=== PATIENT | female | born 1955 | race Caucasian/White ===

== ENCOUNTER 2021-06-17 14:35 | Inpatient (IN) | payer MEDICARE, MEDICAID ==
[~2021-06-17] VITALS: Ht 154.9 cm; Wt 79.6 kg
[~2021-06-17 14:35] MED LIST: BABY81CH; COUM1TAB17; PRIL20CA; SENO8.6T5; [UNRECOGNIZED DRUG - OTHER]
[2021-06-17] MEDS ORDERED: AMIT25TA17 PO (14:56)
[2021-06-17] MEDS ORDERED: ELIQ2.5T PO (14:56)
[2021-06-17 17:09] LABS: BASO % 0.2 % (0.0-1.0); HEMATOCRIT 30.9 % (36.0-47.0); HEMOGLOBIN 10.2 g/dl (12.0-15.5); LYMPH # 1.1 10^3/uL (1.5-5.0); LYMPH % 9.4 % (24.0-44.0); MONO # 0.7 10^3/uL (0.0-0.8); MONO % 5.8 % (2.0-8.0); NEUTROPHILS # 9.5 10^3/uL (1.5-8.5); NEUTROPHILS % 83.6 % (36.0-66.0); PLATELET COUNT, AUTOMATED 270 10^3/uL (150-450); RED BLOOD COUNT 3.09 10^6/uL (4.00-5.40); WHITE BLOOD COUNT 11.4 10^3/uL (4.0-10.0)
[2021-06-17 17:21] LABS: INR 2.11; PROTHROMBIN TIME 24.1 SECONDS (12.7-14.5)
[2021-06-17 17:22] LABS: PARTIAL THROMBOPLASTIN TIME 37.1 SECONDS (25.9-37.0)
[2021-06-17 17:41] LABS: ALBUMIN 1.8 GM/DL (3.2-5.2); BILIRUBIN,DIRECT 1.2 MG/DL (0.0-0.2); BILIRUBIN,TOTAL 1.8 MG/DL (0.2-1.0); CALCIUM LEVEL 7.8 MG/DL (8.8-10.2); CREATININE FOR GFR 3.12 MG/DL (0.55-1.30); POTASSIUM SERUM 4.1 MEQ/L (3.5-5.1); TOTAL PROTEIN 5.4 GM/DL (6.4-8.2)
--- NOTE | 2021-06-17 18:27 | REPVR ---
PROCEDURE INFORMATION: Exam: US Nonobstetric Pelvis; Complete Exam date and time: 06/17/2021 5:32 PM Age: 65 years old Clinical indication: Other: Vaginal bleeding; Additional info: Vaginal bleeding/pelvic pain; Post-menop. TECHNIQUE: Imaging protocol: Transabdominal pelvic nonobstetric ultrasound. Complete exam. Real time ultrasound with image documentation. COMPARISON: No relevant prior studies available. FINDINGS: Uterus/cervix: Uterus measures 8.3 x 3.8 x 5.4 cm. Endometrium measures 13.1 mm. There is heterogeneous uterine echotexture. Endometrium is prominent and heterogeneous. Mildly hyperechoic endometrial focus measuring 2.3 x 1.3 x 2.0 cm. Right adnexa: Right ovary is not visualized. Left adnexa: Left ovary is not visualized. Intraperitoneal space: Ascites is present, incompletely visualized. Urinary bladder: Normal. IMPRESSION: 1. Thickened endometrium with mild endometrial fluid and prominent endometrial mildly hyperechoic focus measuring 2.3 x 1.3 x 2.0 cm. Possible neoplastic process, follow-up is recommended. 2. Ascites is incompletely visualized. 3. Bilateral ovaries are not discretely visualized. Electronically signed by: Levi Townsend On 06/17/2021 18:27:32 PM
[2021-06-17] MEDS ORDERED: NS 1,000 ML IV SCH (19:35)
[2021-06-17] MEDS ORDERED: ERGO500029 PO (20:18)
[2021-06-17] MEDS ORDERED: CARV12.5 PO (20:18)
[2021-06-17] MEDS ORDERED: LISI-898 PO (20:18)
[2021-06-17] MEDS ORDERED: ASPI81TA26 PO (20:18)
[2021-06-17] MEDS ORDERED: LEVOTAB10 PO (20:18)
[2021-06-17] MEDS ORDERED: SIMV20TA22 PO (20:18)
[2021-06-17] MEDS ORDERED: TIZA4TAB4 PO (20:18)
[2021-06-17] MEDS ORDERED: OMEP-218 PO (20:18)
[2021-06-17] MEDS ORDERED: METF500T13 PO (20:18)
[2021-06-17] MEDS: NS 1,000 ML IV SCH ×2 (20:20→23:53)
[2021-06-17] MEDS ORDERED: ACET650T15 PO (20:37)
[2021-06-17] MEDS ORDERED: BENZ200C70 PO (20:37)
[2021-06-17] MEDS ORDERED: HOME MED LIST COMPLETE! XX SCH (20:40)
[2021-06-17 21:18] LABS: RSV AMPLIFICATION NEGATIVE (NEGATIVE)
[2021-06-17] MEDS ORDERED: BENZONATATE 100MG CAPSULE PO PRN (22:20)
[2021-06-17] MEDS ORDERED: AMITRIPTYLINE 25MG TABLET PO PRN ×2 (22:20→22:24)
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
[2021-06-17 22:39] LABS: MAGNESIUM LEVEL 2.1 MG/DL (1.8-2.4)
--- NOTE | 2021-06-17 22:58 | REPVR ---
PROCEDURE INFORMATION: Exam: XR Chest Exam date and time: 06/17/2021 10:52 PM Age: 65 years old Clinical indication: Cough; Additional info: Leuk; Cough TECHNIQUE: Imaging protocol: XR of the chest. Views: 1 view. COMPARISON: No relevant prior studies available. FINDINGS: Lungs: Minimal right basilar atelectasis. Lung meraz are otherwise clear. Pleural spaces: Unremarkable. No pleural effusion. No pneumothorax. Heart/Mediastinum: Unremarkable. No cardiomegaly. Diaphragm: Elevation of the right hemidiaphragm. Bones/joints: Unremarkable. IMPRESSION: No acute cardiopulmonary process. Electronically signed by: Levi Townsend On 06/17/2021 22:57:50 PM
[2021-06-17 23:03] LABS: HEMATOCRIT 27.5 % (36.0-47.0); HEMOGLOBIN 9.3 g/dl (12.0-15.5)
[2021-06-18] MEDS ORDERED: NS 1,000 ML IV ONE
[2021-06-18 04:02] LABS: HEMATOCRIT 26.2 % (36.0-47.0); HEMOGLOBIN 8.9 g/dl (12.0-15.5); MEAN CORPUSCULAR HEMOGLOBIN 34.5 pg (27.0-33.0); MEAN CORPUSCULAR VOLUME 101.6 fl (80.0-96.0); PLATELET COUNT, AUTOMATED 188 10^3/uL (150-450); RED BLOOD COUNT 2.58 10^6/uL (4.00-5.40); WHITE BLOOD COUNT 11.2 10^3/uL (4.0-10.0)
[2021-06-18 04:35] LABS: CREATININE FOR GFR 3.09 MG/DL (0.55-1.30); GLOMERULAR FILTRATION RATE 16.2 (>45)
[2021-06-18 04:43] LABS: LYMPHOCYTES 17 % (16-44); MONOCYTES 2 % (0-5); NEUTROPHILS 78 % (28-66)
[2021-06-18 04:44] LABS: GIANT PLATELETS 1+; PLATELET ESTIMATE NORMAL (NORMAL)
[2021-06-18 08:00] VITALS: BP 142/73
--- NOTE | 2021-06-18 08:07 | CR.PDOC ---
General Date of Consultation: Jun 17, 2021 Consultation REASON FOR CONSULTATION/CHIEF COMPLAINT: Vaginal bleeding. HISTORY OF PRESENT ILLNESS: Ms. Conklin is a 65yo postmenopausal female who presents to the ER with complaints of vaginal bleeding that has increased over the last three days. Today she started experiencing shortness of breath and light headedness that prompted her to come to the hospital for evaluation. Patient went through menopause approx 5 years ago and has not had any episodes of vaginal bleeding prior to this event. Does not receive routine gynecologic care. ALLERGIES: Please see below. HOME MEDICATIONS: Please see below. PAST MEDICAL HISTORY: 1. VTE, currently anticoagulated 2. Obesity 3. GERD 4. Heart murmur 5 GERD 6. CAD PAST SURGICAL HISTORY: 1. 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 Currently in family court in regards to custody Tobacco use: denies ETOH: denies Illicit drug use: denies IV drug use: denies REVIEW OF SYSTEMS: CONSTITUTIONAL: weakness, fatigue, lightheadedness CARDIOVASCULAR: denies CP, palpitations RESPIRATORY: denies shortness of breath GENITOURINARY: see above. GASTROINTESTINAL: recent bout of diarrhea after Abx use. HEMATOLOGIC/LYMPHATIC: chronic lower extremity swelling PHYSICAL EXAMINATION: VITAL SIGNS: Please see below. Per ETC provider: moderate amount of dark red blood in the vaginal vault, no active bleeding on exam LABORATORY DATA: Please see below. ASSESSMENT/PLAN: 1. Postmenopausal bleeding - patient hemodynamically stable at this time - likely increased due to anticoagulation profile - given history of VTE, pt is not a candidate for estrogen therapy and would also avoid TXA - could consider daily treatment with norethidrone (Cat 2) - given findings on ultrasound including ascites, would recommend CT CAP to assess for potential malignancy - patient needs endometrial sampling but is not a good surgical candidate given current JERSEY and INR > 2 - would recommend EMB as an outpatient once medically stable - recommend tumor markers including CA 125, CEA, and CA 19-9, AFP - if patient is willing to be seen in the office, recommend confirmation of appointment date and time prior to discharge Vital Signs/I&O Vital Signs Date Time Temp Pulse Resp B/P (MAP) Pulse Ox O2 Delivery O2 Flow Rate FiO2 06/18/21 06:30 99 20 168/72 (104) 99 Room Air 06/17/21 14:37 98.9 Laboratory Data Labs 24H Laboratory Tests 2 06/17/21 16:57: Immature Granulocyte % (Auto) 1.0, Neutrophils (%) (Auto) 83.6H, Lymphocytes (%) (Auto) 9.4L, Monocytes (%) (Auto) 5.8, Eosinophils (%) (Auto) 0.0, Basophils (%) (Auto) 0.2, Neutrophils # (Auto) 9.5H, Lymphocytes # (Auto) 1.1L, Monocytes # (Auto) 0.7, Eosinophils # (Auto) 0.0, Basophils # (Auto) 0.0, Nucleated Red Blood Cells % (auto) 0.0, Prothrombin Time 24.1H, Prothromb Time International Ratio 2.11, Activated Partial Thromboplast Time 37.1, Anion Gap 11, Glomerular Filtration Rate 16.0L, Calcium Level 7.8L, Magnesium Level 2.1, Total Bilirubin 1.8H, Direct Bilirubin 1.2H, Aspartate Amino Transf (AST/SGOT) 31, Alanine Aminotransferase (ALT/SGPT) 18, Alkaline Phosphatase 111, ZJ-Hoh-D-Type Na triuretic Peptide 2536H, Total Protein 5.4L, Albumin 1.8L, Albumin/Globulin Ratio 0.5L 06/17/21 19:57: Coronavirus (COVID-19)(PCR) NEGATIVE, Influenza Type A (RT-PCR) NEGATIVE, In fluenza Type B (RT-PCR) NEGATIVE, Respiratory Syncytial Virus (PCR) NEGATIVE 06/17/21 22:52: Lactic Acid Level 2.2*H 06/18/21 03:55: Neutrophils (%) (Auto) , Nucleated Red Blood Cells % (auto) 0.0, Anion Gap 11, Glomerular Filtration Rate 16.2L, Calcium Level 7.0L, Neutrophils 78H, Band Neutrophils 3, Lymphocytes (Manual) 17, Monocytes (Manual) 2, Red Blood Cell Morphology NORMAL, Giant Platelets 1+, Platelet Estimate NORMAL, Lactic Acid Followup at 4 Hours 2.1*H CBC/BMP Laboratory Tests 06/17/21 16:57 06/17/21 22:24 06/18/21 03:55 Microbiology Microbiology 06/18/21 Blood Culture, Received Pending Allergies Coded Allergies: No Known Allergies (Unverified , 06/17/21) Home Medications Scheduled Apixaban (Eliquis) 2.5 Mg Tablet, 2.5 MG PO BID, (Reported) Aspirin (Aspirin EC) 81 Mg Tablet.dr, 81 MG PO DAILY, (Reported) Ergocalciferol (Vitamin D2) (Vitamin D2) 50,000 Units Cap, 50,000 UNITS PO 1XWK, (Reported) ON SATURDAYS Levocetirizine Dihydrochloride (Levocetirizine Dihydrochloride) 5 Mg Tablet, 5 MG PO QPM, (Reported) Omeprazole (Omeprazole) 20 Mg Capsule.dr, 20 MG PO DAILY, (Reported) Simvastatin (Simvastatin) 20 Mg Tablet, 20 MG PO DAILY, (Reported) Scheduled PRN Acetaminophen (Acetaminophen ER) 650 Mg Tablet.er, 650 MG PO TID PRN for PAIN LEVEL 1-5, (Reported) Amitriptyline HCl (Amitriptyline HCl) 25 Mg Tablet, 25 MG PO QHS PRN for SLEEP, (Reported) Benzonatate (Benzonatate) 200 Mg Capsule, 200 MG PO TID PRN for COUGH, (Reported) Tizanidine HCl (Tizanidine HCl) 4 Mg Tablet, 4 MG PO DAILY PRN for SPASMS, (Reported) RICKIE RIVERA MD Jun 18, 2021 08:07
[2021-06-18] MEDS ORDERED: ASPIRIN 81MG ENTERIC TABLET PO SCH (09:00)
[2021-06-18] MEDS: OMEPRAZOLE 20 MG CAP PO SCH (09:34)
[2021-06-18] MEDS: ACETAMINOPHEN TAB 650MG DOSE (2X325MG) PO PRN (09:34)
[2021-06-18] MEDS: SIMVASTATIN 20 MG TAB PO SCH (09:34)
[2021-06-18] MEDS: NS 1,000 ML IV SCH ×2 (09:46→11:40)
[2021-06-18] MEDS ORDERED: METOCLOPRAMIDE INJ 10MG/2ML VIAL (J2765 PER 1) IV ONE (10:45)
[2021-06-18] MEDS ORDERED: RIZATRIPTAN BENZOATE 10 MG TAB PO ONE (11:00)
[2021-06-18] MEDS: GASTROGRAFIN SOLUTION 30ML PO SCH (11:40)
[2021-06-18 13:12] LABS: BLOOD UREA NITROGEN 45 MG/DL (7-18); CALCIUM LEVEL 6.5 MG/DL (8.8-10.2); CARBON DIOXIDE LEVEL 21 MEQ/L (21-32); CHLORIDE LEVEL 104 MEQ/L (98-107); CREATININE FOR GFR 3.02 MG/DL (0.55-1.30); GLOMERULAR FILTRATION RATE 16.6 (>45); GLUCOSE, FASTING 151 MG/DL (70-100); POTASSIUM SERUM 3.6 MEQ/L (3.5-5.1); SODIUM LEVEL 136 MEQ/L (136-145)
[2021-06-18 14:03] LABS: CA19-9 TUMOR MARKER,CARBOHYDRA 65.3 U/ML (<35.0)
--- NOTE | 2021-06-18 14:17 | REP ---
INDICATION: ASCITES R/O MALIGNANCY COMPARISON: None. TECHNIQUE: Standard helical technique without intravenous contrast administration. This causes exam limitations. FINDINGS: Limited evaluation of the mediastinum and pulmonary missy shows no evidence of a gross mass or adenopathy. There are no pleural or pericardial effusions. The imaged osseous structures shows an age undetermined grade 3 T9 compression fracture. Evaluation of the lung meraz shows respiratory motion artifact obscuring the detail. No liz abnormal nodules, masses, or opacities are identified. IMPRESSION: There is no evidence of acute intrathoracic disease. Findings and limitations as described above. <Electronically signed by Rakesh Shaw > 06/18/21 [id number]
--- NOTE | 2021-06-18 14:24 | REP ---
INDICATION: ASCITES R/O MALIGNANCY. COMPARISON: 05/27/2009 the only prior TECHNIQUE: Standard helical technique limited by the lack of intravenous contrast. A small amount of oral bowel preparatory contrast was administered. FINDINGS: There is moderate ascites. The examination is limited by artifact, lack of intravenous contrast, and only a small amount of oral bowel preparatory contrast administration. There is diffuse low density throughout the hepatic parenchyma. There has been previous cholecystectomy. There is no evidence of a splenic abnormality. Limited evaluation of the pancreas, adrenal glands, and kidneys show no gross abnormalities. Limited evaluation of the abdominal aorta and para-aortic regions show no gross abnormalities. Limited evaluation of the bowel loops show no gross abnormalities. There are a few gas and fluid-filled mildly dilated small bowel loops seen in a nonspecific fashion. There is no evidence of a mass or adenopathy. Bone window technique throughout the examination shows chronic spinal degenerative changes and a grade 3 T9 age undetermined compression fracture. There is mild diffuse fatty infiltration of the subcutaneous adipose throughout the exam. IMPRESSION: 1. The exam is extremely limited. 2. Ascites as described above. 3. Small bowel ileus is suspected. 4. Small bowel enteropathy or mucosal edema cannot be ruled out. 5. There is diffuse fatty infiltration of the liver. 6. Evidence of early anasarca. 7. Other findings as described above. <Electronically signed by Rakesh Shaw > 06/18/21 [id number]
[2021-06-18 14:55] LABS: CA 125 1321.3 U/ML (<30.2)
[2021-06-18] MEDS ORDERED: NS 1,000 ML IV SCH (14:55)
--- NOTE | 2021-06-18 15:10 | IPN ---
PROGRESS NOTE DATE: 06/18/2021 SUBJECTIVE: The patient complains of headache and migraines this morning, generalized, without nausea or vomiting, or aura. She complains of continued vaginal bleeding. Hemoglobin is down to 8.9, hematocrit of 26.2 from admission of 10.2 and hematocrit of 30. However, patient has been given IV fluids for a creatinine of 3.12. She denies any shortness of breath, chest pain, pressure or tightness. She denies any lightheadedness or dizziness despite menorrhagia. Patient was evaluated by bakery team leader, Dr. Roa who recommended CT of the abdomen and pelvis and chest to rule out malignancy as well as checking alpha fetoprotein, CEA and CA19-9. No other issues per nursing overnight aside from continued vaginal bleeding and headache. OBJECTIVE: VITAL SIGNS: Temperature 98, pulse 99, respiratory rate 16, blood pressure 132/73, 100% on room air. GENERAL: Awake, alert and oriented to person, place and time. Slight pallor. No icterus or jaundice. NECK: No JVD, thyromegaly or supraclavicular lymphadenopathy. LUNGS: Diminished but clear to auscultation. No wheezing, rales or rhonchi. HEART: S1 and S2, sinus rhythm. ABDOMEN: Soft, nondistended, obese with positive fluid wave. EXTREMITIES: Positive edema. LABORATORY DATA/IMAGING STUDIES/MICROBIOLOGY: Have all been reviewed. ASSESSMENT AND PLAN: This is a 65-year-old female admitted on 06/17 with complaints of vaginal bleeding with a history of DVT on chronic anticoagulation. Patient is postmenopausal, last period was about five years ago. She has had two months of chronic diarrhea. She recently had been on antibiotics, Amoxicillin, for a sinus infection. INR was 2.1 on admission. IMPRESSION: 1. Acute kidney injury in the setting of GI loss with diarrhea as well as menorrhagia with possible hypovolemia as an outpatient. 2. Dysfunctional uterine bleeding with a hemoglobin of 10 dropping to 8.9. Ultrasound shows a 2.3 x 1.3 x 2 cm hyperechoic focus. GANG MOWER OPERATOR recommended CT of the chest, abdomen and pelvis, CA19-9, alpha fetoprotein, CEA and CA-125, and transfusion as needed. 3. History of DVT of the right lower extremity on chronic Eliquis, compliant but currently with vaginal bleeding, therefore this has been discontinued and the patient will need to be given blood. Will recheck ultrasound of the lower extremity. 4. Ascites. Rule out neoplasm, most likely endometrial, obtain a CT of the chest, abdomen and pelvis, CA19-9, CEA, alpha fetoprotein, CA-125, GANG MOWER OPERATOR consulted.
[2021-06-18 15:36] LABS: HEMATOCRIT 24.5 % (36.0-47.0); HEMOGLOBIN 8.1 g/dl (12.0-15.5)
[2021-06-18 16:15] LABS: TOTAL PROTEIN 4.7 GM/DL (6.4-8.2)
[2021-06-18 16:49] LABS: HEPATITIS B SURFACE ANTIGEN NEGATIVE (NEGATIVE)
[2021-06-18 17:17] LABS: HEPATITIS B CORE ANTIBODY IGM NEGATIVE (NEGATIVE); HEPATITIS C VIRUS ABY INDEX 0.2 INDEX (<0.8)
[2021-06-18 17:18] LABS: HEPATITIS A ANTIBODY IGM NEGATIVE (NEGATIVE)
[2021-06-18 19:52] VITALS: BP 123/74
[2021-06-18] MEDS: LORATADINE 5 MG HALF-TAB PO SCH (21:40)
[2021-06-18 23:17] LABS: HEMATOCRIT 21.2 % (36.0-47.0)
[2021-06-19] VITALS (10 sets, daily range): BP systolic 108–119; BP diastolic 54–82
[2021-06-19 06:20] LABS: BASO % 0.1 % (0.0-1.0); EOS % 0.1 % (0.0-3.0); HEMATOCRIT 31.1 % (36.0-47.0); LYMPH # 1.2 10^3/uL (1.5-5.0); LYMPH % 12.8 % (24.0-44.0); MEAN CORPUSCULAR HEMOGLOBIN 31.4 pg (27.0-33.0); MEAN CORPUSCULAR HGB CONC 33.1 g/dl (32.0-36.5); MEAN CORPUSCULAR VOLUME 94.8 fl (80.0-96.0); MONO # 0.6 10^3/uL (0.0-0.8); MONO % 5.7 % (2.0-8.0); NEUTROPHILS # 7.7 10^3/uL (1.5-8.5); NEUTROPHILS % 79.5 % (36.0-66.0); PLATELET COUNT, AUTOMATED 143 10^3/uL (150-450); RED BLOOD COUNT 3.28 10^6/uL (4.00-5.40); WHITE BLOOD COUNT 9.7 10^3/uL (4.0-10.0)
[2021-06-19 06:38] LABS: HEMOGLOBIN 10.3 g/dl (12.0-15.5)
[2021-06-19 06:52] LABS: CALCIUM LEVEL 6.3 MG/DL (8.8-10.2); CREATININE FOR GFR 2.78 MG/DL (0.55-1.30); GLOMERULAR FILTRATION RATE 18.3 (>45); POTASSIUM SERUM 3.8 MEQ/L (3.5-5.1)
[2021-06-19] MEDS: SIMVASTATIN 20 MG TAB PO SCH (08:45)
[2021-06-19] MEDS: OMEPRAZOLE 20 MG CAP PO SCH (08:45)
[2021-06-19 11:10] LABS: ALBUMIN 1.94 GM/DL (3.29-5.55); ALBUMIN % 41.3 % (55.8-66.1); ALPHA-1-GLOBULIN % 9.4 % (2.9-4.9); ALPHA-1-GLOBULINS 0.44 GM/DL (0.17-0.41); ALPHA-2-GLOBULINS 0.43 GM/DL (0.42-0.99); ALPHA-2-GLOBULINS % 9.2 % (7.1-11.8); BETA-1-GLOBULINS 0.24 GM/DL (0.28-0.60); BETA-1-GLOBULINS % 5.1 % (4.7-7.2); BETA-2-GLOBULINS 0.29 GM/DL (0.19-0.55); BETA-2-GLOBULINS % 6.1 % (3.2-6.5); GAMMA GLOBULINS 1.36 GM/DL (0.65-1.58)
[2021-06-19] MEDS ORDERED: PHYTONADIONE 5 MG TAB PO ONE (11:30)
[2021-06-19 11:45] LABS: ALBUMIN 1.5 GM/DL (3.2-5.2); BILIRUBIN,DIRECT 1.3 MG/DL (0.0-0.2); BILIRUBIN,TOTAL 2.2 MG/DL (0.2-1.0); TOTAL PROTEIN 4.6 GM/DL (6.4-8.2)
[2021-06-19 14:25] LABS: HEMATOCRIT 31.6 % (36.0-47.0); HEMOGLOBIN 10.6 g/dl (12.0-15.5)
[2021-06-19 14:36] LABS: INR 1.43; PROTHROMBIN TIME 17.8 SECONDS (12.7-14.5)
[2021-06-19 14:37] LABS: PARTIAL THROMBOPLASTIN TIME 30.8 SECONDS (25.9-37.0)
--- NOTE | 2021-06-19 15:45 | IPN ---
PROGRESS NOTE DATE: 06/19/2021 SUBJECTIVE: The patient says that her breathing is much better. She had more energy after being transfused two units of RBC. The patient had significant menorrhagia yesterday with hemoglobin decreasing to 7, status post two units RBC transfusion, still having large blood clots at the bedside. She currently denies any chest pain, pressure, tightness, PND or orthopnea, dizziness, lightheadedness or near syncopal episode. OBJECTIVE: VITALS: Temperature 97.7, pulse 98, respiratory rate 18, blood pressure 114/68, 98% on room air. GENERAL: Awake, alert and oriented to person, place and time. Appears her stated age. No distress, able to complete her sentences. NECK: No JVD, thyromegaly or cervical lymphadenopathy. No pallor or icterus. LUNGS: Diminished but clear to auscultation. No wheezing or rales. HEART: S1, S2, sinus rhythm. ABDOMEN: Distended, positive bowel sounds, positive fluid wave. No rebound or guarding. No hepatosplenomegaly. EXTREMITIES: Chronic edema. LABORATORY DATA/IMAGING STUDIES/MICROBIOLOGY: Have all been reviewed. Notable for creatinine 2.78 from previous creatinine of 3.12. Pelvic ultrasound 06/17 shows thickened endometrium measuring 2.3 x 1.3 x 2 cm, possible neoplastic process and ascites with bilateral ovaries not discretely visualized. CT abdomen and pelvis: Moderate amount of ascites. Small bowel ileus is suspected, small bowel enteropathy or mucosal edema, fatty infiltration of the liver, early anasarca. Chest CT: No acute abnormality. ASSESSMENT AND PLAN: This is a 65-year-old female admitted on 06/17 complaints of vaginal bleeding with a history of DVT on chronic anticoagulation, postmenopausal with last period about five years ago. The patient has had two months of chronic diarrhea, was recently on antibiotics for sinus infection. INR was 2.1 on admission. No prior history of liver cirrhosis. IMPRESSION: 1. Vaginal bleeding with endometrial thickening on ultrasound and significant amount of ascites with elevated CA-125 concerning for gynecologic malignancy, appears to be metastatic with ascites noted on CT abdomen and pelvis. Food Cart Attendant has been consulted. Will try to obtain paracentesis today, ascitic fluid for cytology and diagnostic purposes. Rule out portal hypertension. 2. Acute kidney injury secondary to recent diarrhea, improved slightly on IV fluids but now with anasarca. Will need to give albumin challenge, strict I's and O's, daily weights and avoid nephrotoxins. Renally dose all medications. Awaiting UPEP, SPEP. 3. Symptomatic anemia with acute blood loss secondary to vaginal bleeding, status post two units RBC transfusion. Awaiting results of the paracentesis to see whether patient has gynecological malignancy but with thickening of endometrium with vaginal bleeding and elevated CA-125, CA19-9, alpha fetoprotein have been ordered. 4. Bilateral lower extremity edema, obtain 2D echo. Currently was status post IV fluids for hydration. 5. Depression, anxiety and insomnia continued on Elavil. 6. Obesity complicating care.
[2021-06-19 15:56] LABS: SPEC. GRAVITY BODY FLUIDS 1.008 (NOT ESTABLISHED)
[2021-06-19 16:08] LABS: APPEARANCE, BODY FLUID CLEAR (CLEAR); ASCITES FL COLOR YELLOW (COLORLESS); SOURCE, BODY FLUID ASCITES
[2021-06-19 16:42] LABS: SOURCE, BODY FLUID ALBUMIN ASCITES; SOURCE, BODY FLUID GLUCOSE ASCITES; SOURCE, BODY FLUID TOT PROTEIN ASCITES; TOTAL PROTEIN, BODY FLUID 0.6 G/DL (NOT ESTABLISHED)
--- NOTE | 2021-06-19 17:15 | REP ---
INDICATION: ascites r/o malignancy endometrial thick bleed [id number]. COMPARISON: None. TECHNIQUE: The procedure was performed under the direct supervision of Dr. Kamara. The risks and benefits of the procedure were explained to the patient and informed consent was obtained. The largest pocket of fluid was localized in the right flank using ultrasound guidance. The skin was prepped and draped in a sterile fashion. 6 mL of 1% lidocaine was used as a local anesthetic. An 8-Peruvian multi side-hole catheter was inserted using trocar technique.2200 mL of clear yellow fluid was withdrawn and sent to the lab for analysis. Estimated blood loss: Less than 1 mL The patient tolerated the procedure well and there were no immediate complications. After the appropriate amount of monitored convalescence, the patient was discharged from the department. FINDINGS: None IMPRESSION: Ultrasound-guided paracentesis [id number] mL of clear yellow fluid. <Electronically signed by Garrison Bernard > 06/19/21 [id number] <Electronically signed by Jm Kamara > 06/19/21 [id number]
[2021-06-19] MEDS: LORATADINE 5 MG HALF-TAB PO SCH (20:16)
[2021-06-20] VITALS (8 sets, daily range): BP systolic 97–126; BP diastolic 52–83
[2021-06-20 06:19] LABS: BASO % 0.1 % (0.0-1.0); EOS % 0.1 % (0.0-3.0); HEMATOCRIT 28.2 % (36.0-47.0); HEMOGLOBIN 9.4 g/dl (12.0-15.5); LYMPH # 1.7 10^3/uL (1.5-5.0); LYMPH % 11.6 % (24.0-44.0); MEAN CORPUSCULAR HEMOGLOBIN 31.3 pg (27.0-33.0); MEAN CORPUSCULAR HGB CONC 33.3 g/dl (32.0-36.5); MONO # 0.9 10^3/uL (0.0-0.8); NEUTROPHILS % 80.3 % (36.0-66.0); PLATELET COUNT, AUTOMATED 193 10^3/uL (150-450); WHITE BLOOD COUNT 14.9 10^3/uL (4.0-10.0)
[2021-06-20 06:44] LABS: CALCIUM LEVEL 6.6 MG/DL (8.8-10.2); CREATININE FOR GFR 2.97 MG/DL (0.55-1.30); GLOMERULAR FILTRATION RATE 16.9 (>45); POTASSIUM SERUM 4.4 MEQ/L (3.5-5.1)
[2021-06-20] MEDS: SIMVASTATIN 20 MG TAB PO SCH (09:22)
[2021-06-20] MEDS: OMEPRAZOLE 20 MG CAP PO SCH (09:22)
[2021-06-20] MEDS: MIDODRINE 5 MG TAB PO SCH ×3 (09:22→16:30)
--- NOTE | 2021-06-20 11:34 | IPNPDOC ---
Date Seen The patient was seen on 06/20/21. Progress Note SUBJECTIVE: Patient says that she feels much much better today after the paracentesis done yesterday she denies any dizziness lightheadedness Or shortness of breath no fever chills overnight despite low blood pressure this morning she denies any symptoms of orthostasis OBJECTIVE: VITALS: See below GENERAL: No distress no jaundice NECK: No JVD, thyromegaly or cervical lymphadenopathy. No pallor or icterus. LUNGS: Diminished but clear to auscultation. No wheezing or rales. HEART: S1, S2, sinus rhythm. ABDOMEN: Less distended distended, positive bowel sounds, No rebound or guarding. No hepatosplenomegaly. EXTREMITIES: Chronic edema. LABORATORY DATA/IMAGING STUDIES/MICROBIOLOGY: Have all been reviewed. Notable for creatinine 2.78 from previous creatinine of 3.12. Pelvic ultrasound 06/17 shows thickened endometrium measuring 2.3 x 1.3 x 2 cm, possible neoplastic process and ascites with bilateral ovaries not discretely visualized. CT abdomen and pelvis: Moderate amount of ascites. Small bowel ileus is suspected, small bowel enteropathy or mucosal edema, fatty infiltration of the liver, early anasarca. Chest CT: No acute abnormality. ASSESSMENT AND PLAN: This is a 65-year-old female admitted on 06/17 complaints of vaginal bleeding with a history of DVT on chronic anticoagulation, postmenopausal with last period about five years ago. The patient has had two months of chronic diarrhea, was recently on antibiotics for sinus infection. INR was 2.1 on admission. No prior history of liver cirrhosis. IMPRESSION: 1. Vaginal bleeding with endometrial thickening on ultrasound and significant amount of ascites with elevated CA-125 concerning for gynecologic malignancy, appears to be metastatic with ascites noted on CT abdomen and pelvis. Binding Cutter Synthetic Cloth has been consulted. Per Dr. Sirena Matute , patient will need referral to gynecologic oncologist in [place] with Dr. Francois For total abdominal hysterectomy and debulking surgery after pathology confirms malignancy. Status post 06-19-2021 paracentesis Sent ascitic fluid for cytology 2. Acute kidney injury secondary to recent diarrhea, improved slightly on IV fluids but now with anasarca. Will need to give albumin infusion due to low blood pressure strict I's and O's, daily weights and avoid nephrotoxins. Renally dose all medications. Unsure whether the patient has any nephrotic type disease causing anasarca and renal failure, sent urine for proteinuria SPEP UPEP. Silk Printer consulted for assistance in management of patient's fluid balance With third spacing and hypotension 3. Symptomatic anemia with acute blood loss secondary to vaginal bleeding, status post two units RBC transfusion. Awaiting results of the paracentesis to see whether patient has gynecological malignancy but with thickening of endometrium with vaginal bleeding and elevated CA-125, CA19-9, alpha fetoprotein have been ordered. 4. Bilateral lower extremity edema, obtain 2D echo. status post IV fluids for hydration. But due to hypoalbuminemia patient will need Albumin transfusions 5. Depression, anxiety and insomnia continued on Elavil. 6. Obesity complicating care. 7. Hypotension. Start on midodrine 3 times daily albumin transfusion To help improve patient's creatinine and stabilize her blood pressure. Disposition: until patient's creatinine improves. VS, [facility]&O[facility]/I&O Vital Signs Date Time Temp Pulse Resp B/P (MAP) Pulse Ox O2 Delivery O2 Flow Rate FiO2 06/20/21 06:00 97.1 91 16 97/52 (67) 97 Room Air I&O- Last 24 Hours up to 6 AM 06/20/21 06:00 Intake Total 1010 ml Output Total 0 ml Balance 1010 ml Laboratory Data 24H LABS Laboratory Tests 2 06/19/21 14:10: Prothrombin Time 17.8H, Prothromb Time International Ratio 1.43, Activated Partial Thromboplast Time 30.8 06/19/21 15:30: Body Fluid Source ASCITES, Body Fluid Color YELLOW, Body Fluid Appearance CLEAR, Body Fluid Specific [place] 1.008, Body Fluid WBC (Auto) 86H, Body Fluid RBC (Auto) < 2, Body Fluid Mononuclear Cells % Auto 48.8H, Fluid Polymorphonuclear Cell % Auto 51.2H, Body Fluid Glucose Source ASCITES, Body Fluid Glucose 158, Body Fluid Protein Source ASCITES, Body Fluid Total Protein 0.6, Body Fluid Albumin Source ASCITES, Body Fluid Albumin 0.1 06/20/21 05:43: Immature Granulocyte % (Auto) 1.9, Neutrophils (%) (Auto) 80.3H, Lymphocytes (%) (Auto) 11.6L, Monocytes (%) (Auto) 6.0, Eosinophils (%) (Auto) 0.1, Basophils (%) (Auto) 0.1, Neutrophils # (Auto) 12.0H, Lymphocytes # (Auto) 1.7, Monocytes # (Auto) 0.9H, Eosinophils # (Auto) 0.0, Basophils # (Auto) 0.0, Nucleated Red Blood Cells % (auto) 0.3H, Anion Gap 10, Glomerular Filtration Rate 16.9L, Calcium Level 6.6L CBC/BMP Laboratory Tests 06/19/21 14:10 06/20/21 05:43 Microbiology Microbiology 06/19/21 Acid Fast Stain, Received Pending 06/19/21 Mycobacterial Culture, Received Pending 06/19/21 Fungal Smear, Received Pending 06/19/21 Fungal Culture, Received Pending 06/19/21 Gram Stain - Final, Resulted 06/19/21 Body Fluid Culture, Resulted Pending 06/18/21 Blood Culture - Preliminary, Resulted No Growth after 48 hours. All Specime... KENRDICK PERRY MD Jun 20, 2021 11:34
--- NOTE | 2021-06-20 16:34 | CR ---
NEPHROLOGY CONSULTATION DATE: 06/20/2021 REASON FOR CONSULTATION: Acute on chronic kidney disease. HISTORY OF PRESENT ILLNESS: Mrs. Conklin is a 65-year-old female who looks quite older than her stated age. She has multiple chronic medical problems including history of deep venous thrombosis (DVT), history of gastroesophageal reflux disease, history of morbid obesity and degenerative disc disease. She presented to the emergency room with vaginal bleeding and was found to have severe anemia. She was also found to have a serum creatinine of 3.1. Patient had ascites and paracentesis was done. A nephrology consultation was requested and patient is seen this morning. PAST MEDICAL HISTORY: Significant for: 1. History of degenerative disc disease. 2. Morbid obesity. 3. History of left lower extremity fracture in the past. 4. History of right lower extremity deep venous thrombosis (DVT). 5. History of chronic bilateral lower extremity edema. 6. History of gastroesophageal reflux disease. 7. History of vaginal bleeding. 8. History of anemia. PAST SURGICAL HISTORY: Significant for: Left lower extremity surgery for fracture. MEDICATIONS: Her home medications include: - Eliquis 2.5 mg twice a day - aspirin 81 mg daily - vitamin D 50,000 units once a week - levocetirizine 5 mg daily - omeprazole 20 mg daily - simvastatin 20 mg daily ALLERGIES: No known drug allergies. FAMILY HISTORY: Significant for breast cancer in her sister and cervical cancer in her niece. PERSONAL AND SOCIAL HISTORY: Patient denies any alcohol and drug use. PSYCHOSOCIAL HISTORY: Significant for anxiety and stress related to custody issue of her granddaughter. REVIEW OF SYSTEMS: CONSTITUTIONAL: Patient denies any fever or chills. She reports that her menstruation periods stopped about six years ago and now, all of a sudden, started to have vaginal bleeding over the weekend. EARS, NOSE AND THROAT: Unremarkable. CARDIOVASCULAR SYSTEM: Significant for chronic lower extremity edema. She reports some dyspnea on exertion. RESPIRATORY SYSTEM: Negative for hemoptysis or pleuritic-type chest pain. GASTROINTESTINAL (GI) SYSTEM: Significant for recent history of diarrhea. She denies any abdominal pain at present. GENITOURIARY () SYSTEM: Significant for heavy vaginal bleeding requiring transfusions. MUSCULOSKELETAL SYSTEM: Significant for degenerative disc disease, chronic arthritis and leg edema. ENDOCRINE SYSTEM: Negative for diabetes or thyroid problems. HEMATOLOGICAL SYSTEM: Significant for chronic anticoagulation due to prior deep venous thrombosis (DVT). She also has history of chronic sinusitis and has been treated with antibiotic. PHYSICAL EXAMINATION: GENERAL: Elderly female laying in the bed without any acute distress. She is pale-looking, but without any acute distress. VITAL SIGNS: Temperature 97 degrees Fahrenheit, heart rate 90 per minute, respiratory rate 16 per minute, blood pressure 97/52 mmHg, oxygen saturation 97% on room air. HEAD: Atraumatic. NECK: Supple and jugular venous distention (JVD) not abnormally elevated. HEART SOUNDS: Regular with a systolic murmur grade 1/6. LUNGS: Clear to auscultation. ABDOMEN: Obese and asymmetrical. She has ascites and also, her right upper quadrant is quite prominent. Bowel sounds are present. EXTREMITIES: Without any cyanosis or clubbing. She has lower extremity edema, about 1+ bilaterally. SKIN: No rash or ulcers. NEUROLOGIC: She is awake and without a focal neurologic deficit. LABORATORY DATA: On June 18, 2021, her hemoglobin was 7 and hematocrit 21.2. She has been transfused 2 units of packed red blood cells (PRBCs). Today, hemoglobin 9.4 and hematocrit 28.2, WBC 4.9. Her BUN was 45 and creatinine 3.0 on June 18, 2021. On the day of admission, BUN was 44 and creatinine 3.1. Today, BUN is 61 and creatinine 2.97, sodium 133 and potassium 4.4, calcium level is 6.6. Total protein 4.6 and albumin 1.5. Her CA125 antigen is 1321, CA19-9 antigen is 65.3 and CEA is 3.5. PROBLEMS: 1. Acute on chronic kidney disease. Patient did have CAT scan of abdomen and pelvis done on June 18, 2021 and I have reviewed it independently. She has bilaterally small kidneys without any hydronephrosis. I feel that her kidney disease is mostly chronic. She did have a history of diarrhea; however, her diarrhea has improved now and she has peripheral edema, which is probably suggestive of no dehydration. 2. Hyponatremia. She has mild hyponatremia, probable due to the intravenous (IV) fluids that have been given. At this point, there is no emergent need for any intervention. 3. Hypotension. She has been already started on midodrine 10 mg three times a day. I feel that she can benefit from intravenous albumin, as her serum albumin level is very low. 4. Protein calorie malnutrition. Most likely, this is chronic and patient should be encouraged for high protein intake. This could also be related to malignancy. 5. Vaginal bleeding. Most likely, she has uterine malignancy. She tells me that facilities technician wants to see her in the office and then plan for a possible hysterectomy. Thank you for involving me in the care of Mrs. Conklin. I will follow her along with you.
[2021-06-20] MEDS ORDERED: tiZANidine 4 MG TAB PO PRN (19:15)
[2021-06-20] MEDS: LORATADINE 5 MG HALF-TAB PO SCH (20:33)
[2021-06-21] VITALS (18 sets, daily range): BP systolic 90–137; BP diastolic 53–72
[2021-06-21 06:23] LABS: BASO % 0.1 % (0.0-1.0); EOS % 0.4 % (0.0-3.0); LYMPH # 1.7 10^3/uL (1.5-5.0); LYMPH % 15.3 % (24.0-44.0); MEAN CORPUSCULAR VOLUME 94.1 fl (80.0-96.0); MONO # 0.7 10^3/uL (0.0-0.8); MONO % 5.9 % (2.0-8.0); NEUTROPHILS # 8.5 10^3/uL (1.5-8.5); NEUTROPHILS % 76.6 % (36.0-66.0); PLATELET COUNT, AUTOMATED 137 10^3/uL (150-450); RED BLOOD COUNT 2.03 10^6/uL (4.00-5.40); WHITE BLOOD COUNT 11.1 10^3/uL (4.0-10.0)
[2021-06-21 06:27] LABS: HEMATOCRIT 19.1 % (36.0-47.0); HEMOGLOBIN 6.5 g/dl (12.0-15.5)
[2021-06-21 06:43] LABS: CALCIUM LEVEL 6.3 MG/DL (8.8-10.2); CREATININE FOR GFR 2.81 MG/DL (0.55-1.30); POTASSIUM SERUM 3.7 MEQ/L (3.5-5.1)
--- NOTE | 2021-06-21 09:00 | IPNPDOC ---
Date Seen The patient was seen on 06/21/21. Progress Note SUBJECTIVE: soaked diapers w continued menorrhagia. no sob, but c/o weakness. no cp, palpitations, dizziness, or lightheadedness OBJECTIVE: VITALS: See below GENERAL: No distress no jaundice +pale. no distress NECK: No JVD, thyromegaly or cervical lymphadenopathy. No icterus. LUNGS: Diminished but clear to auscultation. No wheezing or rales. HEART: S1, S2, sinus rhythm. ABDOMEN: Less distended distended, positive bowel sounds, No rebound or guarding. No hepatosplenomegaly. EXTREMITIES: Chronic edema. LABORATORY DATA/IMAGING STUDIES/MICROBIOLOGY: Have all been reviewed. Notable for creatinine 2.78 from previous creatinine of 3.12. Pelvic ultrasound 06/17 shows thickened endometrium measuring 2.3 x 1.3 x 2 cm, possible neoplastic process and ascites with bilateral ovaries not discretely visualized. CT abdomen and pelvis: Moderate amount of ascites. Small bowel ileus is suspected, small bowel enteropathy or mucosal edema, fatty infiltration of the liver, early anasarca. Chest CT: No acute abnormality. ASSESSMENT AND PLAN: This is a 65-year-old female admitted on 06/17 complaints of vaginal bleeding with a history of DVT on chronic anticoagulation, postmenopausal with last period about five years ago. The patient has had two months of chronic diarrhea, was recently on antibiotics for sinus infection. INR was 2.1 on admission. No prior history of liver cirrhosis. IMPRESSION: 1. Vaginal bleeding , recurrent supportive care with total of 3u rbc transfusion today and 1 more ffp. with endometrial thickening on ultrasound and significant amount of ascites with elevated CA-125 concerning for gynecologic malignancy, appears to be metastatic with ascites noted on CT abdomen and pelvis. Member Of Technical Staff has been consulted. Per Dr. Sirena Matute , patient will need referral to gynecologic oncologist in [place] with Dr. Francois For total abdominal hysterectomy and debulking surgery after pathology confirms malignancy. Status post 06-19-2021 paracentesis Sent ascitic fluid for cytology 2. Acute kidney injury secondary to recent diarrhea, improved slightly on IV fluids but now with anasarca.s/p albumin infusion due to low blood pressure strict I's and O's, daily weights and avoid nephrotoxins. Renally dose all medications. nephrology consulted. 3. Symptomatic anemia with acute blood loss secondary to vaginal bleeding, status post two units RBC transfusion. Awaiting results of the paracentesis to see whether patient has gynecological malignancy but with thickening of endometrium with vaginal bleeding and elevated CA-125, CA19-9, alpha fetoprotein have been ordered. per piano mechanic apprentice, need piano mechanic apprentice onc in [place]. transfuse to keep hgb>9. still has ongoing bleed. 4. Bilateral lower extremity edema, obtain 2D echo. status post IV fluids for hydration. But due to hypoalbuminemia patient will need Albumin transfusions 5. Depression, anxiety and insomnia continued on Elavil. 6. Obesity complicating care. 7. Hypotension. resolved on midodrine 3 times daily albumin transfusion To help improve patient's creatinine and stabilize her blood pressure. Disposition: until patient's bleeding stops and creatinine improved 2-3days. VS, I&O, 24H, [facility] Vital Signs/I&O Vital Signs Date Time Temp Pulse Resp B/P (MAP) Pulse Ox O2 Delivery O2 Flow Rate FiO2 06/21/21 06:01 97.9 97 18 114/53 (73) 98 Room Air I&O- Last 24 Hours up to 6 AM 06/21/21 06:00 Intake Total 1494 ml Balance 1494 ml Laboratory Data 24H LABS Laboratory Tests 2 06/20/21 21:13: Bedside Glucose (Misc Panel) 173H 06/21/21 05:48: Immature Granulocyte % (Auto) 1.7, Neutrophils (%) (Auto) 76.6H, Lymphocytes (%) (Auto) 15.3L, Monocytes (%) (Auto) 5.9, Eosinophils (%) (Auto) 0.4, Basophils (%) (Auto) 0.1, Neutrophils # (Auto) 8.5, Lymphocytes # (Auto) 1.7, Monocytes # (Auto) 0.7, Eosinophils # (Auto) 0.0, Basophils # (Auto) 0.0, Nucleated Red Blood Cells % (auto) 0.4H, Anion Gap 11, Glomerular Filtration Rate 18.0L, Calcium Level 6.3L CBC/BMP Laboratory Tests 06/21/21 05:48 Microbiology Microbiology 06/19/21 Acid Fast Stain, Received Pending 06/19/21 Mycobacterial Culture, Received Pending 06/19/21 Fungal Smear, Received Pending 06/19/21 Fungal Culture, Received Pending 06/19/21 Gram Stain - Final, Resulted 06/19/21 Body Fluid Culture, Resulted Pending 06/18/21 Blood Culture - Preliminary, Resulted No Growth after 72 hours. All specime... KENDRICK PERRY MD Jun 21, 2021 09:00
[2021-06-21] MEDS ORDERED: SUCRALFATE 1 GM TAB PO ONE (09:15)
[2021-06-21] MEDS ORDERED: PANTOPRAZOLE 40MG TAB (PROTONIX) PO ONE (09:15)
[2021-06-21] MEDS: SIMVASTATIN 20 MG TAB PO SCH (09:25)
[2021-06-21] MEDS: MIDODRINE 5 MG TAB PO SCH ×3 (09:25→16:47)
[2021-06-21] MEDS: SUCRALFATE 1 GM TAB PO SCH ×3 (12:34→20:22)
[2021-06-21] MEDS ORDERED: NORE5TAB PO (16:56)
[2021-06-21] MEDS ORDERED: zolPIDEM TARTRATE 5 MG TAB PO PRN (17:30)
[2021-06-21] MEDS ORDERED: MORPHINE 30 MG TAB **MSIR PO ONE (18:00)
[2021-06-21] MEDS ORDERED: PILL CUTTER 1 EACH XX PRN (18:00)
--- NOTE | 2021-06-21 18:35 | IPN ---
NEPHROLOGY PROGRESS NOTE DATE: 06/17/2021 SUBJECTIVE: Miss Conklin is seen this morning at her bedside. She is feeling tired. She is currently laying in the bed on her right side. She continues to have vaginal bleeding and nursing staff reports that she did have some blood clots. Her hemoglobin is down to 6.5 today. She denies any nausea, vomiting, dyspnea or chest pain. OBJECTIVE: PHYSICAL EXAMINATION: VITAL SIGNS: Temperature is 97.6 degrees Fahrenheit, heart rate 85 per minute and respiratory rate 20 per minute. Blood pressure is about 109/62 mm of mercury and oxygen saturation is 100% on room air. GENERAL APPEARANCE: She is pale looking but not in any acute distress. HEENT: Head is atraumatic. NECK: Veins are difficult to be assessed. HEART: Sounds are regular. LUNGS: Clear to auscultation. ABDOMEN: Soft and mild right upper quadrant tenderness and fullness is present. Bowel sounds are normal. EXTREMITIES: Without any cyanosis or clubbing. Lower extremity edema is at least 1+. LABORATORY STUDIES: Today's labs show a sodium of 133, potassium 3.7, CO2 22, BUN 57 and creatinine 2.81. Glucose 128 and calcium 6.3. WBC count today is 11.1, hemoglobin 6.5 and hematocrit 19.1. PROBLEMS: 1. Acute kidney injury superimposed on chronic kidney disease her creatinine was 3.0 on June 18 and now gradually has come down to 2.81 today. This is a slight improvement. The patient does not have any uremic symptoms and no evidence of metabolic acidosis at present. There is no emergent need for dialysis. 2. Acute blood loss anemia she continues to have vaginal bleeding and hemoglobin has dropped significantly. She is going to have 2 or 3 units of packed RBCs transfused today. I would recommend to recheck her CBC after transfusion. She probably needs to have a PAINT FACTORY WORKER intervention sooner than later. 3. Hypoalbuminemia this is probably related to malignancy and malnutrition. Most likely this is contributing to her peripheral edema. 4. Recent vaginal bleeding she has very high CA-125 and CA-19-9 antigen which is probably due to malignancy. She is waiting for a PAINT FACTORY WORKER evaluation.
[2021-06-21] MEDS: LORATADINE 5 MG HALF-TAB PO SCH (20:22)
[2021-06-21] MEDS: NORETHINDRONE 5 MG PO SCH (20:55)
[2021-06-21] MEDS ORDERED: MORPHINE 30 MG TAB **MSIR PO PRN (21:00)
[2021-06-21 21:47] LABS: HEMATOCRIT 32.7 % (36.0-47.0)
[2021-06-21 22:27] LABS: HEMOGLOBIN 11.3 g/dl (12.0-15.5)
[2021-06-22] MEDS: UNRESOLVED PATIENT OWN MED ORDER XX SCH (00:01)
[2021-06-22 06:00] VITALS: BP 100/64
[2021-06-22 06:31] LABS: BASO % 0.1 % (0.0-1.0); EOS # 0.1 10^3/uL (0.0-0.5); EOS % 0.6 % (0.0-3.0); HEMATOCRIT 32.6 % (36.0-47.0); HEMOGLOBIN 11.2 g/dl (12.0-15.5); LYMPH # 1.8 10^3/uL (1.5-5.0); LYMPH % 13.1 % (24.0-44.0); MEAN CORPUSCULAR HEMOGLOBIN 30.6 pg (27.0-33.0); MEAN CORPUSCULAR HGB CONC 34.4 g/dl (32.0-36.5); MEAN CORPUSCULAR VOLUME 89.1 fl (80.0-96.0); MONO # 0.8 10^3/uL (0.0-0.8); MONO % 5.4 % (2.0-8.0); NEUTROPHILS % 78.6 % (36.0-66.0); PLATELET COUNT, AUTOMATED 121 10^3/uL (150-450); RED BLOOD COUNT 3.66 10^6/uL (4.00-5.40); WHITE BLOOD COUNT 13.9 10^3/uL (4.0-10.0)
[2021-06-22 06:47] LABS: CALCIUM LEVEL 6.3 MG/DL (8.8-10.2); CREATININE FOR GFR 2.7 MG/DL (0.55-1.30); GLOMERULAR FILTRATION RATE 18.9 (>45); POTASSIUM SERUM 3.8 MEQ/L (3.5-5.1)
[2021-06-22] MEDS: SIMVASTATIN 20 MG TAB PO SCH (08:22)
[2021-06-22] MEDS: PANTOPRAZOLE 40MG TAB (PROTONIX) PO SCH (08:23)
[2021-06-22] MEDS: SUCRALFATE 1 GM TAB PO SCH ×4 (08:23→21:31)
[2021-06-22] MEDS: NORETHINDRONE 5 MG PO SCH (08:23)
[2021-06-22] MEDS: MIDODRINE 5 MG TAB PO SCH ×3 (08:23→16:10)
[2021-06-22] MEDS ORDERED: ONDANSETRON 4MG/2ML VIAL IV PRN (08:50)
[2021-06-22] MEDS ORDERED: ONDANSETRON 4MG/2ML VIAL IV ONE (08:50)
--- NOTE | 2021-06-22 10:01 | IPNPDOC ---
Date Seen The patient was seen on 06/22/21. Progress Note SUBJECTIVE: Despite requiring 5 units of RBC transfusion due to severe anemia with hemoglobin dropping down to 6 patient currently denies any shortness of breath chest pain pressure tightness lightheadedness dizziness PND orthopnea. She denies any fever chills or cough Per nursing since the norethindrone had been started her bleeding has decreased. Paracentesis cytology was negative for malignancy. COMMERCIAL LINES UNDERWRITER to reevaluate the patient for Endometrial biopsy due to thickened endometrium elevated tumor markers And vaginal bleeding requiring 5 units of RBC transfusion. OBJECTIVE: VITALS: See below Input output reviewed Transfusion record: 5 units RBC transfused 4 units fresh frozen plasma t ransfused GENERAL: No pallor icterus jaundice speaks in full sentences without conversational dyspnea or tripod positioning or use of respiratory accessory muscles no cyanosis NECK: No JVD, thyromegaly or cervical lymphadenopathy. No icterus. LUNGS: Diminished but clear to auscultation. No wheezing or rales. HEART: S1, S2, sinus rhythm. ABDOMEN: Increased distention since her paracentesis positive bowel sounds, No rebound or guarding. No hepatosplenomegaly. EXTREMITIES: Chronic edema. LABORATORY DATA/IMAGING STUDIES/MICROBIOLOGY: Have all been reviewed. Notable for creatinine 2.78 from previous creatinine of 3.12. Pelvic ultrasound 06/17 shows thickened endometrium measuring 2.3 x 1.3 x 2 cm, possible neoplastic process and ascites with bilateral ovaries not discretely visualized. CT abdomen and pelvis: Moderate amount of ascites. Small bowel ileus is suspected, small bowel enteropathy or mucosal edema, fatty infiltration of the liver, early anasarca. Chest CT: No acute abnormality. ASSESSMENT AND PLAN: This is a 65-year-old female admitted on 06/17 complaints of vaginal bleeding with a history of DVT on chronic anticoagulation, postmenopausal with last period about five years ago. The patient has had two months of chronic diarrhea, was recently on antibiotics for sinus infection. INR was 2.1 on admission. No prior history of liver cirrhosis. IMPRESSION: Vaginal bleeding with Symptomatic anemia and acute blood loss -thickened endometrium on CT abdomen and pelvis and elevated CEA a 125 CA 19-9 -Most likely due to endometrial malignancy -COMMERCIAL LINES UNDERWRITER Dr. Roa consulted and recommended norethindrone -Cytology on ascitic fluid was negative for malignancy -COMMERCIAL LINES UNDERWRITER Dr. Bruno contacted regarding endometrial biopsy due to vaginal bleeding and possible uterine cancer -Status post 5 units RBC transfusion with stable hemoglobin -Hemodynamically stable but required midodrine Acute kidney injury on chronic kidney disease -Managed by physician/internist Dr. Plascencia -Initially thought to be secondary to hypovolemia from diarrhea and vaginal bleeding -Strict I's and O's Daily weights -avoiding nephrotoxins and renally dosing all medications Coagulopathy with portal hypertension -CT shows no cirrhosis of the liver, but ascitic fluid consistent with portal hypertension -Status post albumin infusion midodrine for hypotension -We will check a liver ultrasound with Doppler Anasarca -Abdominal distention as needed pain medications avoid acetaminophen products -Awaiting 2D echo liver ultrasound with Doppler to rule out liver as a contributing factor -Despite negative cytology on paracentesis ascitic fluid, high suspicion for malignancy of COMMERCIAL LINES UNDERWRITER origin Depression/anxiety -Resumed on home medications insomnia -Slept well last night Obesity -Complicating care Hypotension. resolved on midodrine 3 times daily Disposition: Awaiting clinical renal improvement and endometrial biopsy [facility]O Vital Signs Date Time Temp Pulse Resp B/P (MAP) Pulse Ox O2 Delivery O2 Flow Rate FiO2 06/22/21 06:00 97.7 95 12 100/64 (76) 96 Room Air I&O- Last 24 Hours up to 6 AM 06/22/21 05:59 Intake Total 3265 ml Output Total 0 ml Balance 3265 ml Laboratory Data 24H LABS Laboratory Tests 2 06/22/21 05:56: Immature Granulocyte % (Auto) 2.2, Neutrophils (%) (Auto) 78.6H, Lymphocytes (%) (Auto) 13.1L, Monocytes (%) (Auto) 5.4, Eosinophils (%) (Auto) 0.6, Basophils (%) (Auto) 0.1, Neutrophils # (Auto) 11.0H, Lymphocytes # (Auto) 1.8, Monocytes # (Auto) 0.8, Eosinophils # (Auto) 0.1, Basophils # (Auto) 0.0, Nucleated Red Blood Cells % (auto) 0.4H, Anion Gap 12, Glomerular Filtration Rate 18.9L, Calcium Level 6.3L CBC/BMP Laboratory Tests 06/21/21 21:39 06/22/21 05:56 Microbiology Microbiology 06/19/21 Acid Fast Stain, Received Pending 06/19/21 Mycobacterial Culture, Received Pending 06/19/21 Fungal Smear, Received Pending 06/19/21 Fungal Culture, Received Pending 06/19/21 Gram Stain - Final, Complete 06/19/21 Body Fluid Culture - Final, Complete 06/18/21 Blood Culture - Preliminary, Resulted No Growth after 72 hours. All specime... KENDRICK PERRY MD Jun 22, 2021 09:53
[2021-06-22 12:32] VITALS: BP 96/60
--- NOTE | 2021-06-22 13:08 | IPN ---
PROGRESS NOTE DATE: 06/22/2021 Ms. Conklin is seen this morning on her bedside. She is feeling about the same. She is very weak and mostly bed ridden. She has massive bleeding from vagina and has required multiple transfusions. She also had very elevated CA 19-9 antigen and CA-125 antigen with possible metastatic malignancy. PHYSICAL EXAMINATION: Temperature 97.7 degrees Fahrenheit, heart rate 96 per minute, respiratory rate 12 per minute. Blood pressure 100/64 mmHg, and oxygen saturation 96% on room air. Head is atraumatic. Neck supple and jugular venous distention (JVD) difficult to be assessed. Her lungs are clear to auscultation. Heart sounds are regular. Abdomen soft, nontender, and bowel sounds are present. She has ascites in the lower abdomen. Extremities without any cyanosis or clubbing. Lower extremity edema is 1+ bilaterally. Neurologically she is at her baseline mentation. Today's labs show sodium 133, potassium 3.8, CO2 of 19, BUN 57, and creatinine 2.70. Glucose 130 and calcium 6.3. Hemoglobin is 11.2 and hematocrit 32.6. PROBLEMS: 1. Acute kidney injury superimposed on chronic kidney disease. Slight improvement in kidney function. She did not have any hydronephrosis or hydroureter. At this point, she has no uremic symptoms. She is not a suitable dialysis candidate due to her significant metastatic burden. I am optimistic that her kidney function is likely to get better over next few days. 2. Protein-calorie malnutrition. She has low serum albumin level of 1.5. She has a poor appetite and not eating much. She is being encouraged to increase her protein intake. 3. Anemia. Her anemia has improved significantly following transfusion. On June 21 morning her hemoglobin was 6.5. She received 2 units of packed red blood cells (RBC) and later yesterday her hemoglobin was up to 11.3. Today it is stable at 11.2. 4. Vaginal bleeding. Most likely she has endometrial malignancy. A CT scan with IV contrast or PET scan can be considered for extent of disease and malignancy. She has advanced renal failure and not a suitable candidate for IV contrast at present. 5. Hypertension. Blood pressure seems reasonably better with midodrine 5 mg three times a day, which should be continued.
[2021-06-22 14:00] VITALS: BP 134/94
--- NOTE | 2021-06-22 14:40 | IPNPDOC ---
Date Seen The patient was seen on 06/22/21. Progress Note SUBJECTIVE: Still bleeding, but thinks it is less. no pain. Has acid reflux. OBJECTIVE PHYSICAL EXAMINATION: VITAL SIGNS: Please see below. GENERAL: NAD HEENT: NCAT CARDIOVASCULAR: RRR. RESPIRATORY: Clear to auscultation. ABDOMINAL: Distended, tense with ascites. Bowel sounds present. Nontender. EXTREMITIES: Nontender LABORATORY DATA, IMAGING STUDIES, MICROBIOLOGY: Please see below. ASSESSMENT AND PLAN: This is a 65-year-old female with postmenopausal bleeding and symptomatic anemia.. 1. Recommend hysteroscopy with D&C during hospitalization to rule out endometrial malignancy. 2. Plan to make the patient n.p.o. after midnight with procedure to be done in the morning 3. High likelihood of malignancy, however primary source is not clear. 4. Could be an endometrial cancer primary or metastatic lesion to the uterus. 5. Elevated CEA and CA 19 9 suggestive of mucinous tumor which could represent GI primary 6. The D&C procedure should be done during this hospitalization because she may continue to bleed heavily in the absence of any intervention. VS, I&O, 24H, [facility] Vital Signs/I&O Vital Signs Date Time Temp Pulse Resp B/P (MAP) Pulse Ox O2 Delivery O2 Flow Rate FiO2 06/22/21 12:32 96/60 (72) 06/22/21 06:00 97.7 95 12 96 Room Air I&O- Last 24 Hours up to 6 AM 06/22/21 05:59 Intake Total 3265 ml Output Total 0 ml Balance 3265 ml Laboratory Data 24H LABS Laboratory Tests 2 06/22/21 05:56: Immature Granulocyte % (Auto) 2.2, Neutrophils (%) (Auto) 78.6H, Lymphocytes (%) (Auto) 13.1L, Monocytes (%) (Auto) 5.4, Eosinophils (%) (Auto) 0.6, Basophils (%) (Auto) 0.1, Neutrophils # (Auto) 11.0H, Lymphocytes # (Auto) 1.8, Monocytes # (Auto) 0.8, Eosinophils # (Auto) 0.1, Basophils # (Auto) 0.0, Nucleated Red Blood Cells % (auto) 0.4H, Anion Gap 12, Glomerular Filtration Rate 18.9L, Calcium Level 6.3L CBC/BMP Laboratory Tests 06/21/21 21:39 06/22/21 05:56 Microbiology Microbiology 06/19/21 Acid Fast Stain, Received Pending 06/19/21 Mycobacterial Culture, Received Pending 06/19/21 Fungal Smear, Received Pending 06/19/21 Fungal Culture, Received Pending 06/19/21 Gram Stain - Final, Complete 06/19/21 Body Fluid Culture - Final, Complete 06/18/21 Blood Culture - Preliminary, Resulted No Growth after 72 hours. All specime... ALICIA HICKS MD Jun 22, 2021 14:40
[2021-06-22] MEDS: LORATADINE 5 MG HALF-TAB PO SCH (21:31)
[2021-06-22 22:00] VITALS: BP 103/70
[2021-06-23] VITALS (8 sets, daily range): BP systolic 98–127; BP diastolic 57–80
[2021-06-23] MEDS: UNRESOLVED PATIENT OWN MED ORDER XX SCH (00:01)
[2021-06-23 06:34] LABS: BASO % 0.2 % (0.0-1.0); EOS # 0.1 10^3/uL (0.0-0.5); EOS % 0.4 % (0.0-3.0); HEMATOCRIT 32.6 % (36.0-47.0); HEMOGLOBIN 11.1 g/dl (12.0-15.5); LYMPH # 2.3 10^3/uL (1.5-5.0); LYMPH % 13.4 % (24.0-44.0); MEAN CORPUSCULAR VOLUME 91.1 fl (80.0-96.0); MONO % 5.7 % (2.0-8.0); NEUTROPHILS # 13.3 10^3/uL (1.5-8.5); NEUTROPHILS % 77.9 % (36.0-66.0); PLATELET COUNT, AUTOMATED 154 10^3/uL (150-450); RED BLOOD COUNT 3.58 10^6/uL (4.00-5.40)
[2021-06-23 07:01] LABS: CALCIUM LEVEL 6.3 MG/DL (8.8-10.2); CREATININE FOR GFR 2.77 MG/DL (0.55-1.30); GLOMERULAR FILTRATION RATE 18.3 (>45); POTASSIUM SERUM 3.9 MEQ/L (3.5-5.1)
[2021-06-23] MEDS: SUCRALFATE 1 GM TAB PO SCH ×4 (07:30→22:28)
[2021-06-23] MEDS: MIDODRINE 5 MG TAB PO SCH ×2 (07:40→12:00)
[2021-06-23] MEDS: NORETHINDRONE 5 MG PO SCH (07:40)
[2021-06-23] MEDS: PANTOPRAZOLE 40MG TAB (PROTONIX) PO SCH (07:41)
[2021-06-23] MEDS: SIMVASTATIN 20 MG TAB PO SCH (07:41)
--- NOTE | 2021-06-23 10:07 | REP ---
INDICATION: wbc 17 sob cough. COMPARISON: Portable chest, 06/17/2021. TECHNIQUE: Upright AP portable chest image was obtained. FINDINGS: There is chronic elevation of the right hemidiaphragm. There is compressive atelectasis of the right lung base. The lungs are otherwise clear. The heart borders and mediastinum are normal. The upper abdominal bowel gas pattern is normal. IMPRESSION: 1. Elevation of the right hemidiaphragm with compressive atelectasis of the adjacent portion of the right lung. 2. No evidence of acute cardiopulmonary pathology and no significant change. <Electronically signed by Justus Lucio > 06/23/21 1007
--- NOTE | 2021-06-23 10:43 | IPNPDOC ---
Date Seen The patient was seen on 06/23/21. Progress Note SUBJECTIVE: N.p.o. for D&C today and endometrial biopsy due to elevated CA-125 and Vaginal bleeding requiring 5 units of RBC transfusion. Patient's abdomen is increasingly distended despite paracentesis with 2.2 L removed cytology negative for malignancy. Due to elevated CA 19-9 possible GI source, Will need to consult GI or general surgery for colonoscopy. She currently denies nausea vomiting diarrhea abdominal pain despite abdominal distention fever chills cough or shortness of breath OBJECTIVE: VITALS: See below Input output reviewed Transfusion record: 5 units RBC transfused 4 units fresh frozen plasma transfused GENERAL: Lying in the left lateral position appears to be comfortable with no use of respiratory accessory muscles or conversational dyspnea NECK: No JVD, thyromegaly or cervical lymphadenopathy. No icterus. LUNGS: Diminished but clear to auscultation. No wheezing or rales. HEART: S1, S2, sinus rhythm. ABDOMEN: Increased distention since her paracentesis positive bowel sounds, No rebound or guarding. No hepatosplenomegaly. EXTREMITIES: Chronic edema. LABORATORY DATA/IMAGING STUDIES/MICROBIOLOGY: Have all been reviewed. Notable for creatinine 2.78 from previous creatinine of 3.12. Pelvic ultrasound 06/17 shows thickened endometrium measuring 2.3 x 1.3 x 2 cm, possible neoplastic process and ascites with bilateral ovaries not discretely visualized. CT abdomen and pelvis: Moderate amount of ascites. Small bowel ileus is suspected, small bowel enteropathy or mucosal edema, fatty infiltration of the liver, early anasarca. Chest CT: No acute abnormality. ASSESSMENT AND PLAN: This is a 65-year-old female admitted on 06/17 complaints of vaginal bleeding with a history of DVT on chronic anticoagulation, postmenopausal with last period about five years ago. The patient has had two months of chronic diarrhea, was recently on antibiotics for sinus infection. INR was 2.1 on admission. No prior history of liver cirrhosis. IMPRESSION: Vaginal bleeding with Symptomatic anemia and acute blood loss -thickened endometrium on CT abdomen and pelvis and elevated CEA a 125 CA 19-9 -Most likely due to endometrial malignancy -SPIRITS MODEL Dr. Roa consulted and recommended norethindrone which decreased patient's bleeding -Cytology on ascitic fluid was negative for malignancy -SPIRITS MODEL Dr. Bruno will be doing a dilation and curettage today 06/23/2021 -Status post 5 units RBC transfusion with stable hemoglobin -Hemodynamically stable but required midodrine Acute kidney injury on chronic kidney disease -Managed by back tacker Dr. Plascencia -Initially thought to be secondary to hypovolemia from diarrhea and vaginal bleeding -Strict I's and O's Daily weights -avoiding nephrotoxins and renally dosing all medications -This may be the patient's baseline creatinine -she appears to be euvolemic at this time but still on midodrine Coagulopathy with portal hypertension -CT shows no cirrhosis of the liver, but ascitic fluid consistent with portal hypertension -Status post albumin infusion midodrine for hypotension -We will check a liver ultrasound with Doppler to rule out portal vein thrombosis Elevated tumor marker CA 19-9 CA-125 -Most likely malignant ascites from possible SPIRITS MODEL or GI source -We will need to do colonoscopy with biopsy after dilation curettage with endometrial biopsy for pathology -If SPIRITS MODEL malignancy is confirmed patient will need referral to Dr. Francois SPIRITS MODEL oncologist in [place] -Abdominal distention as needed pain medications avoid acetaminophen products -Awaiting 2D echo report liver ultrasound with Doppler to rule out liver as a contributing factor -Despite negative cytology on paracentesis ascitic fluid, high suspicion for malignancy of SPIRITS MODEL origin Depression/anxiety -Resumed on home medications insomnia -Slept well last night Obesity -Complicating care Hypotension. resolved on midodrine 3 times daily Disposition: Awaiting confirmation of malignancy with endometrial biopsy status post dilation and curettage and will need to plan for colonoscopy with biopsy due to elevated CA 19-9. VS, I&O, 24H, Fishbone Vital Signs/I&O Vital Signs Date Time Temp Pulse Resp B/P (MAP) Pulse Ox O2 Delivery O2 Flow Rate FiO2 06/23/21 06:00 98.1 87 12 107/70 (82) 97 Room Air I&O- Last 24 Hours up to 6 AM 06/23/21 06:00 Intake Total 630 ml Output Total 0 ml Balance 630 ml Laboratory Data 24H LABS Laboratory Tests 2 06/23/21 05:52: Immature Granulocyte % (Auto) 2.4, Neutrophils (%) (Auto) 77.9H, Lymphocytes (%) (Auto) 13.4L, Monocytes (%) (Auto) 5.7, Eosinophils (%) (Auto) 0.4, Basophils (%) (Auto) 0.2, Neutrophils # (Auto) 13.3H, Lymphocytes # (Auto) 2.3, Monocytes # (Auto) 1.0H, Eosinophils # (Auto) 0.1, Basophils # (Auto) 0.0, Nucleated Red B lood Cells % (auto) 0.3H, Anion Gap 11, Glomerular Filtration Rate 18.3L, Calcium Level 6.3L CBC/BMP Laboratory Tests 06/23/21 05:52 Microbiology Microbiology 06/19/21 Acid Fast Stain, Received Pending 06/19/21 Mycobacterial Culture, Received Pending 06/19/21 Fungal Smear, Received Pending 06/19/21 Fungal Culture, Received Pending 06/19/21 Gram Stain - Final, Complete 06/19/21 Body Fluid Culture - Final, Complete 06/18/21 Blood Culture - Final, Complete NO GROWTH AFTER 5 DAYS KENDRICK PERRY MD Jun 23, 2021 10:43
--- NOTE | 2021-06-23 10:47 | ECHO ---
ECHOCARDIOGRAM DATE OF PROCEDURE: 06/19/2021 Age: Gender: Height: 155 cm Weight: 87 kg REFERRING PHYSICIAN: Dr. Michelle Rosenberg INDICATION: Localized edema, unspecified. 2D MEASUREMENTS: LVOT 1.79 cm Ventricular septum 1.00 cm Posterior wall 0.97 cm Left ventricle diastole 4.4 cm Left ventricle systole 3.0 cm Proximal ascending aorta 3.1 cm Left atrial volume index 21 DOPPLER MEASUREMENTS: No aortic stenosis. No aortic regurgitation. Aortic valve velocity 120 cm/s LVOT velocity 103 cm/s Moderate mitral regurgitation. No mitral stenosis. Mitral E velocity 66.5 cm/s Mitral A velocity 94.1 cm/s Mitral deceleration time 251 msec Mild tricuspid regurgitation Estimated right ventricle systolic pressure 23-28 mmHg Estimated right atrial pressure of 5-10 mmHg Trace pulmonic regurgitation. MITRAL ANNULAR TISSUE DOPPLER: E prime septal 4.7 cm/s E prime lateral 8.1 cm/s DESCRIPTION: Rhythm was sinus. Imaging quality was fair. Subcostal window was technically difficult for visualization. No pericardial effusion. CONCLUSIONS: 1. Ascites. 2. Normal left ventricle internal dimensions and wall thickness. Hyperdynamic LV systolic function. Normal regional LV wall motion abnormalities. Grade 1 LV diastolic dysfunction. Normal left atrial size by left atrial volume index. 3. Suggestive of normal estimated right ventricle systolic pressure. CVP could not be estimated, because the IVC could not be visualized adequately. 4. Mild mitral annular calcification. Moderate mitral regurgitation.
[2021-06-23] MEDS ORDERED: PHENYLephrine 500MCG 5ML (100MCG/ML) SYRINGE As Ordered ONE (12:57)
[2021-06-23] MEDS ORDERED: ePHEDrine SULFATE 25 MG/5 ML(5MG/ML) SYRINGE As Ordered ONE (12:57)
[2021-06-23] MEDS ORDERED: MIDAZOLAM INJ 2MG/2ML VIAL (J2250 PER 1MG) As Ordered ONE (13:12)
[2021-06-23] MEDS ORDERED: ROCURONIUM BROMIDE 50 MG/5 ML VIAL As Ordered ONE (13:12)
[2021-06-23] MEDS ORDERED: LIDOCAINE 2% 100MG/5ML SDV (FOR ANES.) As Ordered ONE (13:12)
[2021-06-23] MEDS ORDERED: propofoL 200 MG/20 ML VIAL As Ordered ONE (13:12)
[2021-06-23] MEDS ORDERED: ONDANSETRON 4MG/2ML VIAL As Ordered ONE (13:12)
[2021-06-23] MEDS ORDERED: dexameTHASONE 4 MG/ML 1ML VIAL (J1100 PER 1MG) As Ordered ONE (13:12)
[2021-06-23] MEDS ORDERED: SUCCINYLCHOLINE 100 MG/5 ML SYRINGE (J0330) As Ordered ONE (13:12)
[2021-06-23] MEDS ORDERED: fentaNYL 100 MCG/2 ML INJECTION (J3010) As Ordered ONE (13:33)
--- NOTE | 2021-06-23 14:35 | IPN ---
NEPHROLOGY PROGRESS NOTE DATE: 06/23/2021 SUBJECTIVE: Ms. Conklin is seen this morning on her bedside. She is getting ready to go to the operating room (OR) and nursing staff reports that she is scheduled for a dilatation and curettage (D and C). She had massive bleeding and has required multiple transfusions. Patient denies any dyspnea or chest pain. She remains very weak and mostly bed bound. PHYSICAL EXAMINATION: VITAL SIGNS: Temperature 97.4 degrees Fahrenheit, heart rate 90 per minute, respiratory rate 18 per minute, blood pressure 114/59 mmHg, oxygen saturation 99% on 2 liters oxygen. HEAD: Atraumatic. NECK: Supple and jugular venous distention (JVD) difficult to be assessed. HEART SOUNDS: Regular. LUNGS: Slightly diminished breath sounds at the bases. ABDOMEN: Obese and ascites is present. There is no tenderness. Bowel sounds are normal. EXTREMITIES: Without any cyanosis or clubbing. Lower extremity edema is unchanged. NEUROLOGIC: She is awake, alert and oriented times three. LABORATORY DATA: Today's labs show WBC 17.0, hemoglobin 11.1, hematocrit 32.6, platelets 154. Sodium 132, potassium 3.9, CO2 20, BUN 63, creatinine 2.77, glucose 115, calcium 6.7. PROBLEMS: 1. Acute kidney injury superimposed on chronic kidney disease. Essentially no change in kidney function over the last five days. She does not have any uremic symptoms. She did not have any hydronephrosis on her CAT scan of abdomen and pelvis. At this point, she is not dehydrated and not on any nephrotoxic medications. We will continue to monitor her kidney function. It is likely that her kidney problem is related to hepatorenal issue. 2. Ascites. Patient does have significant ascites. She did have a paracentesis and peritoneal fluid has been reported negative for malignant cells. 3. Vaginal bleeding requiring transfusions. She had massive bleeding and has been transfused a total of 5 units packed red blood cells and at least 4 units of fresh frozen plasma. She is scheduled for a dilatation and curettage (D and C) today. 4. Hyponatremia. She has mild hyponatremia, which is stable and does not need any urgent intervention.
--- NOTE | 2021-06-23 14:47 | ROOPDOC ---
[facility] Report Of Operation Report of Operation DATE OF PROCEDURE: 06/23/21 PREPROCEDURE DIAGNOSES: Postmenopausal bleeding POSTPROCEDURE DIAGNOSES: Same. PROCEDURE PERFORMED: Hysteroscopy, D&C. SURGEON: Alicia Hicks MD CONSULT: Dr. Elías Moser MD ANESTHESIA: GETA. ESTIMATED BLOOD LOSS: Approximately 50 mL. COMPLICATIONS: None. FINDINGS: Normal-appearing cervix. Mildly enlarged uterus. Thick endometrial tissue with a scalloped appearance of both anterior and posterior surface of the endometrium diffusely. Endometrial findings suspicious for carcinoma. No uterovaginal prolapse present. Massive rectal prolapse observed. SPECIMENS REMOVED: Endometrial curettings PROCEDURE NOTE: The patient was taken to the operating room where general endotracheal anesthesia was induced. She was prepped and draped in a sterile fashion in the dorsal lithotomy position. A massively enlarged rectal prolapse was immediately noted. It became more prominent during the case as the patient was under anesthesia with muscle relaxation. A speculum was placed in the vagina. The anterior lip of the cervix was grasped with a tenaculum. The cervix was dilated with tapered dilators. A moderate amount of blood was noted coming through the cervix. A diagnostic hysteroscope using normal saline as the distention media was inserted through the internal os. The hysteroscope was removed. Sharp curettage was performed. Specimen of endometrial curettings was sent to pathology. All instruments removed. The massive rectal prolapse extended approximately 12 cm outside the body. The tissue was pink and did not appear to be incarcerated. Dr. Elías Moser from general surgery was called. He examined the rectal prolapse under anesthesia. He reduced the rectal prolapse so that the patient could be taken out of anesthesia. No further treatment rendered by Dr. Moser at that time. Sponge and instrument counts correct. The patient was extubated and went to recovery room in stable condition. ALICIA HICKS MD Jun 23, 2021 14:47
[2021-06-23] MEDS: LORATADINE 5 MG HALF-TAB PO SCH (22:28)
--- NOTE | 2021-06-24 06:12 | IPNPDOC ---
Date Seen The patient was seen on 06/24/21. Progress Note SUBJECTIVE: Bleeding is minimal, still with acid reflux symptoms OBJECTIVE PHYSICAL EXAMINATION: VITAL SIGNS: Please see below. GENERAL: NAD, cachectic HEENT: NCAT CARDIOVASCULAR: RRR. RESPIRATORY: CTA. ABDOMINAL: NT, distended, tense EXTREMITIES: NT Large rectal prolapse LABORATORY DATA, IMAGING STUDIES, MICROBIOLOGY: Please see below. ASSESSMENT AND PLAN: 65 yo with vaginal bleeding and severe anemia, along with acute kidney injury PROBLEMS: 1. Vaginal bleeding: Continue progesterone daily. Could switch to Provera 10 mg daily if necessary since it is on formulary here. Otherwise, could stay with Norethrindrone. OR procedure done yesterday; results highly suspicious for endometrial cancer. Pathology pending 2. rectal prolapse: This is a significant problem due to the extensive nature of the prolapse. It is possible the ascites is due to congestion of the GI tract from obstruction of venous drainage due to prolapse. In addition this may be causing an ileus-like picture. Her poor nutrition that results adds to to ascites from her low albumin state. The rectal prolapse will have to be addressed by a colorectal surgeon after discharge. 3. Elevated tumor markers: Certainly have suspicion for GI malignancy. Will need evaluation for this via colonoscopy when feasible. VS, I&O, 24H, Fishbone Vital Signs/I&O Vital Signs Date Time Temp Pulse Resp B/P (MAP) Pulse Ox O2 Delivery O2 Flow Rate FiO2 06/23/21 22:00 97.5 87 18 98/57 (71) 94 Room Air 06/23/21 14:04 2.0 l I&O- Last 24 Hours up to 6 AM 06/24/21 06:00 Intake Total 745 ml Output Total 150 ml Balance 595 ml Laboratory Data Microbiology Microbiology 06/19/21 Acid Fast Stain, Received Pending 06/19/21 Mycobacterial Culture, Received Pending 06/19/21 Fungal Smear, Received Pending 06/19/21 Fungal Culture, Received Pending 06/19/21 Gram Stain - Final, Complete 06/19/21 Body Fluid Culture - Final, Complete 06/18/21 Blood Culture - Final, Complete NO GROWTH AFTER 5 DAYS ALICIA HICKS MD Jun 24, 2021 06:12
[2021-06-24 06:36] LABS: BASO % 0.1 % (0.0-1.0); EOS % 0.1 % (0.0-3.0); HEMATOCRIT 35.6 % (36.0-47.0); HEMOGLOBIN 12.3 g/dl (12.0-15.5); LYMPH # 1.5 10^3/uL (1.5-5.0); LYMPH % 10.1 % (24.0-44.0); MEAN CORPUSCULAR HEMOGLOBIN 31.5 pg (27.0-33.0); MEAN CORPUSCULAR HGB CONC 34.6 g/dl (32.0-36.5); MEAN CORPUSCULAR VOLUME 91.3 fl (80.0-96.0); MONO # 0.9 10^3/uL (0.0-0.8); MONO % 5.9 % (2.0-8.0); NEUTROPHILS # 12.4 10^3/uL (1.5-8.5); NEUTROPHILS % 82.8 % (36.0-66.0); PLATELET COUNT, AUTOMATED 211 10^3/uL (150-450)
[2021-06-24 06:47] VITALS: BP 115/61
[2021-06-24 07:08] LABS: CALCIUM LEVEL 6.7 MG/DL (8.8-10.2); CREATININE FOR GFR 2.91 MG/DL (0.55-1.30); GLOMERULAR FILTRATION RATE 17.3 (>45); POTASSIUM SERUM 4.2 MEQ/L (3.5-5.1)
[2021-06-24] MEDS: UNRESOLVED PATIENT OWN MED ORDER XX SCH (08:17)
[2021-06-24] MEDS: SUCRALFATE 1 GM TAB PO SCH ×4 (09:51→20:37)
[2021-06-24 10:00] VITALS: BP 116/66
[2021-06-24] MEDS: SIMVASTATIN 20 MG TAB PO SCH (10:01)
[2021-06-24] MEDS: PANTOPRAZOLE 40MG TAB (PROTONIX) PO SCH (10:01)
[2021-06-24] MEDS: NORETHINDRONE 5 MG PO SCH (10:01)
[2021-06-24] MEDS ORDERED: MORPHINE 30 MG TAB **MSIR PO ONE (10:15)
[2021-06-24] MEDS: SODIUM BICARBONATE 325 MG TAB PO SCH ×2 (10:27→20:37)
[2021-06-24] MEDS: ACETAMINOPHEN TAB 650MG DOSE (2X325MG) PO PRN (11:05)
--- NOTE | 2021-06-24 13:27 | IPNPDOC ---
Date Seen The patient was seen on 06/24/21. Progress Note SUBJECTIVE: Patient denies any nausea vomiting fever chills vaginal bleeding she complains of increasing abdominal distention fluid retention And bilateral lower quadrant abdominal pain rated at 8 out of 10 on the pain scale described as crampy without radiation OBJECTIVE: VITALS: See below Input output reviewed GENERAL: No distress speaks in full sentences positive fluid wave NECK: No JVD, thyromegaly or cervical lymphadenopathy. No icterus. LUNGS: Diminished but clear to auscultation. No wheezing or rales. HEART: S1, S2, sinus rhythm. ABDOMEN: Increased distention since her paracentesis positive bowel sounds, No rebound or guarding. No hepatosplenomegaly. Positive fluid wave. EXTREMITIES: Chronic edema. LABORATORY DATA/IMAGING STUDIES/MICROBIOLOGY: Have all been reviewed. Notable for creatinine 2.78 from previous creatinine of 3.12. Pelvic ultrasound 06/17 shows thickened endometrium measuring 2.3 x 1.3 x 2 cm, possible neoplastic process and ascites with bilateral ovaries not discretely visualized. CT abdomen and pelvis: Moderate amount of ascites. Small bowel ileus is suspected, small bowel enteropathy or mucosal edema, fatty infiltration of the liver, early anasarca. Chest CT: No acute abnormality. ASSESSMENT AND PLAN: This is a 65-year-old female admitted on 06/17 complaints of vaginal bleeding with a history of DVT on chronic anticoagulation, postmenopausal with last period about five years ago. The patient has had two months of chronic diarrhea, was recently on antibiotics for sinus infection. INR was 2.1 on admission. No prior history of liver cirrhosis. IMPRESSION: Vaginal bleeding with Symptomatic anemia and acute blood loss -thickened endometrium on CT abdomen and pelvis and elevated CEA a 125 CA 19-9 -Most likely due to endometrial malignancy -CONDOMINIUM MANAGER Dr. Roa consulted and recommended norethindrone which decreased patient's bleeding and without recurrent bleeding since norethindrone was started. -Cytology on ascitic fluid was negative for malignancy -CONDOMINIUM MANAGER Dr. Bruno performed a dilation and curettage on 06/23/2021, awaiting biopsy report -Status post 5 units RBC transfusion with stable hemoglobin -Hemodynamically stable taken off midodrine she continues to have fluid wave and Acute kidney injury on chronic kidney disease -Managed by migration agent Dr. Plascencia -Initially thought to be secondary to hypovolemia from diarrhea and vaginal bleeding -Strict I's and O's Daily weights -avoiding nephrotoxins and renally dosing all medications -This may be the patient's baseline creatinine -Increasing abdominal distention Coagulopathy with portal hypertension -CT shows no cirrhosis of the liver, but ascitic fluid consistent with portal hypertension -Status post albumin infusion status post midodrine for hypotension -A liver ultrasound with Doppler to rule out portal vein thrombosis hypotension -Due to volume loss from vaginal bleeding, third spacing and anasarca -Required midodrine albumin transfusions -Does not appear to be septic Elevated tumor marker CA 19-9 CA-125 -Most likely malignant ascites from possible CONDOMINIUM MANAGER or GI source -We will need to do colonoscopy with biopsy after dilation curettage with endometrial biopsy for pathology -If CONDOMINIUM MANAGER malignancy is confirmed patient will need referral to Dr. Francois CONDOMINIUM MANAGER oncologist in [place] Anasarca -Abdominal distention as needed pain medications avoid acetaminophen products -Ordered liver ultrasound with Doppler to rule out liver as a contributing factor -Despite negative cytology on paracentesis ascitic fluid, high suspicion for malignancy of CONDOMINIUM MANAGER origin Depression/anxiety -Resumed on home medications insomnia -Slept well last night Obesity -Complicating care Hypotension. resolved on midodrine 3 times daily Disposition: Pending clinical improvement and work-up for malignancy may need colonoscopy due to elevated CA 19-9 if negative CONDOMINIUM MANAGER malignancy VS, I&O, 24H, Fishbone Vital Signs/I&O Vital Signs Date Time Temp Pulse Resp B/P (MAP) Pulse Ox O2 Delivery O2 Flow Rate FiO2 06/24/21 10:00 98.5 91 16 116/66 (83) 98 Room Air 06/23/21 14:04 2.0 I&O- Last 24 Hours up to 6 AM 06/24/21 06:00 Intake Total 745 ml Output Total 150 ml Balance 595 ml Laboratory Data 24H LABS Laboratory Tests 2 06/24/21 06:09: Immature Granulocyte % (Auto) 1.0, Neutrophils (%) (Auto) 82.8H, Lymphocytes (%) (Auto) 10.1L, Monocytes (%) (Auto) 5.9, Eosinophils (%) (Auto) 0.1, Basophils (%) (Auto) 0.1, Neutrophils # (Auto) 12.4H, Lymphocytes # (Auto) 1.5, Monocytes # (Auto) 0.9H, Eosinophils # (Auto) 0.0, Basophils # (Auto) 0.0, Nucleated Red Blood Cells % (auto) 0.1H, Anion Gap 13, Glomerular Filtration Rate 17.3L, Calcium Level 6.7L CBC/BMP Laboratory Tests 06/24/21 06:09 Microbiology Microbiology 06/19/21 Acid Fast Stain, Received Pending 06/19/21 Mycobacterial Culture, Received Pending 06/19/21 Fungal Smear, Received Pending 06/19/21 Fungal Culture, Received Pending 06/19/21 Gram Stain - Final, Complete 06/19/21 Body Fluid Culture - Final, Complete 06/18/21 Blood Culture - Final, Complete NO GROWTH AFTER 5 DAYS KENDRICK PERRY MD Jun 24, 2021 13:19
[2021-06-24] MEDS ORDERED: SODIUM BICARBONATE 8.4% INJ 50MEQ 50 ML VIAL As Ordered ONE (14:43)
[2021-06-24 15:56] LABS: SPEC. GRAVITY BODY FLUIDS 1.008 (NOT ESTABLISHED)
[2021-06-24 15:59] LABS: SOURCE, BODY FLUID ALBUMIN PERITONEAL
[2021-06-24 16:04] LABS: SOURCE, BODY FLUID GLUCOSE PERITONEAL; SOURCE, BODY FLUID TOT PROTEIN PERITONEAL; TOTAL PROTEIN, BODY FLUID 0.6 G/DL (NOT ESTABLISHED)
--- NOTE | 2021-06-24 16:24 | REP ---
INDICATION: portal htn r/o portal vein thrombosis. COMPARISON: None. TECHNIQUE: Sonographic evaluation of right upper quadrant and portal vasculature is attempted. FINDINGS: Due to body habitus the liver, pancreas and right kidney are not visualized. The portal vasculature could not be visualized. Small amount of perihepatic fluid is seen. IMPRESSION: Nondiagnostic exam. <Electronically signed by Jm Kamara > 06/24/21 [id number]
[2021-06-24 17:03] VITALS: BP 107/53
[2021-06-24 17:18] VITALS: BP 107/66
[2021-06-24 17:27] LABS: APPEARANCE, BODY FLUID HAZY (CLEAR); PERITONEAL FL COLOR YELLOW (COLORLESS); SOURCE, BODY FLUID PERITONEAL
--- NOTE | 2021-06-24 18:06 | REP ---
INDICATION: ascites The patient has a history of ascites COMPARISON: None. TECHNIQUE: The procedure was performed by SATISH Hartmann, under the direct supervision of Dr. Emerson The risks and benefits of the procedure were explained to the patient and an informed consent was obtained both verbally and written. Directly prior to the start of the procedure a formal time-out was completed in the procedure room. The largest pocket of fluid was localized in the right flank using ultrasound guidance. The skin was prepped and draped in a sterile fashion. Eleven ML of buffered lidocaine was used as a local anesthetic. An 8-Kiswahili multi side-hole catheter was inserted using trocar technique. FINDINGS: 2900 mL of yellow ascites was removed, 1300 was sent to the laboratory for further analysis, and the rest was discarded. The patient tolerated the procedure well and there were no immediate complications. After the appropriate amount of monitored convalescence, the patient was discharged from the department. IMPRESSION: Ultrasound-guided paracentesis with removal of 2900 mL of yellow ascites. <Electronically signed by Misty Grissom > 06/24/21 1550 <Electronically signed by Rico Emerson > 06/24/21 [id number]
[2021-06-24 18:50] LABS: ABG BASE EXCESS -7.5 (-2.0-2.0); ABG HCO3 14.7 MEQ/L (22.0-26.0); ABG O2 SATURATION 97.1 % (95.0-99.0); ABG PARTIAL PRESSURE CO2 22.4 mmHg (35.0-45.0); ABG PARTIAL PRESSURE O2 94.1 mmHg (75.0-100.0); ABG STANDARD HCO3 18.4 MEQ/L (22.0-26.0); ABG TOTAL CO2 15.4 MEQ/L (23.0-31.0); ABG pH (ARTERIAL) 7.436 UNITS (7.350-7.450)
[2021-06-24] MEDS: LORATADINE 5 MG HALF-TAB PO SCH (20:38)
[2021-06-24 21:00] VITALS: BP 109/65
--- NOTE | 2021-06-24 21:28 | IPNPDOC ---
Subjective CC/HPI The patient is a 65-year-old female admitted with a reason for visit of Raul,Menorrhagia. Events since last encounter s/p DIC done yesterday. Highly suspicious for Ca Endometrium, moaning, No significant improvement in renal function. General: Reports: Fatigue, Malaise; Denies: Chills, Night Sweats Constitutional: Reports: Weakness; Denies: Chills, Fever, Malaise Eyes: Denies: Pain, Vision change, Conjunctivae inflammation, Eyelid inflammation, Redness, Other ENT: Denies: Head Aches, Ear Pain, Dysphagia, Sinus Congestion, Post Nasal Drip, Sore Throat, Epistaxis, Other Symptoms Skin: Denies: Rash, Lesions, Jaundice, Bruising, Itching, Dry, Breakdown, Nail Changes, Other Pulmonary: Denies: Dyspnea, Cough, Pleuritic Chest Pain, Other Symptoms Cardiovascular: Denies: Chest Pain, Palpitations, Orthopnea Gastrointestinal: Reports: Abdominal Pain, Other Symptoms (Rectal prolapse) Genitourinary: Denies: Dysuria, Frequency Hematologic: Reports: Other Hematologic (Menorrhagia) Endocrine: Denies: Polydipsia, Polyphagia Musculoskeletal: Reports: Back Pain, Muscle Pain Neurological: Reports: Weakness Psych: Reports: Depression Objective Physical Examination General Exam: Alert, Mild Distress EYE EXAM: PERRLA, Conjunctiva & lids normal ENT EXAM: Atraumatic, Mucous membr. moist/pink Neck Exam: Supple; No: JVD Chest Exam: Clear to auscultation, Normal air movement Heart Exam: Rate Normal, Normal S1, Normal S2, Other (1+ edema of ankles) ABDOMEN EXAM: Soft, Tenderness (generalized abd tenderness) Extremity Exam: Edema Skin Exam: Nl turgor and temperature Neuro Exam: Normal Speech Psych Exam: Other (Depressed mood, moaning) Vital Signs/I&O Vital Signs Date Time Temp Pulse Resp B/P (MAP) Pulse Ox O2 Delivery O2 Flow Rate FiO2 06/24/21 17:18 98.9 94 16 107/66 95 Room Air 06/23/21 14:04 2.0 I&O- Last 24 Hours up to 6 AM 06/24/21 06:00 Intake Total 745 ml Output Total 150 ml Balance 595 ml Laboratory Data Labs 24H Laboratory Tests 2 06/24/21 06:09: Immature Granulocyte % (Auto) 1.0, Neutrophils (%) (Auto) 82.8H, Lymphocytes (%) (Auto) 10.1L, Monocytes (%) (Auto) 5.9, Eosinophils (%) (Auto) 0.1, Basophils (%) (Auto) 0.1, Neutrophils # (Auto) 12.4H, Lymphocytes # (Auto) 1.5, Monocytes # (Auto) 0.9H, Eosinophils # (Auto) 0.0, Basophils # (Auto) 0.0, Nucleated Red Blood Cells % (auto) 0.1H, Anion Gap 13, Glomerular Filtration Rate 17.3L, Calcium Level 6.7L 06/24/21 15:30: Body Fluid Specific [place] 1.008, Body Fluid WBC (Auto) 169H, Body Fluid RBC ( Auto) < 2, Body Fluid Mononuclear Cells % Auto 43.2H, Fluid Polymorphonuclear Cell % Auto 56.8H, Body Fluid Glucose Source PERITONEAL, Body Fluid Glucose 134, Body Fluid Protein Source PERITONEAL, Body Fluid Total Protein 0.6, Body Fluid Albumin Source PERITONEAL, Body Fluid Albumin 0.1, Peritoneal Fluid Source PERITONEAL, Peritoneal Fluid Color YELLOW, Peritoneal Fluid Appearance HAZY 06/24/21 18:40: Blood Gas Bicarbonate Standard 18.4L, Arterial Blood pH 7.436, Arterial Blood Partial Pressure CO2 22.4L, Arterial Blood Partial Pressure O2 94.1, Arterial Blood Total CO2 15.4L, Arterial Blood HCO3 14.7L, Arterial Blood Base Excess - 7.5L, Arterial Blood Oxygen Saturation 97.1 06/24/21 19:36: Ammonia 55H CBC/BMP Laboratory Tests 06/24/21 06:09 Current Medications Current Medications Medications (Trade) Dose Ordered Sig/Cher Route PRN Reason Start Time Stop Time Status Last Admin Dose Admin Acetaminophen (Tylenol Tab) 650 mg Q4H PRN PO MILD PAIN or TEMP > 101 06/17/21 19:35 06/24/21 11:05 Amitriptyline HCl (Elavil) 25 mg QHS PRN PO SLEEP 06/17/21 22:20 06/17/21 22:24 DC Amitriptyline HCl (Elavil) 25 mg QHSP PRN PO SLEEP 06/17/21 22:24 06/24/21 18:29 DC Aspirin (Ecotrin) 81 mg DAILY PO 06/18/21 09:00 06/17/21 23:09 DC Benzonatate (Tessalon Perles) 200 mg TIDP PRN PO COUGH 06/17/21 22:20 Diatrizoate Meglum/ Diatrizoate Sod (Gastrografin) 10 ml Q30M PO 06/18/21 11:15 06/18/21 11:46 DC 06/18/21 11:40 Home Med (Home Med List Complete!) ASDIRECTED XX 06/17/21 20:40 06/17/21 20:44 DC Loratadine (Claritin) 5 mg QHS PO 06/18/21 21:00 06/24/21 20:38 Midodrine (Proamatine) 5 mg 08,12,16 PO 06/20/21 08:00 06/23/21 15:47 DC 06/23/21 07:40 Miscellaneous (Unresolved Patient Own Med Order) SEE LABEL COMMENTS UNRESOLVED XX 06/22/21 00:01 Morphine Sulfate (Msir) 15 mg Q8HP PRN PO SEVERE PAIN (PS 8-10) 06/21/21 21:00 06/24/21 18:29 DC 06/21/21 20:42 Omeprazole (PriLOSEC) 20 mg DAILY PO 06/18/21 09:00 06/21/21 09:04 DC 06/20/21 09:22 Ondansetron HCl (ZOFRAN INJection) 4 mg Q4HP PRN IV NAUSEA OR VOMITING 06/22/21 08:50 Pantoprazole Sodium (Protonix) 40 mg DAILY PO 06/22/21 09:00 06/24/21 10:01 Patient Own Medication (Patient'S Own Med) norethindrone acetate 5 mg TABLET T... DAILY PO 06/21/21 09:00 06/24/21 10:01 Simvastatin (Zocor) 20 mg DAILY PO 06/18/21 09:00 06/24/21 10:01 Sodium Bicarbonate (Sodium Bicarbonate) 650 mg BID PO 06/24/21 09:10 06/24/21 20:37 Sodium Chloride 1,000 ml @ 100 mls/hr Q10H IV 06/18/21 14:55 06/20/21 08:54 DC 06/18/21 16:19 Sodium Chloride 1,000 ml @ 120 mls/hr Q8H20M IV 9/13/21 19:35 06/18/21 09:08 DC 06/17/21 20:20 Sodium Chloride 1,000 ml @ 250 mls/hr Q4H IV 06/17/21 18:55 06/18/21 09:08 DC Sodium Chloride 1,000 ml @ 1,000 mls/hr Q1H IV 06/18/21 09:30 06/18/21 11:29 DC 06/18/21 11:40 Sucralfate (Carafate) 1 gm ACHS PO 06/21/21 12:00 06/24/21 20:37 Tizanidine HCl (Zanaflex) 4 mg DAILY PRN PO SPASMS 06/20/21 19:15 06/24/21 18:29 DC Zolpidem Tartrate (Ambien) 2.5 mg QHSP PRN PO INSOMNIA 06/21/21 17:30 06/24/21 18:29 DC Allergies Coded Allergies: No Known Allergies (Unverified , 06/17/21) Assessment/Plan Date Seen The patient was seen on 06/24/21 at 21:22. Plan / VTE VTE Prophylaxis Ordered?: Yes Plan Orders past 48 Hours Orders Paracentesis Needle Place Us (06/24/21 06:00) Cell Count Peritoneal Fluid (06/23/21 09:14) Total Protein, Body Fluid (06/23/21 09:14) Albumin, Body Fluid (06/23/21 09:14) Glucose, Body Fluid (06/23/21 09:14) Spec Grav Bdy Fluid (06/23/21 09:14) Body Fluid Culture And Gs (06/23/21 09:14) Anaerobic Culture (06/23/21 09:14) Afb Smear & Culture (06/23/21 09:14) Fungus Smear & Culture (06/23/21 09:14) Non Chart Computer/Cytology Req For Servi (06/23/21 09:14) Liver Doppler Flow (06/24/21 06:00) Ua W/ Reflex To Culture (06/23/21 09:16) Portable Chest X-Ray (06/23/21 09:16) Pathology Request For Service (06/23/21 13:09) Renal Diet (06/23/21 Dinner) Sodium Bicarbonate (Sodium Bicarbonate) (06/24/21 09:10) Morphine Sulfate Imm. Rel. (Msir) (06/24/21 10:15) Administer Albumin 25% (06/24/21 11:17) Albumin 25% (06/24/21 11:17) Administer Albumin 25% (06/24/21 ) Liver Us (06/24/21 15:49) Renal Diet (06/24/21 Dinner) Arterial Blood Gas (06/24/21 18:27) Ammonia (06/24/21 18:27) Plan Text Vaginal bleed s/p D&C, elevated tumor markers high suspicion of Ca Endometrium Rectal prolapse, Ileus. Anemia sec to bleed Ascites Acute renal failure Metabolic acidosis Start Oral bicarb. s/p PRBC, Awaiting path results. Overall poor prognosis. She is not a candidate for HD. JOSE STANTON MD Jun 24, 2021 21:28
[2021-06-24 23:01] VITALS: BP 107/65
[2021-06-25 01:00] VITALS: BP 105/65
[2021-06-25 06:00] VITALS: BP 106/50
[2021-06-25] MEDS: UNRESOLVED PATIENT OWN MED ORDER XX SCH (07:43)
[2021-06-25] MEDS: SODIUM BICARBONATE 325 MG TAB PO SCH ×2 (08:42→20:01)
[2021-06-25] MEDS: SIMVASTATIN 20 MG TAB PO SCH (08:42)
[2021-06-25] MEDS: SUCRALFATE 1 GM TAB PO SCH ×4 (08:42→20:01)
[2021-06-25] MEDS: PANTOPRAZOLE 40MG TAB (PROTONIX) PO SCH (08:42)
[2021-06-25] MEDS: NORETHINDRONE 5 MG PO SCH (08:43)
[2021-06-25] MEDS ORDERED: TORSEMIDE 20 MG TAB PO SCH (09:00)
[2021-06-25] MEDS ORDERED: LACTULOSE 20 GM/30 ML SYRUP UD PO SCH (09:00)
[2021-06-25 10:28] LABS: BASO % 0.1 % (0.0-1.0); EOS # 0.1 10^3/uL (0.0-0.5); EOS % 0.5 % (0.0-3.0); HEMATOCRIT 33.4 % (36.0-47.0); HEMOGLOBIN 11.6 g/dl (12.0-15.5); LYMPH # 1.1 10^3/uL (1.5-5.0); LYMPH % 9.9 % (24.0-44.0); MEAN CORPUSCULAR HGB CONC 34.7 g/dl (32.0-36.5); MEAN CORPUSCULAR VOLUME 92.3 fl (80.0-96.0); MONO # 0.5 10^3/uL (0.0-0.8); NEUTROPHILS # 8.9 10^3/uL (1.5-8.5); NEUTROPHILS % 83.7 % (36.0-66.0); PLATELET COUNT, AUTOMATED 128 10^3/uL (150-450); RED BLOOD COUNT 3.62 10^6/uL (4.00-5.40); WHITE BLOOD COUNT 10.6 10^3/uL (4.0-10.0)
[2021-06-25 10:58] LABS: ALBUMIN 2.2 GM/DL (3.2-5.2); BILIRUBIN,TOTAL 2.9 MG/DL (0.2-1.0); CALCIUM LEVEL 6.9 MG/DL (8.8-10.2); CREATININE FOR GFR 2.85 MG/DL (0.55-1.30); GLOMERULAR FILTRATION RATE 17.7 (>45); PHOSPHORUS LEVEL 2.7 MG/DL (2.5-4.9); POTASSIUM SERUM 4.3 MEQ/L (3.5-5.1); TOTAL PROTEIN 5.1 GM/DL (6.4-8.2)
[2021-06-25 12:03] VITALS: BP 101/79
--- NOTE | 2021-06-25 12:25 | IPNPDOC ---
Subjective CC/HPI The patient is a 65-year-old female admitted with a reason for visit of Raul,Menorrhagia. Events since last encounter Laying in bed, reports vaginal bleed is better, denies any difficulty with urination. General: Reports: Fatigue, Malaise Constitutional: Denies: Chills, Fever, Malaise, Night Sweats, Weakness, Fatigue, Weight Loss, Lethargy, Other Eyes: Denies: Pain, Vision change, Conjunctivae inflammation, Eyelid inflammation, Redness, Other ENT: Denies: Head Aches, Ear Pain, Dysphagia, Sinus Congestion, Post Nasal Drip, Sore Throat, Epistaxis, Other Symptoms Skin: Denies: Rash, Lesions, Jaundice, Bruising, Itching, Dry, Breakdown, Nail Changes, Other Pulmonary: Denies: Dyspnea, Cough, Pleuritic Chest Pain, Other Symptoms Cardiovascular: Denies: Chest Pain, Palpitations, Orthopnea, Paroxysmal Noc. Dyspnea, Edema, Lt Headedness, Other Symptoms Gastrointestinal: Reports: Other Symptoms (Rectal prolapse) Genitourinary: Denies: Dysuria, Frequency, Incontinence, Hematuria, Retention, Other Symptoms Hematologic: Reports: Other Hematologic (Vaginal bleed) Endocrine: Denies: Polydipsia, Polyphagia, Polyuria, Heat Intolerance, Cold Intolerance, Other Endocrine Sx Musculoskeletal: Denies: Neck Pain, Back Pain, Shoulder Pain, Arm Pain, Hand Pain, Leg Pain, Foot Pain, Joint Pain, Muscle Pain, Spasms, Other Symptoms Neurological: Reports: Weakness Psych: Reports: Mood Normal Objective Physical Examination General Exam: Alert, Mild Distress, Other (Morbid obesity) EYE EXAM: PERRLA, Conjunctiva & lids normal ENT EXAM: Atraumatic, Mucous membr. moist/pink Neck Exam: Supple; No: JVD Chest Exam: Clear to auscultation, Normal air movement Heart Exam: Rate Normal, Normal S1, Normal S2, Other (1+ edema of ankles) ABDOMEN EXAM: Soft, Tenderness (generalized abd tenderness), Other (Mild ascites) Extremity Exam: Edema (ankles only); No: Clubbing Skin Exam: Nl turgor and temperature Neuro Exam: Normal Speech Psych Exam: Mental status NL, Mood NL, Oriented x 3, Other (Depressed mood, moaning) Vital Signs/I&O Vital Signs Date Time Temp Pulse Resp B/P (MAP) Pulse Ox O2 Delivery O2 Flow Rate FiO2 9/21/21 12:03 101/79 (86) 06/25/21 06:00 97.7 83 17 98 Room Air 06/23/21 14:04 2.0 I&O- Last 24 Hours up to 6 AM 06/25/21 06:00 Intake Total 250.0 ml Balance 250.0 ml Laboratory Data Labs 24H Laboratory Tests 2 06/24/21 15:30: Body Fluid Specific [place] 1.008, Body Fluid WBC (Auto) 169H, Body Fluid RBC (Auto) < 2, Body Fluid Mononuclear Cells % Auto 43.2H, Fluid Polymorphonuclear Cell % Auto 56.8H, Body Fluid Glucose Source PERITONEAL, Body Fluid Glucose 134, Body Fluid Protein Source PERITONEAL, Body Fluid Total Protein 0.6, Body Fluid Albumin Source PERITONEAL, Body Fluid Albumin 0.1, Peritoneal Fluid Source PERITONEAL, Peritoneal Fluid Color YELLOW, Peritoneal Fluid Appearance HAZY 06/24/21 18:40: Blood Gas Bicarbonate Standard 18.4L, Arterial Blood pH 7.436, Arterial Blood Partial Pressure CO2 22.4L, Arterial Blood Partial Pressure O2 94.1, Arterial Blood Total CO2 15.4L, Arterial Blood HCO3 14.7L, Arterial Blood Base Excess - 7.5L, Arterial Blood Oxygen Saturation 97.1 06/24/21 19:36: Ammonia 55H 06/25/21 10:03: Immature Granulocyte % (Auto) 0.8, Neutrophils (%) (Auto) 83.7H, Lymphocytes (%) (Auto) 9.9L, Monocytes (%) (Auto) 5.0, Eosinophils (%) (Auto) 0.5, Basophils (%) (Auto) 0.1, Neutrophils # (Auto) 8.9H, Lymphocytes # (Auto) 1.1L, Monocytes # (Auto) 0.5, Eosinophils # (Auto) 0.1, Basophils # (Auto) 0.0, Nucleated Red Blood Cells % (auto) 0.0, Anion Gap 10, Glomerular Filtration Rate 17.7L, Calcium Level 6.9L, Phosphorus Level 2.7, Magnesium Level 2.0, Total Bilirubin 2.9H, Aspartate Amino Transf (AST/SGOT) 32, Alanine Aminotransferase (ALT/SGPT) 26, Alkaline Phosphatase 88, Total Protein 5.1L, Albumin 2.2L, Albumin/Globulin Ratio 0.8L CBC/BMP Laboratory Tests 06/25/21 10:03 Current Medications Current Medications Medications (Trade) Dose Ordered Sig/Cher Route PRN Reason Start Time Stop Time Status Last Admin Dose Admin Acetaminophen (Tylenol Tab) 650 mg Q4H PRN PO MILD PAIN or TEMP > 101 06/17/21 19:35 06/24/21 11:05 Amitriptyline HCl (Elavil) 25 mg QHS PRN PO SLEEP 06/17/21 22:20 06/17/21 22:24 DC Amitriptyline HCl (Elavil) 25 mg QHSP PRN PO SLEEP 06/17/21 22:24 06/24/21 18:29 DC Aspirin (Ecotrin) 81 mg DAILY PO 06/18/21 09:00 06/17/21 23:09 DC Benzonatate (Tessalon Perles) 200 mg TIDP PRN PO COUGH 06/17/21 22:20 Diatrizoate Meglum/ Diatrizoate Sod (Gastrografin) 10 ml Q30M PO 06/18/21 11:15 06/18/21 11:46 DC 06/18/21 11:40 Home Med (Home Med List Complete!) ASDIRECTED XX 06/17/21 20:40 06/17/21 20:44 DC Lactulose (Cephulac) 15 ml TID PO 06/25/21 09:00 06/25/21 12:02 Loratadine (Claritin) 5 mg QHS PO 06/18/21 21:00 06/24/21 20:38 Midodrine (Proamatine) 5 mg 08,12,16 PO 06/20/21 08:00 06/23/21 15:47 DC 06/23/21 07:40 Miscellaneous (Unresolved Patient Own Med Order) SEE LABEL COMMENTS UNRESOLVED XX 06/22/21 00:01 Morphine Sulfate (Msir) 15 mg Q8HP PRN PO SEVERE PAIN (PS 8-10) 06/21/21 21:00 06/24/21 18:29 DC 06/21/21 20:42 Omeprazole (PriLOSEC) 20 mg DAILY PO 06/18/21 09:00 06/21/21 09:04 DC 06/20/21 09:22 Ondansetron HCl (ZOFRAN INJection) 4 mg Q4HP PRN IV NAUSEA OR VOMITING 06/22/21 08:50 Pantoprazole Sodium (Protonix) 40 mg DAILY PO 06/22/21 09:00 06/25/21 08:42 Patient Own Medication (Patient'S Own Med) norethindrone acetate 5 mg TABLET T... DAILY PO 06/21/21 09:00 06/24/21 10:01 Simvastatin (Zocor) 20 mg DAILY PO 06/18/21 09:00 06/25/21 08:42 Sodium Bicarbonate (Sodium Bicarbonate) 650 mg BID PO 06/24/21 09:10 06/25/21 08:42 Sodium Chloride 1,000 ml @ 100 mls/hr Q10H IV 06/18/21 14:55 06/20/21 08:54 DC 06/18/21 16:19 Sodium Chloride 1,000 ml @ 120 mls/hr Q8H20M IV 06/17/21 19:35 06/18/21 09:08 DC 06/17/21 20:20 Sodium Chloride 1,000 ml @ 250 mls/hr Q4H IV 06/17/21 18:55 06/18/21 09:08 DC Sodium Chloride 1,000 ml @ 1,000 mls/hr Q1H IV 06/18/21 09:30 06/18/21 11:29 DC 06/18/21 11:40 Sucralfate (Carafate) 1 gm ACHS PO 06/21/21 12:00 06/25/21 12:02 Tizanidine HCl (Zanaflex) 4 mg DAILY PRN PO SPASMS 06/20/21 19:15 06/24/21 18:29 DC Torsemide (Demadex) 20 mg DAILY PO 06/25/21 09:00 06/25/21 12:03 Zolpidem Tartrate (Ambien) 2.5 mg QHSP PRN PO INSOMNIA 06/21/21 17:30 06/24/21 18:29 DC Allergies Coded Allergies: No Known Allergies (Unverified , 06/17/21) Assessment/Plan Date Seen The patient was seen on 06/25/21 at 12:10. Plan / VTE VTE Prophylaxis Ordered?: Yes Plan Orders past 48 Hours Orders Pathology Request For Service (06/23/21 13:09) Renal Diet (06/23/21 Dinner) Sodium Bicarbonate (Sodium Bicarbonate) (06/24/21 09:10) Morphine Sulfate Imm. Rel. (Msir) (06/24/21 10:15) Administer Albumin 25% (06/24/21 11:17) Albumin 25% (06/24/21 11:17) Administer Albumin 25% (06/24/21 ) Liver Us (06/24/21 15:49) Renal Diet (06/24/21 Dinner) Arterial Blood Gas (06/24/21 18:27) Ammonia (06/24/21 18:27) Albumin 25% (06/24/21 21:53) Administer Albumin 25% (06/24/21 22:30) Cbc With Auto Diff (06/25/21 09:19) Complete Comphrensive Metaboli (06/25/21 09:19) Magnesium Level (06/25/21 09:19) Phosphorous Level (06/25/21 09:19) Lactulose Syrup (Cephulac) (06/25/21 09:00) Ot Eval & Treat As Needed (06/25/21 10:14) Aru Admission Screening (06/25/21 10:14) Torsemide (Demadex) (06/25/21 09:00) Plan Text Vaginal bleed s/p D&C, elevated tumor markers high suspicion of Ca Endometrium Rectal prolapse. Anemia sec to bleed Ascites and liver cirrhosis Acute renal failure on CKD3, Baseline Cr 1.4 in Jul 2020. Metabolic acidosis continue Oral bicarb.Acidosis is improving. Anemia better after PRBC, Awaiting path results. Overall poor prognosis. She is not a candidate for HD. Start torsemide for cirrhosis and ascites. JOSE STANTON MD Jun 25, 2021 12:25
[2021-06-25 14:00] VITALS: BP 100/73
[2021-06-25] MEDS ORDERED: traMADol 50 MG TAB PO PRN (14:15)
--- NOTE | 2021-06-25 14:19 | IPNPDOC ---
Subjective Date Seen The patient was seen on 06/25/21. Subjective Chief Complaint/HPI Patient seen at bedside today laying in bed in no acute distress reports that she feels a little better than before. Nurses reports she may be still a little confused intermittent. Objective Physical Examination General Exam: Positive: Alert, Cooperative, No Acute Distress Eye Exam: Positive: PERRLA, Conjunctiva & lids normal, EOMI; Negative: Sclera icteric ENT Exam: Positive: Atraumatic, Mucous membr. moist/pink, Pharynx Normal Neck Exam: Positive: Supple; Negative: JVD, thyromegaly Chest Exam: Positive: Diminished Heart Exam: Positive: Rate Normal, Regular Rhythm, Murmurs; Negative: Rubs Telemetry: Positive: No significant arrhythmia Abdomen Exam: Positive: Normal bowel sounds, Soft, Tenderness (LOWER ABD/ SUPRAPUBIC), Other (+ Body habitus); Negative: Hepatospenomegaly Extremity Exam: Positive: Edema (2+, may be a component of lymphedema given body habitus), Normal pulses; Negative: Clubbing, Cyanosis Skin Exam: Positive: Nl turgor and temperature; Negative: Breakdown, Lesion Neuro Exam: Positive: Normal Gait, Normal Speech, Cranial Nerves 3-12 NL, Reflexes 2+ Psych Exam: Positive: Mental status NL, Anxiety, Oriented x 3; Negative: Mood NL Assessment /Plan Assessment 65-year-old female with history of hypertension, diabetes, morbid obesity, hyperlipidemia, DVT, chronic back pain, history of alcohol abuse in her 20s was admitted for acute blood loss anemia with a hemoglobin of 6.5 due to postmenopausal bleeding. She was also noted to have elevated creatinine of 3.1 from a baseline of 1.45 in July 2020. She was admitted for acute blood loss anemia, [place] she underwent hysteroscopy and D&C and was noted to have, Mildly enlarged uterus. Thick endometrial tissue with a scalloped appearance of both anterior and posterior surface of the endometrium diffusely. Endometrial fin dings suspicious for carcinoma. Massive rectal prolapse. While in the hospital she was also noted to have ascites and had acetic fluid tapped x2. Postmenopausal bleeding Likely endometrial cancer Continue with Norethindrone Biopsy reports pending With CLINICAL COORDINATOR Acute blood loss anemia Due to vaginal blood loss Received blood transfusions H&H now stable Cirrhosis of Lever Ascites, hypoalbuminemia, elevated ammonia Had to acetic fluid taps done this admission. CT scan shows fatty liver Had to ascitic fluid taps both of which have been negative for malignant cells Her SAAG is greater than 1.1 which suggests that the ascites is due to cirrhosis of liver. She does have history of alcohol abuse in her 20s and also has morbid obesity. We will place the patient on lactulose, low-dose diuretics. We will check hepatitis B&C Liver ultrasound with Doppler to rule out portal vein thrombosis Status post albumin infusion midodrine for hypotension Possible hepatic encephalopathy Patient was very lethargic on 06/24/2021 Ammonia 55 Stopped all sedatives Started on lactulose Has not had a bowel movement for several days Elevated tumor marker CA 19-9, CA-125 May need to do colonoscopy with biopsy after dilation curettage with endometrial biopsy for pathology If CLINICAL COORDINATOR malignancy is confirmed patient will need referral to Dr. 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 Used to be on Eliquis at home Now stopped due to recent active bleeding Chronic back pain Pain control with Tylenol and tramadol Plan/VTE VTE Prophylaxis Ordered?: Yes VS, I&O, 24H, Fishbone Vital Signs/I&O Vital Signs Date Time Temp Pulse Resp B/P (MAP) Pulse Ox O2 Delivery O2 Flow Rate FiO2 06/25/21 12:03 101/79 (86) 06/25/21 06:00 97.7 83 17 98 Room Air 06/23/21 14:04 2.0 I&O- Last 24 Hours up to 6 AM 06/25/21 06:00 Intake Total 250.0 ml Balance 250.0 ml Laboratory Data 24H LABS Laboratory Tests 2 06/24/21 15:30: Body Fluid Specific [place] 1.008, Body Fluid WBC (Auto) 169H, Body Fluid RBC (Auto) < 2, Body Fluid Mononuclear Cells % Auto 43.2H, Fluid Polymorphonuclear Cell % Auto 56.8H, Body Fluid Glucose Source PERITONEAL, Body Fluid Glucose 134, Body Fluid Protein Source PERITONEAL, Body Fluid Total Protein 0.6, Body Fluid Albumin Source PERITONEAL, Body Fluid Albumin 0.1, Peritoneal Fluid Source PERITONEAL, Peritoneal Fluid Color YELLOW, Peritoneal Fluid Appearance HAZY 06/24/21 18:40: Blood Gas Bicarbonate Standard 18.4L, Arterial Blood pH 7.436, Arterial Blood Partial Pressure CO2 22.4L, Arterial Blood Partial Pressure O2 94.1, Arterial Blood Total CO2 15.4L, Arterial Blood HCO3 14.7L, Arterial Blood Base Excess - 7.5L, Arterial Blood Oxygen Saturation 97.1 06/24/21 19:36: Ammonia 55H 06/25/21 10:03: Immature Granulocyte % (Auto) 0.8, Neutrophils (%) (Auto) 83.7H, Lymphocytes (%) (Auto) 9.9L, Monocytes (%) (Auto) 5.0, Eosinophils (%) (Auto) 0.5, Basophils (%) (Auto) 0.1, Neutrophils # (Auto) 8.9H, Lymphocytes # (Auto) 1.1L, Monocytes # (Auto) 0.5, Eosinophils # (Auto) 0.1, Basophils # (Auto) 0.0, Nucleated Red Blood Cells % (auto) 0.0, Anion Gap 10, Glomerular Filtration Rate 17.7L, Calcium Level 6.9L, Phosphorus Level 2.7, Magnesium Level 2.0, Total Bilirubin 2.9H, Aspartate Amino Transf (AST/SGOT) 32, Alanine Aminotransferase (ALT/SGPT) 26, Alkaline Phosphatase 88, Total Protein 5.1L, Albumin 2.2L, Albumin/Globulin Ratio 0.8L CBC/BMP Laboratory Tests 06/25/21 10:03 Microbiology Microbiology 06/24/21 Acid Fast Stain, Received Pending 06/24/21 Mycobacterial Culture, Received Pending 06/24/21 Fungal Smear, Received Pending 06/24/21 Fungal Culture, Received Pending 06/24/21 Gram Stain - Final, Resulted 06/24/21 Body Fluid Culture, Resulted Pending 06/24/21 Anaerobic Culture, Resulted Pending 06/19/21 Acid Fast Stain, Received Pending 06/19/21 Mycobacterial Culture, Received Pending 06/19/21 Fungal Smear, Received Pending 06/19/21 Fungal Culture, Received Pending 06/19/21 Gram Stain - Final, Complete 06/19/21 Body Fluid Culture - Final, Complete 06/18/21 Blood Culture - Final, Complete NO GROWTH AFTER 5 DAYS Aletha Mace MD Jun 25, 2021 14:18
--- NOTE | 2021-06-25 15:26 | IPNPDOC ---
Date Seen The patient was seen on 06/25/21. Progress Note SUBJECTIVE: bleeding decreased. pain minimal. OBJECTIVE PHYSICAL EXAMINATION: VITAL SIGNS: Please see below. GENERAL: NAD HEENT: NCAT CARDIOVASCULAR: RRR. RESPIRATORY: CTA. ABDOMINAL: distended, NT LABORATORY DATA, IMAGING STUDIES, MICROBIOLOGY: Please see below. ASSESSMENT AND PLAN: This is a 65 year old with post-menopausal bleeding, anemia 1. Endometrial sample negative for malignancy 2. Can stop progesterone treatment at this time 3. Consider colonoscopy screening for colon CA 4. Rectal prolapse will need to be dealt with by colorectal specialist; she may not be a good surgical candidate for repair. 5. Ascites may be related to cirrhosis of liver; this could also explain the i ncreased tumor markers 6. We will continue ot follow VS, I&O, 24H, Fishbone Vital Signs/I&O Vital Signs Date Time Temp Pulse Resp B/P (MAP) Pulse Ox O2 Delivery O2 Flow Rate FiO2 06/25/21 14:00 97.6 96 17 100/73 (82) 97 Room Air 06/23/21 14:04 2.0 I&O- Last 24 Hours up to 6 AM 06/25/21 05:59 Intake Total 250.0 ml Balance 250.0 ml Laboratory Data 24H LABS Laboratory Tests 2 06/24/21 15:30: Body Fluid Specific [place] 1.008, Body Fluid WBC (Auto) 169H, Body Fluid RBC (Auto) < 2, Body Fluid Mononuclear Cells % Auto 43.2H, Fluid Polymorphonuclear Cell % Auto 56.8H, Body Fluid Glucose Source PERITONEAL, Body Fluid Glucose 134, Body Fluid Protein Source PERITONEAL, Body Fluid Total Protein 0.6, Body Fluid Albumin Source PERITONEAL, Body Fluid Albumin 0.1, Peritoneal Fluid Source PERITONEAL, Peritoneal Fluid Color YELLOW, Peritoneal Fluid Appearance HAZY 06/24/21 18:40: Blood Gas Bicarbonate Standard 18.4L, Arterial Blood pH 7.436, Arterial Blood Partial Pressure CO2 22.4L, Arterial Blood Partial Pressure O2 94.1, Arterial Blood Total CO2 15.4L, Arterial Blood HCO3 14.7L, Arterial Blood Base Excess -7.5L, Arterial Blood Oxygen Saturation 97.1 06/24/21 19:36: Ammonia 55H 06/25/21 10:03: Immature Granulocyte % (Auto) 0.8, Neutrophils (%) (Auto) 83.7H, Lymphocytes (%) (Auto) 9.9L, Monocytes (%) (Auto) 5.0, Eosinophils (%) (Auto) 0.5, Basophils (%) (Auto) 0.1, Neutrophils # (Auto) 8.9H, Lymphocytes # (Auto) 1.1L, Monocytes # (Auto) 0.5, Eosinophils # (Auto) 0.1, Basophils # (Auto) 0.0, Nucleated Red Blood Cells % (auto) 0.0, Anion Gap 10, Glomerular Filtration Rate 17.7L, Calcium Level 6.9L, Phosphorus Level 2.7, Magnesium Level 2.0, Total Bilirubin 2.9H, Aspartate Amino Transf (AST/SGOT) 32, Alanine Aminotransferase (ALT/SGPT) 26, Alkaline Phosphatase 88, Total Protein 5.1L, Albumin 2.2L, Albumin/Globulin Ratio 0.8L CBC/BMP Laboratory Tests 06/25/21 10:03 Microbiology Microbiology 06/24/21 Acid Fast Stain, Received Pending 06/24/21 Mycobacterial Culture, Received Pending 06/24/21 Fungal Smear, Received Pending 06/24/21 Fungal Culture, Received Pending 06/24/21 Gram Stain - Final, Resulted 06/24/21 Body Fluid Culture, Resulted Pending 06/24/21 Anaerobic Culture, Resulted Pending 06/19/21 Acid Fast Stain, Received Pending 06/19/21 Mycobacterial Culture, Received Pending 06/19/21 Fungal Smear, Received Pending 06/19/21 Fungal Culture, Received Pending 06/19/21 Gram Stain - Final, Complete 06/19/21 Body Fluid Culture - Final, Complete 06/18/21 Blood Culture - Final, Complete NO GROWTH AFTER 5 DAYS ALICIA HICKS MD Jun 25, 2021 15:26
[2021-06-25] MEDS: LACTULOSE 20 GM/30 ML SYRUP UD PO SCH ×2 (17:21→20:01)
[2021-06-25] MEDS: LORATADINE 5 MG HALF-TAB PO SCH (20:01)
[2021-06-25 22:00] VITALS: BP 126/75
[2021-06-26] VITALS (7 sets, daily range): BP systolic 99–105; BP diastolic 58–69
[2021-06-26 06:26] LABS: BASO % 0.1 % (0.0-1.0); EOS % 0.4 % (0.0-3.0); HEMATOCRIT 33.9 % (36.0-47.0); HEMOGLOBIN 11.6 g/dl (12.0-15.5); LYMPH # 1.1 10^3/uL (1.5-5.0); LYMPH % 10.5 % (24.0-44.0); MEAN CORPUSCULAR HEMOGLOBIN 31.8 pg (27.0-33.0); MEAN CORPUSCULAR HGB CONC 34.2 g/dl (32.0-36.5); MEAN CORPUSCULAR VOLUME 92.9 fl (80.0-96.0); MONO # 0.6 10^3/uL (0.0-0.8); MONO % 5.5 % (2.0-8.0); NEUTROPHILS # 8.3 10^3/uL (1.5-8.5); NEUTROPHILS % 82.8 % (36.0-66.0); PLATELET COUNT, AUTOMATED 140 10^3/uL (150-450); RED BLOOD COUNT 3.65 10^6/uL (4.00-5.40)
[2021-06-26 07:09] LABS: C REACTIVE PROTEIN QUANTITATIV 1.22 MG/DL (0.00-0.30); CREATININE FOR GFR 3.01 MG/DL (0.55-1.30); GLOMERULAR FILTRATION RATE 16.7 (>45); POTASSIUM SERUM 3.2 MEQ/L (3.5-5.1)
[2021-06-26] MEDS ORDERED: SODIUM CHLORIDE 0.9% 1000ML IV ONE (07:35)
[2021-06-26] MEDS: UNRESOLVED PATIENT OWN MED ORDER XX SCH (07:53)
[2021-06-26] MEDS ORDERED: MIDODRINE 5 MG TAB PO SCH (08:00)
[2021-06-26] MEDS: LACTULOSE 20 GM/30 ML SYRUP UD PO SCH (08:06)
[2021-06-26] MEDS: SODIUM BICARBONATE 325 MG TAB PO SCH ×2 (08:06→20:30)
[2021-06-26] MEDS: PANTOPRAZOLE 40MG TAB (PROTONIX) PO SCH (08:07)
[2021-06-26] MEDS: SENOKOT S TAB PO SCH ×2 (08:07→20:30)
[2021-06-26] MEDS: SIMVASTATIN 20 MG TAB PO SCH (08:07)
[2021-06-26] MEDS: SUCRALFATE 1 GM TAB PO SCH ×4 (08:07→20:30)
[2021-06-26] MEDS ORDERED: POTASSIUM CHLORIDE 10MEQ SR TABLET PO ONE (09:15)
[2021-06-26] MEDS ORDERED: NS 500 ML IV ONE (10:30)
--- NOTE | 2021-06-26 10:30 | IPNPDOC ---
Subjective Date Seen The patient was seen on 06/26/21. Subjective Chief Complaint/HPI Patient reports that she had 7 bowel movements since yesterday and as per aids there were large amounts. Poor oral intake. Feels very weak and tired. Patient is awake alert and oriented this morning. Bladder scan showed 1700 cc. Newell placement produced 1700 ml of urine. Objective Physical Examination General Exam: Positive: Alert, Cooperative, No Acute Distress Eye Exam: Positive: PERRLA, Conjunctiva & lids normal, EOMI; Negative: Sclera icteric ENT Exam: Positive: Atraumatic, Mucous membr. moist/pink, Pharynx Normal Neck Exam: Positive: Supple; Negative: JVD, thyromegaly Chest Exam: Positive: Diminished Heart Exam: Positive: Rate Normal, Regular Rhythm, Murmurs; Negative: Rubs Telemetry: Positive: No significant arrhythmia Abdomen Exam: Positive: Normal bowel sounds, Soft, Tenderness (LOWER ABD/ SUPRAPUBIC), Other (rectal prolapse. ); Negative: Hepatospenomegaly Extremity Exam: Positive: Edema (2+, may be a component of lymphedema given body habitus), Normal pulses; Negative: Clubbing, Cyanosis Skin Exam: Positive: Nl turgor and temperature; Negative: Breakdown, Lesion Neuro Exam: Positive: Normal Gait, Normal Speech, Cranial Nerves 3-12 NL, Re flexes 2+ Psych Exam: Positive: Mental status NL, Anxiety, Oriented x 3; Negative: Mood NL Assessment /Plan Assessment 65-year-old female with history of hypertension, diabetes, morbid obesity, hyperlipidemia, DVT, chronic back pain, history of alcohol abuse in her 20s was admitted for acute blood loss anemia with a hemoglobin of 6.5 due to postmenopausal bleeding. She was also noted to have elevated creatinine of 3.1 from a baseline of 1.45 in July 2020. She was admitted for acute blood loss anemia, [place] she underwent hysteroscopy and D&C and was noted to have, Mildly enlarged uterus. Thick endometrial tissue with a scalloped appearance of both anterior and posterior surface of the endometrium diffusely. Endometrial findings suspicious for carcinoma. Massive rectal prolapse. While in the hospital she was also noted to have ascites and had acetic fluid tapped x2. Postmenopausal bleeding Resolved Endometrial biopsy negative for any malignancy. Norethindrone stop Follow-up with Dr. Bruno as an outpatient Acute blood loss anemia Due to vaginal blood loss Received blood transfusions H&H now stable Cirrhosis of Liver Ascites, hypoalbuminemia, elevated ammonia CT scan shows fatty liver Had to ascitic fluid taps both of which have been negative for malignant cells Her SAAG is greater than 1.1 which suggests that the ascites is due to cirrhosis of liver. She does have history of alcohol abuse in her 20s and also has morbid obesity. We will place the patient on lactulose, low-dose diuretics. We will check hepatitis B&C Liver ultrasound with Doppler nondiagnostic as portal vein vasculature could not be visualized [place] on CKD Baseline creatinine of 1.45 in July 2020 Likely due to acute blood loss anemia and decompensated cirrhosis of liver, decreased intravascular volume and now with acute urinary retention. However may also have hepatorenal syndrome. Newell placement produced 1700 cc. This could be due to bladder neck obstruction from rectal prolapse. will also give albumin and midodrine. We will recheck BMP in the pm Stopped torsemide, given a small bolus of fluid Possible hepatic encephalopathy Now resolved Patient was very lethargic on 06/24/2021 Ammonia was 55 Had multiple bowel movements after lactulose, now mmoni improved. Elevated tumor marker CA 19-9, CA-125 will need to do colonoscopy Huge rectal prolapse Will need to be referred to colorectal surgeon as this may be causing acute urinary retention leading to [place]. 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 Used to be on Eliquis at home Now stopped due to recent active bleeding Chronic back pain Pain control with Tylenol and tramadol Plan/VTE VTE Prophylaxis Ordered?: Yes VS, I&O, 24H, [facility] Vital Signs/I&O Vital Signs Date Time Temp Pulse Resp B/P (MAP) Pulse Ox O2 Delivery O2 Flow Rate FiO2 06/26/21 06:00 98.1 89 17 99/58 (72) 98 Room Air 06/23/21 14:04 2.0 I&O- Last 24 Hours up to 6 AM 06/26/21 06:00 Intake Total 420 ml Output Total 100 ml Balance 320 ml Laboratory Data 24H LABS Laboratory Tests 2 06/26/21 05:33: Immature Granulocyte % (Auto) 0.7, Neutrophils (%) (Auto) 82.8H, Lymphocytes (%) (Auto) 10.5L, Monocytes (%) (Auto) 5.5, Eosinophils (%) (Auto) 0.4, Basophils (%) (Auto) 0.1, Neutrophils # (Auto) 8.3, Lymphocytes # (Auto) 1.1L, Monocytes # (Auto) 0.6, Eosinophils # (Auto) 0.0, Basophils # (Auto) 0.0, Nucleated Red Blood Cells % (auto) 0.0, Anion Gap 10, Glomerular Filtration Rate 16.7L, Calcium Level 7.0L, Ammonia 26, C-Reactive Protein, Quantitative 1.22H 06/26/21 05:53: Procalcitonin 2.75 06/26/21 05:54: Lactic Acid Level 1.8 CBC/BMP Laboratory Tests 06/26/21 05:33 Microbiology Microbiology 06/24/21 Acid Fast Stain, Received Pending 06/24/21 Mycobacterial Culture, Received Pending 06/24/21 Fungal Smear, Received Pending 06/24/21 Fungal Culture, Received Pending 06/24/21 Gram Stain - Final, Complete 06/24/21 Body Fluid Culture - Final, Complete 06/24/21 Anaerobic Culture - Final, Complete 06/19/21 Acid Fast Stain, Received Pending 06/19/21 Mycobacterial Culture, Received Pending 06/19/21 Fungal Smear, Received Pending 06/19/21 Fungal Culture, Received Pending 06/19/21 Gram Stain - Final, Complete 06/19/21 Body Fluid Culture - Final, Complete 06/18/21 Blood Culture - Final, Complete NO GROWTH AFTER 5 DAYS Aletha Mace MD Jun 26, 2021 10:30
[2021-06-26] MEDS ORDERED: CALCIUM CARBONATE 500 MG CHEW U/D PO PRN (10:55)
--- NOTE | 2021-06-26 13:23 | IPNPDOC ---
Subjective CC/HPI The patient is a 65-year-old female admitted with a reason for visit of Raul,Menorrhagia. Events since last encounter As reported in OBGYN note, Endometrial biopsy negative for cancer. Pt became hypotensive with multiple BM and use of torsemide yesterday. She is getting fluid bolus now. Diuretic has been stopped. Renal function worse with Cr 2.8-->3. General: Reports: Fatigue, Malaise; Denies: Chills, Night Sweats Constitutional: Reports: Malaise, Weakness; Denies: Chills, Fever Eyes: Denies: Pain, Vision change, Conjunctivae inflammation, Eyelid in flammation, Redness, Other ENT: Denies: Head Aches, Ear Pain, Dysphagia, Sinus Congestion, Post Nasal Drip, Sore Throat, Epistaxis, Other Symptoms Skin: Denies: Rash, Lesions, Jaundice, Bruising, Itching, Dry, Breakdown, Nail Changes, Other Pulmonary: Denies: Dyspnea, Cough, Pleuritic Chest Pain, Other Symptoms Cardiovascular: Denies: Chest Pain, Palpitations, Orthopnea, Paroxysmal Noc. Dyspnea, Edema, Lt Headedness, Other Symptoms Gastrointestinal: Reports: Diarrhea, Other Symptoms (Rectal prolapse); Denies: Nausea, Vomiting Genitourinary: Denies: Dysuria, Frequency, Incontinence, Hematuria, Retention, Other Symptoms Hematologic: Denies: Bruising, Bleeding Excessively, Petecchia, Purpura, Enlarged Lymph Nodes, Other Hematologic Musculoskeletal: Denies: Neck Pain, Back Pain, Shoulder Pain, Arm Pain, Hand Pain, Leg Pain, Foot Pain, Joint Pain, Muscle Pain, Spasms, Other Symptoms Neurological: Reports: Weakness Psych: Reports: Mood Normal Objective Physical Examination General Exam: Alert, Other (Morbid obesity, appears lethargic.) EYE EXAM: PERRLA, Conjunctiva & lids normal ENT EXAM: Atraumatic, Mucous membr. moist/pink Neck Exam: Supple; No: JVD Chest Exam: Clear to auscultation, Normal air movement Heart Exam: Rate Normal, Normal S1, Normal S2, Other (1+ edema of ankles) ABDOMEN EXAM: Soft, Tenderness (Mild), Other (Mild ascites) Extremity Exam: Edema (ankles only); No: Clubbing Skin Exam: Nl turgor and temperature Neuro Exam: Normal Speech, Strength at 5/5 X4 ext Psych Exam: Mental status NL, Mood NL, Oriented x 3, Other (Depressed mood,) Vital Signs/I&O Vital Signs Date Time Temp Pulse Resp B/P (MAP) Pulse Ox O2 Delivery O2 Flow Rate FiO2 06/26/21 06:00 98.1 89 17 99/58 (72) 98 Room Air 06/23/21 14:04 2.0 I&O- Last 24 Hours up to 6 AM 06/26/21 06:00 Intake Total 420 ml Output Total 100 ml Balance 320 ml Laboratory Data Labs 24H Laboratory Tests 2 06/26/21 05:33: Immature Granulocyte % (Auto) 0.7, Neutrophils (%) (Auto) 82.8H, Lymphocytes (%) (Auto) 10.5L, Monocytes (%) (Auto) 5.5, Eosinophils (%) (Auto) 0.4, Basophils (%) (Auto) 0.1, Neutrophils # (Auto) 8.3, Lymphocytes # (Auto) 1.1L, Monocytes # (Auto) 0.6, Eosinophils # (Auto) 0.0, Basophils # (Auto) 0.0, Nucleated Red Blood Cells % (auto) 0.0, Anion Gap 10, Glomerular Filtration Rate 16.7L, Calcium Level 7.0L, Ammonia 26, C-Reactive Protein, Quantitative 1.22H 06/26/21 05:53: Procalcitonin 2.75 06/26/21 05:54: Lactic Acid Level 1.8 CBC/BMP Laboratory Tests 06/26/21 05:33 Current Medications Current Medications Medications (Trade) Dose Ordered Sig/Cher Route PRN Reason Start Time Stop Time Status Last Admin Dose Admin Acetaminophen (Tylenol Tab) 650 mg Q4H PRN PO MILD PAIN or TEMP > 101 06/17/21 19:35 06/24/21 11:05 Amitriptyline HCl (Elavil) 25 mg QHS PRN PO SLEEP 06/17/21 22:20 06/17/21 22:24 DC Amitriptyline HCl (Elavil) 25 mg QHSP PRN PO SLEEP 06/17/21 22:24 06/24/21 18:29 DC Aspirin (Ecotrin) 81 mg DAILY PO 06/18/21 09:00 06/17/21 23:09 DC Benzonatate (Tessalon Perles) 200 mg TIDP PRN PO COUGH 06/17/21 22:20 Calcium Carbonate (Tums) 1,000 mg Q4HP PRN PO HEARTBURN 06/26/21 10:55 Diatrizoate Meglum/ Diatrizoate Sod (Gastrografin) 10 ml Q30M PO 06/18/21 11:15 06/18/21 11:46 DC 06/18/21 11:40 Home Med (Home Med List Complete!) ASDIRECTED XX 06/17/21 20:40 06/17/21 20:44 DC Lactulose (Cephulac) 15 ml TID PO 06/25/21 09:00 06/25/21 14:11 DC 06/25/21 12:02 Lactulose (Cephulac) 30 ml TID PO 06/25/21 16:00 06/26/21 10:29 DC 06/26/21 08:06 Loratadine (Claritin) 5 mg QHS PO 06/18/21 21:00 06/25/21 20:01 Midodrine (Proamatine) 5 mg 08,12,16 PO 06/20/21 08:00 06/23/21 15:47 DC 06/23/21 07:40 Midodrine (Proamatine) 5 mg 08,12,16 PO 06/26/21 12:00 Midodrine (Proamatine) 10 mg 08,12,16 PO 06/26/21 08:00 06/25/21 16:23 DC Miscellaneous (Unresolved Patient Own Med Order) SEE LABEL COMMENTS UNRESOLVED XX 06/22/21 00:01 06/26/21 09:08 DC Morphine Sulfate (Msir) 15 mg Q8HP PRN PO SEVERE PAIN (PS 8-10) 06/21/21 21:00 06/24/21 18:29 DC 06/21/21 20:42 Omeprazole (PriLOSEC) 20 mg DAILY PO 06/18/21 09:00 06/21/21 09:04 DC 06/20/21 09:22 Ondansetron HCl (ZOFRAN INJection) 4 mg Q4HP PRN IV NAUSEA OR VOMITING 06/22/21 08:50 Pantoprazole Sodium (Protonix) 40 mg DAILY PO 06/22/21 09:00 06/26/21 08:07 Patient Own Medication (Patient'S Own Med) norethindrone acetate 5 mg TABLET T... DAILY PO 06/21/21 09:00 06/25/21 16:23 DC 06/24/21 10:01 Senna/Docusate Sodium (Senokot S) 1 tab BID PO 06/26/21 09:00 Simvastatin (Zocor) 20 mg DAILY PO 06/18/21 09:00 06/26/21 08:07 Sodium Bicarbonate (Sodium Bicarbonate) 650 mg BID PO 06/24/21 09:10 06/26/21 08:06 Sodium Chloride 1,000 ml @ 100 mls/hr Q10H IV 06/18/21 14:55 06/20/21 08:54 DC 06/18/21 16:19 Sodium Chloride 1,000 ml @ 120 mls/hr Q8H20M IV 06/17/21 19:35 06/18/21 09:08 DC 06/17/21 20:20 Sodium Chloride 1,000 ml @ 250 mls/hr Q4H IV 06/17/21 18:55 06/18/21 09:08 DC Sodium Chloride 1,000 ml @ 1,000 mls/hr Q1H IV 06/18/21 09:30 06/18/21 11:29 DC 06/18/21 11:40 Sucralfate (Carafate) 1 gm ACHS PO 06/21/21 12:00 06/26/21 08:07 Tizanidine HCl (Zanaflex) 4 mg DAILY PRN PO SPASMS 06/20/21 19:15 06/24/21 18:29 DC Torsemide (Demadex) 20 mg DAILY PO 06/25/21 09:00 06/26/21 07:34 DC 06/25/21 12:03 Tramadol HCl (Ultram) 50 mg Q8HP PRN PO MODERATE PAIN (PS 5-7) 06/25/21 14:15 Zolpidem Tartrate (Ambien) 2.5 mg QHSP PRN PO INSOMNIA 06/21/21 17:30 06/24/21 18:29 DC Allergies Coded Allergies: No Known Allergies (Unverified , 06/17/21) Assessment/Plan Date Seen The patient was seen on 06/26/21 at 13:17. Plan / VTE VTE Prophylaxis Ordered?: Yes Plan Orders past 48 Hours Orders Liver Us (06/24/21 15:49) Renal Diet (06/24/21 Dinner) Arterial Blood Gas (06/24/21 18:27) Ammonia (06/24/21 18:27) Albumin 25% (06/24/21 21:53) Administer Albumin 25% (06/24/21 22:30) Cbc With Auto Diff (06/25/21 09:19) Complete Comphrensive Metaboli (06/25/21 09:19) Magnesium Level (06/25/21 09:19) Phosphorous Level (06/25/21 09:19) Lactulose Syrup (Cephulac) (06/25/21 09:00) Ot Eval & Treat As Needed (06/25/21 10:14) Aru Admission Screening (06/25/21 10:14) Torsemide (Demadex) (06/25/21 09:00) Lactulose Syrup (Cephulac) (06/25/21 16:00) Tramadol Hcl (Ultram) (06/25/21 14:15) Midodrine Hcl (Proamatine) (06/26/21 08:00) Cbc With Differential (06/26/21 06:00) Cbc With Differential (06/27/21 06:00) Cbc With Differential (06/28/21 06:00) Cbc With Differential (06/29/21 06:00) Cbc With Differential (06/30/21 06:00) Cbc With Differential (07/01/21 06:00) Cbc With Differential (07/02/21 06:00) Basic Metabolic Profile (06/26/21 06:00) Basic Metabolic Profile (06/27/21 06:00) Basic Metabolic Profile (06/28/21 06:00) Basic Metabolic Profile (06/29/21 06:00) Basic Metabolic Profile (06/30/21 06:00) Basic Metabolic Profile (07/01/21 06:00) Basic Metabolic Profile (07/02/21 06:00) Ammonia (06/26/21 06:00) Docusate Sod/Senna (Senokot S) (06/26/21 09:00) Lactic Acid Level, Lactate (06/26/21 05:26) C Reactive Protein Quantitativ (06/26/21 05:33) Procalcitonin (06/26/21 05:53) Ns (Nacl 0.9%) (06/26/21 07:35) Potassium Chloride (Micro-K Extencaps) (06/26/21 09:15) Hepatitis B Core Antibody Igm (06/27/21 06:00) Hepatitis B Surface Antigen (06/27/21 06:00) Ns (Nacl 0.9%) (06/26/21 10:30) Calcium Carbonate (Tums) (06/26/21 10:55) Midodrine Hcl (Proamatine) (06/26/21 12:00) Albumin 25% (06/26/21 11:35) Albumin 25% (06/26/21 17:35) Albumin 25% (06/26/21 23:35) Albumin 25% (06/27/21 05:35) Albumin 25% (06/27/21 11:35) Albumin 25% (06/27/21 17:35) Albumin 25% (06/27/21 23:35) Albumin 25% (06/28/21 05:35) Administer Albumin 25% (06/26/21 11:35) Urinary Catheter DOCUMENT BID (06/26/21 11:38) Hepatitis C Antibody (06/26/21 05:33) Plan Text post menopausal bleed s/p D&C, elevated tumor but negative endometrial biopsy Rectal prolapse. Anemia sec to bleed Ascites and liver cirrhosis Acute renal failure on CKD3, Baseline Cr 1.4 in Jul 2020. Metabolic acidosis Hypotension continue Oral bicarb.Restart Midodrine. Give a trial of IV Albumin 25%. Stop diuretic for now. IV fluid bolus being given by hospitalist. Do bladder scan and place morgan if PVR>250. Rectal prolapse management per surgery. JOSE STANTON MD Jun 26, 2021 13:23
[2021-06-26 13:37] LABS: HEPATITIS C VIRUS ABY INDEX 0.8 INDEX (<0.8)
[2021-06-26] MEDS: MIDODRINE 5 MG TAB PO SCH ×2 (14:00→16:59)
[2021-06-26] MEDS: LORATADINE 5 MG HALF-TAB PO SCH (20:30)
[2021-06-26] MEDS ORDERED: RAMELTEON 8 MG TAB (ROZEREM) PO PRN (22:20)
[2021-06-27] VITALS (8 sets, daily range): BP systolic 100–123; BP diastolic 56–71
[2021-06-27 06:41] LABS: EOS # 0.1 10^3/uL (0.0-0.5); EOS % 1.1 % (0.0-3.0); HEMATOCRIT 28.2 % (36.0-47.0); HEMOGLOBIN 9.7 g/dl (12.0-15.5); LYMPH # 0.7 10^3/uL (1.5-5.0); LYMPH % 16.2 % (24.0-44.0); MEAN CORPUSCULAR HEMOGLOBIN 32.2 pg (27.0-33.0); MEAN CORPUSCULAR HGB CONC 34.4 g/dl (32.0-36.5); MEAN CORPUSCULAR VOLUME 93.7 fl (80.0-96.0); MONO # 0.3 10^3/uL (0.0-0.8); MONO % 6.2 % (2.0-8.0); NEUTROPHILS # 3.4 10^3/uL (1.5-8.5); NEUTROPHILS % 75.8 % (36.0-66.0); RED BLOOD COUNT 3.01 10^6/uL (4.00-5.40); WHITE BLOOD COUNT 4.5 10^3/uL (4.0-10.0)
[2021-06-27 07:05] LABS: CALCIUM LEVEL 7.4 MG/DL (8.8-10.2); CREATININE FOR GFR 2.61 MG/DL (0.55-1.30); GLOMERULAR FILTRATION RATE 19.6 (>45); POTASSIUM SERUM 3.1 MEQ/L (3.5-5.1)
[2021-06-27 07:31] LABS: PLATELET COUNT, AUTOMATED 84 10^3/uL (150-450)
[2021-06-27] MEDS: PANTOPRAZOLE 40MG TAB (PROTONIX) PO SCH (08:24)
[2021-06-27] MEDS: SENOKOT S TAB PO SCH ×2 (08:24→20:40)
[2021-06-27] MEDS: MIDODRINE 5 MG TAB PO SCH ×3 (08:24→17:40)
[2021-06-27] MEDS: SUCRALFATE 1 GM TAB PO SCH ×4 (08:24→20:40)
[2021-06-27] MEDS: SIMVASTATIN 20 MG TAB PO SCH (08:24)
[2021-06-27] MEDS: SODIUM BICARBONATE 325 MG TAB PO SCH ×2 (08:24→20:40)
[2021-06-27] MEDS ORDERED: POTASSIUM CHLORIDE 10MEQ SR TABLET PO ONE (09:10)
--- NOTE | 2021-06-27 11:04 | IPNPDOC ---
Subjective Date Seen The patient was seen on 06/27/21. Subjective Chief Complaint/HPI No complaints this morning feeling much better. Wants to go home tomorrow. She says that she has been able to stand up independently and walk few steps to the chair. Newell is draining clear urine. Objective Physical Examination General Exam: Positive: Alert, Cooperative, No Acute Distress Eye Exam: Positive: PERRLA, Conjunctiva & lids normal, EOMI; Negative: Sclera icteric ENT Exam: Positive: Atraumatic, Mucous membr. moist/pink, Pharynx Normal Neck Exam: Positive: Supple; Negative: JVD, thyromegaly Chest Exam: Positive: Diminished Heart Exam: Positive: Rate Normal, Regular Rhythm, Murmurs; Negative: Rubs Telemetry: Positive: No significant arrhythmia Abdomen Exam: Positive: Normal bowel sounds, Soft, Tenderness (LOWER ABD/ DA SILVA PRAPUBIC), Other (rectal prolapse. ); Negative: Hepatospenomegaly Extremity Exam: Positive: Edema (2+, may be a component of lymphedema given body habitus), Normal pulses; Negative: Clubbing, Cyanosis Skin Exam: Positive: Nl turgor and temperature; Negative: Breakdown, Lesion Neuro Exam: Positive: Normal Gait, Normal Speech, Cranial Nerves 3-12 NL, Reflexes 2+ Psych Exam: Positive: Mental status NL, Anxiety, Oriented x 3; Negative: Mood NL Assessment /Plan Assessment 65-year-old female with history of hypertension, diabetes, morbid obesity, hyperlipidemia, DVT, chronic back pain, history of alcohol abuse in her 20s was admitted for acute blood loss anemia with a hemoglobin of 6.5 due to postmenopausal bleeding. She was also noted to have elevated creatinine of 3.1 from a baseline of 1.45 in July 2020. She was admitted for acute blood loss anemia, [place] she underwent hysteroscopy and D&C and was noted to have, Mildly enlarged uterus. Thick endometrial tissue with a scalloped appearance of both anterior and posterior surface of the endometrium diffusely. Endometrial findings suspicious for carcinoma. Massive rectal prolapse. While in the hospital she was also noted to have ascites and had acetic fluid tapped x2. Postmenopausal bleeding Resolved Endometrial biopsy negative for any malignancy. Norethindrone stopped Follow-up with Dr. Bruno as an outpatient Acute blood loss anemia Due to vaginal blood loss Received blood transfusions H&H now stable Cirrhosis of Liver Ascites, hypoalbuminemia, elevated ammonia CT scan shows fatty liver Had to ascitic fluid taps both of which have been negative for malignant cells Her SAAG is greater than 1.1 which suggests that the ascites is due to cirrhosis of liver. She does have history of alcohol abuse in her 20s and also has morbid obesity.etics. checked hepatitis B&C Liver ultrasound with Doppler nondiagnostic as portal vein vasculature could not be visualized held diuretics due to [place]. Continue Lactulose. [place] on CKD Baseline creatinine of 1.45 in July 2020 Likely due to acute blood loss anemia and decompensated cirrhosis of liver, decreased intravascular volume and now with acute urinary retention. However may also have hepatorenal syndrome. Newell placement produced 1700 cc. This is due to urinary obstruction from rectal prolapse. on midodrine and albumin. continue Newell. Will have to go home with Newell catheter. started empirically on ceftriaxone UA and Culture sent. Hypokalemia replaced. Possible hepatic encephalopathy Now resolved Patient was very lethargic on 06/24/2021. Ammonia was 55 Had multiple bowel movements after lactulose continue lactulose to have 2 soft bowel movements daily. Elevated tumor marker CA 19-9, CA-125 will need to do colonoscopy Huge rectal prolapse Will need to be referred to colorectal surgeon as this may be causing acute uri nary retention leading to [place]. 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 Used to be on Eliquis at home Now stopped due to recent active bleeding Chronic back pain Pain control with Tylenol and tramadol Plan/VTE VTE Prophylaxis Ordered?: Yes VS, I&O, 24H, Fishbone Vital Signs/I&O Vital Signs Date Time Temp Pulse Resp B/P (MAP) Pulse Ox O2 Delivery O2 Flow Rate FiO2 06/27/21 10:27 96.2 83 16 111/65 98 Room Air 06/23/21 14:04 2.0 I&O- Last 24 Hours up to 6 AM 06/27/21 06:00 Intake Total 840.0 ml Output Total 2250 ml Balance -1410.0 ml Laboratory Data 24H LABS Laboratory Tests 2 06/27/21 05:53: Immature Granulocyte % (Auto) 0.7, Neutrophils (%) (Auto) 75.8H, Lymphocytes (%) (Auto) 16.2L, Monocytes (%) (Auto) 6.2, Eosinophils (%) (Auto) 1.1, Basophils (%) (Auto) 0.0, Neutrophils # (Auto) 3.4, Lymphocytes # (Auto) 0.7L, Monocytes # (Auto) 0.3, Eosinophils # (Auto) 0.1, Basophils # (Auto) 0.0, Nucleated Red Blo od Cells % (auto) 0.0, Immature Platelet Fraction 2.8 06/27/21 05:54: Anion Gap 12, Glomerular Filtration Rate 19.6L, Calcium Level 7.4L CBC/BMP Laboratory Tests 06/27/21 05:53 06/27/21 05:54 Microbiology Microbiology 06/24/21 Acid Fast Stain, Received Pending 06/24/21 Mycobacterial Culture, Received Pending 06/24/21 Fungal Smear, Received Pending 06/24/21 Fungal Culture, Received Pending 06/24/21 Gram Stain - Final, Complete 06/24/21 Body Fluid Culture - Final, Complete 06/24/21 Anaerobic Culture - Final, Complete 06/19/21 Acid Fast Stain, Received Pending 06/19/21 Mycobacterial Culture, Received Pending 06/19/21 Fungal Smear, Received Pending 06/19/21 Fungal Culture, Received Pending 06/19/21 Gram Stain - Final, Complete 06/19/21 Body Fluid Culture - Final, Complete 06/18/21 Blood Culture - Final, Complete NO GROWTH AFTER 5 DAYS Aletha Mace MD Jun 27, 2021 11:04
[2021-06-27 11:39] LABS: HEPATITIS B CORE ANTIBODY IGM NEGATIVE (NEGATIVE); HEPATITIS B SURFACE ANTIGEN NEGATIVE (NEGATIVE)
[2021-06-27] MEDS: cefTRIAXone SOD 1 GM in D5W MINI-BAG PLUS 50 ML IV SCH (12:49)
[2021-06-27 14:24] LABS: APPEARANCE, URINE HAZY (CLEAR); BACTERIA, URINE AUTO NEGATIVE (NEGATIVE); BILIRUBIN, URINE AUTO NEGATIVE (NEGATIVE); BLOOD, URINE BLOOD 3+ (NEGATIVE); COLOR, URINE AMBER (YELLOW); GLUCOSE, URINE (UA) AUTO NEGATIVE (NEGATIVE); KETONE, URINE AUTO NEGATIVE (NEGATIVE); LEUKOCYTE ESTERASE, URINE AUTO 3+ (NEGATIVE); MUCUS, URINE SMALL (NEGATIVE); NITRITE, URINE AUTO NEGATIVE (NEGATIVE); PROTEIN, URINE AUTO 2+ mg/dL (NEGATIVE); RBC, URINE AUTO TNTC /HPF (0-3); SPECIFIC GRAVITY URINE AUTO 1.016 (1.002-1.035); SQUAMOUS EPITHELIAL CELL UR AU 0 /HPF (0-6); WBC, URINE AUTO TNTC /HPF (0-3)
[2021-06-27] MEDS: LORATADINE 5 MG HALF-TAB PO SCH (20:40)
--- NOTE | 2021-06-27 21:33 | IPNPDOC ---
Subjective CC/HPI The patient is a 65-year-old female admitted with a reason for visit of Raul,Menorrhagia. Events since last encounter Pt was seen sitting in her sofa today AM. She got bladder scan yesterday which showed 1700 ml of urine in bladder. Newell was placed. She is diuresing now. UA was sent which is dirty due to stagnant urine. Renal function is improving. General: Reports: Fatigue; Denies: Chills, Night Sweats Constitutional: Denies: Chills, Fever, Malaise Eyes: Denies: Pain, Vision change ENT: Denies: Head Aches, Ear Pain Skin: Denies: Rash, Lesions Pulmonary: Denies: Dyspnea, Cough Cardiovascular: Denies: Chest Pain, Palpitations Gastrointestinal: Reports: Other Symptoms (Rectal prolapse); Denies: Nausea, Vomiting Genitourinary: Reports: Other Symptoms (Retention requiring Newell) Hematologic: Denies: Bruising, Bleeding Excessively Musculoskeletal: Denies: Neck Pain, Back Pain Neurological: Denies: Weakness, Numbness Psych: Reports: Mood Normal Objective Physical Examination General Exam: Alert, Other (Morbid obesity, sitting in sofa) EYE EXAM: PERRLA, Conjunctiva & lids normal ENT EXAM: Atraumatic, Mucous membr. moist/pink Neck Exam: Supple; No: JVD Chest Exam: Clear to auscultation, Normal air movement Heart Exam: Rate Normal, Normal S1, Normal S2, Other (1+ edema of ankles) ABDOMEN EXAM: Normal bowel sounds, Soft, Other Female Exam: No: Nl Ext Genitalia (Indwelling Newell) Extremity Exam: Edema (ankles only); No: Clubbing Skin Exam: Nl turgor and temperature Neuro Exam: Normal Speech, Strength at 5/5 X4 ext Psych Exam: Mental status NL, Mood NL, Oriented x 3 Vital Signs/I&O Vital Signs Date Time Temp Pulse Resp B/P (MAP) Pulse Ox O2 Delivery O2 Flow Rate FiO2 06/27/21 14:00 97.5 80 18 123/71 (88) 98 Room Air 06/23/21 14:04 2.0 I&O- Last 24 Hours up to 6 AM 06/27/21 06:00 Intake Total 840.0 ml Output Total 2250 ml Balance -1410.0 ml Laboratory Data Labs 24H Laboratory Tests 2 06/27/21 05:53: Immature Granulocyte % (Auto) 0.7, Neutrophils (%) (Auto) 75.8H, Lymphocytes (%) (Auto) 16.2L, Monocytes (%) (Auto) 6.2, Eosinophils (%) (Auto) 1.1, Basophils (%) (Auto) 0.0, Neutrophils # (Auto) 3.4, Lymphocytes # (Auto) 0.7L, Monocytes # (Auto) 0.3, Eosinophils # (Auto) 0.1, Basophils # (Auto) 0.0, Nucleated Red Blood Cells % (auto) 0.0, Immature Platelet Fraction 2.8 06/27/21 05:54: Anion Gap 12, Glomerular Filtration Rate 19.6L, Calcium Level 7.4L, Hepatitis B Surface Antigen NEGATIVE, Hepatitis B Core IgM Antibody NEGATIVE 06/27/21 13:46: Urine Color HERIBERTO, Urine Appearance HAZY, Urine pH 5.0, Urine Specific [place] 1.016, Urine Protein 2+H, Urine Glucose (Auto)(UA) NEGATIVE, Urine Ketones (Auto) NEGATIVE, Urine Blood 3+H, Urine Nitrite NEGATIVE, Urine Bilirubin NEGATIVE, Urine Urobilinogen 2.0H, Urine Leukocyte Esterase (Auto) 3+H, Urine WBC (Auto) TNTCH, Urine RBC (Auto) TNTCH, Urine Hyaline Casts (Auto) 0, Urine Bacteria (Auto) NEGATIVE, Urine Squamous Epithelial Cells 0, Urine Mucus (Auto) SMALL, Urine Sperm (Auto) CBC/BMP Laboratory Tests 06/27/21 05:53 06/27/21 05:54 Current Medications Current Medications Medications (Trade) Dose Ordered Sig/Cher Route PRN Reason Start Time Stop Time Status Last Admin Dose Admin Acetaminophen (Tylenol Tab) 650 mg Q4H PRN PO MILD PAIN or TEMP > 101 06/17/21 19:35 06/24/21 11:05 Amitriptyline HCl (Elavil) 25 mg QHS PRN PO SLEEP 06/17/21 22:20 06/17/21 22:24 DC Amitriptyline HCl (Elavil) 25 mg QHSP PRN PO SLEEP 06/17/21 22:24 06/24/21 18:29 DC Aspirin (Ecotrin) 81 mg DAILY PO 06/18/21 09:00 06/17/21 23:09 DC Benzonatate (Tessalon Perles) 200 mg TIDP PRN PO COUGH 06/17/21 22:20 Calcium Carbonate (Tums) 1,000 mg Q4HP PRN PO HEARTBURN 06/26/21 10:55 Ceftriaxone Sodium 1 gm/ Dextrose 50 ml @ 100 mls/hr Q24H IV 06/27/21 11:00 07/02/21 10:59 06/27/21 12:49 Diatrizoate Meglum/ Diatrizoate Sod (Gastrografin) 10 ml Q30M PO 06/18/21 11:15 06/18/21 11:46 DC 06/18/21 11:40 Home Med (Home Med List Complete!) ASDIRECTED XX 06/17/21 20:40 06/17/21 20:44 DC Lactulose (Cephulac) 15 ml TID PO 06/25/21 09:00 06/25/21 14:11 DC 06/25/21 12:02 Lactulose (Cephulac) 30 ml TID PO 06/25/21 16:00 06/26/21 10:29 DC 06/26/21 08:06 Loratadine (Claritin) 5 mg QHS PO 06/18/21 21:00 06/27/21 20:40 Midodrine (Proamatine) 5 mg 08,12,16 PO 06/20/21 08:00 06/23/21 15:47 DC 06/23/21 07:40 Midodrine (Proamatine) 5 mg 08,12,16 PO 06/26/21 12:00 06/27/21 17:40 Midodrine (Proamatine) 10 mg 08,12,16 PO 06/26/21 08:00 06/25/21 16:23 DC Miscellaneous (Unresolved Patient Own Med Order) SEE LABEL COMMENTS UNRESOLVED XX 06/22/21 00:01 06/26/21 09:08 DC Morphine Sulfate (Msir) 15 mg Q8HP PRN PO SEVERE PAIN (PS 8-10) 06/21/21 21:00 06/24/21 18:29 DC 06/21/21 20:42 Omeprazole (PriLOSEC) 20 mg DAILY PO 06/18/21 09:00 06/21/21 09:04 DC 06/20/21 09:22 Ondansetron HCl (ZOFRAN INJection) 4 mg Q4HP PRN IV NAUSEA OR VOMITING 06/22/21 08:50 Pantoprazole Sodium (Protonix) 40 mg DAILY PO 06/22/21 09:00 06/27/21 08:24 Patient Own Medication (Patient'S Own Med) norethindrone acetate 5 mg TABLET T... DAILY PO 06/21/21 09:00 06/25/21 16:23 DC 06/24/21 10:01 Ramelteon (Rozerem) 8 mg QHS PRN PO INSOMNIA 06/26/21 22:20 06/26/21 22:51 Senna/Docusate Sodium (Senokot S) 1 tab BID PO 06/26/21 09:00 Simvastatin (Zocor) 20 mg DAILY PO 06/18/21 09:00 06/27/21 08:24 Sodium Bicarbonate (Sodium Bicarbonate) 650 mg BID PO 06/24/21 09:10 06/27/21 20:40 Sodium Chloride 1,000 ml @ 100 mls/hr Q10H IV 06/18/21 14:55 06/20/21 08:54 DC 06/18/21 16:19 Sodium Chloride 1,000 ml @ 120 mls/hr Q8H20M IV 06/17/21 19:35 06/18/21 09:08 DC 06/17/21 20:20 Sodium Chloride 1,000 ml @ 250 mls/hr Q4H IV 06/17/21 18:55 06/18/21 09:08 DC Sodium Chloride 1,000 ml @ 1,000 mls/hr Q1H IV 06/18/21 09:30 06/18/21 11:29 DC 06/18/21 11:40 Sucralfate (Carafate) 1 gm ACHS PO 06/21/21 12:00 06/27/21 20:40 Tizanidine HCl (Zanaflex) 4 mg DAILY PRN PO SPASMS 06/20/21 19:15 06/24/21 18:29 DC Torsemide (Demadex) 20 mg DAILY PO 06/25/21 09:00 06/26/21 07:34 DC 06/25/21 12:03 Tramadol HCl (Ultram) 50 mg Q8HP PRN PO MODERATE PAIN (PS 5-7) 06/25/21 14:15 Zolpidem Tartrate (Ambien) 2.5 mg QHSP PRN PO INSOMNIA 06/21/21 17:30 06/24/21 18:29 DC Allergies Coded Allergies: No Known Allergies (Unverified , 06/17/21) Assessment/Plan Date Seen The patient was seen on 06/27/21 at 21:27. Plan / VTE VTE Prophylaxis Ordered?: Yes Plan Orders past 48 Hours Orders Cbc With Differential (06/26/21 06:00) Cbc With Differential (06/27/21 06:00) Cbc With Differential (06/28/21 06:00) Cbc With Differential (06/29/21 06:00) Cbc With Differential (06/30/21 06:00) Cbc With Differential (07/01/21 06:00) Cbc With Differential (07/02/21 06:00) Basic Metabolic Profile (06/26/21 06:00) Basic Metabolic Profile (06/27/21 06:00) Basic Metabolic Profile (06/28/21 06:00) Basic Metabolic Profile (06/29/21 06:00) Basic Metabolic Profile (06/30/21 06:00) Basic Metabolic Profile (07/01/21 06:00) Basic Metabolic Profile (07/02/21 06:00) Ammonia (06/26/21 06:00) Docusate Sod/Senna (Senokot S) (06/26/21 09:00) Lactic Acid Level, Lactate (06/26/21 05:26) C Reactive Protein Quantitativ (06/26/21 05:33) Procalcitonin (06/26/21 05:53) Ns (Nacl 0.9%) (06/26/21 07:35) Potassium Chloride (Micro-K Extencaps) (06/26/21 09:15) Hepatitis B Core Antibody Igm (06/27/21 06:00) Hepatitis B Surface Antigen (06/27/21 06:00) Ns (Nacl 0.9%) (06/26/21 10:30) Calcium Carbonate (Tums) (06/26/21 10:55) Midodrine Hcl (Proamatine) (06/26/21 12:00) Albumin 25% (06/26/21 11:35) Albumin 25% (06/26/21 17:35) Albumin 25% (06/26/21 23:35) Albumin 25% (06/27/21 05:35) Urinary Catheter DOCUMENT BID (06/26/21 11:38) Hepatitis C Antibody (06/26/21 05:33) Ramelteon (Rozerem) (06/26/21 22:20) Immature Platelet Fraction (06/27/21 05:53) Urinalysis (06/27/21 09:05) Potassium Chloride (Micro-K Extencaps) (06/27/21 09:10) Ceftriaxone Sod (Rocephin) (06/27/21 11:00) Plan Text post menopausal bleed s/p D&C, elevated tumor but negative endometrial biopsy Rectal prolapse. Anemia sec to bleed Ascites and liver cirrhosis Acute renal failure on CKD3 sec to obstructive uropathy, Baseline Cr 1.4 in Jul 2020 Hypotension UTI Hypokalemia continue Oral bicarb.continue Midodrine. Stop IV albumin. start Rocephin for UTI. Cx sent today. Keep Newell for now. Oral Kcl given. Renal function improving JOSE STANTON MD Jun 27, 2021 21:32
[2021-06-28 05:54] VITALS: BP 106/50
[2021-06-28 06:43] LABS: EOS # 0.1 10^3/uL (0.0-0.5); EOS % 0.8 % (0.0-3.0); HEMATOCRIT 31.4 % (36.0-47.0); HEMOGLOBIN 10.5 g/dl (12.0-15.5); LYMPH # 0.8 10^3/uL (1.5-5.0); LYMPH % 12.6 % (24.0-44.0); MEAN CORPUSCULAR HEMOGLOBIN 31.3 pg (27.0-33.0); MEAN CORPUSCULAR HGB CONC 33.4 g/dl (32.0-36.5); MEAN CORPUSCULAR VOLUME 93.7 fl (80.0-96.0); MONO # 0.3 10^3/uL (0.0-0.8); MONO % 5.3 % (2.0-8.0); NEUTROPHILS # 4.9 10^3/uL (1.5-8.5); NEUTROPHILS % 80.6 % (36.0-66.0); RED BLOOD COUNT 3.35 10^6/uL (4.00-5.40)
[2021-06-28 06:59] LABS: PLATELET COUNT, AUTOMATED 91 10^3/uL (150-450)
[2021-06-28 07:15] LABS: CALCIUM LEVEL 8.3 MG/DL (8.8-10.2); CREATININE FOR GFR 2.18 MG/DL (0.55-1.30); GLOMERULAR FILTRATION RATE 24.2 (>45); POTASSIUM SERUM 4.1 MEQ/L (3.5-5.1)
[2021-06-28 08:00] VITALS: BP 112/59
[2021-06-28] MEDS: SUCRALFATE 1 GM TAB PO SCH ×4 (08:07→20:34)
[2021-06-28] MEDS: MIDODRINE 5 MG TAB PO SCH ×3 (08:07→17:28)
[2021-06-28] MEDS: SODIUM BICARBONATE 325 MG TAB PO SCH (08:07)
[2021-06-28] MEDS: PANTOPRAZOLE 40MG TAB (PROTONIX) PO SCH (08:07)
[2021-06-28] MEDS: SIMVASTATIN 20 MG TAB PO SCH (08:07)
[2021-06-28] MEDS: SENOKOT S TAB PO SCH ×2 (08:09→20:34)
--- NOTE | 2021-06-28 12:11 | IPNPDOC ---
Subjective Date Seen The patient was seen on 06/28/21. Subjective Chief Complaint/HPI Worked with physical therapy and did much better today. Patient is very motivated to get her strength back and go home. Her renal function has also improved she will have to go home with Newell I'm hopeful that she'll be able to go home in the next 24 hours. Objective Physical Examination General Exam: Positive: Alert, Cooperative, No Acute Distress Eye Exam: Positive: PERRLA, Conjunctiva & lids normal, EOMI; Negative: Sclera icteric ENT Exam: Positive: Atraumatic, Mucous membr. moist/pink, Pharynx Normal Neck Exam: Positive: Supple; Negative: JVD, thyromegaly Chest Exam: Positive: Diminished Heart Exam: Positive: Rate Normal, Regular Rhythm, Murmurs; Negative: Rubs Telemetry: Positive: No significant arrhythmia Abdomen Exam: Positive: Normal bowel sounds, Soft, Tenderness (LOWER ABD/ SUPRAPUBIC), Other (rectal prolapse. ); Negative: Hepatospenomegaly Extremity Exam: Positive: Edema (2+, may be a component of lymphedema given body habitus), Normal pulses; Negative: Clubbing, Cyanosis Skin Exam: Positive: Nl turgor and temperature; Negative: Breakdown, Lesion Neuro Exam: Positive: Normal Gait, Normal Speech, Cranial Nerves 3-12 NL, Reflexes 2+ Psych Exam: Positive: Mental status NL, Anxiety, Oriented x 3; Negative: Mood NL Assessment /Plan Assessment 65-year-old female with history of hypertension, diabetes, morbid obesity, hyperlipidemia, DVT, chronic back pain, history of alcohol abuse in her 20s was admitted for acute blood loss anemia with a hemoglobin of 6.5 due to postmenopausal bleeding. She was also noted to have elevated creatinine of 3.1 from a baseline of 1.45 in July 2020. She was admitted for acute blood loss anemia, [place] she underwent hysteroscopy and D&C and was noted to have, Mildly enlarged uterus. Thick endometrial tissue with a scalloped appearance of both anterior and posterior surface of the endometrium diffusely. Endometrial findings suspicious for carcinoma. Massive rectal prolapse. While in the hospital she was also noted to have ascites and had acetic fluid tapped x2. [place] on CKD Baseline creatinine of 1.45 in July 2020 Likely due to acute blood loss anemia and decompensated cirrhosis of liver, decreased intravascular volume and now with acute urinary retention. However may also have hepatorenal syndrome. Newell placement produced 1700 cc. This is due to urinary obstruction from rectal prolapse. continue Newell. Will have to go home with Newell catheter. UA dirty and Culture sent. started empirically on ceftriaxone Continue on midodrine Postmenopausal bleeding Resolved Endometrial biopsy negative for any malignancy. Norethindrone stopped Follow-up with Dr. Bruno as an outpatient Acute blood loss anemia Due to vaginal blood loss Received blood transfusions H&H stable Cirrhosis of Liver Ascites, hypoalbuminemia, elevated ammonia CT scan shows fatty liver Had 2 ascitic fluid taps both of which have been negative for malignant cells Her SAAG is greater than 1.1 which suggests that the ascites is due to cirrhosis of liver. She does have history of alcohol abuse in her 20s and also has morbid obesity. checked hepatitis B&C which are negative Liver ultrasound with Doppler nondiagnostic as portal vein vasculature could not be visualized Continue Lactulose. Will start on torsemide and potassium Follow-up with nephrology as an outpatient Hypokalemia replaced. Possible hepatic encephalopathy Now resolved Patient was very lethargic on 06/24/2021. Ammonia was 55 Had multiple bowel movements after lactulose continue lactulose to have 2 soft bowel movements daily. Elevated tumor marker CA 19-9, CA-125 will need to do colonoscopy Huge rectal prolapse Will need to be referred to colorectal surgeon as this may be causing acute urinary retention leading to [place]. 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 Used to be on Eliquis at home Now stopped due to recent active bleeding Will need to be restarted in 2 weeks Chronic back pain Pain control with Tylenol and tramadol Plan/VTE VTE Prophylaxis Ordered?: Yes VS, I&O, 24H, Fishbone Vital Signs/I&O Vital Signs Date Time Temp Pulse Resp B/P (MAP) Pulse Ox O2 Delivery O2 Flow Rate FiO2 06/28/21 08:00 85 112/59 (76) 06/28/21 05:54 96.9 18 100 Room Air 06/23/21 14:04 2.0 I&O- Last 24 Hours up to 6 AM 06/28/21 06:00 Intake Total 490 ml Output Total 600 ml Balance -110 ml Laboratory Data 24H LABS Laboratory Tests 2 06/27/21 13:46: Urine Color HERIBERTO, Urine Appearance HAZY, Urine pH 5.0, Urine Specific [place] 1.016, Urine Protein 2+H, Urine Glucose (Auto)(UA) NEGATIVE, Urine Ketones (Auto) NEGATIVE, Urine Blood 3+H, Urine Nitrite NEGATIVE, Urine Bilirubin NEGATIVE, Urine Urobilinogen 2.0H, Urine Leukocyte Esterase (Auto) 3+H, Urine WBC (Auto) TNTCH, Urine RBC (Auto) TNTCH, Urine Hyaline Casts (Auto) 0, Urine Bacteria (Auto) NEGATIVE, Urine Squamous Epithelial Cells 0, Urine Mucus (Auto) SMALL, Urine Sperm (Auto) 06/28/21 06:27: Immature Granulocyte % (Auto) 0.7, Neutrophils (%) (Auto) 80.6H, Lymphocytes (%) (Auto) 12.6L, Monocytes (%) (Auto) 5.3, Eosinophils (%) (Auto) 0.8, Basophils (%) (Auto) 0.0, Neutrophils # (Auto) 4.9, Lymphocytes # (Auto) 0.8L, Monocytes # (Auto) 0.3, Eosinophils # (Auto) 0.1, Basophils # (Auto) 0.0, Nucleated Red Blood Cells % (auto) 0.0, Immature Platelet Fraction 2.4, Anion Gap 13, Kristine merular Filtration Rate 24.2L, Calcium Level 8.3L CBC/BMP Laboratory Tests 06/28/21 06:27 Microbiology Microbiology 06/24/21 Acid Fast Stain, Received Pending 06/24/21 Mycobacterial Culture, Received Pending 06/24/21 Fungal Smear, Received Pending 06/24/21 Fungal Culture, Received Pending 06/24/21 Gram Stain - Final, Complete 06/24/21 Body Fluid Culture - Final, Complete 06/24/21 Anaerobic Culture - Final, Complete 06/19/21 Acid Fast Stain, Received Pending 06/19/21 Mycobacterial Culture, Received Pending 06/19/21 Fungal Smear, Received Pending 06/19/21 Fungal Culture, Received Pending 06/19/21 Gram Stain - Final, Complete 06/19/21 Body Fluid Culture - Final, Complete 06/18/21 Blood Culture - Final, Complete NO GROWTH AFTER 5 DAYS Aletha Mace MD Jun 28, 2021 12:11
[2021-06-28] MEDS: cefTRIAXone SOD 1 GM in D5W MINI-BAG PLUS 50 ML IV SCH (12:25)
[2021-06-28] MEDS: POTASSIUM CHLORIDE 10MEQ SR TABLET PO SCH (12:26)
[2021-06-28] MEDS: TORSEMIDE 20 MG TAB PO SCH (12:26)
[2021-06-28 12:27] VITALS: BP 128/66
[2021-06-28 14:00] VITALS: BP 118/66
[2021-06-28 17:28] VITALS: BP 116/60
[2021-06-28 20:20] VITALS: BP 116/66
[2021-06-28] MEDS: LORATADINE 5 MG HALF-TAB PO SCH (20:34)
--- NOTE | 2021-06-28 21:20 | IPNPDOC ---
Subjective CC/HPI The patient is a 65-year-old female admitted with a reason for visit of Raul,Menorrhagia. Events since last encounter She feels much better today. Renal function continues to improve ever since Newell was placed. Cr2.6-->2.1. She is doing PT today and is enthusiastic to pass so she can go home. She reports leg edema. General: Denies: Chills, Night Sweats, Fatigue Constitutional: Denies: Chills, Malaise Eyes: Denies: Vision change ENT: Denies: Head Aches, Ear Pain Skin: Denies: Rash, Lesions Pulmonary: Denies: Dyspnea, Cough Cardiovascular: Denies: Chest Pain, Palpitations Gastrointestinal: Denies: Nausea, Vomiting Genitourinary: Reports: Other Symptoms (Indwelling Newell) Hematologic: Denies: Bruising, Bleeding Excessively Musculoskeletal: Denies: Neck Pain, Back Pain Neurological: Denies: Weakness, Numbness Psych: Reports: Mood Normal Objective Physical Examination General Exam: Alert, No Acute Distress, Other (Morbid obesity, sitting in sofa) EYE EXAM: PERRLA, Conjunctiva & lids normal ENT EXAM: Atraumatic, Mucous membr. moist/pink Neck Exam: Supple; No: JVD Chest Exam: Clear to auscultation, Normal air movement Heart Exam: Rate Normal, Normal S1, Normal S2, Other (1+ edema of ankles) ABDOMEN EXAM: Normal bowel sounds, Soft, Other Female Exam: No: Nl Ext Genitalia (Indwelling Newell) Extremity Exam: Edema (ankles only); No: Clubbing Skin Exam: Nl turgor and temperature Neuro Exam: Normal Speech, Strength at 5/5 X4 ext Psych Exam: Mental status NL, Mood NL, Oriented x 3 Vital Signs/I&O Vital Signs Date Time Temp Pulse Resp B/P (MAP) Pulse Ox O2 Delivery O2 Flow Rate FiO2 06/28/21 20:20 98.0 75 16 116/66 (83) 95 Room Air 06/23/21 14:04 2.0 I&O- Last 24 Hours up to 6 AM 06/28/21 06:00 Intake Total 490 ml Output Total 600 ml Balance -110 ml Laboratory Data Labs 24H Laboratory Tests 2 06/28/21 06:27: Immature Granulocyte % (Auto) 0.7, Neutrophils (%) (Auto) 80.6H, Lymphocytes (%) (Auto) 12.6L, Monocytes (%) (Auto) 5.3, Eosinophils (%) (Auto) 0.8, Basophils (%) (Auto) 0.0, Neutrophils # (Auto) 4.9, Lymphocytes # (Auto) 0.8L, Monocytes # (Auto) 0.3, Eosinophils # (Auto) 0.1, Basophils # (Auto) 0.0, Nucleated Red Blood Cells % (auto) 0.0, Immature Platelet Fraction 2.4, Anion Gap 13, Glomerular Filtration Rate 24.2L, Calcium Level 8.3L CBC/BMP Laboratory Tests 06/28/21 06:27 Current Medications Current Medications Medications (Trade) Dose Ordered Sig/Cher Route PRN Reason Start Time Stop Time Status Last Admin Dose Admin Acetaminophen (Tylenol Tab) 650 mg Q4H PRN PO MILD PAIN or TEMP > 101 06/17/21 19:35 06/24/21 11:05 Amitriptyline HCl (Elavil) 25 mg QHS PRN PO SLEEP 06/17/21 22:20 06/17/21 22:24 DC Amitriptyline HCl (Elavil) 25 mg QHSP PRN PO SLEEP 06/17/21 22:24 06/24/21 18:29 DC Aspirin (Ecotrin) 81 mg DAILY PO 06/18/21 09:00 06/17/21 23:09 DC Benzonatate (Tessalon Perles) 200 mg TIDP PRN PO COUGH 06/17/21 22:20 Calcium Carbonate (Tums) 1,000 mg Q4HP PRN PO HEARTBURN 06/26/21 10:55 Ceftriaxone Sodium 1 gm/ Dextrose 50 ml @ 100 mls/hr Q24H IV 06/27/21 11:00 07/02/21 10:59 06/28/21 12:25 Diatrizoate Meglum/ Diatrizoate Sod (Gastrografin) 10 ml Q30M PO 06/18/21 11:15 06/18/21 11:46 DC 06/18/21 11:40 Home Med (Home Med List Complete!) ASDIRECTED XX 06/17/21 20:40 06/17/21 20:44 DC Lactulose (Cephulac) 15 ml TID PO 06/25/21 09:00 06/25/21 14:11 DC 06/25/21 12:02 Lactulose (Cephulac) 30 ml TID PO 06/25/21 16:00 06/26/21 10:29 DC 06/26/21 08:06 Loratadine (Claritin) 5 mg QHS PO 06/18/21 21:00 06/28/21 20:34 Midodrine (Proamatine) 5 mg 08,12,16 PO 06/20/21 08:00 06/23/21 15:47 DC 06/23/21 07:40 Midodrine (Proamatine) 5 mg 08,12,16 PO 06/26/21 12:00 06/28/21 17:28 Midodrine (Proamatine) 10 mg 08,12,16 PO 06/26/21 08:00 06/25/21 16:23 DC Miscellaneous (Unresolved Patient Own Med Order) SEE LABEL COMMENTS UNRESOLVED XX 06/22/21 00:01 06/26/21 09:08 DC Morphine Sulfate (Msir) 15 mg Q8HP PRN PO SEVERE PAIN (PS 8-10) 06/21/21 21:00 06/24/21 18:29 DC 06/21/21 20:42 Omeprazole (PriLOSEC) 20 mg DAILY PO 06/18/21 09:00 06/21/21 09:04 DC 06/20/21 09:22 Ondansetron HCl (ZOFRAN INJection) 4 mg Q4HP PRN IV NAUSEA OR VOMITING 06/22/21 08:50 Pantoprazole Sodium (Protonix) 40 mg DAILY PO 06/22/21 09:00 06/28/21 08:07 Patient Own Medication (Patient'S Own Med) norethindrone acetate 5 mg TABLET T... DAILY PO 06/21/21 09:00 06/25/21 16:23 DC 06/24/21 10:01 Potassium Chloride (Micro-K Extencaps) 20 meq DAILY PO 06/28/21 09:00 06/28/21 12:26 Ramelteon (Rozerem) 8 mg QHS PRN PO INSOMNIA 06/26/21 22:20 06/26/21 22:51 Senna/Docusate Sodium (Senokot S) 1 tab BID PO 06/26/21 09:00 06/28/21 20:34 Simvastatin (Zocor) 20 mg DAILY PO 06/18/21 09:00 06/28/21 08:07 Sodium Bicarbonate (Sodium Bicarbonate) 650 mg BID PO 06/24/21 09:10 06/28/21 09:48 DC 06/28/21 08:07 Sodium Chloride 1,000 ml @ 100 mls/hr Q10H IV 06/18/21 14:55 06/20/21 08:54 DC 06/18/21 16:19 Sodium Chloride 1,000 ml @ 120 mls/hr Q8H20M IV 06/17/21 19:35 06/18/21 09:08 DC 06/17/21 20:20 Sodium Chloride 1,000 ml @ 250 mls/hr Q4H IV 06/17/21 18:55 06/18/21 09:08 DC Sodium Chloride 1,000 ml @ 1,000 mls/hr Q1H IV 06/18/21 09:30 06/18/21 11:29 DC 06/18/21 11:40 Sucralfate (Carafate) 1 gm ACHS PO 06/21/21 12:00 06/28/21 20:34 Tizanidine HCl (Zanaflex) 4 mg DAILY PRN PO SPASMS 06/20/21 19:15 06/24/21 18:29 DC Torsemide (Demadex) 20 mg DAILY PO 06/25/21 09:00 06/26/21 07:34 DC 06/25/21 12:03 Torsemide (Demadex) 20 mg DAILY PO 06/28/21 09:00 06/28/21 12:26 Tramadol HCl (Ultram) 50 mg Q8HP PRN PO MODERATE PAIN (PS 5-7) 06/25/21 14:15 Zolpidem Tartrate (Ambien) 2.5 mg QHSP PRN PO INSOMNIA 06/21/21 17:30 06/24/21 18:29 DC Allergies Coded Allergies: No Known Allergies (Unverified , 06/17/21) Assessment/Plan Date Seen The patient was seen on 06/28/21 in AM. Plan / VTE VTE Prophylaxis Ordered?: Yes Plan Orders past 48 Hours Orders Ramelteon (Rozerem) (06/26/21 22:20) Urinalysis (06/27/21 09:05) Potassium Chloride (Micro-K Extencaps) (06/27/21 09:10) Ceftriaxone Sod (Rocephin) (06/27/21 11:00) Immature Platelet Fraction (06/28/21 06:27) Torsemide (Demadex) (06/28/21 09:00) Potassium Chloride (Micro-K Extencaps) (06/28/21 09:00) [place]/Pro Mashed Potatoe (06/28/21 12:36) Plan Text post menopausal bleed s/p D&C, elevated tumor but negative endometrial biopsy Rectal prolapse. Anemia sec to bleed Ascites and liver cirrhosis Acute renal failure on CKD3 sec to obstructive uropathy, Baseline Cr 1.4 in Jul 2020 Hypotension UTI Hypokalemia LE edema DC Oral bicarb.continue Midodrine. cont Rocephin for UTI. Keep Newell for now. Oral Kcl started along with Torsemide 20 mg daily. Renal function improving JOSE STANTON MD Jun 28, 2021 21:20
[2021-06-29 05:44] VITALS: BP 116/75
[2021-06-29 06:21] LABS: EOS # 0.1 10^3/uL (0.0-0.5); HEMATOCRIT 32.2 % (36.0-47.0); HEMOGLOBIN 10.7 g/dl (12.0-15.5); LYMPH # 0.7 10^3/uL (1.5-5.0); LYMPH % 13.3 % (24.0-44.0); MEAN CORPUSCULAR HEMOGLOBIN 31.8 pg (27.0-33.0); MEAN CORPUSCULAR HGB CONC 33.2 g/dl (32.0-36.5); MEAN CORPUSCULAR VOLUME 95.5 fl (80.0-96.0); MONO # 0.4 10^3/uL (0.0-0.8); MONO % 7.1 % (2.0-8.0); NEUTROPHILS # 3.9 10^3/uL (1.5-8.5); NEUTROPHILS % 77.8 % (36.0-66.0); PLATELET COUNT, AUTOMATED 84 10^3/uL (150-450); RED BLOOD COUNT 3.37 10^6/uL (4.00-5.40)
[2021-06-29 06:47] LABS: CALCIUM LEVEL 8.1 MG/DL (8.8-10.2); CREATININE FOR GFR 2.07 MG/DL (0.55-1.30); GLOMERULAR FILTRATION RATE 25.7 (>45); POTASSIUM SERUM 3.2 MEQ/L (3.5-5.1)
[2021-06-29] MEDS ORDERED: CEFD1CAP8 PO (08:06)
[2021-06-29] MEDS ORDERED: TORS20TA2 PO (08:06)
[2021-06-29] MEDS ORDERED: POTA-136 PO (08:06)
[2021-06-29] MEDS: SENOKOT S TAB PO SCH (08:34)
[2021-06-29] MEDS: MIDODRINE 5 MG TAB PO SCH (08:34)
[2021-06-29] MEDS: PANTOPRAZOLE 40MG TAB (PROTONIX) PO SCH (08:34)
[2021-06-29] MEDS: POTASSIUM CHLORIDE 10MEQ SR TABLET PO SCH (08:34)
[2021-06-29] MEDS: SUCRALFATE 1 GM TAB PO SCH (08:34)
[2021-06-29] MEDS: SIMVASTATIN 20 MG TAB PO SCH (08:34)
[2021-06-29] MEDS: TORSEMIDE 20 MG TAB PO SCH (08:34)
[2021-06-29] MEDS ORDERED: SPIRONOLACTONE 25 MG TAB PO SCH (09:00)
[2021-06-29] MEDS ORDERED: ALDA25TA2 PO (09:57)
--- NOTE | 2021-06-29 10:48 | IPNPDOC ---
Subjective CC/HPI The patient is a 65-year-old female admitted with a reason for visit of Raul,Menorrhagia. Events since last encounter Pt waiting to be discharged today. Renal function continues to improve. She still has indwelling Newell. General: Denies: Chills, Night Sweats Constitutional: Denies: Chills, Fever, Malaise Eyes: Denies: Pain, Vision change ENT: Denies: Head Aches, Ear Pain Skin: Denies: Rash, Lesions Pulmonary: Denies: Dyspnea, Cough Cardiovascular: Denies: Chest Pain, Palpitations Gastrointestinal: Denies: Nausea, Vomiting Genitourinary: Reports: Other Symptoms (Retention) Hematologic: Denies: Bruising, Bleeding Excessively Musculoskeletal: Denies: Neck Pain, Back Pain Neurological: Denies: Weakness, Numbness Psych: Reports: Mood Normal Objective Physical Examination General Exam: Alert, No Acute Distress EYE EXAM: PERRLA, Conjunctiva & lids normal ENT EXAM: Atraumatic, Mucous membr. moist/pink Neck Exam: Supple; No: JVD Chest Exam: Clear to auscultation, Normal air movement Heart Exam: Rate Normal, Normal S1, Normal S2, Other (1+ edema of ankles) ABDOMEN EXAM: Normal bowel sounds, Soft; No: Tenderness Female Exam: No: Nl Ext Genitalia (Indwelling Newell) Extremity Exam: Edema (ankles only); No: Clubbing Skin Exam: Nl turgor and temperature Neuro Exam: Normal Speech, Strength at 5/5 X4 ext Psych Exam: Mental status NL, Mood NL, Oriented x 3 Vital Signs/I&O Vital Signs Date Time Temp Pulse Resp B/P (MAP) Pulse Ox O2 Delivery O2 Flow Rate FiO2 06/29/21 05:44 98.3 72 16 116/75 (89) 96 Room Air 06/23/21 14:04 2.0 I&O- Last 24 Hours up to 6 AM 06/29/21 06:00 Intake Total 970 ml Output Total 1125 ml Balance -155 ml Laboratory Data Labs 24H Laboratory Tests 2 06/29/21 05:47: Immature Granulocyte % (Auto) 0.8, Neutrophils (%) (Auto) 77.8H, Lymphocytes (%) (Auto) 13.3L, Monocytes (%) (Auto) 7.1, Eosinophils (%) (Auto) 1.0, Basophils (%) (Auto) 0.0, Neutrophils # (Auto) 3.9, Lymphocytes # (Auto) 0.7L, Monocytes # (Auto) 0.4, Eosinophils # (Auto) 0.1, Basophils # (Auto) 0.0, Nucleated Red Blood Cells % (auto) 0.0, Anion Gap 9, Glomerular Filtration Rate 25.7L, Calcium Level 8.1L CBC/BMP Laboratory Tests 06/29/21 05:47 Current Medications Current Medications Medications (Trade) Dose Ordered Sig/Cher Route PRN Reason Start Time Stop Time Status Last Admin Dose Admin Acetaminophen (Tylenol Tab) 650 mg Q4H PRN PO MILD PAIN or TEMP > 101 06/17/21 19:35 06/24/21 11:05 Amitriptyline HCl (Elavil) 25 mg QHS PRN PO SLEEP 06/17/21 22:20 06/17/21 22:24 DC Amitriptyline HCl (Elavil) 25 mg QHSP PRN PO SLEEP 06/17/21 22:24 06/24/21 18:29 DC Aspirin (Ecotrin) 81 mg DAILY PO 06/18/21 09:00 06/17/21 23:09 DC Benzonatate (Tessalon Perles) 200 mg TIDP PRN PO COUGH 06/17/21 22:20 Calcium Carbonate (Tums) 1,000 mg Q4HP PRN PO HEARTBURN 06/26/21 10:55 Ceftriaxone Sodium 1 gm/ Dextrose 50 ml @ 100 mls/hr Q24H IV 06/27/21 11:00 06/29/21 07:35 DC 06/28/21 12:25 Ceftriaxone Sodium 1 gm/ Dextrose 50 ml @ 100 mls/hr Q24H IV 06/29/21 11:00 Diatrizoate Meglum/ Diatrizoate Sod (Gastrografin) 10 ml Q30M PO 06/18/21 11:15 06/18/21 11:46 DC 06/18/21 11:40 Home Med (Home Med List Complete!) ASDIRECTED XX 06/17/21 20:40 06/17/21 20:44 DC Lactulose (Cephulac) 15 ml TID PO 06/25/21 09:00 06/25/21 14:11 DC 06/25/21 12:02 Lactulose (Cephulac) 30 ml TID PO 06/25/21 16:00 06/26/21 10:29 DC 06/26/21 08:06 Loratadine (Claritin) 5 mg QHS PO 06/18/21 21:00 06/28/21 20:34 Midodrine (Proamatine) 5 mg 08,12,16 PO 06/20/21 08:00 06/23/21 15:47 DC 06/23/21 07:40 Midodrine (Proamatine) 5 mg 08,12,16 PO 06/26/21 12:00 06/29/21 08:34 Midodrine (Proamatine) 10 mg 08,12,16 PO 06/26/21 08:00 06/25/21 16:23 DC Miscellaneous (Unresolved Patient Own Med Order) SEE LABEL COMMENTS UNRESOLVED XX 06/22/21 00:01 06/26/21 09:08 DC Morphine Sulfate (Msir) 15 mg Q8HP PRN PO SEVERE PAIN (PS 8-10) 06/21/21 21:00 06/24/21 18:29 DC 06/21/21 20:42 Omeprazole (PriLOSEC) 20 mg DAILY PO 06/18/21 09:00 06/21/21 09:04 DC 06/20/21 09:22 Ondansetron HCl (ZOFRAN INJection) 4 mg Q4HP PRN IV NAUSEA OR VOMITING 06/22/21 08:50 Pantoprazole Sodium (Protonix) 40 mg DAILY PO 06/22/21 09:00 06/29/21 08:34 Patient Own Medication (Patient'S Own Med) norethindrone acetate 5 mg TABLET T... DAILY PO 06/21/21 09:00 06/25/21 16:23 DC 06/24/21 10:01 Potassium Chloride (Micro-K Extencaps) 20 meq DAILY PO 06/28/21 09:00 06/29/21 08:34 Ramelteon (Rozerem) 8 mg QHS PRN PO INSOMNIA 06/26/21 22:20 06/26/21 22:51 Senna/Docusate Sodium (Senokot S) 1 tab BID PO 06/26/21 09:00 06/29/21 08:34 Simvastatin (Zocor) 20 mg DAILY PO 06/18/21 09:00 06/29/21 08:34 Sodium Bicarbonate (Sodium Bicarbonate) 650 mg BID PO 06/24/21 09:10 06/28/21 09:48 DC 06/28/21 08:07 Sodium Chloride 1,000 ml @ 100 mls/hr Q10H IV 06/18/21 14:55 06/20/21 08:54 DC 06/18/21 16:19 Sodium Chloride 1,000 ml @ 120 mls/hr Q8H20M IV 06/17/21 19:35 06/18/21 09:08 DC 06/17/21 20:20 Sodium Chloride 1,000 ml @ 250 mls/hr Q4H IV 06/17/21 18:55 06/18/21 09:08 DC Sodium Chloride 1,000 ml @ 1,000 mls/hr Q1H IV 06/18/21 09:30 06/18/21 11:29 DC 06/18/21 11:40 Spironolactone (Aldactone) 25 mg QAM PO 06/29/21 09:00 06/29/21 10:20 Sucralfate (Carafate) 1 gm ACHS PO 06/21/21 12:00 06/29/21 08:34 Tizanidine HCl (Zanaflex) 4 mg DAILY PRN PO SPASMS 06/20/21 19:15 06/24/21 18:29 DC Torsemide (Demadex) 20 mg DAILY PO 06/25/21 09:00 06/26/21 07:34 DC 06/25/21 12:03 Torsemide (Demadex) 20 mg DAILY PO 06/28/21 09:00 06/29/21 08:34 Tramadol HCl (Ultram) 50 mg Q8HP PRN PO MODERATE PAIN (PS 5-7) 06/25/21 14:15 Zolpidem Tartrate (Ambien) 2.5 mg QHSP PRN PO INSOMNIA 06/21/21 17:30 06/24/21 18:29 DC Allergies Coded Allergies: No Known Allergies (Unverified , 06/17/21) Assessment/Plan Date Seen The patient was seen on 06/29/21 at 10:44. Plan / VTE VTE Prophylaxis Ordered?: Yes Plan Orders past 48 Hours Orders Immature Platelet Fraction (06/28/21 06:27) Torsemide (Demadex) (06/28/21 09:00) Potassium Chloride (Micro-K Extencaps) (06/28/21 09:00) High [place]/Pro Mashed Potatoe (06/28/21 12:36) Ceftriaxone Sod (Rocephin) (06/29/21 11:00) Discharge/Transfer Order (06/29/21 07:56) Free [place] & Lambda Lt Chain S (06/29/21 07:56) Immunotyping Serum (06/29/21 07:56) Patient Discharge Instruction (06/29/21 08:32) Spironolactone (Aldactone) (06/29/21 09:00) Arrange Follow Up With: (06/29/21 08:44) Plan Text post menopausal bleed s/p D&C, elevated tumor but negative endometrial biopsy Rectal prolapse. Ascites and liver cirrhosis Acute renal failure on CKD3 sec to obstructive uropathy, Baseline Cr 1.4 in Jul 2020 Hypotension UTI Hypokalemia LE edema continue Midodrine. s/p Rocephin for UTI. Keep Newell on DC and follow up with Urology for voiding trial. continue Oral Kcl along with Torsemide 20mg. Start spironolactone 25 mg. Renal function improving JOSE STANTON MD Jun 29, 2021 10:48
[2021-06-29] MEDS ORDERED: cefTRIAXone SOD 1 GM in D5W MINI-BAG PLUS 50 ML IV SCH (11:00)
--- NOTE | 2021-06-29 11:03 | DS.PDOC ---
Discharge Summary General Date of Admission Jun 17, 2021 at 19:32 Date of Discharge June 29, 2021 Discharge Summary PROCEDURES PERFORMED DURING STAY: Abdominal paracentesis x2 Hysteroscopy and D&C DISCHARGE DIAGNOSES: RAUL on CKD Obstructive uropathy discharged with chronic Newell Cirrhosis of liver with ascites, hepatic encephalopathy Massive rectal prolapse Postmenopausal bleeding status post D&C negative for malignancy Acute blood loss anemia UTI Elevated tumor marker CA 19-9, CA-125, CEA M spike in serum electrophoresis Secondary diagnosis: Hypertension, diabetes, morbid obesity, hyperlipidemia, upper extremity DVT, mesenteric vein thrombosis chronic back pain, COMPLICATIONS/CHIEF COMPLAINT: Raul,Menorrhagia. HOSPITAL COURSE: 65-year-old female with history of hypertension, diabetes, morbid obesity, hyperlipidemia, DVT, chronic back pain, history of alcohol abuse in her 20s was admitted for acute blood loss anemia with a hemoglobin of 6.5 due to postmenopausal bleeding. She was also noted to have elevated creatinine of 3.1 from a baseline of 1.45 in July 2020. She was admitted for acute blood loss anemia, RAUL she underwent hysteroscopy and D&C and was noted to have, Mildl y enlarged uterus. Thick endometrial tissue with a scalloped appearance of both anterior and posterior surface of the endometrium diffusely. Endometrial findings suspicious for carcinoma. Massive rectal prolapse. While in the hospital she was also noted to have ascites and had acetic fluid tapped x2. RAUL on CKD Baseline creatinine of 1.45 in July 2020 Likely due to acute blood loss anemia and decompensated cirrhosis of liver, decreased intravascular volume and now with acute urinary retention. However may also have hepatorenal syndrome. Newell placement produced 1700 cc. This is due to urinary obstruction from rectal prolapse. continue Newell. Will have to go home with Neewll catheter. M spike in SPEP. Ordered free light chain and serum immunofixation UA dirty and Culture sent. Got 3 doses of ceftriaxone in the hospital Will discharge with cefdinir Follow-up with nephrology as an outpatient Postmenopausal bleeding Resolved Endometrial biopsy negative for any malignancy. Norethindrone stopped Follow-up with Dr. Bruno as an outpatient Acute blood loss anemia Due to vaginal blood loss Received blood transfusions H&H stable Cirrhosis of Liver Ascites, hypoalbuminemia, elevated ammonia CT scan shows fatty liver Had 2 ascitic fluid taps both of which have been negative for malignant cells Her SAAG is greater than 1.1 which suggests that the ascites is due to cirrhosis of liver. She does have history of alcohol abuse in her 20s and also has morbid obesity. checked hepatitis B&C which are negative Liver ultrasound with Doppler nondiagnostic as portal vein vasculature could not be visualized Continue Lactulose. Will start on torsemide, Aldactone and potassium Follow-up with primary care as an outpatient Hypokalemia replaced. Possible hepatic encephalopathy Now resolved Patient was very lethargic on 06/24/2021. Ammonia was 55 Had multiple bowel movements after lactulose continue lactulose to have 2 soft bowel movements daily. Elevated tumor marker CA 19-9, CA-125, CEA will need to do colonoscopy Huge rectal prolapse Will need to be referred to colorectal surgeon as this may be causing acute urinary retention leading to RAUL. History of hypertension At present patient has low normal blood pressure Not on any antihypertensive Hyperlipidemia We will continue statin History of upper extremity DVT and mesenteric vein thrombosis in 2009 Used to be on Eliquis at home Now stopped due to recent active bleeding Will need to be restarted in 2 weeks DISCHARGE MEDICATIONS: Please see below. ALLERGIES: Please see below. PHYSICAL EXAMINATION ON DISCHARGE: VITAL SIGNS: Please see below. General Exam: Positive: Alert, Cooperative, No Acute Distress Eye Exam: Positive: PERRLA, Conjunctiva & lids normal, EOMI; Negative: Sclera icteric ENT Exam: Positive: Atraumatic, Mucous membr. moist/pink, Pharynx Normal Neck Exam: Positive: Supple; Negative: JVD, thyromegaly Chest Exam: Positive: Diminished Heart Exam: Positive: Rate Normal, Regular Rhythm, Murmurs; Negative: Rubs Telemetry: Positive: No significant arrhythmia Abdomen Exam: Positive: Normal bowel sounds, Soft, Tenderness (LOWER ABD/ SUPRAPUBIC), Other (rectal prolapse. ); Negative: Hepatosplenomegaly Extremity Exam: Positive: Edema (2+, may be a component of lymphedema given body habitus), Normal pulses; Negative: Clubbing, Cyanosis Skin Exam: Positive: Nl turgor and temperature; Negative: Breakdown, Lesion Neuro Exam: Positive: Normal Gait, Normal Speech, Cranial Nerves 3-12 NL, Reflexes 2+ Psych Exam: Positive: Mental status NL, Anxiety, Oriented x 3; Negative: Mood NL LABORATORY DATA: Please see below. ACTIVITY: [As tolerated]. DIET: Carb consistent, 1.8 L fluid restriction DISCHARGE PLAN: Home with services DISCHARGE INSTRUCTIONS: PMD in 1 week Nephrology in [address] Bruno in 3 to 4-week Will need referral to colorectal surgeon for rectal prolapse Will need a colonoscopy due to elevated tumor markers DISCHARGE CONDITION: [Stable]. TIME SPENT ON DISCHARGE: 35 minutes. Vital Signs/I&Os Vital Signs Date Time Temp Pulse Resp B/P (MAP) Pulse Ox O2 Delivery O2 Flow Rate FiO2 06/29/21 05:44 98.3 72 16 116/75 (89) 96 Room Air 06/23/21 14:04 2.0 I&O- Last 24 Hours up to 6 AM 06/29/21 06:00 Intake Total 970 ml Output Total 1125 ml Balance -155 ml Laboratory Data Labs 24H Laboratory Tests 2 06/29/21 05:47: Immature Granulocyte % (Auto) 0.8, Neutrophils (%) (Auto) 77.8H, Lymphocytes (%) (Auto) 13.3L, Monocytes (%) (Auto) 7.1, Eosinophils (%) (Auto) 1.0, Basophils (%) (Auto) 0.0, Neutrophils # (Auto) 3.9, Lymphocytes # (Auto) 0.7L, Monocytes # (Auto) 0.4, Eosinophils # (Auto) 0.1, Basophils # (Auto) 0.0, Nucleated Red Blood Cells % (auto) 0.0, Anion Gap 9, Glomerular Filtration Rate 25.7L, Calcium Level 8.1L CBC/BMP Laboratory Tests 06/29/21 05:47 Microbiology Microbiology 06/24/21 Acid Fast Stain, Received Pending 06/24/21 Mycobacterial Culture, Received Pending 06/24/21 Fungal Smear, Received Pending 06/24/21 Fungal Culture, Received Pending 06/24/21 Gram Stain - Final, Complete 06/24/21 Body Fluid Culture - Final, Complete 06/24/21 Anaerobic Culture - Final, Complete 06/19/21 Acid Fast Stain, Received Pending 06/19/21 Mycobacterial Culture, Received Pending 06/19/21 Fungal Smear, Received Pending 06/19/21 Fungal Culture, Received Pending 06/19/21 Gram Stain - Final, Complete 06/19/21 Body Fluid Culture - Final, Complete Discharge Medications Scheduled Cefdinir (Cefdinir) 300 Mg Capsule, 1 CAP PO DAILY Ergocalciferol (Vitamin D2) (Vitamin D2) 50,000 Units Cap, 50,000 UNITS PO 1XWK, (Reported) ON SATURDAYS Levocetirizine Dihydrochloride (Levocetirizine Dihydrochloride) 5 Mg Tablet, 5 MG PO QPM, (Reported) Omeprazole (Omeprazole) 20 Mg Capsule.dr, 20 MG PO DAILY, (Reported) Potassium Chloride (Klor-Con M10) 10 Meq Tab.er.prt, 20 MEQ PO DAILY Simvastatin (Simvastatin) 20 Mg Tablet, 20 MG PO DAILY, (Reported) Spironolactone (Aldactone) 25 Mg Tablet, 25 MG PO QAM Torsemide (Torsemide) 20 Mg Tablet, 20 MG PO DAILY Scheduled PRN Amitriptyline HCl (Amitriptyline HCl) 25 Mg Tablet, 25 MG PO QHS PRN for SLEEP, (Reported) Benzonatate (Benzonatate) 200 Mg Capsule, 200 MG PO TID PRN for COUGH, (Reported) Tizanidine HCl (Tizanidine HCl) 4 Mg Tablet, 4 MG PO DAILY PRN for SPASMS, (Reported) Allergies Coded Allergies: No Known Allergies (Unverified , 06/17/21) Aletha Mace MD Jun 29, 2021 11:03
[2021-07-02 17:08] LABS: FREE LAMBDA LIGHT CHAINS SERUM 98.9 mg/L (5.7-26.3); KAPPA/LAMBDA RATIO SERUM 1.08 (0.26-1.65)
== END 2021-06-29 11:15 | disposition home health service (06) | DRG 744 ==
LOC: M ED 14:35 → M ED INP 19:32 → ENRESERV 06-18 16:40 → M MSPAV 06-18 19:58
PROVIDERS: ADMIT Internal Medicine; ATTEND Internal Medicine Nephrology
PROC: 30233N1 Transfusion of Nonautologous Red Blood Cells into Peripheral Vein, Percutaneous Approach (ICD-10-PCS; 2021-06-18)
PROC: 0W9G3ZX Drainage of Peritoneal Cavity, Percutaneous Approach, Diagnostic (ICD-10-PCS; 2021-06-19)
PROC: 0UDB7ZX Extraction of Endometrium, Via Natural or Artificial Opening, Diagnostic (ICD-10-PCS; principal; 2021-06-23 12:00)
PROC: 30233J1 Transfusion of Nonautologous Serum Albumin into Peripheral Vein, Percutaneous Approach (ICD-10-PCS; 2021-06-24)
PROC: 0W9G3ZZ Drainage of Peritoneal Cavity, Percutaneous Approach (ICD-10-PCS; 2021-06-24)
DX: N95.0 Postmenopausal bleeding (principal); E87.2 Acidosis; R18.8 Other ascites; D62 Acute posthemorrhagic anemia; E46 Unspecified protein-calorie malnutrition; E87.1 Hypo-osmolality and hyponatremia; K76.6 Portal hypertension; N39.0 Urinary tract infection, site not specified; N17.9 Acute kidney failure, unspecified; D72.829 Elevated white blood cell count, unspecified; R01.1 Cardiac murmur, unspecified; F32.9 Major depressive disorder, single episode, unspecified; K62.3 Rectal prolapse; K74.60 Unspecified cirrhosis of liver; I95.9 Hypotension, unspecified; F41.9 Anxiety disorder, unspecified; G47.00 Insomnia, unspecified; N18.9 Chronic kidney disease, unspecified; E66.9 Obesity, unspecified; Z79.01 Long term (current) use of anticoagulants; Z79.82 Long term (current) use of aspirin; Z79.899 Other long term (current) drug therapy; Z86.718 Personal history of other venous thrombosis and embolism; Z20.822 Contact with and (suspected) exposure to COVID-19; Z68.36 Body mass index [BMI] 36.0-36.9, adult; I12.9 Hypertensive chronic kidney disease with stage 1 through stage 4 chronic kidney disease, or unspecified chronic kidney disease; E11.22 Type 2 diabetes mellitus with diabetic chronic kidney disease; K72.90 Hepatic failure, unspecified without coma

== ENCOUNTER → 2021-07-09 | Outpatient (REF) | payer MEDICARE, MEDICAID ==
[~2021-07-09] MED LIST changes: +ACET650T15 PO; +ALDA25TA2 PO; +AMIT25TA17 PO; +ASPI81TA26 PO; +BENZ200C70 PO; +CARV12.5 PO; +CEFD1CAP8 PO; +ELIQ2.5T PO; +ERGO500029 PO; +LEVOTAB10 PO; +LISI-898 PO; +METF500T13 PO; +NORE5TAB PO; +OMEP-218 PO; +POTA-136 PO; +SIMV20TA22 PO; +TIZA4TAB4 PO; +TORS20TA2 PO
== END ==
LOC: M LAB REF 17:26
PROVIDERS: ATTEND Internal Medicine Nephrology
DX: K74.60 Unspecified cirrhosis of liver (principal); N18.32 Chronic kidney disease, stage 3b; R33.9 Retention of urine, unspecified

== ENCOUNTER → 2021-08-02 | Outpatient (CLI) | payer MEDICARE, MEDICAID ==
--- NOTE | 2021-08-02 16:52 | REP ---
INDICATION: CONSTIPATION, UNSPECIFIED. COMPARISON: 05/30/2009 and prior frontal view of the chest 06/23/2021 TECHNIQUE: Four views FINDINGS: There are a few gas-filled mildly dilated small bowel loops. There are no stepladder air-fluid levels. There is a large amount of content in the rectosigmoid vault. There is no evidence of free intraperitoneal air. The accompanying frontal view the chest shows mild bibasilar discoid opacities likely subsegmental atelectatic changes. The cardiomediastinal silhouette is unchanged. The osseous structures are unchanged. IMPRESSION: Probable mild ileus. Rectosigmoid content as described above. Probable mild bibasilar subsegmental atelectatic changes. <Electronically signed by Rakesh Shaw > 08/02/21 1306
== END ==
LOC: M RAD 16:15
PROVIDERS: ATTEND Nurse Practitioner Family
DX: K59.00 Constipation, unspecified (principal)

== ENCOUNTER 2021-08-28 17:12 | Inpatient (IN) | payer MEDICARE, MEDICAID ==
[~2021-08-28] VITALS: Ht 152.4 cm; Wt 68.2 kg
--- OUTSIDE RECORDS SUMMARY | 2021-08-28 17:19 | CCD | Continuity of Care Document ---
Author Author Bindu PATEL [facility] Organization Unknown Address [address] [facility] [address] [place] [address] Phone [phone] Care Team Providers Care Conservation Technician Name Role Phone Tyson Whitley M.D. AUTM [phone] Susana Damon MD AUTM [phone] Cologuard AUTM [phone] [facility] - Colon & Rectal Surgery AUTM [phone] [facility] G[facility]ology AUTM Problems Active Problems Provider Date Type 2 diabetes mellitus Sanya Howe M.D. Onset: 0 01/16/2011 Essential hypertension Sanya Howe M.D. Onset: Vitamin D deficiency Sanya Howe M.D. Onset: 01/16 Gastroesophageal reflux disease Sanya Howe M.D. O nset: 01/16/2011 Allergic rhinitis Sanya Howe M.D. Onset: 2010 Osteoporosis Sanya Howe M.D. Onset: 2010 Morbid obesity Sanya Howe M.D. Onset: 2010 Thromboembolic disorder Sanya Howe M.D. Onset: Mixed hyperlipidemia Sanya Howe M.D. Onset: 07/18 Social History Type Date Description Comments Sex Unknown Tobacco Use Start: Unknown End: Unknown denies cigarette use Tobacco Use Start: Unknown Never Used Smokeless Tobacco ETOH Use Denies alcohol use Tobacco Use Start: Unknown Patient has never smoked Recreational Drug Use Never Used Drugs Smoking Status Reviewed: 08/21/21 Patient has never smoked Exercise Type/Frequency Exercises rarely Sun Exposure Does not use sunscreen Seat Belt/Car Seat Never uses seat belt Smoke Alarms Yes Smoke Alarms Carbon Monoxide Detector: Yes Allergies and adverse reactions Description No Known Drug Allergies Medications Active Medications SIG Qnty Indications Ordering Provide r Date Furosemide 20mg Tablets take one tablet by mouth every day in the morning Unknown 1 10/18/2020 B Complex Vitamins Capsules 1 by mouth every day Unknown 08/18/2021 Ferrous Gluconate 324(38Fe) mg Tab lets 1 by mouth nightly Unknown 08/18/2021 Magnesium Chloride 64mg Tablets Take one by mouth nightly Unknown 08/18/2021 Tamsulosin HCL 0.4mg Capsules 1 by mouth every day Unknown 08/18/2021 Docusate Sodium 100mg Capsules take one capsule by mouth Daily Unknown Lactulose 10GM/15ML Solution take 30 ml by mouth twice daily Unknown 08/18/2021 Midodrine HCL 10mg Tablets 1 tablet three times a day Unknown 08/18/2021 Klor-Con 10 10Meq Tablets ER 1 by mouth every day Unknown 08/18/2021 Commode Bedside Misc to be used for tolieting, dx code: m 15. 1units Ana Maria Patel FNP 1 Wheelchair Misc 1 wheelchair dx code e66.9 Duration 99 months 1units E66.9 Ana Maria Patel FNP M62.81 Hospital Bed 1 Hospital bed, dx Code e66.9, Duration 99 months E66.9 Ana Maria Patel FNP 07/11/2021 M62.81 Tramadol HCL 50mg Tablets take 1 tablet by mouth every 8 hours as needed for pain 28tabs M54.5 Ana Maria Patel FNP 07/01/2021 Underpads Misc use as directed. dx: r39.81 150units Ana Maria Patel FNP 07/01/2021 Amitriptyline HCL 25mg Tablets 1 tab by mouth every night at bedtime as needed for sleep 30tabs G47.00 Ana Maria Patel FNP 02/18/2021 Levocetirizine Dihydrochloride 5mg Tablets take one tablet by mouth every evening for allergies 90tabs J30.9 Violeta Roche M.D. 10/17/2020 Benzonatate 200mg Capsules take one capsule by mouth three times a day as needed for cough 30caps J01.9 0 Ana Maria Patel FNP 08/11/2019 Tizanidine HCL 4mg Tablets 1 tab by mouth at bedtime as needed for shoulder spasm 30tabs M25.511 Ana Maria Patel FNP 06/28/2018 Simvastatin 20mg Tablets take one tablet by mouth every day for cholesterol 90tabs Juliann Santos PA 01/16/[address] take one capsule by mouth every day for heartburn 90caps Juliann Antony PA 11/21/2010 Absorbent Polymer Optilock change pad daily and as needed 60units Ana Maria Patel FNP Prevail Underwear 2XL 2XL Misc change undergarment 3 times per day or as needed 120units Ana Maria Magana ch, FNP History Medications Aspir-[address] 1 by mouth every day 90tabs Ana Maria Patel FNP 07/08/2021 - 07/08/[address] 1 by mouth every day 90tabs Ana Maria Patel FNP 07/08/2021 - 08/19/2021 Carvedilol 3.125mg Tablets take one tablet by mouth twice a day 60tabs Ana Maria Patel FNP 2020 - 07/01/2021 Amoxicillin 500mg Tablets 1 by mouth twice a day for 10 days 20tabs J01.90 Ana Maria Patel FNP - 05/31/2021 Carvedilol 6.25mg Tablets take one tablet by mouth twice a day 180tabs Ana Maria Patel FNP 2020 - 05/21/2021 Immunizations CPT Code Status Date Vaccine Lot # [id number] Given 07/16/2012 Influenza Vaccine (Fluzone)( medicare) [id number] Given 07/16/2012 Influenza Vaccination [id number] Given 07/18/2011 Influenza Vaccine (Fluzone)( medicare) Vital Signs Date Vital Result Comment 08/21/2021 4:30pm BP Systolic 117 mmHg BP Diastolic 74 mmHg Heart Rate 93 /min Body Temperature 96.8 F Respiratory Rate 24 /min Height 60.5 inches 5'0.50" Weight 150.00 lb stated 08/17/21 O2 % BldC Oximetry 98 % Peak Expiratory Flow Rate 306 Estimated Peak Flow Rate [place] Body Weight 100 lb BMI (Body Mass Index) 28.8 kg/m2 07/01/2021 11:17am BP Systolic 82 mmHg BP Diastolic 48 mmHg Heart Rate 87 /min Body Temperature 97.0 F Respiratory Rate 17 /min Height 60.5 inches 5'0.50" O2 % BldC Oximetry 98 % Peak Expiratory Flow Rate 306 Estimated Peak Flow Rate [place] Body Weight 100 lb Results Test Acquired Date Facility Test Result H/L Range Note CBC With Differential 06/17/2021 Patient Service [place] [id number] [phone] White Blood Count 11.4 10 High 4.0-10.0 Red Blood Count 3.09 10 Low 4.00-5.40 Hemoglobin 10.2 g/dL Low 12.0-15.5 Hematocrit 30.9 % Low 36.0-47.0 Mean Corpuscular Volume 100.0 fl High 80.0-96.0 Mean Corpuscular Hemoglobin 33.0 pg Normal 27.0-33.0 Mean Corpuscular HGB Conc 33.0 g/dL Normal 32.0-36.5 Red Cell Distribution Width 15.4 % High 11.5-14.5 Platelet Count, Automated 270 10 Normal 150-450 Neutrophils % 83.6 % High 36.0-66.0 Lymph % 9.4 % Low 24.0-44.0 [place] % 5.8 % Normal 2.0-8.0 Eos % 0.0 % Normal 0.0-3.0 Baso % 0.2 % Normal 0.0-1.0 Immature Granulocyte % 1.0 % Normal 0-3.0 Nucleated Red Blood Cell % 0.0 % Normal 0-0 Neutrophils # 9.5 10 High 1.5-8.5 Lymph # 1.1 10 Low 1.5-5.0 [place] # 0.7 10 Normal 0.0-0.8 Eos # 0.0 10 Normal 0.0-0.5 Baso # 0.0 10 Normal 0.0-0.2 PT & Aptt 06/17/2021 [place] [address] [phone] Prothrombin Time 24.1 seconds High 12.7-14.5 Inr 2.11 Normal 1 Partial Thromboplastin Time 37.1 seconds Normal 25.9-37.0 Liver Profile 06/17/2021 [place] [address] [phone] Ast/Sgot 31 U/L Normal 7-37 Alt/SGPT 18 U/L Normal 12-78 Alkaline Phosphatase 111 U/L Normal 45-117 Bilirubin,Total 1.8 mg/dL High 0.2-1.0 Bilirubin,Direct 1.2 mg/dL High 0.0-0.2 Total Protein 5.4 GM/DL Low 6.4-8.2 Albumin 1.8 GM/DL Low 3.2-5.2 Albumin/Globulin Ratio 0.5 Low 1.2-2.2 Basic Metabolic Profile 06/17/2021 [place] [address] [phone] Glucose, Fasting 183 mg/dL High 70-100 Blood Urea Nitrogen 44 mg/dL High 7-18 Creatinine For GFR 3.12 mg/dL High 0.55-1.30 Glomerular Filtration Rate 16.0 Low >45 2 Sodium Level 132 mEq/L Low 136-145 Potassium Serum 4.1 mEq/L Normal 3.5-5.1 Chloride Level 98 mEq/L Normal 98-107 Carbon Dioxide Level 23 mEq/L Normal 21-32 Anion Gap 11 mEq/L Normal 8-16 Calcium Level 7.8 mg/dL Low 8.8-10.2 Type & Screen -Incl Blood Type,Fly,AB SC 06/17/2021 Patient Service [place] [id number] [phone] Blood Type A POSITIVE Normal AB Screen (Indirect [place])Vis NEGATIVE Normal Laboratory test finding 04/11/2021 Angela (513)- - No Urine Received From Patient NO URINE RECEIVE <SEE NOTE> 3 Comprehensive Metabolic Panel 04/11/2021 [place] ([facility])- - Sodium 142 mEq/L Normal 135-145 Potassium 4.1 mEq/L Normal 3.5-5.3 Chloride 110 mEq/L Normal 94-110 Carbon Dioxide 23 mEq/L Normal 22-33 Anion Gap 13 Normal 5-16 Blood Urea Nitro 22 mg/dL Normal 7-25 Creatinine 1.4 mg/dL Normal 0.6-1.4 GFR 37.9 mL/min 4 BUN/Creat Ratio 15 Normal 8-36 Glucose 117 mg/dL High 70-100 CA 7.5 mg/dL Low 8.7-10.5 Bilirubin,Total 0.6 mg/dL Normal 0.1-1.3 Ast 39 U/L Normal 5-40 Alt 17 U/L Normal 5-48 Alkaline Phosphatase 87 U/L Normal 40-140 Total Protein 5.6 g/dL Low 5.9-8.3 Albumin 2.9 g/dL Low 3.0-5.1 Globulin 2.7 g/dL Normal 1.5-3.5 Alb/Glob Ratio 1.1 g/dL Normal 1.0-3.0 Laboratory test finding 04/11/2021 [place] ([facility])- - Glycosylated Hgba1c 5.2 % Normal 4.1-6.5 Lipid Panel 04/11/2021 [place] ([facility])- - Triglycerides 91 mg/dL Normal 45-150 Cholesterol 88 mg/dL Low 125-200 LDL Cholesterol 40 mg/dL Low 50-130 HDL Cholesterol 30 mg/dL Low 32-96 Chol/HDL Ratio 2.9 Normal 0-4.3 Laboratory test finding 04/11/2021 [place] ([facility])- - 1,25 DI-Oh Vit D-Send Out 62.1 pg/mL 19.9-79.3 5 1 THERAPUTIC HUMAN INR VALUES INDICATIONS NORMAL RANGES PROPHYLAXIS/TREATMENT OF: VENOUS THROMBOSIS 2.0-3.0 PULMONARY EMBOLISM 2.0-3.0 PREVENTION OF SYSTEMIC EMBOLISM FROM: TISSUE HEART VALVES 2.0-3.0 ACUTE MYOCARDIAL INFARCTION 2.0-3.0 VALVULAR HEART DISEASE 2.0-3.0 ATRIAL FIBRILLATION 2.0-3.0 MECHANICAL VALVES(HIGH RISK) 2.5-3.5 RECURRENT MYOCARDIAL INFARCTION 2.5-3.5 2 Units are mL/min/1.73 m2 Chronic Kidney Disease Staging per NKF: Stage I & II GFR >=60 Normal to Mildly Decreased Stage III GFR 30-59 Moderately Decreased Stage IV GFR 15-29 Severely Decreased Stage V GFR <15 Very Little GFR Left ESRD GFR <15 on AUDIOVISUAL EQUIPMENT OPERATOR 3 NO URINE RECEIVED Patient informed to return with specimen. 4 Stage G3b - Moderately to se verely decreased kidney function The GFR is an estimate of the Glomerular Filtration Rate. It is an aid to assess a patient's renal function. It is not a conclusive diagnosis of kidney disease. GFR normal is >=90 The MDRD GFR calculation is considered valid between the ages of 18 and 75 years only. 5 Performed at: [address] [id number] 61 [employer]electric Machinery Mechanic Helper: Marcella Bloom MD, Phone: [phone] Procedures Date Code Description Status 08/21/2021 28923 Munoz Cre W/I 7 Days Of DC, Comm W/I 2 Dys Completed 07/01/2021 94604 Munoz Cre W/I 7 Days Of DC, Comm W/I 2 Dys Completed 05/21/2021 90398 Office/Outpatient Established Mo d MDM 30-39 Min Completed 04/19/2021 26319 Office/Outpatient Established Mo d MDM 30-39 Min Completed 02/11/2021 [id number] Diabetic Foot Exam Completed 02/22/2019 [id number] Bone Mineral Density Test Comple hollie 01/30/2014 [id number] Mammogram Completed Medical Devices Description No Information Available Encounters Type Date Location Provider Dx Diagnosis Office Visit 08/21/2021 4:00p Main Office Ana Maria Patel FNP K62.3 Rectal prolapse R18.8 Other ascites I10 Essential (primary) hyperten charlie Office Visit 07/01/2021 11:15a Main Office Ana Maria Patel FNP K62.3 Rectal prolapse M54.5 Low back pain R18.8 Other ascites I10 Essential (primary) hyperten charlie N95.0 Postmenopausal bleeding R53.1 Weakness R26.2 Difficulty in walking, not e lsewhere classified Office Visit 05/21/2021 8:45a Main Office Ana Maria Patel FNP E11.6 9 Type 2 diabetes mellitus with other specified complication I10 Essential (primary) hyperten charlie R07.81 Pleurodynia J01.90 Acute sinusitis, unspecified Office Visit 04/19/2021 9:45a Main Office Pleskach, Ana Maria, STAR ROUTE MAIL DRIVER R55 Syncope and collapse E11.69 Type 2 diabetes mellitus wit h other specified complication I10 Essential (primary) hyperten charlie Assessments Date Code Description Provider 08/21/2021 K62.3 Rectal prolapse Pleskach, Ana Maria, STAR ROUTE MAIL DRIVER 08/21/2021 R18.8 Other ascites Pleskach, Ana Maria, STAR ROUTE MAIL DRIVER 08/21/2021 I10 Essential (primary) hypertension Pleskach, Ana Maria, STAR ROUTE MAIL DRIVER 07/01/2021 K62.3 Rectal prolapse Pleskach, Ana Maria, STAR ROUTE MAIL DRIVER 07/01/2021 M54.5 Low back pain Pleskach, Ana Maria, STAR ROUTE MAIL DRIVER 07/01/2021 R18.8 Other ascites Pleskach, Ana Maria, STAR ROUTE MAIL DRIVER 07/01/2021 I10 Essential (primary) hypertension Pleskach, Ana Maria, STAR ROUTE MAIL DRIVER 07/01/2021 N95.0 Postmenopausal bleeding Pleskach , Ana Maria, STAR ROUTE MAIL DRIVER 07/01/2021 R53.1 Weakness Pleskach, Ana Maria, STAR ROUTE MAIL DRIVER 07/01/2021 R26.2 Difficulty in walking, not elsew here classified Plegaryach Ana Maria, STAR ROUTE MAIL DRIVER 05/21/2021 E11.69 Type 2 diabetes mellitus with ot her specified complication Pleskach, Ana Maria, STAR ROUTE MAIL DRIVER 05/21/2021 I10 Essential (primary) hypertension Pleskach, Ana Maria, STAR ROUTE MAIL DRIVER 05/21/2021 R07.81 Rib pain Pleskach, Ana Maria, STAR ROUTE MAIL DRIVER 05/21/2021 J01.90 Acute sinusitis, unspecified Ple skach, Ana Maria, STAR ROUTE MAIL DRIVER 04/19/2021 R55 Syncope and collapse PleTorey hill, STAR ROUTE MAIL DRIVER 04/19/2021 E11.69 Type 2 diabetes mellitus with ot her specified complication Pleskach, Ana Maria, STAR ROUTE MAIL DRIVER 04/19/2021 I10 Essential (primary) hypertension PlegaryachBernardoy, STAR ROUTE MAIL DRIVER Plan of Treatment Future Appointment(s):* 11/21/2021 1:00 pm - Ana Maria Patel FNP at Main Office 08/21/2021 - PlegaryachAna Maria, STAR ROUTE MAIL DRIVER* K62.3 Rectal prolapse* Comments:* s/p repair * R18.8 Other ascites* Comments:* following with GI * I10 Essential (primary) hypertension* Comments:* controlled, continue current medications * Follow up:* 3 months Functional Status Functional Condition Comment Date Status Glasses Active Complete dentures Active Standard cane is used to ambulate Active Wears corrective shoe on the left foot only Active Mental Status Mental Condition Comment Date Status None Active Referrals Refer to Reason for Referral Status Appt Date [facility] Please evaluate pt for rectal prolapse. Thank you. Scheduled 08/21/[address] [place], [place] [id number] [phone] [facility] Please evaluate patient for ascites and colonsocopy. Thank you. Scheduled 10/01/2021 [address] [place] [address] [phone]
--- OUTSIDE RECORDS SUMMARY | 2021-08-28 17:19 | CCD | Continuity of Care Document ---
Author Author Bindu [facility]EL [facility] Organization Unknown Address [address] [facility] [address] [place] [address] Phone [phone] Care Team Providers Care Host/Hostess Head Name Role Phone Tyson Whitley M.D. AUTM [phone] Susana Damon MD AUTM [phone] Cologuard AUTM [phone] [facility] - Colon & Rectal Surgery AUTM [phone] [facility] Gastro[facility]ology AUTM Problems Active Problems [...] dx code: m 15. 1units Ana Maria Patle FNP 1 Wheelchair Misc 1 wheelchair dx [...] Q2038 Given 07/16/2012 Influenza Vaccine (Fluzone)( medicare) 08495 Given 07/16/2012 Influenza Vaccination [id number] [id number] Given 07/18/2011 Influenza Vaccine (Fluzone)( medicare) Vital Signs Date Vital Result Comment 08/21/2021 4:30pm BP Systolic 117 mmHg BP Diastolic 74 mmHg Heart Rate 93 /min Body Temperature 96.8 F Respiratory Rate 24 /min Height 60.5 inches 5'0.50" Weight 150.00 lb stated 08/17/21 O2 % BldC Oximetry 98 % Peak Expiratory Flow Rate 306 Estimated Peak Flow Rate [place] Body Weight 100 lb BMI (Body Mass Index) 28.8 kg/m2 07/01/2021 11:17am BP Systolic 82 mmHg BP Diastolic 48 mmHg Heart Rate 87 /min Body Temperature 97.0 F Respiratory Rate 17 /min Height 60.5 inches 5'0.50" O2 % BldC Oximetry 98 % Peak Expiratory Flow Rate 306 Estimated Peak Flow Rate [place] Body Weight 100 lb Results Test Acquired Date Facility Test Result H/L Range Note CBC With Differential 06/17/2021 Patient Service [place] [id number] [phone] White Blood Count 11.4 10 High 4.0-10.0 [...] 36.0-66.0 Lymph % 9.4 % Low 24.0-44.0 [place] % 5.8 % Normal 2.0-8.0 Eos % 0.0 % Normal 0.0-3.0 Baso % 0.2 % Normal 0.0-1.0 Immature Granulocyte % 1.0 % Normal 0-3.0 Nucleated Red Blood Cell % 0.0 % Normal 0-0 Neutrophils # 9.5 10 High 1.5-8.5 Lymph # 1.1 10 Low 1.5-5.0 [place] # 0.7 10 Normal 0.0-0.8 Eos # 0.0 10 Normal 0.0-0.5 Baso # 0.0 10 Normal 0.0-0.2 PT & Aptt 06/17/2021 [place] [address] [phone] Prothrombin Time 24.1 seconds High 12.7-14.5 Inr 2.11 Normal 1 Partial Thromboplastin Time 37.1 seconds Normal 25.9-37.0 Liver Profile 06/17/2021 [place] [address] [phone] Ast/Sgot 31 U/L Normal 7-37 Alt/SGPT 18 U/L Normal 12-78 Alkaline Phosphatase 111 U/L Normal 45-117 Bilirubin,Total 1.8 mg/dL High 0.2-1.0 Bilirubin,Direct 1.2 mg/dL High 0.0-0.2 Total Protein 5.4 GM/DL Low 6.4-8.2 Albumin 1.8 GM/DL Low 3.2-5.2 Albumin/Globulin Ratio 0.5 Low 1.2-2.2 Basic Metabolic Profile 06/17/2021 [place] [address] [phone] Glucose, Fasting 183 mg/dL High 70-100 Blood [...] -Incl Blood Type,Fly,AB SC 06/17/2021 Patient Service [place] [id number] [phone] Blood Type A POSITIVE Normal AB Screen (Indirect [place])Vis NEGATIVE Normal Laboratory test finding 04/11/2021 [place] (635)- - No Urine Received From Patient NO URINE RECEIVE <SEE NOTE> 3 Comprehensive Metabolic Panel 04/11/2021 [place] ([facility])- - Sodium 142 mEq/L Normal 135-145 Potassium [...] g/dL Normal 1.0-3.0 Laboratory test finding 04/11/2021 [place] ([facility])- - Glycosylated Hgba1c 5.2 % Normal 4.1-6.5 Lipid Panel 04/11/2021 [place] ([facility])- - Triglycerides 91 mg/dL Normal 45-150 Cholesterol 88 mg/dL Low 125-200 LDL Cholesterol 40 mg/dL Low 50-130 HDL Cholesterol 30 mg/dL Low 32-96 Chol/HDL Ratio 2.9 Normal 0-4.3 Laboratory test finding 04/11/2021 [place] ([facility])- - 1,25 DI-Oh Vit D-Send Out 62.1 [...] Little GFR Left ESRD GFR <15 on ACCOUNT SERVICES SPECIALIST 3 NO URINE RECEIVED Patient informed to [...] and 75 years only. 5 Performed at: [address] [id number] [address] Recording Monitor: Marcella Bloom MD, Phone: [phone] Procedures Date Code Description Status 08/21/2021 19798 Munoz Cre W/I 7 Days Of DC, Comm W/I 2 Dys Completed 07/01/2021 87680 Munoz Cre W/I 7 Days Of DC, Comm W/I 2 Dys Completed 05/21/2021 89309 Office/Outpatient Established Mo d MDM 30-39 Min Completed 04/19/2021 52358 Office/Outpatient Established Mo d MDM 30-39 Min Completed 02/11/2021 [id number] Diabetic Foot Exam Completed 02/22/2019 [id number] Bone Mineral Density Test Comple hollie 01/30/2014 [id number] Mammogram Completed Medical Devices Description No Information [...] 04/19/2021 9:45a Main Office Pleskach, Ana Maria, RECYCLING TECHNICIAN R55 Syncope and collapse E11.69 Type 2 diabetes mellitus wit h other specified complication I10 Essential (primary) hyperten charlie Assessments Date Code Description Provider 08/21/2021 K62.3 Rectal prolapse Pleskach, Ana Maria, RECYCLING TECHNICIAN 08/21/2021 R18.8 Other ascites Pleskach, Ana Maria, RECYCLING TECHNICIAN 08/21/2021 I10 Essential (primary) hypertension Pleskach, Ana Maria, RECYCLING TECHNICIAN 07/01/2021 K62.3 Rectal prolapse Pleskach, Ana Maria, RECYCLING TECHNICIAN 07/01/2021 M54.5 Low back pain Pleskach, Ana Maria, RECYCLING TECHNICIAN 07/01/2021 R18.8 Other ascites Pleskach, Ana Maria, RECYCLING TECHNICIAN 07/01/2021 I10 Essential (primary) hypertension Pleskach, Ana Maria, RECYCLING TECHNICIAN 07/01/2021 N95.0 Postmenopausal bleeding Pleskach , Ana Maria, RECYCLING TECHNICIAN 07/01/2021 R53.1 Weakness Pleskach, Ana Maria, RECYCLING TECHNICIAN 07/01/2021 R26.2 Difficulty in walking, not elsew here classified Plegaryach Ana Maria, RECYCLING TECHNICIAN 05/21/2021 E11.69 Type 2 diabetes mellitus with ot her specified complication Pleskach, Ana Maria, RECYCLING TECHNICIAN 05/21/2021 I10 Essential (primary) hypertension Pleskach, Ana Maria, RECYCLING TECHNICIAN 05/21/2021 R07.81 Rib pain Pleskach, Ana Maria, RECYCLING TECHNICIAN 05/21/2021 J01.90 Acute sinusitis, unspecified Ple skach, Ana Maria, RECYCLING TECHNICIAN 04/19/2021 R55 Syncope and collapse PleTorey hill, RECYCLING TECHNICIAN 04/19/2021 E11.69 Type 2 diabetes mellitus with ot her specified complication Pleskach, Ana Maria, RECYCLING TECHNICIAN 04/19/2021 I10 Essential (primary) hypertension PlegaryachBernardoy, RECYCLING TECHNICIAN Plan of Treatment Future Appointment(s):* 11/21/2021 1:00 pm - Ana Maria Patel FNP at Main Office 08/21/2021 - PlegaryachAna Maria, RECYCLING TECHNICIAN* K62.3 Rectal prolapse* Comments:* s/p repair * [...] rectal prolapse. Thank you. Scheduled 08/21/[address] [place], [place] [address] [phone] [facility] Please evaluate patient for ascites and colonsocopy. Thank you. Scheduled 10/01/2021 [address] [place] [address] [phone]
--- OUTSIDE RECORDS SUMMARY | 2021-08-28 17:19 | CCD ---
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 815967327 ALLERGIES No Known Allergies ENCOUNTERS from 1955 to 2021-07-29 Encounter Location Date Provider Diagnosis [facility] [address] [place] [address] [place] [address] Jul, Trung Hicks Postmenopausal bleed ing N95.0 IMMUNIZATIONS No Information SOCIAL HISTORY Tobacco Use: Social History Observation Description Date Details (start date - stop date) Never Smoker Sex Assigned At : Social History Observation Description Sex Assigned At Unknown Alcohol Screening: Question Answer Notes Did you have a drink containing alcohol in the past year? No Points 0 Interpretation Negative Tobacco Use: Question Answer Notes Are you a: never smoker REASON FOR REFERRAL No Information VITAL SIGNS Weight 188 lbs Jul, Height 60 in Jul, BMI 36.71 kg/m2 Jul, Blood pressure systolic 102 mm Hg Jul, Blood pressure diastolic 64 mm Hg Jul, MEDICATIONS Medication SIG (Take, Route, Frequency, Duration) Notes Start Da te End Date Status Spironolactone 25 MG 1 tablet Orally Active Benzonatate 200 MG 1 capsule Orally Three times a day Active Ergocalciferol 1.25 MG (08569 UT) 1 capsule Orally Active Levocetirizine Dihydrochloride 5 MG 1 tablet in the evening Oral ly Once a day Active Klor-Con M10 10 MEQ 1 tablet with food Orally Twice a day Active Omeprazole 20 MG 1 capsule 30 minutes before morning meal Orally On ce a day Active Norethindrone 0.35 MG 1 tablet Orally Once a day for 28 day(s) Jul, Active Tamsulosin HCl 0.4 MG 1 capsule Orally Once a day for 30 day(s) Jul, Active Amitriptyline HCl 25 MG 1 tablet at bedtime Orally Once a day Active Torsemide 20 MG as directed Orally A ctive Simvastatin 20 MG 1 tablet in the evening Orally Once a day Active tiZANidine HCl 4 MG 1 tablet as needed Orally Three times a day Active PROCEDURES No Information RESULTS No Results REASON FOR VISIT NGYN SEEN IN HOSPITAL BY DR HICKS BLEEDING MEDICAL (GENERAL) HISTORY Type Description Date Medical History Right arm thrombophlebitis Medical History SOB with activity Medical History Asthma Medical History Urinary retention Medical History Rectal prolapse Surgical History Cholecystectomy Surgical History Left ankle and lower leg Hospitalization History Surgical related Hospitalization History Childbirth Goals Section No Information Health Concerns No Information MEDICAL EQUIPMENT No Information MENTAL STATUS No Information FUNCTIONAL STATUS No Information ASSESSMENTS Encounter Date Diagnosis Assessment Notes Treatment Notes Treatm ent Clinical Notes Jul, Postmenopausal bleeding (ICD-10 - N95.0) PLAN OF TREATMENT Medication Medication Name Sig Start Date Stop Date Tamsulosin HCl 0.4 MG 1 capsule Orally Once a day for 30 day(s) Jul, Next Appt Details Provider Name:Acosta Graff, 2021-08-05 6 11:00:00 AM, [address], , [place], [address], Insurance Providers Payer Name Payer Address Payer Phone Insured Name Patient Relati onship to Insured Coverage Start Date Coverage End Date MEDICAID [employer] [address] [facility] [id number] JUAN [employer]VO MEDICARE COMPLETE [employer] [address] [address] [facility] [id number] JUAN BRAVO self
--- OUTSIDE RECORDS SUMMARY | 2021-08-28 17:19 | CCD | Continuity of Care Document ---
Author Author Bindu HUITRON MD Organization Unknown Address [address] [place] [address] Phone [phone] Care Team Providers Care Industrial Service Technician Name Role Phone Ana Maria Patel AUTM [phone] Problems Description No Information Available Social History Description No Information Available Allergies and adverse reactions Description No Information Available Medications Description No Information Available Immunizations Description No Information Available Vital Signs Description No Information Available Results Description No Information Available Procedures Date Code Description Status 08/13/2021 04820 Excision Rectal Procidentia Krista jenny Approach Completed 08/09/2021 30815 Hospital Initial Care Level 2 Co mpleted Medical Devices Description No Information Available Encounters Description No Information Available Assessments Date Code Description Provider 08/13/2021 K62.3 Rectal prolapse Hai Huitron MD 08/09/2021 K62.3 Rectal prolapse Hai Huitron MD Plan of Treatment Future Appointment(s):* 08/27/2021 11:30 am - Hai Huitron MD at [facility] Functional Status Description No Information Available Mental Status Description No Information Available Referrals Description No Information Available
--- OUTSIDE RECORDS SUMMARY | 2021-08-28 17:19 | CCD | Continuity of Care Document ---
Author Author Bindu ROBLEDO DPM Organization Unknown Address [address] [place] [address], [address] [place] [address] Phone [phone] Care Team Providers Care Wellness Consultant Name Role Phone Zenaida Patel AUTM [phone] Problems Description No Information Available Social History Type Date Description Comments Sex Unknown ETOH Use Denies alcohol use Tobacco Use Start: Unknown Patient has never smoked Allergies and adverse reactions Description No Known Drug Allergies Medications Active Medications SIG Qnty Indications Ordering Provide r Date Lisinopril 5mg Tablets Take One Tablet By Mouth Every Day Unknown Amitriptyline HCL 10mg Tablets Take One Tablet By Mouth AT Bedtime as Needed For Sleep U nknown Gabapentin 100mg Capsules TAMMY Pino, Juliann Tizanidine HCL 4mg Tablets Take One Tablet By Mouth AT Bedtime as Needed For Shoulder Spasm Unknown Amoxicillin 500mg Capsules Zenaida Patel Amitriptyline HCL 25mg Tablets Take One Tablet By Mouth AT Bedtime as Needed For Sleep U nknown Norethindrone Acetate 5mg Tablets Take One Tablet By Mouth Every Day Unknown Spironolactone 25mg Tablets Rodri Espinoza, Aletha Klor-Con M10 10Meq Tablets ER Take Two Tablets By Mouth Every Day Unknown Cefdinir 300mg Capsules Rodri Espinoza, Aletha Benzonatate 200mg Capsules Take One Capsule By Mouth Three Times A Day as Needed For Cough Unknown Simvastatin 20mg Tablets Take One Tablet By Mouth Every Day Unknown Omeprazole 20mg Capsules DR Take One Capsule By Mouth Every Day Unknown Tramadol HCL 50mg Tablets [place] Zenaida TAY Levocetirizine Dihydrochloride 5mg Tablets Take One Tablet By Mouth Every Evening For Allergies Unknown Carvedilol 12.5mg Tablets Take One Tablet By Mouth Twice A Day Unknown Vitamin D (Ergocalciferol) 1.25mg (52378 Ut) Capsules TAMMY Pino Juliann SM Aspirin Adult Low Strength 81mg Tablets DR Take One Tablet By Mouth Every Day Unknow n Ferrous Gluconate 324(38Fe) mg Tab lets Take One Tablet By Mouth Every Day Unknown Mag64 64mg Tablets DR Take One Tablet By Mouth Every Day Unknown Tamsulosin HCL 0.4mg Capsules Take One Capsule By Mouth Every Day Unknown Potassium Chloride ER 10Meq Tablet s ER Take Two Tablets By Mouth Every Day Unknown Midodrine HCL 10mg Tablets Unknown Lactulose 10GM/15ML Solution Unknown Furosemide 20mg Tablets Unknown Immunizations Description No Information Available Vital Signs Date Vital Result Comment 08/20/2021 10:51am Height 60 inches 5'0" Weight 150.00 lb BP Systolic 118 mmHg BP Diastolic 68 mmHg Heart Rate 114 /min BMI (Body Mass Index) 29.3 kg/m2 Results Description No Information Available Procedures Description No Information Available Medical Devices Description No Information Available Encounters Description No Information Available Assessments Description No Information Available Plan of Treatment Future Appointment(s):* 10/29/2021 9:45 am - Eugenio Robledo DPM at [facility] Functional Status Description No Information Available Mental Status Description No Information Available Referrals Description No Information Available
--- OUTSIDE RECORDS SUMMARY | 2021-08-28 17:19 | CCD | Continuity of Care Document ---
Author Author Bindu [facility]EL [facility] Organization Unknown Address [address] [facility] [address] [place] [address] Phone [phone] Care Team Providers Care Mica Machine Operator Name Role Phone Tyson Whitley M.D. AUTM [phone] Susana Damon MD AUTM [phone] Cologuard AUTM [phone] [facility] - Colon & Rectal Surgery AUTM [phone] [facility] AUTM Problems Active Problems [...] Q2038 Given 07/16/2012 Influenza Vaccine (Fluzone)( medicare) 31118 Given 07/16/2012 Influenza Vaccination [id number] D Q2038 Given 07/18/2011 Influenza Vaccine (Fluzone)( medicare) Vital Signs Date Vital Result Comment 08/21/2021 4:30pm BP Systolic 117 mmHg BP Diastolic 74 mmHg Heart Rate 93 /min Body Temperature 96.8 F Respiratory Rate 24 /min Height 60.5 inches 5'0.50" Weight 150.00 lb stated 08/17/21 O2 % BldC Oximetry 98 % Peak Expiratory Flow Rate 306 Estimated Peak Flow Rate [place] Body Weight 100 lb BMI (Body Mass Index) 28.8 kg/m2 07/01/2021 11:17am BP Systolic 82 mmHg BP Diastolic 48 mmHg Heart Rate 87 /min Body Temperature 97.0 F Respiratory Rate 17 /min Height 60.5 inches 5'0.50" O2 % BldC Oximetry 98 % Peak Expiratory Flow Rate 306 Estimated Peak Flow Rate [place] Body Weight 100 lb Results Test Acquired Date Facility Test Result H/L Range Note CBC With Differential 06/17/2021 Patient Service [place] [id number] [phone] White Blood Count 11.4 10 High 4.0-10.0 [...] 36.0-66.0 Lymph % 9.4 % Low 24.0-44.0 Burke % 5.8 % Normal 2.0-8.0 Eos % 0.0 % Normal 0.0-3.0 Baso % 0.2 % Normal 0.0-1.0 Immature Granulocyte % 1.0 % Normal 0-3.0 Nucleated Red Blood Cell % 0.0 % Normal 0-0 Neutrophils # 9.5 10 High 1.5-8.5 Lymph # 1.1 10 Low 1.5-5.0 Burke # 0.7 10 Normal 0.0-0.8 Eos # 0.0 10 Normal 0.0-0.5 Baso # 0.0 10 Normal 0.0-0.2 PT & Aptt 06/17/2021 [place] [address] [phone] Prothrombin Time 24.1 seconds High 12.7-14.5 Inr 2.11 Normal 1 Partial Thromboplastin Time 37.1 seconds Normal 25.9-37.0 Liver Profile 06/17/2021 [place] [address] [phone] Ast/Sgot 31 U/L Normal 7-37 Alt/SGPT 18 U/L Normal 12-78 Alkaline Phosphatase 111 U/L Normal 45-117 Bilirubin,Total 1.8 mg/dL High 0.2-1.0 Bilirubin,Direct 1.2 mg/dL High 0.0-0.2 Total Protein 5.4 GM/DL Low 6.4-8.2 Albumin 1.8 GM/DL Low 3.2-5.2 Albumin/Globulin Ratio 0.5 Low 1.2-2.2 Basic Metabolic Profile 06/17/2021 [place] [address] [phone] Glucose, Fasting 183 mg/dL High 70-100 Blood [...] -Incl Blood Type,Fly,AB SC 06/17/2021 Patient Service [place] [id number] [phone] Blood Type A POSITIVE Normal AB Screen (Indirect [place])Vis NEGATIVE Normal Laboratory test finding 04/11/2021 [place] (972)- - No Urine Received From Patient NO URINE RECEIVE <SEE NOTE> 3 Comprehensive Metabolic Panel 04/11/2021 [place] ([facility])- - Sodium 142 mEq/L Normal 135-145 Potassium [...] g/dL Normal 1.0-3.0 Laboratory test finding 04/11/2021 [place] ([facility])- - Glycosylated Hgba1c 5.2 % Normal 4.1-6.5 Lipid Panel 04/11/2021 [place] ([facility])- - Triglycerides 91 mg/dL Normal 45-150 Cholesterol 88 mg/dL Low 125-200 LDL Cholesterol 40 mg/dL Low 50-130 HDL Cholesterol 30 mg/dL Low 32-96 Chol/HDL Ratio 2.9 Normal 0-4.3 Laboratory test finding 04/11/2021 [place] ([facility])- - 1,25 DI-Oh Vit D-Send Out 62.1 [...] Little GFR Left ESRD GFR <15 on VINEYARD WORKER 3 NO URINE RECEIVED Patient informed to [...] and 75 years only. 5 Performed at: [address] [id number] Automatic Maintainer: Marcella Bloom MD, Phone: [phone] Procedures Date Code Description Status 08/21/2021 70534 Munoz Cre W/I 7 Days Of DC, Comm W/I 2 Dys Completed 07/01/2021 16439 Munoz Cre W/I 7 Days Of DC, Comm W/I 2 Dys Completed 05/21/2021 73842 Office/Outpatient Established Mo d MDM 30-39 Min Completed 04/19/2021 84171 Office/Outpatient Established Mo d MDM 30-39 Min Completed 02/11/2021 [id number] Diabetic Foot Exam Completed 02/22/2019 [id number] Bone Mineral Density Test Comple hollie 01/30/2014 [id number] Mammogram Completed Medical Devices Description No Information [...] 04/19/2021 9:45a Main Office Pleskach, Ana Maria, TUB WASHER R55 Syncope and collapse E11.69 Type 2 diabetes mellitus wit h other specified complication I10 Essential (primary) hyperten charlie Assessments Date Code Description Provider 08/21/2021 K62.3 Rectal prolapse Pleskach, Ana Maria, TUB WASHER 08/21/2021 R18.8 Other ascites Pleskach, Ana Maria, TUB WASHER 08/21/2021 I10 Essential (primary) hypertension Pleskach, Ana Maria, TUB WASHER 07/01/2021 K62.3 Rectal prolapse Pleskach, Ana Maria, TUB WASHER 07/01/2021 M54.5 Low back pain Pleskach, Ana Maria, TUB WASHER 07/01/2021 R18.8 Other ascites Pleskach, Ana Maria, TUB WASHER 07/01/2021 I10 Essential (primary) hypertension Pleskach, Ana Maria, TUB WASHER 07/01/2021 N95.0 Postmenopausal bleeding Pleskach , Ana Maria, TUB WASHER 07/01/2021 R53.1 Weakness Pleskach, Ana Maria, TUB WASHER 07/01/2021 R26.2 Difficulty in walking, not elsew here classified Plegaryach Ana Maria, TUB WASHER 05/21/2021 E11.69 Type 2 diabetes mellitus with ot her specified complication Pleskach, Ana Maria, TUB WASHER 05/21/2021 I10 Essential (primary) hypertension Pleskach, Ana Maria, TUB WASHER 05/21/2021 R07.81 Rib pain Pleskach, Ana Maria, TUB WASHER 05/21/2021 J01.90 Acute sinusitis, unspecified Ple skach, Ana Maria, TUB WASHER 04/19/2021 R55 Syncope and collapse PleTorey hill, TUB WASHER 04/19/2021 E11.69 Type 2 diabetes mellitus with ot her specified complication Pleskach, Ana Maria, TUB WASHER 04/19/2021 I10 Essential (primary) hypertension PlegaryachBernardoy, TUB WASHER Plan of Treatment Future Appointment(s):* 11/21/2021 1:00 pm - Ana Maria Patel FNP at Main Office 08/21/2021 - PlegaryachAna Maria, TUB WASHER* K62.3 Rectal prolapse* Comments:* s/p repair * [...] [facility] [address] [place], [place] [id number] [phone] [facility] Please evaluate patient for ascites and colonsocopy. Thank you. Scheduled 10/01/2021 [address] [place] [address] [phone]
--- OUTSIDE RECORDS SUMMARY | 2021-08-28 17:20 | CCD | Continuity of Care Document ---
Author Author Bindu PATEL GOVERNMENT RELATIONS MANAGER Organization Unknown Address [address] [facility] [place] [address] [place] [address] Phone [phone] Care Team Providers Care Real Estate Transaction Manager Name Role Phone Tyson Whitley M.D. AUTM [phone] Susana Damon MD AUTM [phone] Cologuard AUTM [phone] Problems Active Problems Provider Date Type 2 [...] Use Never Used Drugs Smoking Status Reviewed: 07/01/21 Patient has never smoked Exercise Type/Frequency Exercises rarely Sun Exposure Does not use sunscreen Seat Belt/Car Seat Never uses seat belt Smoke Alarms Yes Smoke Alarms Carbon Monoxide Detector: Yes Allergies, Adverse Reactions, Alerts Description No Known Drug Allergies Medications Active Medications SIG Qnty Indications Ordering Provide r Date Tramadol HCL 50mg Tablets take 1 tablet by mouth every 6 hours as needed for pain 28tabs M54.5 [...] allergies 90tabs J30.9 Violeta Roche M.D. 10/17/2020 Vitamin D (Ergocalciferol) 1.25mg (05400 Ut) Capsules take one capsule by mouth every 2 weeks 6caps E11.9 Violeta Roche M.D. 01/12/2020 Benzonatate 200mg Capsules take one capsule by mouth three times a day as needed for cough 30caps J01.9 0 Ana Maria Patel FNP 08/11/2019 Tizanidine HCL 4mg Tablets 1 tab by mouth at bedtime as needed for shoulder spasm 30tabs M25.511 Ana Maria Patel FNP 06/28/2018 Nitrostat 0.4mg Tablets Sub place one tablet under the tongue every 5 minutes for up to 3 doses as needed for chest pain. call 911 after the 3rd dose 1tabs R07.2 Tatiana Roche M.D. 01/26/2015 Simvastatin 20mg Tablets take one tablet by mouth every day for cholesterol 90tabs Juliann Santos PA 01/16/[address] take one capsule by mouth every day for heartburn 90caps Juliann Antony PA 11/21/2010 Calcium 500+D Tablets 1 tab by mouth qd Susana Damon MD Prevail Underwear 2XL 2XL Misc change undergarment 3 times per day or as needed 120units Ana Maria Magana ch, FNP Absorbent Polymer Optilock change pad daily and as needed 60units Ana Maria Patel FNP Klor-Con 10 10Meq Tablets ER 2 by mouth every day Unknown Spironolactone 25mg Tablets take one tablet by mouth every morning Unknown Torsemide 20mg Tablets 1 b y mouth daily Unknown Eliquis 2.5mg Tablets 1 tab by mouth twice a day (temporarily on hold 07/01/21) Maurice Whitley ch, M.D. Aspir-[address] 1 by mouth every day currently on hold per Cardiology 07/01/21 90tabs Sanya Howe M.D. History Medications Carvedilol 3.125mg Tablets take one tablet by mouth twice a day 60tabs Ana Maria Patel FNP 2020 - 07/01/2021 Amoxicillin 500mg Tablets 1 by mouth twice a day for 10 days 20tabs J01.90 Ana Maria Patel FNP 1 - 05/31/2021 Carvedilol 6.25mg Tablets take one tablet by mouth twice a day 180tabs Ana Maria Patel FNP 2020 - 05/21/2021 Gabapentin 100mg Capsules take 1 capsules by by mouth up to three times a day prn back pain 90caps Juliann Santos PA 02/11/2021 - 04/19/2021 Immunizations CPT Code Status Date Vaccine Lot # [id number] Given 07/16/2012 Influenza Vaccine (Fluzone)( medicare) [id number] Given 07/16/2012 Influenza Vaccination [id number] [id number] Given 07/18/2011 Influenza Vaccine (Fluzone)( medicare) Vital Signs Date Vital Result Comment 07/01/2021 11:17am BP Systolic 82 mmHg BP Diastolic 48 mmHg Heart Rate 87 /min Body Temperature 97.0 F Respiratory Rate 17 /min Height 60.5 inches 5'0.50" O2 % BldC Oximetry 98 % Peak Expiratory Flow Rate 306 Estimated Peak Flow Rate [place] Body Weight 100 lb 05/21/2021 8:48am BP Systolic 126 mmHg BP Diastolic 84 mmHg Heart Rate 104 /min Body Temperature 97.0 F Respiratory Rate 17 /min Height 60.5 inches 5'0.50" Weight 189.25 lb O2 % [facility] Oximetry 98 % Peak Expiratory Flow Rate 306 Estimated Peak Flow Rate [place] Body Weight 100 lb BMI (Body Mass Index) 36.3 kg/m2 Results Test Acquired Date Facility Test Result H/L Range Note CBC With Differential 06/17/2021 Patient Service [facility] [place] [address] [phone] White Blood Count 11.4 10 High 4.0-10.0 [...] 36.0-66.0 Lymph % 9.4 % Low 24.0-44.0 [place] % 5.8 % Normal 2.0-8.0 Eos % 0.0 % Normal 0.0-3.0 Baso % 0.2 % Normal 0.0-1.0 Immature Granulocyte % 1.0 % Normal 0-3.0 Nucleated Red Blood Cell % 0.0 % Normal 0-0 Neutrophils # 9.5 10 High 1.5-8.5 Lymph # 1.1 10 Low 1.5-5.0 [place] # 0.7 10 Normal 0.0-0.8 Eos # 0.0 10 Normal 0.0-0.5 Baso # 0.0 10 Normal 0.0-0.2 PT & Aptt 06/17/2021 Patient Service [facility] [place] [address] [phone] Prothrombin Time 24.1 seconds High 12.7-14.5 Inr 2.11 Normal 1 Partial Thromboplastin Time 37.1 seconds Normal 25.9-37.0 Liver Profile 06/17/2021 [place] [address] [phone] Ast/Sgot 31 U/L Normal 7-37 Alt/SGPT 18 U/L Normal 12-78 Alkaline Phosphatase 111 U/L Normal 45-117 Bilirubin,Total 1.8 mg/dL High 0.2-1.0 Bilirubin,Direct 1.2 mg/dL High 0.0-0.2 Total Protein 5.4 GM/DL Low 6.4-8.2 Albumin 1.8 GM/DL Low 3.2-5.2 Albumin/Globulin Ratio 0.5 Low 1.2-2.2 Basic Metabolic Profile 06/17/2021 [place] [address] [phone] Glucose, Fasting 183 mg/dL High 70-100 Blood [...] -Incl Blood Type,Fly,AB SC 06/17/2021 [place] [address] [phone] Blood Type A POSITIVE Normal AB Screen (Indirect [place])Vis NEGATIVE Normal Laboratory test finding 04/11/2021 [place] (315)- - No Urine Received From Patient NO URINE RECEIVE <SEE NOTE> 3 Comprehensive Metabolic Panel 04/11/2021 [place] (315)- - Sodium 142 mEq/L Normal 135-145 Potassium [...] g/dL Normal 1.0-3.0 Laboratory test finding 04/11/2021 [place] (315)- - Glycosylated Hgba1c 5.2 % Normal 4.1-6.5 Lipid Panel 04/11/2021 [place] (315)- - Triglycerides 91 mg/dL Normal 45-150 Cholesterol 88 mg/dL Low 125-200 LDL Cholesterol 40 mg/dL Low 50-130 HDL Cholesterol 30 mg/dL Low 32-96 Chol/HDL Ratio 2.9 Normal 0-4.3 Laboratory test finding 04/11/2021 [place] (315)- - 1,25 DI-Oh Vit D-Send Out 62.1 [...] Little GFR Left ESRD GFR <15 on PIPELINE ENGINEER 3 NO URINE RECEIVED Patient informed to [...] and 75 years only. 5 Performed at: [address] [id number] Service Delivery Analyst: Marcella Bloom MD, Phone: [phone] Procedures Date Code Description Status 05/21/2021 79326 Office/Outpatient Established Mo d MDM 30-39 Min Completed 04/19/2021 51530 Office/Outpatient Established Mo d MDM 30-39 Min Completed 02/11/2021 58744 Office/Outpatient Established Mo d MDM 30-39 Min Completed 02/11/2021 342132082 Diabetic Foot Exam Completed 02/22/2019 521922193 Bone Mineral Density Test Comple hollie 01/30/2014 [id number] Mammogram Completed Medical Devices Description No Information Available Encounters Type Date Location Provider Dx Diagnosis Office Visit 05/21/2021 8:45a Main Office Ana Maria Patel GOVERNMENT RELATIONS MANAGER E11.6 9 Type 2 diabetes mellitus with other specified complication I10 Essential (primary) hyperten charlie R07.81 Pleurodynia J01.90 Acute sinusitis, unspecified Office Visit 04/19/2021 9:45a Main Office Ana Maria Patel FNP R55 Syncope and collapse E11.69 Type 2 diabetes mellitus wit h other specified complication I10 Essential (primary) hyperten charlie Office Visit 02/11/2021 9:00a Main Office Juliann Santos PA Z00.00 Encntr for general adult medical exam w/o abnormal findings E11.69 Type 2 diabetes mellitus wit h other specified complication I10 Essential (primary) hyperten charlie E78.2 Mixed hyperlipidemia M81.0 Age-related osteoporosis w/o current pathological fracture M54.5 Low back pain Assessments Date Code Description Provider 07/01/2021 K62.3 Rectal prolapse Ana Maria Patel GOVERNMENT RELATIONS MANAGER 07/01/2021 E11.69 Type 2 diabetes mellitus with ot her specified complication Ana Maria Patel, GOVERNMENT RELATIONS MANAGER 07/01/2021 I10 Essential (primary) hypertension Ana Maria Patel, GOVERNMENT RELATIONS MANAGER 07/01/2021 M54.5 Low back pain Ana Maria Patel GOVERNMENT RELATIONS MANAGER 05/21/2021 E11.69 Type 2 diabetes mellitus with ot her specified complication Ana Maria Patel, GOVERNMENT RELATIONS MANAGER 05/21/2021 I10 Essential (primary) hypertension Ana Maria Patel, GOVERNMENT RELATIONS MANAGER 05/21/2021 R07.81 Rib pain Ana Maria Patel, GOVERNMENT RELATIONS MANAGER 05/21/2021 J01.90 Acute sinusitis, unspecified Ple Ana Maria hill, GOVERNMENT RELATIONS MANAGER 04/19/2021 R55 Syncope and collapse Torey Patel GOVERNMENT RELATIONS MANAGER 04/19/2021 E11.69 Type 2 diabetes mellitus with ot her specified complication Ana Maria Patel, GOVERNMENT RELATIONS MANAGER 04/19/2021 I10 Essential (primary) hypertension Ana Maria Patel, GOVERNMENT RELATIONS MANAGER 02/11/2021 Z00.00 Encounter for general adult medi alta examination without abno Juliann Santos PA 02/11/2021 E11.69 Type 2 diabetes mellitus with ot her specified complication Juliann Santos PA 02/11/2021 I10 Essential (primary) hypertension Juliann Santos PA 02/11/2021 E78.2 Mixed hyperlipidemia Juliann Santos PA 02/11/2021 M81.0 Age-related osteoporosis without current pathological fractu Juliann Santos PA 02/11/2021 M54.5 Low back pain Bjorn Santos cia, PA Plan of Treatment Future Appointment(s):* 08/15/2021 9:15 am - Ana Maria Patel FNP at Main Office 07/01/2021 - Ana Maria Patel FNP* K62.3 Rectal prolapse* Comments:* refer to [facility] * E11.69 Type 2 diabetes mellitus with other specified complication * I10 Essential (primary) hypertension* Comments:* continue to monitor, hold torsemide if SBP<90 * M54.5 Low back pain* New Medication:* Tramadol HCL 50 mg - take 1 tablet by mouth every 6 hours as needed for pain * Comments:* tramadol prn Functional Status Functional Condition Comment Date Status Glasses Active Complete dentures Active Standard cane is used to ambulate Active Wears corrective shoe on the left foot only Active Mental Status Mental Condition Comment Date Status None Active Referrals Description No Information Available
--- OUTSIDE RECORDS SUMMARY | 2021-08-28 17:20 | CCD | Continuity of Care Document ---
Author Author Bindu PATEL [facility] Organization Unknown Address [address] [facility] [place] [address] [place] [address] Phone [phone] Care Team Providers Care Tax Preparer Name Role Phone Tyson Whitley M.D. AUTM [phone] Susana Damon MD AUTM [phone] Cologuard AUTM [phone] [facility] - Colon & Rectal Surgery AUTM [phone] [facility] - Gastroenterology AUTM Problems Active Problems [...] Roche M.D. 10/17/2020 Vitamin D (Ergocalciferol) 1.25mg (92295 Ut) Capsules take one capsule by mouth [...] Q2038 Given 07/16/2012 Influenza Vaccine (Fluzone)( medicare) 26227 Given 07/16/2012 Influenza Vaccination [id number] D Q2038 Given 07/18/2011 Influenza Vaccine (Fluzone)( medicare) Vital Signs Date Vital Result Comment 07/01/2021 11:17am BP Systolic 82 mmHg BP Diastolic 48 mmHg Heart Rate 87 /min Body Temperature 97.0 F Respiratory Rate 17 /min Height 60.5 inches 5'0.50" O2 % BldC Oximetry 98 % Peak Expiratory Flow Rate 306 Estimated Peak Flow Rate [place] Body Weight 100 lb 05/21/2021 8:48am BP Systolic 126 mmHg BP Diastolic 84 mmHg Heart Rate 104 /min Body Temperature 97.0 F Respiratory Rate 17 /min Height 60.5 inches 5'0.50" Weight 189.25 lb O2 % BldC Oximetry 98 % Peak Expiratory Flow Rate 306 Estimated Peak Flow Rate [place] Body Weight 100 lb BMI (Body Mass Index) 36.3 kg/m2 Results Test Acquired Date Facility Test Result H/L Range Note CBC With Differential 06/17/2021 [place] [address] [phone] White Blood Count 11.4 10 High 4.0-10.0 [...] 36.0-66.0 Lymph % 9.4 % Low 24.0-44.0 Becker % 5.8 % Normal 2.0-8.0 Eos % 0.0 % Normal 0.0-3.0 Baso % 0.2 % Normal 0.0-1.0 Immature Granulocyte % 1.0 % Normal 0-3.0 Nucleated Red Blood Cell % 0.0 % Normal 0-0 Neutrophils # 9.5 10 High 1.5-8.5 Lymph # 1.1 10 Low 1.5-5.0 Becker # 0.7 10 Normal 0.0-0.8 Eos # 0.0 10 Normal 0.0-0.5 Baso # 0.0 10 Normal 0.0-0.2 PT & Aptt 06/17/2021 [place] [address] [phone] Prothrombin Time 24.1 seconds High 12.7-14.5 Inr 2.11 Normal 1 Partial Thromboplastin Time 37.1 seconds Normal 25.9-37.0 Liver Profile 06/17/2021 Patient Service [place], [place] [address] [phone] Ast/Sgot 31 U/L Normal 7-37 Alt/SGPT 18 U/L Normal 12-78 Alkaline Phosphatase 111 U/L Normal 45-117 Bilirubin,Total 1.8 mg/dL High 0.2-1.0 Bilirubin,Direct 1.2 mg/dL High 0.0-0.2 Total Protein 5.4 GM/DL Low 6.4-8.2 Albumin 1.8 GM/DL Low 3.2-5.2 Albumin/Globulin Ratio 0.5 Low 1.2-2.2 Basic Metabolic Profile 06/17/2021 [place] [address] [phone] Glucose, Fasting 183 mg/dL High 70-100 Blood [...] -Incl Blood Type,Fly,AB SC 06/17/2021 [place] [address] [phone] Blood Type A POSITIVE Normal AB Screen (Indirect [place])Vis NEGATIVE Normal Laboratory test finding 04/11/2021 [place] ([facility])- - No Urine Received From Patient NO URINE RECEIVE <SEE NOTE> 3 Comprehensive Metabolic Panel 04/11/2021 [place] ([facility])- - Sodium 142 mEq/L Normal 135-145 [...] g/dL Normal 1.0-3.0 Laboratory test finding 04/11/2021 [place] (315)- - Glycosylated Hgba1c 5.2 % Normal 4.1-6.5 Lipid Panel 04/11/2021 [place] (315)- - Triglycerides 91 mg/dL Normal 45-150 Cholesterol 88 mg/dL Low 125-200 LDL Cholesterol 40 mg/dL Low 50-130 HDL Cholesterol 30 mg/dL Low 32-96 Chol/HDL Ratio 2.9 Normal 0-4.3 Laboratory test finding 04/11/2021 [place] (315)- - 1,25 DI-Oh Vit D-Send Out [...] Little GFR Left ESRD GFR <15 on EVENTS INTERN 3 NO URINE RECEIVED Patient informed to [...] and 75 years only. 5 Performed at: [facility] [address] [id number] Farm Manager: Marcella Bloom MD, Phone: [phone] Procedures Date Code Description Status 07/01/2021 09683 Munoz Cre W/I 7 Days Of DC, Comm W/I 2 Dys Completed 05/21/2021 09867 Office/Outpatient Established Mo d MDM 30-39 Min Completed 04/19/2021 32427 Office/Outpatient Established Mo d MDM 30-39 Min Completed 02/11/2021 04942 Office/Outpatient Established Mo d MDM 30-39 Min Completed 02/11/2021 [id number] Diabetic Foot Exam Completed 02/22/2019 [id number] Bone Mineral Density Test Comple hollie 01/30/2014 [id number] Mammogram Completed Medical Devices Description No Information Available Encounters Type Date Location Provider Dx Diagnosis Office Visit 07/01/2021 11:15a Main Office Ana Maria Patel FNP K62.3 Rectal prolapse M54.5 Low back pain R18.8 Other ascites I10 Essential (primary) hyperten charlie N95.0 Postmenopausal bleeding Office Visit 05/21/2021 8:45a Main Office Ana [...] Provider 07/01/2021 K62.3 Rectal prolapse Ana Maria Patel, MUSIC DIRECTOR 07/01/2021 M54.5 Low back pain PleskAna Maria montana, MUSIC DIRECTOR 07/01/2021 R18.8 Other ascites PleskachAna Maria, MUSIC DIRECTOR 07/01/2021 I10 Essential (primary) hypertension Ana Maria Patel, MUSIC DIRECTOR 07/01/2021 N95.0 Postmenopausal bleeding Pleskach Ana Maria, MUSIC DIRECTOR 05/21/2021 E11.69 Type 2 diabetes mellitus with ot her specified complication Ana Maria Patel, MUSIC DIRECTOR 05/21/2021 I10 Essential (primary) hypertension Ana Maria Patel, MUSIC DIRECTOR 05/21/2021 R07.81 Rib pain PleAna Maria hill, MUSIC DIRECTOR 05/21/2021 J01.90 Acute sinusitis, unspecified Ple skAna Maria montana, MUSIC DIRECTOR 04/19/2021 R55 Syncope and collapse Torey Patel, MUSIC DIRECTOR 04/19/2021 E11.69 Type 2 diabetes mellitus with ot her specified complication Ana Maria Patel, MUSIC DIRECTOR 04/19/2021 I10 Essential (primary) hypertension Ana Maria Patel, MUSIC DIRECTOR 02/11/2021 Z00.00 Encounter for general adult medi [...] at Main Office 07/01/2021 - Ana Maria Patel, CLAUS* K62.3 Rectal prolapse* Comments:* refer to [facility] * Referral:* [facility], Surgery,Colon & Rectal * M54.5 Low back pain* New Medication:* Tramadol HCL 50 mg - take 1 tablet by mouth every 8 hours as needed for pain * Comments:* tramadol prn * R18.8 Other ascites* Comments:* refer to GI * Referral:* [facility], Gastroenterology * I10 Essential (primary) hypertension* Comments:* continue to monitor, hold torsemide if SBP<90 * N95.0 Postmenopausal bleeding* Comments:* F/U with Dr. Bruno as scheduled Functional Status Functional Condition Comment Date Status Glasses Active Complete dentures Active Standard cane is used to ambulate Active Wears corrective shoe on the left foot only Active Mental Status Mental Condition Comment Date Status None Active Referrals Refer to Dr Reason for Referral Status Appt Date [facility] Please evaluate pt for rectal prolapse. Thank you. Sent [address] [place] [address] [phone] [facility] Please evaluate patient for ascites and colonsocopy. Thank you. Sent [address] [place] [address] [phone]
--- OUTSIDE RECORDS SUMMARY | 2021-08-28 17:20 | CCD ---
Author Author [facility] [employer] Organization [facility] [employer] em[employer] Address Unknown Phone Unavailable Care Team Providers Care Recordist Name Role Phone Acosta Graff Unavailable PROBLEMS Type Condition ICD9-CM Code OBN94-ML Code Onset Dates Condition S tatus W/U Status Risk SNOMED Code Notes Problem Embolism and thrombosis of unspecified site 453.9 Active confirmed 755546629 ALLERGIES No Known Allergies ENCOUNTERS from 1955 to 2021-07-28 Encounter Location Date Provider Diagnosis [facility] [address] [phone] [place] [address] Jul, Acosta Esquivelgeorge Urinary retention R33.9 ; Acute kidney i njury N17.9 and Rectal prolapse K62.3 IMMUNIZATIONS No Information SOCIAL HISTORY Tobacco Use: [...] Information VITAL SIGNS Weight 188 lbs Jul, Weight-kg 85.28 kg Jul, Height 60 in Jul, BMI 36.71 kg/m2 Jul, Heart Rate 108 /min Jul, Respiratory Rate 19 /min Jul, Temperature 97.3 degrees Fahrenheit Jul, Oximetry 99 Jul, Blood pressure systolic 102 mm Hg Jul, Blood pressure diastolic 64 mm Hg Jul, MEDICATIONS Medication SIG (Take, Route, Frequency, Duration) Notes Start Da te End Date Status Spironolactone 25 MG 1 tablet Orally Active Benzonatate 200 MG 1 capsule Orally Three times a day Active Ergocalciferol 1.25 MG (93276 UT) 1 capsule Orally Active Levocetirizine Dihydrochloride [...] Information RESULTS No Results REASON FOR VISIT urinary retention indwelling morgan MEDICAL (GENERAL) HISTORY Type Description Date Medical [...] Treatment Notes Treatm ent Clinical Notes Jul, Urinary retention (ICD-10 - R33.9) Jul, Acute kidney injury (ICD-10 - N17.9) Jul, Rectal prolapse (ICD-10 - K62.3) PLAN OF TREATMENT Medication Medication Name Sig Start Date Stop Date Tamsulosin HCl 0.4 MG 1 capsule Orally Once a day for 30 day(s) Jul, Next Appt Details Local cystoscopy Reason:Retention... Provider Name:Acosta Graff, 2021-08-05 6 11:00:00 AM, [address], , [place], [address], Follow Up:Local cystoscopyRetention... Insurance Providers Payer Name Payer Address Payer Phone Insured Name Patient Relati onship to Insured Coverage Start Date Coverage End Date MEDICAID [employer] [address] [facility] [id number] [phone] JUAN BARVO MEDICARE COMPLETE [employer] [address] [address] [address] [facility] [id number] JUAN BRAVO self
--- OUTSIDE RECORDS SUMMARY | 2021-08-28 17:20 | CCD | Continuity of Care Document ---
Author Author Bindu CASTILLO M.D. Organization Unknown Address [id number] [facility] [place] [address] [place] [address] Phone [phone] Care Team Providers Care Sales Agent Protective Service Name Role Phone Tysno Whitley M.D. AUTM [phone] Susana Damon MD AUTM [phone] Cologuard AUTM [phone] Problems Active Problems Provider Date Type 2 [...] Use Never Used Drugs Smoking Status Reviewed: 05/21/21 Patient has never smoked Exercise Type/Frequency Exercises rarely Sun Exposure Does not use sunscreen Seat Belt/Car Seat Never uses seat belt Smoke Alarms Yes Smoke Alarms Carbon Monoxide Detector: Yes Allergies, Adverse Reactions, Alerts Description No Known Drug Allergies Medications Active Medications SIG Qnty Indications Ordering Provide r Date Carvedilol 3.125mg Tablets take one tablet by mouth twice a day 60tabs Ana Maria Patel FNP 2020 Amitriptyline HCL 25mg Tablets 1 tab by mouth every night at bedtime as needed for sleep 30tabs G47.00 Ana Maria Patel FNP 02/18/2021 Levocetirizine Dihydrochloride 5mg Tablets take one tablet by mouth every evening for allergies 90tabs J30.9 Violeta Castillo M.D. 10/17/2020 Vitamin D (Ergocalciferol) 1.25mg (14651 Ut) Capsules take one capsule by mouth every 2 weeks 6caps E11.9 Violeta Castillo M.D. 01/12/2020 Benzonatate 200mg Capsules take one capsule by mouth three times a day as needed for cough 30caps J01.9 0 Ana Maria Patel FNP 08/11/2019 Tizanidine HCL 4mg Tablets 1 tab by mouth at bedtime as needed for shoulder spasm 30tabs M25.511 Ana Maria Patel FNP 06/28/2018 Aspirin Ec Low Dose 81mg Tablets D R take one tablet by mouth every day 90tabs Violeta Castillo M.D. 07/14/2016 Nitrostat 0.4mg Tablets Sub place one tablet under the tongue every 5 minutes for up to 3 doses as needed for chest pain. call 911 after the 3rd dose 1tabs R07.2 Tatiana Castillo M.D. 01/26/2015 Simvastatin 20mg Tablets take one tablet by mouth every day for cholesterol 90tabs Juliann Santos PA 01/16/[address] take one capsule by mouth every day for heartburn 90caps Juliann Antony PA 11/21/2010 Metformin HCL 500mg Tablets take one tablet by mouth daily 90tabs E11.9 Ana Maria Patel FNP 07/16 Calcium 500+D Tablets 1 tab by mouth qd Susana Damon MD Eliquis 2.5mg Tablets 1 tab by mouth twice a day Tyson Whitley M.D. History Medications Amoxicillin 500mg Tablets 1 by mouth twice [...] Q2038 Given 07/16/2012 Influenza Vaccine (Fluzone)( medicare) 71040 Given 07/16/2012 Influenza Vaccination [id number] D Q2038 Given 07/18/2011 Influenza Vaccine (Fluzone)( medicare) Vital Signs Date Vital Result Comment 05/21/2021 8:48am BP Systolic 126 mmHg BP Diastolic 84 mmHg Heart Rate 104 /min Body Temperature 97.0 F Respiratory Rate 17 /min Height 60.5 inches 5'0.50" Weight 189.25 lb O2 % BldC Oximetry 98 % Peak Expiratory Flow Rate 306 Estimated Peak Flow Rate Bolton Body Weight 100 lb BMI (Body Mass Index) 36.3 kg/m2 04/19/2021 9:32am BP Systolic 95 mmHg BP Diastolic 61 mmHg Heart Rate 76 /min Body Temperature 97.3 F Respiratory Rate 20 /min Height 60.5 inches 5'0.50" Weight 196.38 lb O2 % BldC Oximetry 98 % Peak Expiratory Flow Rate 306 Estimated Peak Flow Rate Bolton Body Weight 100 lb BMI (Body Mass Index) 37.7 kg/m2 Results Test Acquired Date Facility Test Result H/L Range Note CBC With Differential 06/17/2021 Patient Service [place], [place] [id number] [phone] White Blood Count 11.4 10 High 4.0-10.0 [...] 36.0-66.0 Lymph % 9.4 % Low 24.0-44.0 Mayes % 5.8 % Normal 2.0-8.0 Eos % 0.0 % Normal 0.0-3.0 Baso % 0.2 % Normal 0.0-1.0 Immature Granulocyte % 1.0 % Normal 0-3.0 Nucleated Red Blood Cell % 0.0 % Normal 0-0 Neutrophils # 9.5 10 High 1.5-8.5 Lymph # 1.1 10 Low 1.5-5.0 Mayes # 0.7 10 Normal 0.0-0.8 Eos # 0.0 10 Normal 0.0-0.5 Baso # 0.0 10 Normal 0.0-0.2 PT & Aptt 06/17/2021 [place] [address] [phone] Prothrombin Time 24.1 seconds High 12.7-14.5 Inr 2.11 Normal 1 Partial Thromboplastin Time 37.1 seconds Normal 25.9-37.0 Liver Profile 06/17/2021 [place] [address] [phone] Ast/Sgot 31 U/L Normal 7-37 Alt/SGPT 18 U/L Normal 12-78 Alkaline Phosphatase 111 U/L Normal 45-117 Bilirubin,Total 1.8 mg/dL High 0.2-1.0 Bilirubin,Direct 1.2 mg/dL High 0.0-0.2 Total Protein 5.4 GM/DL Low 6.4-8.2 Albumin 1.8 GM/DL Low 3.2-5.2 Albumin/Globulin Ratio 0.5 Low 1.2-2.2 Basic Metabolic Profile 06/17/2021 Patient Service [place], [place] [id number] [phone] Glucose, Fasting 183 mg/dL High 70-100 Blood [...] -Incl Blood Type,Fly,AB SC 06/17/2021 Patient Service Center [place], [place] [id number] [phone] Blood Type A POSITIVE Normal AB Screen (Indirect [place])Vis NEGATIVE Normal Laboratory test finding 04/11/2021 Angela (315)- - No Urine Received From Patient NO URINE RECEIVE <SEE NOTE> 3 Comprehensive Metabolic Panel 04/11/2021 Angela (315)- - Sodium 142 mEq/L Normal 135-145 [...] g/dL Normal 1.0-3.0 Laboratory test finding 04/11/2021 Angela (315)- - Glycosylated Hgba1c 5.2 % Normal 4.1-6.5 Lipid Panel 04/11/2021 Angela (315)- - Triglycerides 91 mg/dL Normal 45-150 Cholesterol 88 mg/dL Low 125-200 LDL Cholesterol 40 mg/dL Low 50-130 HDL Cholesterol 30 mg/dL Low 32-96 Chol/HDL Ratio 2.9 Normal 0-4.3 Laboratory test finding 04/11/2021 Angela (315)- - 1,25 DI-Oh Vit D-Send Out [...] Little GFR Left ESRD GFR <15 on MANAGEMENT PSYCHOLOGIST 3 NO URINE RECEIVED Patient informed to [...] and 75 years only. 5 Performed at: [address] [id number] 61 Corporate Legal Assistant: Marcella Bloom MD, Phone: [phone] Procedures Date Code Description Status 05/21/2021 81930 Office/Outpatient Established Mo d MDM 30-39 Min Completed 04/19/2021 43234 Office/Outpatient Established Mo d MDM 30-39 Min Completed 02/11/2021 52013 Office/Outpatient Established Mo d MDM 30-39 Min Completed 02/11/2021 [id number] Diabetic Foot Exam Completed 02/22/2019 523027701 Bone Mineral Density Test Comple hollie 01/30/2014 [id number] Mammogram Completed Medical Devices Description No Information Available Encounters Type Date Location Provider Dx Diagnosis Office Visit 05/21/2021 8:45a Main Office PlegaryachAna Maria, [employer] E11.6 9 Type 2 diabetes mellitus with other specified complication I10 Essential (primary) hyperten charlie R07.81 Pleurodynia J01.90 Acute sinusitis, unspecified Office Visit 04/19/2021 9:45a Main Office Pleskach, Ana Maria, [employer] R55 Syncope and collapse E11.69 Type 2 [...] back pain Assessments Date Code Description Provider 05/21/2021 E11.69 Type 2 diabetes mellitus with ot her specified complication Pleskach, Ana Maria, [employer] 05/21/2021 I10 Essential (primary) hypertension Bernardo Pately, [employer] 05/21/2021 R07.81 Rib pain PleAna Maria hill, [employer] 05/21/2021 J01.90 Acute sinusitis, unspecified Ple skach, Ana Maria, [employer] 04/19/2021 R55 Syncope and collapse Torey Patel, [employer] 04/19/2021 E11.69 Type 2 diabetes mellitus with ot her specified complication Pleskach, Ana Maria, [employer] 04/19/2021 I10 Essential (primary) hypertension Pleskach Ana Maria, [employer] 02/11/2021 Z00.00 Encounter for general adult medi [...] Ana Maria Patel FNP at Main Office 05/21/2021 - Ana Maria Patle FNP* E11.69 Type 2 diabetes mellitus with other specified complication* Comments:* continue metformin at once a day * I10 Essential (primary) hypertension* Comments:* remains low at home, will further decrease carvedilol and monitor * Follow up:* one month * Recommendations:* decrease carvedilol to 3.125 mg twice a day, continue to monitor your blood pressure and bring your log to your next visit * R07.81 Rib pain* Recommendations:* use tylenol as needed for pain * J01.90 Acute sinusitis, unspecified* New Medication:* Amoxicillin 500 mg - 1 by mouth twice a day for 10 days Functional Status Functional Condition Comment Date Status Glasses Active Complete dentures Active Standard cane is used to ambulate Active Wears corrective shoe on the left foot only Active Mental Status Mental Condition Comment Date Status None Active Referrals Description No Information Available
[2021-08-28] MEDS ORDERED: TRAM50TA2 PO (17:45)
[2021-08-28] MEDS ORDERED: LACT10SO3 PO (17:45)
[2021-08-28] MEDS ORDERED: FERR32TA PO (17:45)
[2021-08-28] MEDS ORDERED: MIDO10TA PO (17:45)
[2021-08-28] MEDS ORDERED: FURO20TA2 PO (17:45)
[2021-08-28] MEDS ORDERED: MAGN64TASA PO (17:45)
[2021-08-29 05:48] LABS: BASO % 0.4 % (0.0-1.0); EOS # 0.1 10^3/uL (0.0-0.5); EOS % 0.6 % (0.0-3.0); HEMATOCRIT 31.6 % (36.0-47.0); HEMOGLOBIN 9.9 g/dl (12.0-15.5); LYMPH # 1.6 10^3/uL (1.5-5.0); LYMPH % 14.4 % (24.0-44.0); MEAN CORPUSCULAR HEMOGLOBIN 30.7 pg (27.0-33.0); MEAN CORPUSCULAR HGB CONC 31.3 g/dl (32.0-36.5); MEAN CORPUSCULAR VOLUME 98.1 fl (80.0-96.0); MONO # 0.5 10^3/uL (0.0-0.8); MONO % 4.9 % (2.0-8.0); NEUTROPHILS # 8.7 10^3/uL (1.5-8.5); PLATELET COUNT, AUTOMATED 156 10^3/uL (150-450); RED BLOOD COUNT 3.22 10^6/uL (4.00-5.40)
[2021-08-29 05:59] LABS: INR 1.2; PROTHROMBIN TIME 15.7 SECONDS (12.7-14.5)
[2021-08-29 06:00] LABS: PARTIAL THROMBOPLASTIN TIME 29.8 SECONDS (25.9-37.0)
[2021-08-29 06:12] LABS: ALBUMIN 2.6 GM/DL (3.2-5.2); BILIRUBIN,DIRECT 0.4 MG/DL (0.0-0.2); BILIRUBIN,TOTAL 0.8 MG/DL (0.2-1.0); CALCIUM LEVEL 8.4 MG/DL (8.8-10.2); CREATININE FOR GFR 1.49 MG/DL (0.55-1.30); GLOMERULAR FILTRATION RATE 37.5 (>45); POTASSIUM SERUM 4.2 MEQ/L (3.5-5.1); TOTAL PROTEIN 6.4 GM/DL (6.4-8.2)
[2021-08-29 06:13] LABS: CK-MB VALUE MASS 1.4 NG/ML (<3.6); MB/CK RELATIVE INDEX 7.37 (< OR =4)
[2021-08-29 06:24] LABS: RSV AMPLIFICATION NEGATIVE (NEGATIVE)
--- NOTE | 2021-08-29 06:45 | ECGEPIP ---
[facility] - ED Test Date: 2021-08-29 Pat Name: JUAN BRAVO Department: Room: - Gender: Female Research Chemist: ELIN : [id number] Requested By: VANCE Styles Order Number: [id number] Reading MD: Loyd Quintanilla Measurements Intervals [place] Rate: 95 P: 19 MS: 148 QRS: -25 QRSD: 84 T: 55 QT: 360 QTc: 452 Interpretive Statements Sinus rhythm with sinus arrhythmia Septal infarct , age undetermined BASELINE ARTIFACT AFFECTS INTERPRETATION Electronically Signed on 08-29-2021 6:45:43 EST by Loyd Quintanilla
--- NOTE | 2021-08-29 06:53 | REPVR ---
PROCEDURE INFORMATION: Exam: XR Chest Exam date and time: 08/29/2021 5:45 AM Age: 65 years old Clinical indication: Other: Weakness TECHNIQUE: Imaging protocol: XR of the chest. Views: 1 view. COMPARISON: CR Abdomen,Flat Upright,PA CHEST 08/02/2021 4:38 PM FINDINGS: Lungs: There is markedly low lung volume with bronchovascular crowding and basilar atelectatic changes. Pleural spaces: Unremarkable. No pleural effusion. No pneumothorax. Heart/Mediastinum: The cardiomediastinal silhouette is magnified. Bones/joints: Unremarkable. Other findings: There is a large wall demarcated density seen likely overlying the chest. IMPRESSION: 1. Large well demarcated density likely overlying the chest the etiology of which cannot be discerned on this study, partly limiting the evaluation. Correlate clinically and repeat study may be considered. 2. No focal consolidations seen. Significantly low lung volume particularly the right lung with elevated right hemidiaphragm, bronchovascular crowding and basilar atelectatic changes limiting the evaluation for subtle central and basilar infiltrates. Repeat exam with PA and lateral views and good inspiration is suggested. Electronically signed by: Suman Francisco On 08/29/2021 06:53:37 AM
--- NOTE | 2021-08-29 06:56 | REPVR ---
PROCEDURE INFORMATION: Exam: CT Head Without Contrast Exam date and time: 08/29/2021 6:37 AM Age: 65 years old Clinical indication: Other: Weakness TECHNIQUE: Imaging protocol: Computed tomography of the head without contrast. Radiation optimization: All CT scans at this facility use at least one of these dose optimization techniques: automated exposure control; mA and/or kV adjustment per patient size (includes targeted exams where dose is matched to clinical indication); or iterative reconstruction. COMPARISON: No relevant prior studies available. FINDINGS: Tubes, catheters and devices: There is nonspecific subtle bilateral subinsular hypoattenuation for example axial image 9 on the right on axial image 10 on the left. Brain: Normal. No hemorrhage. Unremarkable white matter. No mass effect. Cerebral ventricles: There is age-related cerebral atrophy with secondary ventricular dilatation. Paranasal sinuses: Visualized sinuses are unremarkable. No fluid levels. Mastoid air cells: Visualized mastoid air cells are well aerated. Bones/joints: Unremarkable. No acute fracture. Soft tissues: Unremarkable. IMPRESSION: 1. No CT evidence of acute intracranial hemorrhage, mass effect or midline shift. 2. No large acute territorial infarct. 3. Nonspecific subtle bilateral subinsular hypoattenuation could represent chronic ischemic changes however age cannot be completely discerned on this exam specially in view of the lack of old studies for comparison. MRI with diffusion-weighted images is suggested for better evaluation. Electronically signed by: Suman Francisco On 08/29/2021 06:56:20 AM
[2021-08-29] MEDS ORDERED: POTA10TA17 PO (07:57)
[2021-08-29] MEDS ORDERED: SPIR50TA4 PO (07:57)
[2021-08-29] MEDS ORDERED: FLOM0.4C39 PO (07:57)
[2021-08-29] MEDS ORDERED: VITA-172 PO (07:58)
[2021-08-29] MEDS ORDERED: HOME MED LIST COMPLETE! XX SCH (08:05)
[2021-08-29] MEDS ORDERED: traMADol 50 MG TAB PO ONE (09:20)
--- NOTE | 2021-08-29 09:25 | HPEPDOC ---
[facility] Medical History & Physical Date of Admission Aug 29, 2021 Date of Service: Aug 29, 2021 History and Physical History of present illness: 65-year-old female presneted to the emergency room department with generalized weakness. She had surgery done for recatal porlapse approximately 3 weeks ago at [facility] and has been incontinent since with burning sensation around the rectum due to stool reportedly irritating her skin. She has been experiencing 3-6 loose stools (light in color, without blood) for the last 3 weeks, whic she attributes to making her feel weak. An [facility] RN came to her house (received 5 hours ? Per day) and noted she had progressively gotten weaker unable to get up from bed and wanted her to come to the emergency room department for possible rehab. She reports going to [facility] and being discharged from the [facility] department after she was evaluated by the physical therapy team. Today, she presents in hopes of being admitted for rehab as she r eports it is difficult to carry out ADLs/IADLs at home. She uses a walker to ambulate. She needs assistance getting up from sitting to supine to sitting position. Of note, she complains of chronic right-sided weakness that has been present for several months now. She also reports chronic back pain for the last 47 years. She denied paresthesias of lower extremities. Review of system: 10 point review of system was negative except for what is noted in the HPI Physical exam General: Lying in bed, no acute distress Head/Neck/Throat: Trachea midline, mucous membranes moist Eyes: Sclera anicteric, no erythema or discharge appreciated bilaterally Thorax: Normal respiratory effort on room air, lungs clear to auscultation bilaterally, no wheezes/rales/rhonchi Cardiovascular: Normal rate, regular rhythm, normal S1, S2; no S3, S4, rubs/gallops/murmurs Abdomen: Bowel sounds present, soft/nontender/nondistended Genitourinary: No CVA tenderness, no Morgan in place Musculoskeletal: Moving all extremities, no edema Skin: Warm, dry Neurologic: AAOx3, speech fluent and goal-directed, no focal deficits, grossly intact Past medical history: 1. Diabetes 2. DVT 3. chronic back pain (cervical and lumbar degenerative disc disease), 4. left lower extremity fracture 5, chronic edema 6. GERD 7. DVT of right extremity 8. Obstructive uropathy with chronic Morgan (06/2021) 9. Cirrhosis (secondary to alcohol abuse, complicated by hepatic encephalopathy in the past admission in June 10. Rectal prolapse 11. Acute blood loss anema - postmenopausbal bleed (negative for maliganacy, as per previous records) Past surgical history: 1. Rectal prolapse surgery - 3 weeks ago 2. D/c (last admission in 2020) Social history: Former drinker. Denies smoking and use of recreational drugs Family History: -Sister had breast cancer Assessment and plan: #Generalize weakness -2/2 to volume loss from bowel incontience. IV fluids. Hold lactulose. Pt/Ot, may need placement pfs has been consulted #Rectal prolapse -s/p rectal surgery. Was able to reach out to patient's primary surgeon's office (Dr. Bardales) and talk to residential pest control technician surgeon (Dr. Leija) who reported it is not uncommon to have loose stools 2/2 to rectal surgery due to lost tone. She had this after surgery, and was encouraged to do kigel exercises, but was not complaint. We will hold lactulose, and utilize Imodium if required. #Cirrhosis -compensated at this time. Hold lactulose due to loose stools. -Continue simvastatin #CKD -Creatine is at baseline. Avoid nephrotoxic medications. #Hx of Obstructive uropathy -will remove morgan and give trial of voiding as pt reports this was suppose to be removed today. 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 It was to be restarted 2weeks post discharge, but appears it was not. We will need to clarify with PCP to determine why this was not resumed. #DVT -Hepar subq. Disposition: Pending MRI, pt may need transfer. Vital Signs Vital Signs Date Time Temp Pulse Resp B/P (MAP) Pulse Ox O2 Delivery O2 Flow Rate FiO2 08/29/21 08:15 96 17 168/80 (109) 98 Room Air 08/29/21 01:04 96.7 Laboratory Data Labs 24H Laboratory Tests 2 08/29/21 05:26: Immature Granulocyte % (Auto) 0.7, Neutrophils (%) (Auto) 79.0H, Lymphocytes (%) (Auto) 14.4L, Monocytes (%) (Auto) 4.9, Eosinophils (%) (Auto) 0.6, Basophils (%) (Auto) 0.4, Neutrophils # (Auto) 8.7H, Lymphocytes # (Auto) 1.6, Monocytes # (Auto) 0.5, Eosinophils # (Auto) 0.1, Basophils # (Auto) 0.0, Nucleated Red Blood Cells % (auto) 0.0, Prothrombin Time 15.7H, Prothromb Time International Ratio 1.20, Activated Partial Thromboplast Time 29.8, Anion Gap 9, Glomerular Filtration Rate 37.5L, Lactic Acid Level 1.5, Calcium Level 8.4L, Total Bilirubin 0.8, Direct Bilirubin 0.4H, Aspartate Amino Transf (AST/SGOT) 24, Alanine Aminotransferase (ALT/SGPT) 19, Alkaline Phosphatase 116, Ammonia 19, Total Creatine Kinase 19L, Creatine Kinase MB 1.4, Creatine Kinase MB Relative Index 7.37H, Troponin I High Sensitivity 30.0, Total Protein 6.4, Albumin 2.6L, Albumin/Globulin Ratio 0.7L, Lipase 141, Coronavirus (COVID-19)(PCR) NEGATIVE, Influenza Type A (RT-PCR) NEGATIVE, Influenza Type B (RT-PCR) NEGATIVE, Respiratory Syncytial Virus (PCR) NEGATIVE CBC/BMP Laboratory Tests 08/29/21 05:26 Home Medications Scheduled Cyanocobalamin (Vitamin B-12) (Vitamin B-12) 500 Mcg Tablet, 500 MCG PO DAILY Ferrous Gluconate (Ferrous Gluconate) 324 Mg Tablet, 324 MG PO DAILY Furosemide (Furosemide) 20 Mg Tablet, 20 MG PO DAILY Lactulose (Lactulose) 10 Gm/15 Ml Solution, 30 ML PO BID Levocetirizine Dihydrochloride (Levocetirizine Dihydrochloride) 5 Mg Tablet, 5 MG PO QHS Magnesium Chloride (Mag64) 64 Mg Tablet.dr, 64 MG PO DAILY Midodrine HCl (Midodrine HCl) 10 Mg Tablet, 10 MG PO TID Omeprazole (Omeprazole) 20 Mg Capsule.dr, 20 MG PO DAILY Potassium Chloride (Potassium Chloride) 10 Meq Tab.er.prt, 20 MEQ PO DAILY Simvastatin (Simvastatin) 20 Mg Tablet, 20 MG PO QHS Spironolactone (Spironolactone) 50 Mg Tablet, 50 MG PO DAILY Tamsulosin HCl (Flomax) 0.4 Mg Capsule, 0.4 MG PO QHS Scheduled PRN Benzonatate (Benzonatate) 200 Mg Capsule, 200 MG PO TID PRN for COUGH Tramadol HCl (Tramadol HCl) 50 Mg Tablet, 50 MG PO Q8H PRN for PAIN LEVEL 1-4 Allergies Coded Allergies: No Known Allergies (Unverified , 06/17/21) A-FIB/CHADSVASC A-FIB History Current/History of A-Fib/PAF?: No DIANDRA CARRASQUILLO M.D. Aug 29, 2021 09:25
[2021-08-29] MEDS ORDERED: NS 1,000 ML IV SCH (09:35)
[2021-08-29] MEDS: OMEPRAZOLE 20 MG CAP PO SCH (09:51)
[2021-08-29] MEDS: CYANOCOBALAMIN 500 MCG TAB PO SCH (09:51)
[2021-08-29] MEDS: MIDODRINE 5 MG TAB PO SCH ×2 (12:00→15:19)
--- NOTE | 2021-08-29 12:04 | REPVR ---
PROCEDURE INFORMATION: Exam: MR Cervical Spine Without Contrast Exam date and time: 08/29/2021 10:50 AM Age: 65 years old Clinical indication: Patient HX: Weakness in RT side best images possible PT was medicated; Additional info: Upper extremity weakness R > L TECHNIQUE: Imaging protocol: Multiplanar magnetic resonance images of the cervical spine without contrast. COMPARISON: CT Head without contrast 08/29/2021 6:28 AM FINDINGS: Vertebrae: Straightening of lordosis may be positional or related to muscular spasm. There is borderline anterolisthesis C4 on C5 and retrolisthesis of C5 on C6 and C6 on C7. Correlate clinically. Craniocervical junction appears unremarkable. Normal position of cerebellar tonsils without evidence of Chiari I malformation. Minor endplate degenerative marrow changes at C5-C6 and C6-C7. Disc desiccation diffusely. Disc height loss at C5-C6 and C6-C7. Spinal cord: No definite abnormal signal within the spinal cord but both T2 and STIR images are motion limited. C2-C3: There is mild disc bulge. There is no significant cord compression. There is no neural foraminal or spinal stenosis. C3-C4: There is posterior osteophyte disc complex, effacing ventral spinal fluid. There is no significant cord compression or spinal stenosis. There are uncinate and facet osteophytes with bilateral neural foraminal narrowing. C4-C5: There is posterior osteophyte disc complex. There is no significant cord compression or spinal stenosis. There is no significant neural foraminal narrowing. C5-C6: There is posterior osteophyte disc complex. There is left paracentral protrusion and osteophyte causing ventral cord flattening. There is thickening of ligamentum flavum. There is likely moderate spinal stenosis. There are uncinate and facet osteophytes with left greater than right neural foraminal narrowing. C6-C7: There is posterior osteophyte disc complex. There is no significant cord compression or spinal stenosis. There are uncinate and facet osteophytes with bilateral neural foraminal narrowing. C7-T1: There is no significant disc bulge. There is no significant cord compression. There is no neural foraminal or spinal stenosis. Soft tissues: Unremarkable. Vertebral arteries: Flow voids are seen in bilateral carotid and vertebral arteries. IMPRESSION: Motion limited examination. Degenerative changes are greatest at C5-C6 where there is left paracentral protrusion and osteophyte flattening the spinal cord and causing spinal stenosis. There is also significant bilateral neural foraminal narrowing. Electronically signed by: Violeta Perez On 08/29/2021 12:03:27 PM
--- NOTE | 2021-08-29 12:08 | REPVR ---
PROCEDURE INFORMATION: Exam: MR Head Without Contrast Exam date and time: 08/29/2021 10:50 AM Age: 65 years old Clinical indication: Weakness, extremity; Right; Additional info: Le weakness TECHNIQUE: Imaging protocol: MR of the head without contrast. COMPARISON: CT Head without contrast 08/29/2021 6:28 AM FINDINGS: Brain: The ventricles and sulci are proportionally enlarged, consistent with v mild olume loss / atrophy. There is T2 prolongation in the cerebral white matter, consistent with microvascular disease. Kamara white differentiation is intact. There is a small focus of increased signal in the right occipital subcortical region on diffusion-weighted image 14. This does not show low signal on the ADC map and this is likely artifact rather than a small area of restricted diffusion. Diffusion weighted images otherwise show no restricted diffusion or evidence of acute infarct. There is no mass effect or midline shift. There is no acute intracranial hemorrhage. There are no extra-axial fluid collections. Cerebral ventricles: Normal. No ventriculomegaly. Bones/joints: Unremarkable as visualized. Paranasal sinuses: Mild paranasal sinuses mucosal thickening predominantly ethmoid air cells bilaterally. Mastoid air cells: No significant mastoid effusion. Orbital cavity: Unremarkable. Soft tissues: Unremarkable as visualized. Other vasculature: Flow voids in main vascular structures are visualized. IMPRESSION: 1. Small area of increased signal on diffusion-weighted images in right occipital lobe is favored to be artifact. Otherwise diffusion images are unremarkable without evidence of acute territorial infarct. No evidence of intracranial hemorrhage or mass. 2. Atrophy and microvascular disease. Electronically signed by: Violeta Perez On 08/29/2021 12:08:05 PM
[2021-08-29] MEDS ORDERED: LIDOCAINE 2% 5ML JELLY UROJET As Ordered ONE (12:16)
--- NOTE | 2021-08-29 12:22 | REPVR ---
PROCEDURE INFORMATION: Exam: MR Lumbar Spine Without Contrast Exam date and time: 08/29/2021 10:50 AM Age: 65 years old Clinical indication: Weakness; Low back pain; Additional info: R/O cauda equina TECHNIQUE: Imaging protocol: Multiplanar magnetic resonance images of the lumbar spine without intravenous contrast. COMPARISON: CT ABD/PEL W/PO CONTRAST ONLY 06/18/2021 1:34 PM FINDINGS: Vertebrae: Vertebral body heights normal. There are several fatty lesions consistent with hemangiomas most notable at L1 and L5. There are mild endplate degenerative marrow changes. Spinal cord: Conus terminates at L1 and appears normal in signal intensity without intrinsic or extrinsic lesion. L1-L2: There is generalized disc bulge. There is a lobular central protrusion measuring approximately 4 mm. This extends above and below the disc space level. This is associated with mild midline calcifications/osteophyte on CT and appears not significantly changed from CT. This flattens the adjacent thecal sac but with only mild anterior-posterior thecal sac narrowing. There is mild facet degeneration. There is no significant neural foraminal narrowing. L2-L3: There is generalized disc bulge. There is mild facet degeneration. There is no significant spinal stenosis. There is no significant neural foraminal narrowing. L3-L4: There is generalized disc bulge. There is mild facet degeneration. There is no significant spinal stenosis. There is mild bilateral neural foraminal narrowing. L4-L5: There is generalized disc bulge. There is mild facet degeneration. There is no significant spinal stenosis. There is mild left and moderate right neural foraminal narrowing. L5-S1: There is generalized disc bulge and shallow central disc protrusion. There is mild facet degeneration. There is no significant spinal stenosis. There is [id number] bilateral neural foraminal narrowing. Soft tissues: Unremarkable. Intraperitoneal space: Patient previously showed ascites on prior CT. On ST[facility] imaging, there is fluid in the abdomen and pelvis. There is a linear low signal anterior to the retroperitoneum which may be the peritoneal reflection but would recommend an x-ray to exclude that this is linear pneumatosis. IMPRESSION: 1. Degenerative changes as described without severe spinal stenosis or evidence of significant cauda equina compression. 2. Ascites fluid. Linear low signal at anterior retroperitoneal margin may be the peritoneum but recommend x-ray to exclude pneumatosis. 3. DIANDRA Tracy was notified of these results by telephone call from Dr. Violeta Perez 08/29/2021 12:21 PM EST and acknowledged receipt of this notification. Electronically signed by: Violeta Perez On 08/29/2021 12:22:01 PM
--- NOTE | 2021-08-29 13:01 | REP ---
INDICATION: please do upright/rule out pneumonitis COMPARISON: None. TECHNIQUE: Upright view of the abdomen and pelvis. FINDINGS: Bowel gas pattern is relatively nonspecific and without evidence for obstruction. Ascites is suspected. No obvious free air to suggest perforation. IMPRESSION: Suspected ascites. Nonspecific bowel gas pattern. No obvious free air to suggest perforation. <Electronically signed by Rancho Ramachandran > 08/29/21 1257
[2021-08-29 14:45] VITALS: BP 118/73
[2021-08-29] MEDS: FERROUS GLUCONATE 324 MG TAB PO SCH (15:19)
[2021-08-29] MEDS: SPIRONOLACTONE 50 MG TAB PO SCH (15:19)
[2021-08-29] MEDS: NS 0.45% 1,000 ML IV SCH ×3 (15:19→23:31)
[2021-08-29 20:37] VITALS: BP 118/73
[2021-08-29 22:00] VITALS: BP 140/74
[2021-08-29] MEDS: TAMSULOSIN 0.4 MG CAP PO SCH (22:06)
[2021-08-29] MEDS: HEPARIN SOD (PORCINE) 5000UNITS/ML 1ML VIAL/SYRINGE SQ SCH (22:06)
[2021-08-29] MEDS: SIMVASTATIN 20 MG TAB PO SCH (22:07)
[2021-08-30] MEDS: HEPARIN SOD (PORCINE) 5000UNITS/ML 1ML VIAL/SYRINGE SQ SCH ×3 (05:45→21:16)
[2021-08-30 06:23] LABS: HEMATOCRIT 26.7 % (36.0-47.0); HEMOGLOBIN 8.4 g/dl (12.0-15.5); MEAN CORPUSCULAR HGB CONC 31.5 g/dl (32.0-36.5); MEAN CORPUSCULAR VOLUME 98.5 fl (80.0-96.0); PLATELET COUNT, AUTOMATED 117 10^3/uL (150-450); RED BLOOD COUNT 2.71 10^6/uL (4.00-5.40); WHITE BLOOD COUNT 5.2 10^3/uL (4.0-10.0)
[2021-08-30 06:24] VITALS: BP 140/74
[2021-08-30 06:56] LABS: CREATININE FOR GFR 1.12 MG/DL (0.55-1.30); GLOMERULAR FILTRATION RATE 52.1 (>45); MAGNESIUM LEVEL 1.7 MG/DL (1.8-2.4); PHOSPHORUS LEVEL 2.8 MG/DL (2.5-4.9); POTASSIUM SERUM 4.3 MEQ/L (3.5-5.1)
[2021-08-30 08:29] LABS: PERCENT SATURATION 43.4 % (13.2-45.0); THYROID STIMULATING HORMONE 4.59 uIU/ML (0.358-3.740)
[2021-08-30 09:04] LABS: FOLATE 8.1 NG/ML
[2021-08-30] MEDS: SPIRONOLACTONE 50 MG TAB PO SCH (09:14)
[2021-08-30] MEDS: FERROUS GLUCONATE 324 MG TAB PO SCH (09:15)
[2021-08-30] MEDS: MIDODRINE 5 MG TAB PO SCH ×3 (09:15→16:56)
[2021-08-30] MEDS: CYANOCOBALAMIN 500 MCG TAB PO SCH (09:15)
[2021-08-30] MEDS: OMEPRAZOLE 20 MG CAP PO SCH (09:16)
--- NOTE | 2021-08-30 11:14 | IPNPDOC ---
Text Note Date of Service The patient was seen on 08/30/21. NOTE Subjective: 65-year-old female presented emergency room department with generalized weakness. She has a history of rectal prolapse, status post rectal surgery. She came to emergency room department in hopes of getting placed in rehab. Seen and examined at bedside this morning. She had no bowel incontinence overnight. She was asked whether or not she had a bowel movement and reported she did not for several days. This was contradictory to what she initially reported in the emergency room department (3-6 stools per day). She reported her abdomen being slightly distended, which is not a new finding and has had paracentesis done in the past due to reaccumulating ascites. Review of systems: 10 point review of system was negative except for what is noted in the HPI Physical exam: General: Lying in bed, no acute distress Head/Neck/Throat: Trachea midline, mucous membranes moist Eyes: Sclera anicteric, no erythema or discharge appreciated bilaterally Thorax: Normal respiratory effort on room air, lungs clear to auscultation bilaterally, no wheezes/rales/rhonchi Cardiovascular: Normal rate, regular rhythm, normal S1, S2; no S3, S4, rubs/gallops/murmurs Abdomen: Bowel sounds present, soft, mildly distended, nontender Genitourinary: No CVA tenderness, no Morgan in place Musculoskeletal: Moving all extremities, no edema Skin: Warm, dry Neurologic: AAOx3, speech fluent and goal-directed, no focal deficits, grossly intact Labs: See below Imaging: Please see imaging section Assessment/plan: #Generalize weakness -This is likely due to her recent institutionalization, and previously reported bowel incontinence. Continue to work with PT/OT #Rectal prolapse -s/p rectal surgery. Was able to reach out to patient's primary surgeon's office (Dr. Bardales) and talk to contract technical writer surgeon (Dr. Leija) who reported it is not uncommon to have loose stools 2/2 to rectal surgery due to lost tone. She had this after surgery, and was encouraged to do kigel exercises, but was not complaint. -Today, her story differs from what she was reported on admission about loose stools -she has not had a bowel movement for several days now. #Cirrhosis -Secondary to alcohol abuse in the past. Compensated at this time. Considering she has not had a bowel movement, to prevent hyperammonemia we will resume lactulose. -Therapeutic paracentesis to be done. She will need to follow-up with a earth science laboratory technician on outpatient basis for possible evaluation of liver t ransplant. She should also be undergoing screening for hepatocellular carcinoma. -Continue spironolactone #CKD -Creatine is at baseline. Avoid nephrotoxic medications. #Hx of Obstructive uropathy -will remove morgan and give trial of voiding as pt reports this was suppose to be removed today. 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 It was to be restarted 2weeks post discharge, but appears it was not. We will need to clarify with PCP to determine why this was not resumed. #DVT -Hepar subq. Disposition: Pending pt/ot evaluation. VS,Fishbone, I+O VS, Fishbone, I+O Laboratory Tests 08/30/21 05:41 Vital Signs Date Time Temp Pulse Resp B/P (MAP) Pulse Ox O2 Delivery O2 Flow Rate FiO2 08/30/21 06:24 98.9 83 16 140/74 (96) 98 Room Air I&O- Last 24 Hours up to 6 AM 08/30/21 05:59 Intake Total 1690 ml Balance 1690 ml DIANDRA CARRASQUILLO M.D. Aug 30, 2021 11:14
[2021-08-30] MEDS: LACTULOSE 20 GM/30 ML SYRUP UD PO SCH ×2 (12:29→21:16)
[2021-08-30 14:00] VITALS: BP 145/69
[2021-08-30] MEDS ORDERED: MAGNESIUM OXIDE 400MG TAB (MAG-OX) PO ONE (18:00)
[2021-08-30] MEDS: TAMSULOSIN 0.4 MG CAP PO SCH (21:16)
[2021-08-30] MEDS: SIMVASTATIN 20 MG TAB PO SCH (21:16)
[2021-08-30 22:00] VITALS: BP 133/75
[2021-08-31 06:00] VITALS: BP 123/59
[2021-08-31] MEDS: HEPARIN SOD (PORCINE) 5000UNITS/ML 1ML VIAL/SYRINGE SQ SCH ×3 (06:01→21:03)
[2021-08-31 06:48] LABS: HEMATOCRIT 25.9 % (36.0-47.0); HEMOGLOBIN 8.4 g/dl (12.0-15.5); MEAN CORPUSCULAR HEMOGLOBIN 31.3 pg (27.0-33.0); MEAN CORPUSCULAR HGB CONC 32.4 g/dl (32.0-36.5); MEAN CORPUSCULAR VOLUME 96.6 fl (80.0-96.0); PLATELET COUNT, AUTOMATED 115 10^3/uL (150-450); RED BLOOD COUNT 2.68 10^6/uL (4.00-5.40); WHITE BLOOD COUNT 4.9 10^3/uL (4.0-10.0)
[2021-08-31 07:20] LABS: ALBUMIN 2.1 GM/DL (3.2-5.2); BILIRUBIN,TOTAL 0.7 MG/DL (0.2-1.0); CALCIUM LEVEL 8.3 MG/DL (8.8-10.2); CREATININE FOR GFR 1.14 MG/DL (0.55-1.30); GLOMERULAR FILTRATION RATE 51.1 (>45); MAGNESIUM LEVEL 1.8 MG/DL (1.8-2.4); POTASSIUM SERUM 3.7 MEQ/L (3.5-5.1); TOTAL PROTEIN 5.6 GM/DL (6.4-8.2)
[2021-08-31] MEDS: MIDODRINE 5 MG TAB PO SCH ×3 (08:00→16:00)
[2021-08-31] MEDS: SPIRONOLACTONE 50 MG TAB PO SCH (08:52)
[2021-08-31] MEDS: FERROUS GLUCONATE 324 MG TAB PO SCH (08:53)
[2021-08-31] MEDS: OMEPRAZOLE 20 MG CAP PO SCH (08:53)
[2021-08-31] MEDS: CYANOCOBALAMIN 500 MCG TAB PO SCH (08:53)
[2021-08-31] MEDS: LACTULOSE 20 GM/30 ML SYRUP UD PO SCH ×2 (08:54→21:00)
[2021-08-31] MEDS ORDERED: MIRALAX *UNIT DOSE* 17GM PACKET PO SCH (09:00)
[2021-08-31] MEDS ORDERED: MAGNESIUM OXIDE 400MG TAB (MAG-OX) PO ONE (10:00)
[2021-08-31] MEDS: traMADol 50 MG TAB PO PRN ×2 (10:55→23:01)
--- NOTE | 2021-08-31 11:51 | IPNPDOC ---
Text Note Date of Service The patient was seen on 08/31/21. NOTE Subjective: 65-year-old female presented emergency room department with generalized weakness. She has a history of rectal prolapse, status post rectal surgery. She came to emergency room department in hopes of getting placed in rehab. Seen and examined at bedside this morning. She had 1 bowel movement and felt she had better control. She denied headaches, chest pain, shortness of breath, abdominal pain, nausea, vomiting, problems with urination or bowel movements. H er Newell catheter was removed and she has been urinating freely without difficulty. Review of systems: 10 point review of system was negative except for what is noted in the HPI Physical exam: General: Lying in bed, no acute distress Head/Neck/Throat: Trachea midline, mucous membranes moist Eyes: Sclera anicteric, no erythema or discharge appreciated bilaterally Thorax: Normal respiratory effort on room air, lungs clear to auscultation bilaterally, no wheezes/rales/rhonchi Cardiovascular: Normal rate, regular rhythm, normal S1, S2; no S3, S4, rubs/gallops/murmurs Abdomen: Bowel sounds present, soft, mildly distended, nontender Genitourinary: No CVA tenderness, no Newell in place Musculoskeletal: Moving all extremities, no edema Skin: Warm, dry Neurologic: AAOx3, speech fluent and goal-directed, no focal deficits, grossly intact Labs: See below Imaging: Please see imaging section Assessment/plan: #Generalize weakness -This is likely due to her recent institutionalization, and previously reported bowel incontinence. Continue to work with PT/OT #Rectal prolapse -s/p rectal surgery. Was able to reach out to patient's primary surgeon's office (Dr. Bradales) and talk to bus person surgeon (Dr. Leija) who reported it is not uncommon to have loose stools 2/2 to rectal surgery due to lost tone. She had this after surgery, and was encouraged to do kigel exercises, but was not com plaint. -On hospitalization due to her story deferred from what she was reported on admission about loose stools -she has not had a bowel movement for several days now prior to hospitalization. Today, she reports better control of her bowel movements. #Cirrhosis -Secondary to alcohol abuse in the past. Compensated at this time. Considering she has not had a bowel movement, to prevent hyperammonemia we will resume lactulose. -Therapeutic paracentesis to be done. She will need to follow-up with a tire service technician on outpatient basis for possible evaluation of liver transplant. She should also be undergoing screening for hepatocellular carcinoma. -Continue spironolactone #CKD -Creatine is at baseline. Avoid nephrotoxic medications. #Hx of Obstructive uropathy -Newell was removed on 08/30 and patient reports she is urinating without difficulty. 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 It was to be restarted 2weeks post discharge, but appears it was not. We will need to clarify with PCP to determine why this was not resumed. #DVT -Hepar subq. Disposition: Pending pt/ot evaluation. VS,Fishbone, I+O VS, Fishbone, I+O Laboratory Tests 08/31/21 06:05 Vital Signs Date Time Temp Pulse Resp B/P (MAP) Pulse Ox O2 Delivery O2 Flow Rate FiO2 08/31/21 10:55 18 08/31/21 06:00 98.6 100 123/59 (80) 99 Room Air I&O- Last 24 Hours up to 6 AM 08/31/21 05:59 Intake Total 580 ml Output Total 450 ml Balance 130 ml DIANDRA CARRASQUILLO M.D. Aug 31, 2021 11:51
[2021-08-31 14:00] VITALS: BP 144/62
[2021-08-31] MEDS: TAMSULOSIN 0.4 MG CAP PO SCH (21:02)
[2021-08-31] MEDS: SIMVASTATIN 20 MG TAB PO SCH (21:03)
[2021-08-31 22:00] VITALS: BP 143/70
[2021-09-01 05:55] LABS: HEMOGLOBIN 8.3 g/dl (12.0-15.5); MEAN CORPUSCULAR HEMOGLOBIN 30.9 pg (27.0-33.0); MEAN CORPUSCULAR HGB CONC 31.9 g/dl (32.0-36.5); MEAN CORPUSCULAR VOLUME 96.7 fl (80.0-96.0); PLATELET COUNT, AUTOMATED 114 10^3/uL (150-450); RED BLOOD COUNT 2.69 10^6/uL (4.00-5.40); WHITE BLOOD COUNT 4.7 10^3/uL (4.0-10.0)
[2021-09-01 06:00] VITALS: BP 120/58
[2021-09-01 06:09] LABS: INR 1.28; PROTHROMBIN TIME 16.5 SECONDS (12.7-14.5)
[2021-09-01 06:10] LABS: PARTIAL THROMBOPLASTIN TIME 38.8 SECONDS (25.9-37.0)
[2021-09-01 06:20] LABS: MAGNESIUM LEVEL 1.7 MG/DL (1.8-2.4); PHOSPHORUS LEVEL 2.8 MG/DL (2.5-4.9)
[2021-09-01 06:22] LABS: ALBUMIN 2.2 GM/DL (3.2-5.2); BILIRUBIN,TOTAL 0.6 MG/DL (0.2-1.0); CALCIUM LEVEL 8.5 MG/DL (8.8-10.2); CREATININE FOR GFR 1.2 MG/DL (0.55-1.30); GLOMERULAR FILTRATION RATE 48.1 (>45); POTASSIUM SERUM 3.6 MEQ/L (3.5-5.1); TOTAL PROTEIN 5.7 GM/DL (6.4-8.2)
[2021-09-01] MEDS: HEPARIN SOD (PORCINE) 5000UNITS/ML 1ML VIAL/SYRINGE SQ SCH ×3 (06:28→20:59)
[2021-09-01 07:09] LABS: APTT 1:2 SUBSTITUTION 32.3 SECONDS
[2021-09-01] MEDS: MIDODRINE 5 MG TAB PO SCH ×3 (08:00→15:38)
[2021-09-01] MEDS: SPIRONOLACTONE 50 MG TAB PO SCH (08:19)
[2021-09-01] MEDS: CYANOCOBALAMIN 500 MCG TAB PO SCH (08:19)
[2021-09-01] MEDS: FERROUS GLUCONATE 324 MG TAB PO SCH (08:19)
[2021-09-01] MEDS: OMEPRAZOLE 20 MG CAP PO SCH (08:19)
[2021-09-01] MEDS: LACTULOSE 20 GM/30 ML SYRUP UD PO SCH ×3 (08:20→20:16)
--- NOTE | 2021-09-01 10:59 | IPNPDOC ---
Text Note Date of Service The patient was seen on 09/01/21. NOTE Subjective: 65-year-old female presented emergency room department with generalized weakness. She has a history of rectal prolapse, status post rectal surgery. She came to emergency room department in hopes of getting placed in rehab. Seen and examined at bedside this morning. She reported some improvement in her generalized weakness. However, according to nursing staff she requires significant assistance still to get out of bed and use the bathroom. Reports having better control of her bowel movements and has been urinating back to her baseline once Newell was removed. Review of systems: 10 point review of system was negative except for what is noted in the HPI Physical exam: General: Lying in bed, no acute distress Head/Neck/Throat: Trachea midline, mucous membranes moist Eyes: Sclera anicteric, no erythema or discharge appreciated bilaterally Thorax: Normal respiratory effort on room air, lungs clear to auscultation bilaterally, no wheezes/rales/rhonchi Cardiovascular: Normal rate, regular rhythm, normal S1, S2; no S3, S4, rubs/gallops/murmurs Abdomen: Bowel sounds present, soft, mildly distended, nontender Genitourinary: No CVA tenderness, no Newell in place Musculoskeletal: Moving all extremities, no edema Skin: Warm, dry Neurologic: AAOx3, speech fluent and goal-directed, no focal deficits, grossly intact Labs: See below Imaging: Please see imaging section Assessment/plan: #Generalize weakness -This is likely due to her recent institutionalization, and previously reported bowel incontinence. Continue to work with PT/OT #Rectal prolapse -s/p rectal surgery. Was able to reach out to patient's primary surgeon's office (Dr. Bardales) and talk to crayon molding machine operator surgeon (Dr. Leija) who reported it is not uncommon to have loose stools 2/2 to rectal surgery due to lost tone. She had this after surgery, and was encouraged to do kigel exercises, but was not complaint. -On hospitalization day 2 her story differed from what was reported on admission about loose stools. She initially reported she was incontinent and having several bowel movements per day. However, during hospitalization reported that she was having better control of her bowel movements and has not had any prior to this hospitalization for several days. During hospitalization, she has been having regular bowel movements. #Cirrhosis -Secondary to alcohol abuse in the past. Compensated at this time. Considering her bowel movements have become regular, she has resumed on her lactulose. This can be held if she is having more than 3 bowel movements per day. -Therapeutic paracentesis to be done. She will need to follow-up with a global sales director on outpatient basis for possible evaluation of liver transplant and for appropriate hepatocellular cancer screening. -Continue spironolactone #Bicytopenia -Due to underlying cirrhosis. Continue monitor hemoglobin and platelets. #CKD -Creatine is at baseline. Avoid nephrotoxic medications. #Hx of Obstructive uropathy -Newell was removed on 08/30 and patient reports she is urinating without difficulty. 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 It was to be restarted 2weeks post discharge, but appears it was not. We will need to clarify with PCP to determine why this was not resumed. #DVT -Hepar subq. Disposition: Patient continues to require physical therapy new hospitalization. ARU screen in place VS,Fishbone, I+O VS, Fishbone, I+O Laboratory Tests 09/01/21 05:44 Vital Signs Date Time Temp Pulse Resp B/P (MAP) Pulse Ox O2 Delivery O2 Flow Rate FiO2 09/01/21 06:00 98.6 110 20 120/58 (78) 96 Room Air I&O- Last 24 Hours up to 6 AM0 09/01/21 06:00 Intake Total 1960 ml Output Total 175 ml Balance 1785 ml DIANDRA CARRASQUILLO M.D. Sep 01, 2021 10:59
[2021-09-01] MEDS ORDERED: POTASSIUM CHLORIDE 10MEQ SR TABLET PO ONE (12:00)
[2021-09-01] MEDS ORDERED: MAGNESIUM OXIDE 400MG TAB (MAG-OX) PO ONE (12:00)
[2021-09-01 14:00] VITALS: BP 133/63
[2021-09-01] MEDS: BENZONATATE 100MG CAPSULE PO PRN ×2 (15:30→20:11)
[2021-09-01] MEDS ORDERED: ACETAMINOPHEN TAB 650MG DOSE (2X325MG) PO PRN (19:50)
[2021-09-01 20:00] VITALS: BP 141/72
[2021-09-01] MEDS: SIMVASTATIN 20 MG TAB PO SCH (20:11)
[2021-09-01] MEDS: TAMSULOSIN 0.4 MG CAP PO SCH (20:11)
--- NOTE | 2021-09-01 20:43 | REPVR ---
PROCEDURE INFORMATION: Exam: XR Chest Exam date and time: 09/01/2021 7:49 PM Age: 65 years old Clinical indication: Other: Cough; Additional info: Cough, fever TECHNIQUE: Imaging protocol: XR of the chest. Views: 1 view. COMPARISON: CR Chest, 1 view 08/29/2021 5:31 AM FINDINGS: Lungs: There are low lung volumes. Bibasilar atelectasis. Pleural spaces: Unremarkable. No pleural effusion. No pneumothorax. Heart/Mediastinum: Stable cardiac silhouette. Vasculature: Elongation of the thoracic aorta. Bones/joints: Osteopenia. IMPRESSION: Low lung volumes with bibasilar atelectasis. Electronically signed by: Levi Townsend On 09/01/2021 20:42:56 PM
[2021-09-02] MEDS: HEPARIN SOD (PORCINE) 5000UNITS/ML 1ML VIAL/SYRINGE SQ SCH ×2 (05:04→13:59)
[2021-09-02] MEDS: BENZONATATE 100MG CAPSULE PO PRN ×3 (05:08→20:14)
[2021-09-02 06:00] VITALS: BP 129/59
[2021-09-02 06:10] LABS: HEMOGLOBIN 7.8 g/dl (12.0-15.5); MEAN CORPUSCULAR HEMOGLOBIN 30.5 pg (27.0-33.0); MEAN CORPUSCULAR HGB CONC 31.2 g/dl (32.0-36.5); MEAN CORPUSCULAR VOLUME 97.7 fl (80.0-96.0); PLATELET COUNT, AUTOMATED 110 10^3/uL (150-450); RED BLOOD COUNT 2.56 10^6/uL (4.00-5.40); WHITE BLOOD COUNT 4.5 10^3/uL (4.0-10.0)
[2021-09-02 06:48] LABS: CREATININE FOR GFR 1.22 MG/DL (0.55-1.30); GLOMERULAR FILTRATION RATE 47.2 (>45); MAGNESIUM LEVEL 1.9 MG/DL (1.8-2.4); PHOSPHORUS LEVEL 2.6 MG/DL (2.5-4.9); POTASSIUM SERUM 4.4 MEQ/L (3.5-5.1)
[2021-09-02] MEDS: MIDODRINE 5 MG TAB PO SCH (08:00)
[2021-09-02] MEDS: OMEPRAZOLE 20 MG CAP PO SCH (08:02)
[2021-09-02] MEDS: FERROUS GLUCONATE 324 MG TAB PO SCH (08:02)
[2021-09-02] MEDS: SPIRONOLACTONE 50 MG TAB PO SCH (08:02)
[2021-09-02] MEDS: CYANOCOBALAMIN 500 MCG TAB PO SCH (08:02)
[2021-09-02] MEDS: LACTULOSE 20 GM/30 ML SYRUP UD PO SCH ×2 (08:03→20:14)
[2021-09-02 10:03] LABS: ALBUMIN 2.1 GM/DL (3.2-5.2); BILIRUBIN,DIRECT 0.3 MG/DL (0.0-0.2); BILIRUBIN,TOTAL 0.5 MG/DL (0.2-1.0); TOTAL PROTEIN 5.5 GM/DL (6.4-8.2)
--- NOTE | 2021-09-02 10:49 | IPNPDOC ---
Text Note Date of Service The patient was seen on 09/02/21. NOTE Subjective: 65-year-old female presented emergency room department with generalized weakness. She has a history of rectal prolapse, status post rectal surgery. She came to emergency room department in hopes of getting placed in rehab. Seen and examined at bedside this morning. She reported some improvement in her generalized weakness. However, according to nursing staff she requires significant assistance still to get out of bed and use the bathroom. Reports having better control of her bowel movements and has been urinating back to her baseline once Morgan was removed. However, her urine output has been low. As per patient it is always been like this. Overnight she had isolated episode of a fever. She reports having mild nasal congestion. She denies headaches, chest pain, shortness of breath, abdominal pain, nausea, vomiting, problem with urination or bowel movements. Review of systems: 10 point review of system was negative except for what is noted in the HPI Physical exam: General: Lying in bed, no acute distress Head/Neck/Throat: Trachea midline, mucous membranes moist Eyes: Sclera anicteric, no erythema or discharge appreciated bilaterally Thorax: Normal respiratory effort on room air, lungs clear to auscultation bilaterally, no wheezes/rales/rhonchi Cardiovascular: Normal rate, regular rhythm, normal S1, S2; no S3, S4, rubs/gallops/murmurs Abdomen: Bowel sounds present, soft, mildly distended, nontender Genitourinary: No CVA tenderness, no Morgan in place Musculoskeletal: Moving all extremities, no edema Skin: Warm, dry Neurologic: AAOx3, speech fluent and goal-directed, no focal deficits, grossly intact Labs: See below Imaging: Please see imaging section Assessment/plan: 65-year-old female presented to emergency room department with complaints of generalized weakness. At the time of admission she initially complained of pena ving bowel incontinence. However, on hospitalization day 2 she reported that this was not the case and her bowel functions have been improving since her surgery 3 weeks ago for rectal prolapse. However, she felt weak and wanted to be placed in rehab if she qualified as her home PT did not seem sufficient to her. #Generalize weakness -This is likely due to her recent institutionalization, and previously reported bowel incontinence. Continue to work with PT/OT #?Fever -Recorded episode of one-time fever on 09/01. No leukocytosis or bandemia. Chest x-ray is negative. Paracentesis fluid negative for SBP. U/A negative. Will monitor off antibiotics. #Hx of Obstructive uropathy -Morgan was removed on 08/30 and patient reports she is urinating without difficulty. However, urine output recorded has been low. Accuracy of bladder scans is questionable due to her ascites. Will ask nurse to reinsert morgan to better monitor urine output. May require urology consult. Monitor urine output. #Oliguria -plan as above. #Rectal prolapse -s/p rectal surgery. Was able to reach out to patient's primary surgeon's office (Dr. Bardales) and talk to special education para professional surgeon (Dr. Leija) who reported it is not uncommon to have loose stools 2/2 to rectal surgery due to lost tone. She had this after surgery, and was encouraged to do kigel exercises, but was not complaint. -On hospitalization day 2 her story differed from what was reported on admission about loose stools. She initially reported she was incontinent and having several bowel movements per day. However, during hospitalization reporte d that she was having better control of her bowel movements and has not had any prior to this hospitalization for several days. She has not been having regular bowel movements. #Cirrhosis -Secondary to alcohol abuse in the past. Compensated at this time. Considering her bowel movements have become regular, she has resumed on her lactulose. This can be held if she is having more than 3 bowel movements per day. -Therapeutic paracentesis to be done. She will need to follow-up with a buckler and lacer on outpatient basis for possible evaluation of liver transplant and for appropriate hepatocellular cancer screening. -Continue spironolactone #Bicytopenia -Due to underlying cirrhosis. Continue monitor hemoglobin and platelets. #CKD -Creatine is at baseline. Avoid nephrotoxic medications. 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 It was to be restarted 2weeks post discharge, but appears it was not. Clarified with primary care physician's office that patient should have been restarted on Eliquis but was unable to come to follow-up due to her recurrent hospitalizations. Spoke to hematology/oncology services, and recommended w/ baseline lab work that 2.5mg BID be resumed on d/c (what she was on previously) rather than full dose. #DVT ppx -On heparin subq VS,Fishbone, I+O VS, Fishbone, I+O Laboratory Tests 09/02/21 05:37 Vital Signs Date Time Temp Pulse Resp B/P (MAP) Pulse Ox O2 Delivery O2 Flow Rate FiO2 09/02/21 09:36 99.4 102 18 98 Room Air 09/02/21 06:00 129/59 (82) I&O- Last 24 Hours up to 6 AM 09/02/21 06:00 Intake Total 1300 ml Output Total 100 ml Balance 1200 ml DIANDRA CARRASQUILLO M.D. Sep 02, 2021 10:49
[2021-09-02 11:21] LABS: ASCITES FL COLOR PALE YELLOW (COLORLESS); SOURCE, BODY FLUID ASCITES
[2021-09-02 11:22] LABS: APPEARANCE, BODY FLUID CLEAR (CLEAR)
[2021-09-02 11:34] LABS: SPEC. GRAVITY BODY FLUIDS 1.009 (NOT ESTABLISHED)
[2021-09-02] MEDS ORDERED: CEPHALEXIN 250MG CAPSULE PO SCH (12:00)
[2021-09-02 12:07] LABS: SOURCE, BODY FLUID ALBUMIN ASCITES; SOURCE, BODY FLUID GLUCOSE ASCITES; SOURCE, BODY FLUID TOT PROTEIN ASCITES; TOTAL PROTEIN, BODY FLUID 0.8 G/DL (NOT ESTABLISHED)
[2021-09-02] MEDS: traMADol 50 MG TAB PO PRN (12:23)
[2021-09-02 14:00] VITALS: BP 134/61
[2021-09-02 14:58] LABS: APPEARANCE, URINE HAZY (CLEAR); BACTERIA, URINE AUTO NEGATIVE (NEGATIVE); BILIRUBIN, URINE AUTO NEGATIVE (NEGATIVE); BLOOD, URINE BLOOD NEGATIVE (NEGATIVE); COLOR, URINE YELLOW (YELLOW); GLUCOSE, URINE (UA) AUTO NEGATIVE (NEGATIVE); KETONE, URINE AUTO NEGATIVE (NEGATIVE); LEUKOCYTE ESTERASE, URINE AUTO NEGATIVE (NEGATIVE); MUCUS, URINE SMALL (NEGATIVE); NITRITE, URINE AUTO NEGATIVE (NEGATIVE); PROTEIN, URINE AUTO NEGATIVE (NEGATIVE); RBC, URINE AUTO 1 /HPF (0-3); SQUAMOUS EPITHELIAL CELL UR AU 1 /HPF (0-6); UROBILINOGEN, URINE AUTO 0.2 mg/dL (0.0-2.0); WBC, URINE AUTO 2 /HPF (0-3)
--- NOTE | 2021-09-02 17:21 | REP ---
INDICATION: ascities. COMPARISON: None. TECHNIQUE: The procedure was performed under the direct supervision of Dr. Kamara. The risks and benefits of the procedure were explained to the patient and informed consent was obtained. The largest pocket of fluid was localized in the right flank using ultrasound guidance. The skin was prepped and draped in a sterile fashion. 5 mL of 1% lidocaine was used as a local anesthetic. An 8-Turkmen multi side-hole catheter was inserted using trocar technique.4500 mL of pale yellow fluid was withdrawn with a sample sent to the lab for analysis. Estimated blood loss: Less than 1 mL The patient tolerated the procedure well and there were no immediate complications. After the appropriate amount of monitored convalescence, the patient was discharged from the department. FINDINGS: None IMPRESSION: Ultrasound-guided paracentesis [id number] mL of pale yellow fluid. <Electronically signed by Garrison Bernard > 09/02/21 1320 <Electronically signed by Jm Kamara > 09/02/21 [id number]
[2021-09-02] MEDS: SIMVASTATIN 20 MG TAB PO SCH (20:14)
[2021-09-02] MEDS: APIXABAN 2.5 MG TAB (ELIQUIS) PO SCH (20:14)
[2021-09-02] MEDS: TAMSULOSIN 0.4 MG CAP PO SCH (20:14)
[2021-09-02 22:00] VITALS: BP 114/56
[2021-09-03 06:00] VITALS: BP 132/80
[2021-09-03] MEDS: OMEPRAZOLE 20 MG CAP PO SCH (08:48)
[2021-09-03] MEDS: LACTULOSE 20 GM/30 ML SYRUP UD PO SCH ×2 (08:48→08:59)
[2021-09-03] MEDS: FERROUS GLUCONATE 324 MG TAB PO SCH (08:49)
[2021-09-03] MEDS: CYANOCOBALAMIN 500 MCG TAB PO SCH (08:49)
[2021-09-03] MEDS: SPIRONOLACTONE 50 MG TAB PO SCH (08:49)
[2021-09-03] MEDS: BENZONATATE 100MG CAPSULE PO PRN (09:24)
[2021-09-03 10:19] LABS: BASO % 0.5 % (0.0-1.0); EOS # 0.1 10^3/uL (0.0-0.5); EOS % 0.9 % (0.0-3.0); HEMATOCRIT 26.9 % (36.0-47.0); HEMOGLOBIN 8.6 g/dl (12.0-15.5); LYMPH # 0.9 10^3/uL (1.5-5.0); LYMPH % 15.4 % (24.0-44.0); MEAN CORPUSCULAR HEMOGLOBIN 31.3 pg (27.0-33.0); MEAN CORPUSCULAR VOLUME 97.8 fl (80.0-96.0); MONO # 0.4 10^3/uL (0.0-0.8); MONO % 7.1 % (2.0-8.0); NEUTROPHILS # 4.2 10^3/uL (1.5-8.5); NEUTROPHILS % 75.6 % (36.0-66.0); PLATELET COUNT, AUTOMATED 114 10^3/uL (150-450); RED BLOOD COUNT 2.75 10^6/uL (4.00-5.40); WHITE BLOOD COUNT 5.5 10^3/uL (4.0-10.0)
[2021-09-03] MEDS: APIXABAN 2.5 MG TAB (ELIQUIS) PO SCH (10:41)
[2021-09-03 10:42] LABS: CALCIUM LEVEL 7.2 MG/DL (8.8-10.2); CREATININE FOR GFR 1.41 MG/DL (0.55-1.30); POTASSIUM SERUM 4.8 MEQ/L (3.5-5.1)
[2021-09-03] MEDS ORDERED: LACT10SO3 PO (12:16)
[2021-09-03] MEDS ORDERED: ELIQ2.5T PO (12:18)
[2021-09-03 14:00] VITALS: BP 142/69
--- NOTE | 2021-09-13 13:16 | DS.PDOC ---
Discharge Summary General Date of Admission Aug 29, 2021 at 12:33 Date of Discharge 09/03/21 Discharge Summary PROCEDURES PERFORMED DURING STAY: Paracentesis with removal of 4500 mL DISCHARGE DIAGNOSES: Debility and generalized weakness Decompensated cirrhosis of liver Recent surgery for rectal prolapse Obstructive uropathy with Newell in place Stool incontinence after surgery now resolving Chronic anemia and thrombocytopenia Secondary diagnoses: Postmenopausal bleeding in June 2021 status post D&C negative for malignancy Elevated tumor markers CA 19-9, CA-125, CEA in June 2021 M spike in serum electrophoresis Hypertension, diabetes, CKD GERD Hyperlipidemia, upper extremity DVT, mesenteric vein thrombosis chronic back pain, COMPLICATIONS/CHIEF COMPLAINT: Generalized Weakness. HOSPITAL COURSE: 65-year-old female presented to emergency room department with complaints of generalized weakness. At the time of admission she initially complained of having bowel incontinence. However, on hospitalization day 2 she reported that this was not the case and her bowel functions have been improving since her surgery 3 weeks ago for rectal prolapse. However, she felt weak and wanted to be placed in rehab if she qualified as her home PT did not seem sufficient to her. During hospitalization reported that she was having better control of her bowel movements and has not had any prior to this hospitalization for several days. Generalized weakness This is likely due to her recent recent surgery and hospitalization Initially PT suggested that she should go to subacute rehab however after the patient started feeling better she refused to go to subacute rehab She has worked with physical therapy in hospital for several days and it was felt that she was close to her baseline functional status and and was safe to go home with services Fever likely reactive Recorded episode of one-time fever on 09/01. No leukocytosis or bandemia. Chest x-ray is negative. Paracentesis fluid negative for SBP. U/A negative. No antibiotics were given Obstructive uropathy Newell was removed on 08/30 and patient reported she was urinating without difficulty. However, urine output recorded has been low. Accuracy of bladder scans is questionable due to her ascites. So Newell was reinserted. Patient was discharged with Will need referral to urology Rectal prolapse s/p rectal surgery. Was able to reach out to patient's primary surgeon's office (Dr. Bardales) and talk to fluorescent solution mixer surgeon (Dr. Leija) who reported it is not uncommon to have loose stools 2/2 to rectal surgery due to lost tone. She had this after surgery, and was encouraged to do kigel exercises, but was not complaint. Decompensated cirrhosis Secondary to alcohol abuse in the past. Considering her bowel movements have become regular, she has resumed on her lactulose. This can be held if she is having more than 3 bowel movements per day. Therapeutic paracentesis done this admission. She will need to follow-up with a almond pan finisher on outpatient basis for possible evaluation of liver transplant and for appropriate hepatocellular cancer screening. Continue spironolactone, lactulose, Lasix Bicytopenia Due to underlying cirrhosis. Continue monitor hemoglobin and platelets. CKD Creatine is at baseline. Avoid nephrotoxic medications. 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 It was to be restarted 2weeks post discharge, but appears it was not. Clarified with primary care physician's office that patient should have been restarted on Eliquis but was unable to come to follow-up due to her recurrent hospitalizations. Spoke to hematology/oncology services, and recommended w/ baseline lab work that 2.5mg BID be resumed on d/c (what she was on previously) rather than full dose. Started her on 2.5 mg p.o. twice daily of Eliquis DISCHARGE MEDICATIONS: Please see below. ALLERGIES: Please see below. PHYSICAL EXAMINATION ON DISCHARGE: VITAL SIGNS: Please see below. General: Sitting up in bed, no acute distress Head/Neck/Throat: Trachea midline, mucous membranes moist Eyes: Sclera anicteric, no erythema or discharge appreciated bilaterally Thorax: Normal respiratory effort on room air, lungs clear to auscultation bilaterally, no wheezes/rales/rhonchi Cardiovascular: Normal rate, regular rhythm, normal S1, S2; no S3, S4, r ubs/gallops/murmurs Abdomen: Bowel sounds present, soft, mildly distended, nontender Genitourinary: No CVA tenderness, no Newell in place Musculoskeletal: Moving all extremities, no edema Skin: Warm, dry Neurologic: AAOx3, speech fluent and goal-directed, no focal deficits, grossly intact LABORATORY DATA: Please see below. ACTIVITY: [As tolerated]. DIET: 2 g sodium, 1800 cc fluid restriction DISPOSITION: Home Health Service. DISCHARGE INSTRUCTIONS: PMD in 2 weeks Will need referral to urology for obstructive uropathy and chronic Newell. Needs referral to almond pan finisher for her cirrhosis of liver. Patient may need to be set up for scheduled outpatient paracentesis. DISCHARGE CONDITION: [Stable]. TIME SPENT ON DISCHARGE: 35 minutes. Vital Signs/I&Os Vital Signs Date Time Temp Pulse Resp B/P (MAP) Pulse Ox O2 Delivery O2 Flow Rate FiO2 09/03/21 14:00 97.5 115 18 142/69 (93) 09/03/21 06:00 99 09/02/21 22:00 Room Air Microbiology Microbiology 09/03/21 Stool Occult Blood (ANGEL) - Final, Complete 09/02/21 Blood Culture - Preliminary, Resulted No Growth after 72 hours. All specime... 09/02/21 Blood Culture - Preliminary, Resulted No Growth after 72 hours. All specime... 09/02/21 Gram Stain - Final, Complete 09/02/21 Body Fluid Culture - Final, Complete Discharge Medications Scheduled Apixaban (Eliquis) 2.5 Mg Tablet, 2.5 MG PO BID Cyanocobalamin (Vitamin B-12) (Vitamin B-12) 500 Mcg Tablet, 500 MCG PO DAILY, (Reported) Ferrous Gluconate (Ferrous Gluconate) 324 Mg Tablet, 324 MG PO DAILY, (Reported) Furosemide (Furosemide) 20 Mg Tablet, 20 MG PO DAILY, (Reported) Lactulose (Lactulose) 10 Gm/15 Ml Solution, 30 ML PO DAILY Levocetirizine Dihydrochloride (Levocetirizine Dihydrochloride) 5 Mg Tablet, 5 MG PO QHS, (Reported) Magnesium Chloride (Mag64) 64 Mg Tablet.dr, 64 MG PO DAILY, (Reported) Omeprazole (Omeprazole) 20 Mg Capsule.dr, 20 MG PO DAILY, (Reported) Potassium Chloride (Potassium Chloride) 10 Meq Tab.er.prt, 20 MEQ PO DAILY, (Reported) Simvastatin (Simvastatin) 20 Mg Tablet, 20 MG PO QHS, (Reported) Spironolactone (Spironolactone) 50 Mg Tablet, 50 MG PO DAILY, (Reported) Tamsulosin HCl (Flomax) 0.4 Mg Capsule, 0.4 MG PO QHS, (Reported) Scheduled PRN Benzonatate (Benzonatate) 200 Mg Capsule, 200 MG PO TID PRN for COUGH, (Reported) Tramadol HCl (Tramadol HCl) 50 Mg Tablet, 50 MG PO Q8H PRN for PAIN LEVEL 1-4, (Reported) Allergies Coded Allergies: No Known Allergies (Unverified , 06/17/21) Aletha Mace MD Sep 06, 2021 23:48
== END 2021-09-03 17:27 | disposition home health service (06) | DRG 948 ==
LOC: M ED 17:12 → M ED INP 08-29 12:33 → ENRESERV 08-29 13:10 → M MSPAV 08-29 14:39
PROVIDERS: ADMIT Internal Medicine; ATTEND Internal Medicine Nephrology
PROC: 0W9G3ZZ Drainage of Peritoneal Cavity, Percutaneous Approach (ICD-10-PCS; principal; 2021-09-02 09:00)
DX: R53.1 Weakness (principal); N39.0 Urinary tract infection, site not specified; N18.9 Chronic kidney disease, unspecified; K70.31 Alcoholic cirrhosis of liver with ascites; E11.22 Type 2 diabetes mellitus with diabetic chronic kidney disease; D69.6 Thrombocytopenia, unspecified; D64.9 Anemia, unspecified; I10 Essential (primary) hypertension; E11.9 Type 2 diabetes mellitus without complications; K21.9 Gastro-esophageal reflux disease without esophagitis; Z79.899 Other long term (current) drug therapy; M51.36 Other intervertebral disc degeneration, lumbar region; Z87.891 Personal history of nicotine dependence; R53.81 Other malaise

== ENCOUNTER → 2021-11-26 | Outpatient (CLI) | payer MEDICARE, MEDICAID ==
[~2021-11-26] MED LIST changes: -CEFD1CAP8 PO; +CEFD300C41 PO; +FERR32TA PO; +FLOM0.4C39 PO; +FURO20TA2 PO; +LACT10SO3 PO; -LISI-898 PO; +LISI5TAB11 PO; +MAGN64TASA PO; +MIDO10TA PO; +OMEP-173 PO; -OMEP-218 PO; +POTA10TA17 PO; +SPIR50TA4 PO; +TIZA10TA PO; -TIZA4TAB4 PO; +TRAM50TA2 PO; +VITA-172 PO
[2021-11-26 11:55] VITALS: BP 145/75
== END ==
LOC: M IRPRO 09:55
PROVIDERS: ATTEND Internal Medicine Nephrology
DX: K74.60 Unspecified cirrhosis of liver (principal)

== ENCOUNTER → 2021-12-13 | Outpatient (CLI) | payer OTHER, MEDICAID | LOC: M WHC 14:09 | PROVIDERS: ATTEND Nurse Practitioner Family | DX: Z12.31 Encounter for screening mammogram for malignant neoplasm of breast (principal); Z13.820 Encounter for screening for osteoporosis ==

== ENCOUNTER 2022-01-13 11:10 | Inpatient (IN) | payer MEDICARE, MEDICAID ==
[~2022-01-13] VITALS: Ht 152.4 cm; Wt 65.2 kg
[2022-01-13 12:45] LABS: BASO % 0.1 % (0.0-1.0); EOS % 0.1 % (0.0-3.0); HEMATOCRIT 35.3 % (36.0-47.0); HEMOGLOBIN 11.7 g/dl (12.0-15.5); LYMPH # 1.2 10^3/uL (1.5-5.0); LYMPH % 7.3 % (24.0-44.0); MEAN CORPUSCULAR HGB CONC 33.1 g/dl (32.0-36.5); MEAN CORPUSCULAR VOLUME 93.6 fl (80.0-96.0); MONO # 0.5 10^3/uL (0.0-0.8); MONO % 3.3 % (2.0-8.0); NEUTROPHILS # 14.4 10^3/uL (1.5-8.5); NEUTROPHILS % 88.5 % (36.0-66.0); PLATELET COUNT, AUTOMATED 216 10^3/uL (150-450); RED BLOOD COUNT 3.77 10^6/uL (4.00-5.40); WHITE BLOOD COUNT 16.2 10^3/uL (4.0-10.0)
[2022-01-13 13:17] LABS: CALCIUM LEVEL 8.2 MG/DL (8.8-10.2); CREATININE FOR GFR 3.27 MG/DL (0.55-1.30); GLOMERULAR FILTRATION RATE 15.1 (>45); POTASSIUM SERUM 4.2 MEQ/L (3.5-5.1)
[2022-01-13 13:18] LABS: ALBUMIN 1.9 GM/DL (3.2-5.2); BILIRUBIN,DIRECT 1.3 MG/DL (0.0-0.2); BILIRUBIN,TOTAL 2.1 MG/DL (0.2-1.0); FREE T4 0.74 NG/DL (0.76-1.46); THYROID STIMULATING HORMONE 5.95 uIU/ML (0.358-3.740); TOTAL PROTEIN 6.1 GM/DL (6.4-8.2)
[2022-01-13 13:25] LABS: CK-MB VALUE MASS 2.5 NG/ML (<3.6); MB/CK RELATIVE INDEX 5.56 (< OR =4)
[2022-01-13] MEDS ORDERED: NS 1,000 ML IV SCH (14:10)
[2022-01-13] MEDS ORDERED: FURO80TA2 PO (15:46)
[2022-01-13] MEDS ORDERED: LISI5TAB11 PO (15:46)
[2022-01-13] MEDS ORDERED: AMIT25TA17 PO (15:46)
[2022-01-13] MEDS ORDERED: TORS20TA2 PO (16:02)
[2022-01-13 16:20] LABS: RSV AMPLIFICATION NEGATIVE (NEGATIVE)
[2022-01-13] MEDS ORDERED: MAALOX 30 ML SUSP *UDC PO PRN (16:20)
[2022-01-13] MEDS ORDERED: HOME MED LIST COMPLETE! XX SCH (16:45)
[2022-01-13] MEDS ORDERED: ELIQ2.5T PO (16:45)
[2022-01-13] MEDS ORDERED: BENZONATATE 100MG CAPSULE PO PRN (17:15)
[2022-01-13] MEDS ORDERED: PIPERACILLIN/TAZOBACTAM SOD 4.5 GM in D5W MINI-BAG PLUS 50 ML IV ONE (17:15)
[2022-01-13 17:17] LABS: MAGNESIUM LEVEL 2.3 MG/DL (1.8-2.4)
[2022-01-13] MEDS: NS 1,000 ML IV SCH (17:33)
[2022-01-13] MEDS ORDERED: DEXTROSE 50% 50 ML SYRINGE IV PRN (18:05)
[2022-01-13] MEDS ORDERED: GLUCAGON INJ 1MG VIAL SC PRN (18:05)
[2022-01-13] MEDS ORDERED: GLUCOSE 4GM CHEW TABLET PO PRN (18:05)
[2022-01-13 19:21] LABS: INR 1.19; PARTIAL THROMBOPLASTIN TIME 29.5 SECONDS (25.9-37.0); PROTHROMBIN TIME 15.5 SECONDS (12.7-14.5)
[2022-01-13 19:29] LABS: HEMOGLOBIN A1c 5.4 %
[2022-01-13 20:00] VITALS: BP 155/72
[2022-01-13] MEDS: INSULIN LISPRO (NovoLOG) PER UNIT SC SCH ×2 (20:04→20:31)
[2022-01-13] MEDS ORDERED: REMDESIVIR 200 MG in NS 250 ML IV ONE (21:00)
[2022-01-13] MEDS ORDERED: guaiFENesin ER 600 MG TAB PO SCH (21:00)
[2022-01-13] MEDS: DOCUSATE SODIUM 100MG CAPSULE PO SCH (21:00)
[2022-01-13] MEDS: HEPARIN SOD (PORCINE) 5000UNITS/ML 1ML VIAL/SYRINGE SC SCH (21:27)
[2022-01-13] MEDS: guaiFENesin ER 600 MG TAB PO SCH (21:27)
[2022-01-13] MEDS: TAMSULOSIN 0.4 MG CAP PO SCH (21:27)
[2022-01-13] MEDS: AMITRIPTYLINE 25MG TABLET PO SCH (21:27)
[2022-01-13] MEDS: SIMVASTATIN 20 MG TAB PO SCH (21:27)
[2022-01-13] MEDS ORDERED: SODIUM CHLORIDE 0.9% INJ 10 ML SYR IV ONE (23:00)
[2022-01-13 23:08] VITALS: BP 105/61
[2022-01-14] VITALS (15 sets, daily range): BP systolic 93–138; BP diastolic 53–71
[2022-01-14] MEDS: PIPERACILLIN/TAZOBACTAM SOD 3.375 GM in D5W MINI-BAG PLUS 50 ML IV SCH ×2 (00:50→06:12)
[2022-01-14] MEDS: HEPARIN SOD (PORCINE) 5000UNITS/ML 1ML VIAL/SYRINGE SC SCH (06:12)
[2022-01-14] MEDS: NS 1,000 ML IV SCH (07:08)
[2022-01-14] MEDS: INSULIN LISPRO (NovoLOG) PER UNIT SC SCH ×4 (07:24→20:33)
[2022-01-14] MEDS: guaiFENesin ER 600 MG TAB PO SCH ×2 (08:26→20:33)
[2022-01-14] MEDS: CYANOCOBALAMIN 500 MCG TAB PO SCH (08:27)
[2022-01-14] MEDS: OMEPRAZOLE 20MG CAP PO SCH (08:27)
[2022-01-14] MEDS: DOCUSATE SODIUM 100MG CAPSULE PO SCH ×2 (08:27→20:33)
[2022-01-14 08:54] LABS: BASO % 0.2 % (0.0-1.0); EOS % 0.9 % (0.0-3.0); HEMATOCRIT 24.3 % (36.0-47.0); LYMPH # 0.9 10^3/uL (1.5-5.0); LYMPH % 20.9 % (24.0-44.0); MEAN CORPUSCULAR HEMOGLOBIN 29.8 pg (27.0-33.0); MEAN CORPUSCULAR HGB CONC 32.5 g/dl (32.0-36.5); MEAN CORPUSCULAR VOLUME 91.7 fl (80.0-96.0); MONO # 0.2 10^3/uL (0.0-0.8); NEUTROPHILS # 3.2 10^3/uL (1.5-8.5); NEUTROPHILS % 72.5 % (36.0-66.0); RED BLOOD COUNT 2.65 10^6/uL (4.00-5.40); WHITE BLOOD COUNT 4.4 10^3/uL (4.0-10.0)
[2022-01-14 09:21] LABS: BILIRUBIN,TOTAL 1.1 MG/DL (0.2-1.0); CALCIUM LEVEL 8.1 MG/DL (8.8-10.2); GLOMERULAR FILTRATION RATE 16.7 (>45); MAGNESIUM LEVEL 2.1 MG/DL (1.8-2.4); POTASSIUM SERUM 3.7 MEQ/L (3.5-5.1); TOTAL PROTEIN 5.2 GM/DL (6.4-8.2)
[2022-01-14 09:23] LABS: HEMOGLOBIN 7.9 g/dl (12.0-15.5); PLATELET COUNT, AUTOMATED 79 10^3/uL (150-450)
[2022-01-14] MEDS: FERROUS GLUCONATE 324 MG TAB PO SCH (10:03)
[2022-01-14] MEDS: PIPERACILLIN/TAZOBACTAM SOD 2.25 GM in D5W MINI-BAG PLUS 50 ML IV SCH ×2 (12:38→18:07)
[2022-01-14 15:09] LABS: SPEC. GRAVITY BODY FLUIDS 1.009 (NOT ESTABLISHED)
[2022-01-14 15:13] LABS: APPEARANCE, BODY FLUID CLEAR (CLEAR); ASCITES FL COLOR PALE YELLOW (COLORLESS); SOURCE, BODY FLUID ASCITES
[2022-01-14 15:43] LABS: SOURCE, BODY FLUID ALBUMIN ASCITES; SOURCE, BODY FLUID GLUCOSE ASCITES; SOURCE, BODY FLUID TOT PROTEIN ASCITES; TOTAL PROTEIN, BODY FLUID 0.5 G/DL (NOT ESTABLISHED)
[2022-01-14] MEDS ORDERED: HEPARIN SOD (PORCINE) 5000UNITS/ML 1ML VIAL/SYRINGE SQ SCH (19:05)
[2022-01-14] MEDS: SIMVASTATIN 20 MG TAB PO SCH (20:33)
[2022-01-14] MEDS: APIXABAN 2.5 MG TAB (ELIQUIS) PO SCH (20:33)
[2022-01-14] MEDS: TAMSULOSIN 0.4 MG CAP PO SCH (20:33)
[2022-01-14] MEDS: AMITRIPTYLINE 25MG TABLET PO SCH (20:33)
[2022-01-14] MEDS ORDERED: REMDESIVIR 100 MG in NS 250 ML IV SCH (21:00)
[2022-01-14] MEDS ORDERED: SODIUM CHLORIDE 0.9% INJ 10 ML SYR IV SCH (22:00)
[2022-01-15 00:10] VITALS: BP 106/55
[2022-01-15] MEDS: PIPERACILLIN/TAZOBACTAM SOD 2.25 GM in D5W MINI-BAG PLUS 50 ML IV SCH ×3 (00:15→12:14)
[2022-01-15] MEDS: traMADol 50 MG TAB PO PRN ×2 (00:19→20:58)
[2022-01-15 03:51] VITALS: BP 103/56
[2022-01-15] MEDS: INSULIN LISPRO (NovoLOG) PER UNIT SC SCH ×2 (07:29→12:00)
[2022-01-15 08:00] VITALS: BP 104/65
[2022-01-15] MEDS: DOCUSATE SODIUM 100MG CAPSULE PO SCH ×2 (08:09→20:18)
[2022-01-15] MEDS: APIXABAN 2.5 MG TAB (ELIQUIS) PO SCH ×2 (08:09→20:12)
[2022-01-15] MEDS: OMEPRAZOLE 20MG CAP PO SCH (08:09)
[2022-01-15] MEDS: FERROUS GLUCONATE 324 MG TAB PO SCH (08:10)
[2022-01-15] MEDS: CYANOCOBALAMIN 500 MCG TAB PO SCH (08:10)
[2022-01-15] MEDS: guaiFENesin ER 600 MG TAB PO SCH ×2 (08:10→20:12)
[2022-01-15 08:20] LABS: EOS % 1.5 % (0.0-3.0); HEMATOCRIT 24.7 % (36.0-47.0); HEMOGLOBIN 8.2 g/dl (12.0-15.5); LYMPH # 0.7 10^3/uL (1.5-5.0); LYMPH % 26.3 % (24.0-44.0); MEAN CORPUSCULAR HEMOGLOBIN 30.3 pg (27.0-33.0); MEAN CORPUSCULAR HGB CONC 33.2 g/dl (32.0-36.5); MEAN CORPUSCULAR VOLUME 91.1 fl (80.0-96.0); MONO # 0.2 10^3/uL (0.0-0.8); MONO % 6.8 % (2.0-8.0); NEUTROPHILS # 1.7 10^3/uL (1.5-8.5); NEUTROPHILS % 64.6 % (36.0-66.0); RED BLOOD COUNT 2.71 10^6/uL (4.00-5.40); WHITE BLOOD COUNT 2.7 10^3/uL (4.0-10.0)
[2022-01-15 08:23] LABS: PLATELET COUNT, AUTOMATED 75 10^3/uL (150-450)
[2022-01-15 08:46] LABS: ALBUMIN 2.4 GM/DL (3.2-5.2); BILIRUBIN,TOTAL 0.8 MG/DL (0.2-1.0); CALCIUM LEVEL 7.8 MG/DL (8.8-10.2); CREATININE FOR GFR 2.68 MG/DL (0.55-1.30); POTASSIUM SERUM 3.2 MEQ/L (3.5-5.1); TOTAL PROTEIN 5.2 GM/DL (6.4-8.2)
[2022-01-15] MEDS ORDERED: POTASSIUM CHLORIDE 10MEQ SR TABLET PO ONE (11:10)
[2022-01-15 11:55] VITALS: BP 97/69
[2022-01-15] MEDS: SPIRONOLACTONE 25 MG TAB PO SCH ×2 (12:13→16:58)
[2022-01-15 13:44] VITALS: BP 109/57
[2022-01-15 20:00] VITALS: BP 100/66
[2022-01-15] MEDS: AMITRIPTYLINE 25MG TABLET PO SCH (20:12)
[2022-01-15] MEDS: TAMSULOSIN 0.4 MG CAP PO SCH (20:12)
[2022-01-15] MEDS: SIMVASTATIN 20 MG TAB PO SCH (20:12)
[2022-01-15] MEDS: RAMELTEON 8 MG TAB (ROZEREM) PO PRN (20:58)
[2022-01-16 04:00] VITALS: BP 108/73
[2022-01-16 06:47] LABS: BASO % 0.2 % (0.0-1.0); EOS % 0.6 % (0.0-3.0); HEMATOCRIT 27.1 % (36.0-47.0); LYMPH # 1.2 10^3/uL (1.5-5.0); MEAN CORPUSCULAR HEMOGLOBIN 30.2 pg (27.0-33.0); MEAN CORPUSCULAR HGB CONC 33.2 g/dl (32.0-36.5); MEAN CORPUSCULAR VOLUME 90.9 fl (80.0-96.0); MONO # 0.3 10^3/uL (0.0-0.8); MONO % 4.9 % (2.0-8.0); NEUTROPHILS # 4.9 10^3/uL (1.5-8.5); RED BLOOD COUNT 2.98 10^6/uL (4.00-5.40); WHITE BLOOD COUNT 6.5 10^3/uL (4.0-10.0)
[2022-01-16 06:51] LABS: PLATELET COUNT, AUTOMATED 89 10^3/uL (150-450)
[2022-01-16 07:09] LABS: ALBUMIN 2.2 GM/DL (3.2-5.2); BILIRUBIN,TOTAL 0.7 MG/DL (0.2-1.0); CALCIUM LEVEL 7.5 MG/DL (8.8-10.2); CREATININE FOR GFR 2.81 MG/DL (0.55-1.30); MAGNESIUM LEVEL 1.9 MG/DL (1.8-2.4); POTASSIUM SERUM 3.4 MEQ/L (3.5-5.1); TOTAL PROTEIN 5.2 GM/DL (6.4-8.2)
[2022-01-16] MEDS ORDERED: POTASSIUM CHLORIDE 10MEQ SR TABLET PO ONE (07:30)
[2022-01-16 08:00] VITALS: BP 97/64
[2022-01-16] MEDS: SPIRONOLACTONE 25 MG TAB PO SCH ×2 (08:03→16:56)
[2022-01-16] MEDS: APIXABAN 2.5 MG TAB (ELIQUIS) PO SCH ×2 (08:04→20:23)
[2022-01-16] MEDS: DOCUSATE SODIUM 100MG CAPSULE PO SCH ×2 (08:04→20:23)
[2022-01-16] MEDS: FERROUS GLUCONATE 324 MG TAB PO SCH (08:04)
[2022-01-16] MEDS: guaiFENesin ER 600 MG TAB PO SCH ×2 (08:04→20:23)
[2022-01-16] MEDS: CYANOCOBALAMIN 500 MCG TAB PO SCH (08:05)
[2022-01-16] MEDS: OMEPRAZOLE 20MG CAP PO SCH (08:05)
[2022-01-16 14:00] VITALS: BP 107/64
[2022-01-16 20:21] VITALS: BP 114/70
[2022-01-16] MEDS: SIMVASTATIN 20 MG TAB PO SCH (20:23)
[2022-01-16] MEDS: TAMSULOSIN 0.4 MG CAP PO SCH (20:23)
[2022-01-16] MEDS: AMITRIPTYLINE 25MG TABLET PO SCH (20:23)
[2022-01-17 04:05] VITALS: BP 105/68
[2022-01-17 07:42] LABS: BASO % 0.2 % (0.0-1.0); EOS # 0.1 10^3/uL (0.0-0.5); EOS % 0.9 % (0.0-3.0); HEMOGLOBIN 9.6 g/dl (12.0-15.5); LYMPH % 19.3 % (24.0-44.0); MEAN CORPUSCULAR HEMOGLOBIN 30.4 pg (27.0-33.0); MEAN CORPUSCULAR HGB CONC 33.1 g/dl (32.0-36.5); MEAN CORPUSCULAR VOLUME 91.8 fl (80.0-96.0); MONO # 0.5 10^3/uL (0.0-0.8); MONO % 4.5 % (2.0-8.0); NEUTROPHILS # 7.6 10^3/uL (1.5-8.5); NEUTROPHILS % 74.6 % (36.0-66.0); PLATELET COUNT, AUTOMATED 104 10^3/uL (150-450); RED BLOOD COUNT 3.16 10^6/uL (4.00-5.40); WHITE BLOOD COUNT 10.1 10^3/uL (4.0-10.0)
[2022-01-17 08:05] LABS: ALBUMIN 2.2 GM/DL (3.2-5.2); BILIRUBIN,TOTAL 0.6 MG/DL (0.2-1.0); CALCIUM LEVEL 7.8 MG/DL (8.8-10.2); CREATININE FOR GFR 2.67 MG/DL (0.55-1.30); GLOMERULAR FILTRATION RATE 19.1 (>45); MAGNESIUM LEVEL 1.8 MG/DL (1.8-2.4); POTASSIUM SERUM 3.5 MEQ/L (3.5-5.1); TOTAL PROTEIN 5.5 GM/DL (6.4-8.2)
[2022-01-17] MEDS: APIXABAN 2.5 MG TAB (ELIQUIS) PO SCH ×2 (08:09→19:39)
[2022-01-17] MEDS: SPIRONOLACTONE 25 MG TAB PO SCH ×2 (08:09→16:46)
[2022-01-17] MEDS: DOCUSATE SODIUM 100MG CAPSULE PO SCH ×2 (08:09→19:38)
[2022-01-17] MEDS: FERROUS GLUCONATE 324 MG TAB PO SCH (08:09)
[2022-01-17] MEDS: OMEPRAZOLE 20MG CAP PO SCH (08:10)
[2022-01-17] MEDS: CYANOCOBALAMIN 500 MCG TAB PO SCH (08:10)
[2022-01-17] MEDS: guaiFENesin ER 600 MG TAB PO SCH ×2 (08:10→19:39)
[2022-01-17 14:00] VITALS: BP 107/65
[2022-01-17] MEDS: ACETAMINOPHEN TAB 650MG DOSE (2X325MG) PO PRN (17:37)
[2022-01-17] MEDS: TAMSULOSIN 0.4 MG CAP PO SCH (19:38)
[2022-01-17] MEDS: SIMVASTATIN 20 MG TAB PO SCH (19:38)
[2022-01-17] MEDS: AMITRIPTYLINE 25MG TABLET PO SCH (19:38)
[2022-01-17 22:00] VITALS: BP 113/74
[2022-01-18 06:00] VITALS: BP 109/68
[2022-01-18 07:36] LABS: BASO % 0.2 % (0.0-1.0); EOS # 0.1 10^3/uL (0.0-0.5); EOS % 1.1 % (0.0-3.0); HEMATOCRIT 27.9 % (36.0-47.0); HEMOGLOBIN 9.3 g/dl (12.0-15.5); LYMPH # 1.6 10^3/uL (1.5-5.0); LYMPH % 15.8 % (24.0-44.0); MEAN CORPUSCULAR HEMOGLOBIN 30.3 pg (27.0-33.0); MEAN CORPUSCULAR HGB CONC 33.3 g/dl (32.0-36.5); MEAN CORPUSCULAR VOLUME 90.9 fl (80.0-96.0); MONO # 0.4 10^3/uL (0.0-0.8); MONO % 4.3 % (2.0-8.0); NEUTROPHILS # 7.8 10^3/uL (1.5-8.5); NEUTROPHILS % 77.9 % (36.0-66.0); RED BLOOD COUNT 3.07 10^6/uL (4.00-5.40)
[2022-01-18 07:37] LABS: PLATELET COUNT, AUTOMATED 98 10^3/uL (150-450)
[2022-01-18 08:01] LABS: ALBUMIN 2.1 GM/DL (3.2-5.2); BILIRUBIN,TOTAL 0.7 MG/DL (0.2-1.0); CALCIUM LEVEL 7.4 MG/DL (8.8-10.2); CREATININE FOR GFR 2.63 MG/DL (0.55-1.30); GLOMERULAR FILTRATION RATE 19.4 (>45); MAGNESIUM LEVEL 1.7 MG/DL (1.8-2.4); POTASSIUM SERUM 3.8 MEQ/L (3.5-5.1); TOTAL PROTEIN 4.9 GM/DL (6.4-8.2)
[2022-01-18] MEDS: DOCUSATE SODIUM 100MG CAPSULE PO SCH ×2 (08:04→20:27)
[2022-01-18] MEDS: OMEPRAZOLE 20MG CAP PO SCH (08:04)
[2022-01-18] MEDS: guaiFENesin ER 600 MG TAB PO SCH ×2 (08:05→20:27)
[2022-01-18] MEDS: APIXABAN 2.5 MG TAB (ELIQUIS) PO SCH ×2 (08:05→20:27)
[2022-01-18] MEDS: SPIRONOLACTONE 25 MG TAB PO SCH ×2 (08:05→16:57)
[2022-01-18] MEDS: CYANOCOBALAMIN 500 MCG TAB PO SCH (08:05)
[2022-01-18] MEDS: FERROUS GLUCONATE 324 MG TAB PO SCH (08:05)
[2022-01-18] MEDS ORDERED: MAG SULF 1GM/100ML (MAG RUN) 1 GM in IV 1 EA IV ONE (12:30)
[2022-01-18] MEDS ORDERED: POTASSIUM CHLORIDE 10MEQ SR TABLET PO ONE (12:30)
[2022-01-18 14:00] VITALS: BP 113/65
[2022-01-18 20:00] VITALS: BP 109/68
[2022-01-18] MEDS: AMITRIPTYLINE 25MG TABLET PO SCH (20:27)
[2022-01-18] MEDS: TAMSULOSIN 0.4 MG CAP PO SCH (20:27)
[2022-01-18] MEDS: SIMVASTATIN 20 MG TAB PO SCH (20:27)
[2022-01-19] MEDS: RAMELTEON 8 MG TAB (ROZEREM) PO PRN ×2 (01:17→21:31)
[2022-01-19] MEDS: traMADol 50 MG TAB PO PRN ×2 (01:18→21:32)
[2022-01-19 04:00] VITALS: BP 112/63
[2022-01-19 07:41] LABS: BASO % 0.1 % (0.0-1.0); EOS # 0.1 10^3/uL (0.0-0.5); EOS % 0.9 % (0.0-3.0); HEMATOCRIT 28.8 % (36.0-47.0); HEMOGLOBIN 9.8 g/dl (12.0-15.5); LYMPH # 1.6 10^3/uL (1.5-5.0); LYMPH % 15.4 % (24.0-44.0); MEAN CORPUSCULAR HEMOGLOBIN 30.7 pg (27.0-33.0); MEAN CORPUSCULAR VOLUME 90.3 fl (80.0-96.0); MONO # 0.5 10^3/uL (0.0-0.8); MONO % 4.4 % (2.0-8.0); NEUTROPHILS % 78.4 % (36.0-66.0); PLATELET COUNT, AUTOMATED 112 10^3/uL (150-450); RED BLOOD COUNT 3.19 10^6/uL (4.00-5.40); WHITE BLOOD COUNT 10.2 10^3/uL (4.0-10.0)
[2022-01-19 08:03] LABS: ALBUMIN 2.1 GM/DL (3.2-5.2); BILIRUBIN,TOTAL 0.8 MG/DL (0.2-1.0); CALCIUM LEVEL 7.8 MG/DL (8.8-10.2); CREATININE FOR GFR 2.5 MG/DL (0.55-1.30); GLOMERULAR FILTRATION RATE 20.6 (>45); MAGNESIUM LEVEL 2.1 MG/DL (1.8-2.4); PERCENT SATURATION 98.4 % (13.2-45.0); POTASSIUM SERUM 4.2 MEQ/L (3.5-5.1); TOTAL PROTEIN 5.1 GM/DL (6.4-8.2)
[2022-01-19] MEDS: APIXABAN 2.5 MG TAB (ELIQUIS) PO SCH ×2 (09:06→21:31)
[2022-01-19] MEDS: CYANOCOBALAMIN 500 MCG TAB PO SCH (09:06)
[2022-01-19] MEDS: FERROUS GLUCONATE 324 MG TAB PO SCH (09:06)
[2022-01-19] MEDS: guaiFENesin ER 600 MG TAB PO SCH ×2 (09:06→21:31)
[2022-01-19] MEDS: SPIRONOLACTONE 25 MG TAB PO SCH ×2 (09:07→17:22)
[2022-01-19] MEDS: DOCUSATE SODIUM 100MG CAPSULE PO SCH ×2 (09:07→21:31)
[2022-01-19] MEDS: OMEPRAZOLE 20MG CAP PO SCH (09:10)
[2022-01-19 14:00] VITALS: BP 105/62
[2022-01-19 20:00] VITALS: BP 101/62
[2022-01-19] MEDS: TAMSULOSIN 0.4 MG CAP PO SCH (21:31)
[2022-01-19] MEDS: AMITRIPTYLINE 25MG TABLET PO SCH (21:31)
[2022-01-19] MEDS: SIMVASTATIN 20 MG TAB PO SCH (21:31)
[2022-01-20 04:00] VITALS: BP 100/58
[2022-01-20 07:09] LABS: APPEARANCE, URINE CLOUDY (CLEAR); BACTERIA, URINE AUTO 1+ (NEGATIVE); BILIRUBIN, URINE AUTO NEGATIVE (NEGATIVE); BLOOD, URINE BLOOD 1+ (NEGATIVE); COLOR, URINE YELLOW (YELLOW); GLUCOSE, URINE (UA) AUTO NEGATIVE (NEGATIVE); KETONE, URINE AUTO NEGATIVE (NEGATIVE); LEUKOCYTE ESTERASE, URINE AUTO 3+ (NEGATIVE); MUCUS, URINE SMALL (NEGATIVE); NITRITE, URINE AUTO NEGATIVE (NEGATIVE); PROTEIN, URINE AUTO NEGATIVE (NEGATIVE); RBC, URINE AUTO 28 /HPF (0-3); SPECIFIC GRAVITY URINE AUTO 1.018 (1.002-1.035); SQUAMOUS EPITHELIAL CELL UR AU 10 /HPF (0-6); UROBILINOGEN, URINE AUTO 0.2 mg/dL (0.0-2.0); WBC, URINE AUTO 120 /HPF (0-3)
[2022-01-20 07:10] LABS: BASO % 0.1 % (0.0-1.0); EOS # 0.1 10^3/uL (0.0-0.5); EOS % 1.4 % (0.0-3.0); HEMATOCRIT 25.6 % (36.0-47.0); HEMOGLOBIN 8.6 g/dl (12.0-15.5); LYMPH # 1.4 10^3/uL (1.5-5.0); LYMPH % 20.7 % (24.0-44.0); MEAN CORPUSCULAR HEMOGLOBIN 30.2 pg (27.0-33.0); MEAN CORPUSCULAR HGB CONC 33.6 g/dl (32.0-36.5); MEAN CORPUSCULAR VOLUME 89.8 fl (80.0-96.0); MONO # 0.4 10^3/uL (0.0-0.8); MONO % 5.2 % (2.0-8.0); NEUTROPHILS % 71.7 % (36.0-66.0); PLATELET COUNT, AUTOMATED 108 10^3/uL (150-450); RED BLOOD COUNT 2.85 10^6/uL (4.00-5.40); WHITE BLOOD COUNT 6.9 10^3/uL (4.0-10.0)
[2022-01-20 07:45] LABS: ALBUMIN 1.9 GM/DL (3.2-5.2); BILIRUBIN,TOTAL 0.7 MG/DL (0.2-1.0); CREATININE FOR GFR 2.37 MG/DL (0.55-1.30); GLOMERULAR FILTRATION RATE 21.9 (>45); POTASSIUM SERUM 4.1 MEQ/L (3.5-5.1); TOTAL PROTEIN 4.9 GM/DL (6.4-8.2)
[2022-01-20 08:03] LABS: FOLATE 3.8 NG/ML (>5.4)
[2022-01-20] MEDS: FOLIC ACID 1 MG TAB PO SCH (09:00)
[2022-01-20] MEDS: guaiFENesin ER 600 MG TAB PO SCH ×2 (09:56→20:23)
[2022-01-20] MEDS: DOCUSATE SODIUM 100MG CAPSULE PO SCH ×2 (09:56→20:23)
[2022-01-20] MEDS: CYANOCOBALAMIN 500 MCG TAB PO SCH (09:56)
[2022-01-20] MEDS: SPIRONOLACTONE 25 MG TAB PO SCH ×2 (09:56→17:34)
[2022-01-20] MEDS: OMEPRAZOLE 20MG CAP PO SCH (09:56)
[2022-01-20] MEDS: FERROUS GLUCONATE 324 MG TAB PO SCH (09:56)
[2022-01-20] MEDS: APIXABAN 2.5 MG TAB (ELIQUIS) PO SCH ×2 (09:56→20:23)
[2022-01-20 14:00] VITALS: BP 101/61
[2022-01-20 20:00] VITALS: BP 108/64
[2022-01-20] MEDS: SIMVASTATIN 20 MG TAB PO SCH (20:23)
[2022-01-20] MEDS: TAMSULOSIN 0.4 MG CAP PO SCH (20:23)
[2022-01-20] MEDS: AMITRIPTYLINE 25MG TABLET PO SCH (20:23)
[2022-01-21 04:00] VITALS: BP 108/62
[2022-01-21] MEDS: guaiFENesin ER 600 MG TAB PO SCH ×2 (08:16→20:01)
[2022-01-21] MEDS: CYANOCOBALAMIN 500 MCG TAB PO SCH (08:16)
[2022-01-21] MEDS: FERROUS GLUCONATE 324 MG TAB PO SCH (08:16)
[2022-01-21] MEDS: SPIRONOLACTONE 25 MG TAB PO SCH ×2 (08:17→17:22)
[2022-01-21] MEDS: APIXABAN 2.5 MG TAB (ELIQUIS) PO SCH ×2 (08:17→20:01)
[2022-01-21] MEDS: FOLIC ACID 1 MG TAB PO SCH (08:17)
[2022-01-21] MEDS: OMEPRAZOLE 20MG CAP PO SCH (08:17)
[2022-01-21] MEDS: DOCUSATE SODIUM 100MG CAPSULE PO SCH ×2 (08:17→20:01)
[2022-01-21] MEDS: ACETAMINOPHEN TAB 650MG DOSE (2X325MG) PO PRN (08:56)
[2022-01-21 14:00] VITALS: BP 93/57
[2022-01-21] MEDS ORDERED: cefTRIAXone SOD 1 GM in D5W MINI-BAG PLUS 50 ML IV SCH (14:00)
[2022-01-21] MEDS: CIPROFLOXACIN 500MG TABLET PO SCH (15:26)
[2022-01-21] MEDS: LACTOBACILLUS ACIDOPHILUS CAP (BACID) PO SCH (17:22)
[2022-01-21] MEDS: AMITRIPTYLINE 25MG TABLET PO SCH (20:00)
[2022-01-21] MEDS: TAMSULOSIN 0.4 MG CAP PO SCH (20:01)
[2022-01-21] MEDS: SIMVASTATIN 20 MG TAB PO SCH (20:01)
[2022-01-21] MEDS: traMADol 50 MG TAB PO PRN (20:01)
[2022-01-21] MEDS: RAMELTEON 8 MG TAB (ROZEREM) PO PRN (20:01)
[2022-01-21] MEDS ORDERED: CEFUROXIME 500 MG TAB PO SCH (21:00)
[2022-01-22 04:00] VITALS: BP 121/67
[2022-01-22] MEDS: CIPROFLOXACIN 500MG TABLET PO SCH (06:01)
[2022-01-22 07:41] LABS: HEMATOCRIT 25.2 % (36.0-47.0); HEMOGLOBIN 8.5 g/dl (12.0-15.5); MEAN CORPUSCULAR HEMOGLOBIN 29.6 pg (27.0-33.0); MEAN CORPUSCULAR HGB CONC 33.7 g/dl (32.0-36.5); MEAN CORPUSCULAR VOLUME 87.8 fl (80.0-96.0); PLATELET COUNT, AUTOMATED 109 10^3/uL (150-450); RED BLOOD COUNT 2.87 10^6/uL (4.00-5.40); WHITE BLOOD COUNT 5.8 10^3/uL (4.0-10.0)
[2022-01-22 08:03] LABS: ALBUMIN 1.9 GM/DL (3.2-5.2); BILIRUBIN,TOTAL 0.6 MG/DL (0.2-1.0); CALCIUM LEVEL 8.2 MG/DL (8.8-10.2); CREATININE FOR GFR 2.26 MG/DL (0.55-1.30); GLOMERULAR FILTRATION RATE 23.1 (>45); POTASSIUM SERUM 4.2 MEQ/L (3.5-5.1); TOTAL PROTEIN 4.9 GM/DL (6.4-8.2)
[2022-01-22] MEDS: OMEPRAZOLE 20MG CAP PO SCH (08:19)
[2022-01-22] MEDS: LACTOBACILLUS ACIDOPHILUS CAP (BACID) PO SCH ×2 (08:19→17:11)
[2022-01-22] MEDS: CYANOCOBALAMIN 500 MCG TAB PO SCH (08:19)
[2022-01-22] MEDS: guaiFENesin ER 600 MG TAB PO SCH ×2 (08:19→20:48)
[2022-01-22] MEDS: FERROUS GLUCONATE 324 MG TAB PO SCH (08:19)
[2022-01-22] MEDS: SPIRONOLACTONE 25 MG TAB PO SCH ×2 (08:19→17:11)
[2022-01-22] MEDS: FOLIC ACID 1 MG TAB PO SCH (08:19)
[2022-01-22] MEDS: APIXABAN 2.5 MG TAB (ELIQUIS) PO SCH ×2 (08:19→20:48)
[2022-01-22] MEDS: DOCUSATE SODIUM 100MG CAPSULE PO SCH ×2 (08:20→20:48)
[2022-01-22 12:00] VITALS: BP 101/65
[2022-01-22] MEDS: traMADol 50 MG TAB PO PRN (20:47)
[2022-01-22] MEDS: RAMELTEON 8 MG TAB (ROZEREM) PO PRN (20:48)
[2022-01-22] MEDS: AMITRIPTYLINE 25MG TABLET PO SCH (20:48)
[2022-01-22] MEDS: TAMSULOSIN 0.4 MG CAP PO SCH (20:48)
[2022-01-22] MEDS: SIMVASTATIN 20 MG TAB PO SCH (20:48)
[2022-01-23 05:00] VITALS: BP 95/59
[2022-01-23] MEDS: CIPROFLOXACIN 500MG TABLET PO SCH (05:02)
[2022-01-23 07:08] LABS: HEMATOCRIT 26.7 % (36.0-47.0); MEAN CORPUSCULAR HEMOGLOBIN 30.5 pg (27.0-33.0); MEAN CORPUSCULAR HGB CONC 33.7 g/dl (32.0-36.5); MEAN CORPUSCULAR VOLUME 90.5 fl (80.0-96.0); PLATELET COUNT, AUTOMATED 128 10^3/uL (150-450); RED BLOOD COUNT 2.95 10^6/uL (4.00-5.40); WHITE BLOOD COUNT 7.3 10^3/uL (4.0-10.0)
[2022-01-23 07:31] LABS: BILIRUBIN,TOTAL 0.7 MG/DL (0.2-1.0); CALCIUM LEVEL 7.9 MG/DL (8.8-10.2); CREATININE FOR GFR 2.29 MG/DL (0.55-1.30); GLOMERULAR FILTRATION RATE 22.8 (>45); POTASSIUM SERUM 4.3 MEQ/L (3.5-5.1)
[2022-01-23] MEDS: LACTOBACILLUS ACIDOPHILUS CAP (BACID) PO SCH ×2 (08:50→17:44)
[2022-01-23] MEDS: SPIRONOLACTONE 25 MG TAB PO SCH ×2 (08:50→17:45)
[2022-01-23] MEDS: FOLIC ACID 1 MG TAB PO SCH (08:50)
[2022-01-23] MEDS: OMEPRAZOLE 20MG CAP PO SCH (08:50)
[2022-01-23] MEDS: APIXABAN 2.5 MG TAB (ELIQUIS) PO SCH ×2 (08:51→20:08)
[2022-01-23] MEDS: DOCUSATE SODIUM 100MG CAPSULE PO SCH ×2 (08:51→20:06)
[2022-01-23] MEDS: guaiFENesin ER 600 MG TAB PO SCH ×2 (08:51→20:06)
[2022-01-23] MEDS: FERROUS GLUCONATE 324 MG TAB PO SCH (08:51)
[2022-01-23] MEDS: CYANOCOBALAMIN 500 MCG TAB PO SCH (08:51)
[2022-01-23 11:48] VITALS: BP 96/62
[2022-01-23 13:00] VITALS: BP 114/67
[2022-01-23] MEDS: AMITRIPTYLINE 25MG TABLET PO SCH (20:06)
[2022-01-23] MEDS: TAMSULOSIN 0.4 MG CAP PO SCH (20:07)
[2022-01-23] MEDS: SIMVASTATIN 20 MG TAB PO SCH (20:08)
[2022-01-24 06:00] VITALS: BP 103/63
[2022-01-24] MEDS: CIPROFLOXACIN 500MG TABLET PO SCH (06:12)
[2022-01-24 06:42] LABS: HEMATOCRIT 26.3 % (36.0-47.0); MEAN CORPUSCULAR HEMOGLOBIN 30.5 pg (27.0-33.0); MEAN CORPUSCULAR HGB CONC 34.2 g/dl (32.0-36.5); MEAN CORPUSCULAR VOLUME 89.2 fl (80.0-96.0); PLATELET COUNT, AUTOMATED 131 10^3/uL (150-450); RED BLOOD COUNT 2.95 10^6/uL (4.00-5.40); WHITE BLOOD COUNT 7.6 10^3/uL (4.0-10.0)
[2022-01-24 07:06] LABS: BILIRUBIN,TOTAL 0.7 MG/DL (0.2-1.0); CALCIUM LEVEL 7.9 MG/DL (8.8-10.2); CREATININE FOR GFR 2.14 MG/DL (0.55-1.30); GLOMERULAR FILTRATION RATE 24.6 (>45); POTASSIUM SERUM 4.3 MEQ/L (3.5-5.1); TOTAL PROTEIN 5.1 GM/DL (6.4-8.2)
[2022-01-24] MEDS: LACTOBACILLUS ACIDOPHILUS CAP (BACID) PO SCH ×2 (08:00→17:37)
[2022-01-24] MEDS: DOCUSATE SODIUM 100MG CAPSULE PO SCH ×2 (08:39→19:53)
[2022-01-24] MEDS: OMEPRAZOLE 20MG CAP PO SCH (08:39)
[2022-01-24] MEDS: guaiFENesin ER 600 MG TAB PO SCH ×2 (08:39→19:54)
[2022-01-24] MEDS: FERROUS GLUCONATE 324 MG TAB PO SCH (08:39)
[2022-01-24] MEDS: CYANOCOBALAMIN 500 MCG TAB PO SCH (08:40)
[2022-01-24] MEDS: SPIRONOLACTONE 25 MG TAB PO SCH ×2 (08:40→16:23)
[2022-01-24] MEDS: APIXABAN 2.5 MG TAB (ELIQUIS) PO SCH ×2 (08:41→19:58)
[2022-01-24] MEDS: FOLIC ACID 1 MG TAB PO SCH (08:41)
[2022-01-24] MEDS: ACETAMINOPHEN TAB 650MG DOSE (2X325MG) PO PRN (16:22)
[2022-01-24] MEDS: AMITRIPTYLINE 25MG TABLET PO SCH (19:53)
[2022-01-24] MEDS: TAMSULOSIN 0.4 MG CAP PO SCH (19:54)
[2022-01-24] MEDS: SIMVASTATIN 20 MG TAB PO SCH (19:58)
[2022-01-24] MEDS: RAMELTEON 8 MG TAB (ROZEREM) PO PRN (19:58)
[2022-01-24] MEDS: traMADol 50 MG TAB PO PRN (19:59)
[2022-01-25] MEDS: CIPROFLOXACIN 500MG TABLET PO SCH (05:16)
[2022-01-25 06:00] VITALS: BP 99/62
[2022-01-25 06:53] LABS: HEMATOCRIT 27.6 % (36.0-47.0); HEMOGLOBIN 9.2 g/dl (12.0-15.5); MEAN CORPUSCULAR HGB CONC 33.3 g/dl (32.0-36.5); MEAN CORPUSCULAR VOLUME 89.9 fl (80.0-96.0); PLATELET COUNT, AUTOMATED 158 10^3/uL (150-450); RED BLOOD COUNT 3.07 10^6/uL (4.00-5.40); WHITE BLOOD COUNT 9.1 10^3/uL (4.0-10.0)
[2022-01-25 07:17] LABS: BILIRUBIN,TOTAL 0.6 MG/DL (0.2-1.0); CALCIUM LEVEL 7.7 MG/DL (8.8-10.2); CREATININE FOR GFR 2.39 MG/DL (0.55-1.30); GLOMERULAR FILTRATION RATE 21.7 (>45); POTASSIUM SERUM 4.4 MEQ/L (3.5-5.1); TOTAL PROTEIN 5.2 GM/DL (6.4-8.2)
[2022-01-25] MEDS: FOLIC ACID 1 MG TAB PO SCH (09:32)
[2022-01-25] MEDS: FERROUS GLUCONATE 324 MG TAB PO SCH (09:32)
[2022-01-25] MEDS: OMEPRAZOLE 20MG CAP PO SCH (09:32)
[2022-01-25] MEDS: DOCUSATE SODIUM 100MG CAPSULE PO SCH ×2 (09:32→20:51)
[2022-01-25] MEDS: LACTOBACILLUS ACIDOPHILUS CAP (BACID) PO SCH ×2 (09:32→17:10)
[2022-01-25] MEDS: FLUCONAZOLE 50MG TABLET PO SCH (09:32)
[2022-01-25] MEDS: guaiFENesin ER 600 MG TAB PO SCH ×2 (09:32→20:51)
[2022-01-25] MEDS: APIXABAN 2.5 MG TAB (ELIQUIS) PO SCH ×2 (09:32→20:51)
[2022-01-25] MEDS: CYANOCOBALAMIN 500 MCG TAB PO SCH (09:32)
[2022-01-25] MEDS: SPIRONOLACTONE 25 MG TAB PO SCH ×2 (09:32→17:09)
[2022-01-25] MEDS ORDERED: ONDANSETRON 4MG/2ML VIAL IV PRN (10:35)
[2022-01-25] MEDS: ONDANSETRON 4MG ORAL DISINTEGRATING TAB SL PRN (11:20)
[2022-01-25] MEDS: TAMSULOSIN 0.4 MG CAP PO SCH (20:51)
[2022-01-25] MEDS: SIMVASTATIN 20 MG TAB PO SCH (20:51)
[2022-01-25] MEDS: AMITRIPTYLINE 25MG TABLET PO SCH (20:51)
[2022-01-25] MEDS: traMADol 50 MG TAB PO PRN (20:52)
[2022-01-26 05:11] VITALS: BP 99/62
[2022-01-26] MEDS: CIPROFLOXACIN 500MG TABLET PO SCH (05:17)
[2022-01-26 06:23] LABS: HEMATOCRIT 26.6 % (36.0-47.0); HEMOGLOBIN 8.8 g/dl (12.0-15.5); MEAN CORPUSCULAR HEMOGLOBIN 30.2 pg (27.0-33.0); MEAN CORPUSCULAR HGB CONC 33.1 g/dl (32.0-36.5); MEAN CORPUSCULAR VOLUME 91.4 fl (80.0-96.0); PLATELET COUNT, AUTOMATED 138 10^3/uL (150-450); RED BLOOD COUNT 2.91 10^6/uL (4.00-5.40)
[2022-01-26 06:48] LABS: ALBUMIN 1.9 GM/DL (3.2-5.2); BILIRUBIN,TOTAL 0.7 MG/DL (0.2-1.0); CALCIUM LEVEL 7.9 MG/DL (8.8-10.2); CREATININE FOR GFR 2.39 MG/DL (0.55-1.30); GLOMERULAR FILTRATION RATE 21.7 (>45); POTASSIUM SERUM 4.2 MEQ/L (3.5-5.1)
[2022-01-26] MEDS: FLUCONAZOLE 50MG TABLET PO SCH (08:41)
[2022-01-26] MEDS: guaiFENesin ER 600 MG TAB PO SCH ×2 (08:41→21:26)
[2022-01-26] MEDS: OMEPRAZOLE 20MG CAP PO SCH (08:41)
[2022-01-26] MEDS: CYANOCOBALAMIN 500 MCG TAB PO SCH (08:41)
[2022-01-26] MEDS: LACTOBACILLUS ACIDOPHILUS CAP (BACID) PO SCH ×2 (08:41→17:01)
[2022-01-26] MEDS: APIXABAN 2.5 MG TAB (ELIQUIS) PO SCH ×2 (08:41→21:26)
[2022-01-26] MEDS: FOLIC ACID 1 MG TAB PO SCH (08:41)
[2022-01-26] MEDS: DOCUSATE SODIUM 100MG CAPSULE PO SCH ×2 (08:42→21:26)
[2022-01-26] MEDS: FERROUS GLUCONATE 324 MG TAB PO SCH (08:42)
[2022-01-26] MEDS: NS 1,000 ML IV SCH ×2 (08:42→21:27)
[2022-01-26] MEDS: ONDANSETRON 4MG ORAL DISINTEGRATING TAB SL PRN (17:01)
[2022-01-26 19:09] LABS: INR 1.35; PARTIAL THROMBOPLASTIN TIME 32.8 SECONDS (25.9-37.0); PROTHROMBIN TIME 17.1 SECONDS (12.7-14.5)
[2022-01-26] MEDS ORDERED: CAPSAICIN 0.025% CR 60 GM TOP PRN (21:10)
[2022-01-26] MEDS: AMITRIPTYLINE 25MG TABLET PO SCH (21:26)
[2022-01-26] MEDS: SIMVASTATIN 20 MG TAB PO SCH (21:26)
[2022-01-26] MEDS: TAMSULOSIN 0.4 MG CAP PO SCH (21:26)
[2022-01-26] MEDS: RAMELTEON 8 MG TAB (ROZEREM) PO PRN (21:26)
[2022-01-26] MEDS: traMADol 50 MG TAB PO PRN (21:27)
[2022-01-27 05:04] VITALS: BP 97/60
[2022-01-27] MEDS: CIPROFLOXACIN 500MG TABLET PO SCH (06:11)
[2022-01-27] MEDS: LACTOBACILLUS ACIDOPHILUS CAP (BACID) PO SCH ×2 (08:11→17:37)
[2022-01-27] MEDS: FOLIC ACID 1 MG TAB PO SCH (08:11)
[2022-01-27] MEDS: OMEPRAZOLE 20MG CAP PO SCH (08:11)
[2022-01-27] MEDS: DOCUSATE SODIUM 100MG CAPSULE PO SCH ×2 (08:11→20:41)
[2022-01-27] MEDS: CYANOCOBALAMIN 500 MCG TAB PO SCH (08:11)
[2022-01-27] MEDS: guaiFENesin ER 600 MG TAB PO SCH ×2 (08:11→20:41)
[2022-01-27] MEDS: FERROUS GLUCONATE 324 MG TAB PO SCH (08:11)
[2022-01-27] MEDS: APIXABAN 2.5 MG TAB (ELIQUIS) PO SCH ×2 (09:00→20:41)
[2022-01-27] MEDS: NS 1,000 ML IV SCH (12:42)
[2022-01-27 13:52] LABS: HEMATOCRIT 24.6 % (36.0-47.0); HEMOGLOBIN 8.3 g/dl (12.0-15.5); MEAN CORPUSCULAR HEMOGLOBIN 31.1 pg (27.0-33.0); MEAN CORPUSCULAR HGB CONC 33.7 g/dl (32.0-36.5); MEAN CORPUSCULAR VOLUME 92.1 fl (80.0-96.0); PLATELET COUNT, AUTOMATED 119 10^3/uL (150-450); RED BLOOD COUNT 2.67 10^6/uL (4.00-5.40); WHITE BLOOD COUNT 6.9 10^3/uL (4.0-10.0)
[2022-01-27 14:21] LABS: BILIRUBIN,TOTAL 0.5 MG/DL (0.2-1.0); CALCIUM LEVEL 7.1 MG/DL (8.8-10.2); CREATININE FOR GFR 2.67 MG/DL (0.55-1.30); GLOMERULAR FILTRATION RATE 19.1 (>45); POTASSIUM SERUM 4.7 MEQ/L (3.5-5.1); TOTAL PROTEIN 4.9 GM/DL (6.4-8.2)
[2022-01-27 15:00] VITALS: BP 130/60
[2022-01-27 17:30] VITALS: BP 114/66
[2022-01-27] MEDS: SPIRONOLACTONE 25 MG TAB PO SCH (17:37)
[2022-01-27] MEDS: TAMSULOSIN 0.4 MG CAP PO SCH (20:41)
[2022-01-27] MEDS: RAMELTEON 8 MG TAB (ROZEREM) PO PRN (20:41)
[2022-01-27] MEDS: SIMVASTATIN 20 MG TAB PO SCH (20:41)
[2022-01-27] MEDS: AMITRIPTYLINE 25MG TABLET PO SCH (20:41)
[2022-01-27] MEDS: traMADol 50 MG TAB PO PRN (20:42)
[2022-01-28 05:13] VITALS: BP 99/60
[2022-01-28] MEDS: CIPROFLOXACIN 500MG TABLET PO SCH (05:33)
[2022-01-28 06:07] LABS: HEMATOCRIT 23.3 % (36.0-47.0); HEMOGLOBIN 7.7 g/dl (12.0-15.5); MEAN CORPUSCULAR HEMOGLOBIN 30.1 pg (27.0-33.0); PLATELET COUNT, AUTOMATED 109 10^3/uL (150-450); RED BLOOD COUNT 2.56 10^6/uL (4.00-5.40)
[2022-01-28 06:39] LABS: ALBUMIN 1.8 GM/DL (3.2-5.2); BILIRUBIN,TOTAL 0.4 MG/DL (0.2-1.0); CALCIUM LEVEL 7.1 MG/DL (8.8-10.2); CREATININE FOR GFR 2.27 MG/DL (0.55-1.30); POTASSIUM SERUM 4.5 MEQ/L (3.5-5.1); TOTAL PROTEIN 4.7 GM/DL (6.4-8.2)
[2022-01-28] MEDS: DOCUSATE SODIUM 100MG CAPSULE PO SCH ×2 (07:45→19:49)
[2022-01-28] MEDS: LACTOBACILLUS ACIDOPHILUS CAP (BACID) PO SCH ×2 (07:45→17:24)
[2022-01-28] MEDS: OMEPRAZOLE 20MG CAP PO SCH (07:45)
[2022-01-28] MEDS: APIXABAN 2.5 MG TAB (ELIQUIS) PO SCH ×2 (07:46→19:48)
[2022-01-28] MEDS: FERROUS GLUCONATE 324 MG TAB PO SCH (07:46)
[2022-01-28] MEDS: guaiFENesin ER 600 MG TAB PO SCH ×2 (07:46→19:49)
[2022-01-28] MEDS: CYANOCOBALAMIN 500 MCG TAB PO SCH (07:46)
[2022-01-28] MEDS: FOLIC ACID 1 MG TAB PO SCH (07:46)
[2022-01-28] MEDS: SPIRONOLACTONE 25 MG TAB PO SCH ×2 (07:46→17:24)
[2022-01-28] MEDS: RAMELTEON 8 MG TAB (ROZEREM) PO PRN (19:48)
[2022-01-28] MEDS: AMITRIPTYLINE 25MG TABLET PO SCH (19:48)
[2022-01-28] MEDS: TAMSULOSIN 0.4 MG CAP PO SCH (19:49)
[2022-01-28] MEDS: SIMVASTATIN 20 MG TAB PO SCH (19:49)
[2022-01-28] MEDS: traMADol 50 MG TAB PO PRN (19:50)
[2022-01-28] MEDS: MOM 30ML SUSPENSION UDC PO PRN (20:00)
[2022-01-28] MEDS ORDERED: D5W/0.9% SODIUM CHLORIDE 1,000 ML IV SCH (21:45)
[2022-01-28 22:00] VITALS: BP 102/63
[2022-01-29 04:32] VITALS: BP 110/57
[2022-01-29] MEDS: CIPROFLOXACIN 500MG TABLET PO SCH (05:05)
[2022-01-29 06:09] LABS: BASO % 0.4 % (0.0-1.0); EOS # 0.1 10^3/uL (0.0-0.5); EOS % 1.6 % (0.0-3.0); HEMOGLOBIN 8.1 g/dl (12.0-15.5); LYMPH # 1.3 10^3/uL (1.5-5.0); LYMPH % 22.4 % (24.0-44.0); MEAN CORPUSCULAR HEMOGLOBIN 30.6 pg (27.0-33.0); MEAN CORPUSCULAR HGB CONC 33.8 g/dl (32.0-36.5); MEAN CORPUSCULAR VOLUME 90.6 fl (80.0-96.0); MONO # 0.4 10^3/uL (0.0-0.8); MONO % 6.4 % (2.0-8.0); NEUTROPHILS # 3.8 10^3/uL (1.5-8.5); NEUTROPHILS % 67.8 % (36.0-66.0); PLATELET COUNT, AUTOMATED 111 10^3/uL (150-450); RED BLOOD COUNT 2.65 10^6/uL (4.00-5.40); WHITE BLOOD COUNT 5.6 10^3/uL (4.0-10.0)
[2022-01-29 06:27] LABS: CALCIUM LEVEL 7.3 MG/DL (8.8-10.2); CREATININE FOR GFR 2.3 MG/DL (0.55-1.30); GLOMERULAR FILTRATION RATE 22.7 (>45); MAGNESIUM LEVEL 2.1 MG/DL (1.8-2.4); POTASSIUM SERUM 4.8 MEQ/L (3.5-5.1)
[2022-01-29] MEDS: guaiFENesin ER 600 MG TAB PO SCH ×2 (08:10→20:15)
[2022-01-29] MEDS: CYANOCOBALAMIN 500 MCG TAB PO SCH (08:10)
[2022-01-29] MEDS: APIXABAN 2.5 MG TAB (ELIQUIS) PO SCH ×2 (08:10→20:16)
[2022-01-29] MEDS: LACTOBACILLUS ACIDOPHILUS CAP (BACID) PO SCH ×2 (08:10→17:06)
[2022-01-29] MEDS: FOLIC ACID 1 MG TAB PO SCH (08:10)
[2022-01-29] MEDS: SPIRONOLACTONE 25 MG TAB PO SCH ×2 (08:11→17:07)
[2022-01-29] MEDS: FERROUS GLUCONATE 324 MG TAB PO SCH (08:11)
[2022-01-29] MEDS: OMEPRAZOLE 20MG CAP PO SCH (08:11)
[2022-01-29] MEDS: DOCUSATE SODIUM 100MG CAPSULE PO SCH ×2 (08:11→20:15)
[2022-01-29] MEDS ORDERED: GLYCERIN ADULT SUPP PR ONE (16:00)
[2022-01-29] MEDS: LACTULOSE 20 GM/30 ML SYRUP UD PO SCH (17:06)
[2022-01-29] MEDS: ACETAMINOPHEN TAB 650MG DOSE (2X325MG) PO PRN (18:31)
[2022-01-29] MEDS: TAMSULOSIN 0.4 MG CAP PO SCH (20:15)
[2022-01-29] MEDS: AMITRIPTYLINE 25MG TABLET PO SCH (20:16)
[2022-01-29] MEDS: SIMVASTATIN 20 MG TAB PO SCH (20:16)
[2022-01-30] VITALS (9 sets, daily range): BP systolic 67–110; BP diastolic 45–67
[2022-01-30] MEDS: LACTULOSE 20 GM/30 ML SYRUP UD PO SCH ×4 (06:01→18:27)
[2022-01-30] MEDS: CIPROFLOXACIN 500MG TABLET PO SCH (06:01)
[2022-01-30] MEDS: FOLIC ACID 1 MG TAB PO SCH ×2 (09:00→09:07)
[2022-01-30] MEDS: DOCUSATE SODIUM 100MG CAPSULE PO SCH ×3 (09:00→20:04)
[2022-01-30] MEDS: SPIRONOLACTONE 25 MG TAB PO SCH (09:00)
[2022-01-30] MEDS: guaiFENesin ER 600 MG TAB PO SCH ×3 (09:00→20:05)
[2022-01-30] MEDS ORDERED: NS 500 ML IV ONE (09:00)
[2022-01-30] MEDS: APIXABAN 2.5 MG TAB (ELIQUIS) PO SCH ×3 (09:00→20:05)
[2022-01-30] MEDS: CYANOCOBALAMIN 500 MCG TAB PO SCH ×2 (09:00→09:07)
[2022-01-30] MEDS: OMEPRAZOLE 20MG CAP PO SCH ×2 (09:00→09:07)
[2022-01-30] MEDS: FERROUS GLUCONATE 324 MG TAB PO SCH ×2 (09:00→09:07)
[2022-01-30] MEDS: LACTOBACILLUS ACIDOPHILUS CAP (BACID) PO SCH ×3 (09:07→18:27)
[2022-01-30 09:22] LABS: BASO % 0.1 % (0.0-1.0); EOS % 0.4 % (0.0-3.0); HEMATOCRIT 27.4 % (36.0-47.0); LYMPH # 1.2 10^3/uL (1.5-5.0); LYMPH % 13.2 % (24.0-44.0); MEAN CORPUSCULAR HEMOGLOBIN 30.2 pg (27.0-33.0); MEAN CORPUSCULAR HGB CONC 32.8 g/dl (32.0-36.5); MEAN CORPUSCULAR VOLUME 91.9 fl (80.0-96.0); MONO # 0.4 10^3/uL (0.0-0.8); MONO % 4.8 % (2.0-8.0); NEUTROPHILS # 7.2 10^3/uL (1.5-8.5); NEUTROPHILS % 80.6 % (36.0-66.0); PLATELET COUNT, AUTOMATED 162 10^3/uL (150-450); RED BLOOD COUNT 2.98 10^6/uL (4.00-5.40); WHITE BLOOD COUNT 8.9 10^3/uL (4.0-10.0)
[2022-01-30] MEDS: ONDANSETRON 4MG ORAL DISINTEGRATING TAB SL PRN (09:32)
[2022-01-30 09:50] LABS: CREATININE FOR GFR 2.26 MG/DL (0.55-1.30); GLOMERULAR FILTRATION RATE 23.1 (>45); POTASSIUM SERUM 4.8 MEQ/L (3.5-5.1)
[2022-01-30 09:51] LABS: ALBUMIN 1.9 GM/DL (3.2-5.2); BILIRUBIN,TOTAL 0.5 MG/DL (0.2-1.0); CALCIUM LEVEL 7.8 MG/DL (8.8-10.2); MAGNESIUM LEVEL 2.9 MG/DL (1.8-2.4); TOTAL PROTEIN 5.1 GM/DL (6.4-8.2)
[2022-01-30] MEDS: MIDODRINE 2.5 MG TAB PO SCH ×2 (12:50→15:37)
[2022-01-30] MEDS: ACETAMINOPHEN TAB 650MG DOSE (2X325MG) PO PRN (18:27)
[2022-01-30] MEDS ORDERED: NS 1,000 ML IV ONE (19:30)
[2022-01-30] MEDS: SIMVASTATIN 20 MG TAB PO SCH (20:05)
[2022-01-30] MEDS: AMITRIPTYLINE 25MG TABLET PO SCH (20:05)
[2022-01-31] MEDS: LACTULOSE 20 GM/30 ML SYRUP UD PO SCH ×4 (00:14→18:54)
[2022-01-31 05:00] VITALS: BP_SYST 106; BP_SYST 64; BP_DIAS 46; BP_DIAS 64
[2022-01-31 05:05] VITALS: BP 106/64
[2022-01-31] MEDS: CIPROFLOXACIN 500MG TABLET PO SCH (05:05)
[2022-01-31 06:24] LABS: BASO % 0.2 % (0.0-1.0); EOS % 0.7 % (0.0-3.0); HEMATOCRIT 26.4 % (36.0-47.0); HEMOGLOBIN 8.6 g/dl (12.0-15.5); LYMPH # 1.1 10^3/uL (1.5-5.0); LYMPH % 18.6 % (24.0-44.0); MEAN CORPUSCULAR HEMOGLOBIN 30.8 pg (27.0-33.0); MEAN CORPUSCULAR HGB CONC 32.6 g/dl (32.0-36.5); MEAN CORPUSCULAR VOLUME 94.6 fl (80.0-96.0); MONO # 0.3 10^3/uL (0.0-0.8); MONO % 5.1 % (2.0-8.0); NEUTROPHILS # 4.4 10^3/uL (1.5-8.5); NEUTROPHILS % 74.4 % (36.0-66.0); PLATELET COUNT, AUTOMATED 126 10^3/uL (150-450); RED BLOOD COUNT 2.79 10^6/uL (4.00-5.40); WHITE BLOOD COUNT 5.9 10^3/uL (4.0-10.0)
[2022-01-31 06:54] LABS: CALCIUM LEVEL 7.5 MG/DL (8.8-10.2); CREATININE FOR GFR 2.02 MG/DL (0.55-1.30); GLOMERULAR FILTRATION RATE 26.3 (>45)
[2022-01-31 06:55] LABS: ALBUMIN 1.8 GM/DL (3.2-5.2); BILIRUBIN,TOTAL 0.5 MG/DL (0.2-1.0); MAGNESIUM LEVEL 2.7 MG/DL (1.8-2.4); TOTAL PROTEIN 4.8 GM/DL (6.4-8.2)
[2022-01-31] MEDS: LR 1,000 ML IV SCH ×2 (07:54→21:53)
[2022-01-31] MEDS ORDERED: SPIRONOLACTONE 12.5MG PER 1/2 TABLET PO SCH (09:00)
[2022-01-31 09:03] LABS: CORTISOL AM 20.2 UG/DL (4.3-22.4)
[2022-01-31] MEDS: DOCUSATE SODIUM 100MG CAPSULE PO SCH ×2 (09:27→20:10)
[2022-01-31] MEDS: CYANOCOBALAMIN 500 MCG TAB PO SCH (09:27)
[2022-01-31] MEDS: MIDODRINE 2.5 MG TAB PO SCH ×3 (09:27→16:18)
[2022-01-31] MEDS: FOLIC ACID 1 MG TAB PO SCH (09:27)
[2022-01-31] MEDS: OMEPRAZOLE 20MG CAP PO SCH (09:27)
[2022-01-31] MEDS: FERROUS GLUCONATE 324 MG TAB PO SCH (09:27)
[2022-01-31] MEDS: LACTOBACILLUS ACIDOPHILUS CAP (BACID) PO SCH ×2 (09:27→18:54)
[2022-01-31] MEDS: APIXABAN 2.5 MG TAB (ELIQUIS) PO SCH ×2 (09:28→20:09)
[2022-01-31] MEDS: guaiFENesin ER 600 MG TAB PO SCH ×2 (09:28→20:10)
[2022-01-31 14:00] VITALS: BP_SYST 104; BP_SYST 105; BP_SYST 64; BP_DIAS 46; BP_DIAS 67
[2022-01-31 19:45] VITALS: BP 115/63
[2022-01-31] MEDS: RAMELTEON 8 MG TAB (ROZEREM) PO PRN (20:09)
[2022-01-31] MEDS: MOM 30ML SUSPENSION UDC PO PRN (20:10)
[2022-01-31] MEDS: AMITRIPTYLINE 25MG TABLET PO SCH (20:10)
[2022-01-31] MEDS: SIMVASTATIN 20 MG TAB PO SCH (20:10)
[2022-01-31 22:00] VITALS: BP 122/69
[2022-01-31 23:01] VITALS: BP 120/69
[2022-02-01] VITALS (15 sets, daily range): BP systolic 88–122; BP diastolic 50–71
[2022-02-01] MEDS: CIPROFLOXACIN 500MG TABLET PO SCH (05:28)
[2022-02-01] MEDS: LACTULOSE 20 GM/30 ML SYRUP UD PO SCH ×4 (05:28→16:54)
[2022-02-01 08:50] LABS: BASO % 0.5 % (0.0-1.0); EOS % 1.5 % (0.0-3.0); LYMPH # 0.6 10^3/uL (1.5-5.0); LYMPH % 30.5 % (24.0-44.0); MEAN CORPUSCULAR HEMOGLOBIN 31.3 pg (27.0-33.0); MEAN CORPUSCULAR HGB CONC 33.2 g/dl (32.0-36.5); MEAN CORPUSCULAR VOLUME 94.5 fl (80.0-96.0); MONO # 0.1 10^3/uL (0.0-0.8); MONO % 6.9 % (2.0-8.0); NEUTROPHILS # 1.2 10^3/uL (1.5-8.5); NEUTROPHILS % 59.1 % (36.0-66.0); RED BLOOD COUNT 2.17 10^6/uL (4.00-5.40)
[2022-02-01] MEDS ORDERED: SPIRONOLACTONE 25 MG TAB PO SCH (09:00)
[2022-02-01 09:09] LABS: ALBUMIN 3.1 GM/DL (3.2-5.2); BILIRUBIN,TOTAL 0.6 MG/DL (0.2-1.0); CALCIUM LEVEL 7.9 MG/DL (8.8-10.2); CREATININE FOR GFR 2.04 MG/DL (0.55-1.30); POTASSIUM SERUM 4.3 MEQ/L (3.5-5.1); TOTAL PROTEIN 5.2 GM/DL (6.4-8.2)
[2022-02-01] MEDS: OMEPRAZOLE 20MG CAP PO SCH (09:09)
[2022-02-01] MEDS: FERROUS GLUCONATE 324 MG TAB PO SCH (09:09)
[2022-02-01] MEDS: APIXABAN 2.5 MG TAB (ELIQUIS) PO SCH (09:09)
[2022-02-01] MEDS: FOLIC ACID 1 MG TAB PO SCH (09:09)
[2022-02-01] MEDS: MIDODRINE 2.5 MG TAB PO SCH ×3 (09:09→16:54)
[2022-02-01] MEDS: LACTOBACILLUS ACIDOPHILUS CAP (BACID) PO SCH ×2 (09:10→16:55)
[2022-02-01] MEDS: DOCUSATE SODIUM 100MG CAPSULE PO SCH ×2 (09:10→20:43)
[2022-02-01] MEDS: CYANOCOBALAMIN 500 MCG TAB PO SCH (09:10)
[2022-02-01] MEDS: guaiFENesin ER 600 MG TAB PO SCH ×2 (09:10→20:43)
[2022-02-01 09:22] LABS: HEMATOCRIT 20.5 % (36.0-47.0)
[2022-02-01 09:23] LABS: HEMOGLOBIN 6.8 g/dl (12.0-15.5); PLATELET COUNT, AUTOMATED 84 10^3/uL (150-450)
[2022-02-01] MEDS: D5W/0.9% SODIUM CHLORIDE 1,000 ML IV SCH ×2 (13:20→23:34)
[2022-02-01] MEDS: RAMELTEON 8 MG TAB (ROZEREM) PO PRN (20:43)
[2022-02-01] MEDS: ACETAMINOPHEN TAB 650MG DOSE (2X325MG) PO PRN (20:43)
[2022-02-01] MEDS: AMITRIPTYLINE 25MG TABLET PO SCH (20:43)
[2022-02-01] MEDS: SIMVASTATIN 20 MG TAB PO SCH (20:43)
[2022-02-02 05:18] VITALS: BP 117/58
[2022-02-02] MEDS: CIPROFLOXACIN 500MG TABLET PO SCH (05:39)
[2022-02-02] MEDS: LACTULOSE 20 GM/30 ML SYRUP UD PO SCH ×2 (05:53)
[2022-02-02] MEDS: FOLIC ACID 1 MG TAB PO SCH (08:06)
[2022-02-02] MEDS: LACTOBACILLUS ACIDOPHILUS CAP (BACID) PO SCH ×2 (08:06→18:36)
[2022-02-02] MEDS: guaiFENesin ER 600 MG TAB PO SCH ×2 (08:06→21:30)
[2022-02-02] MEDS: OMEPRAZOLE 20MG CAP PO SCH (08:06)
[2022-02-02] MEDS: FERROUS GLUCONATE 324 MG TAB PO SCH (08:06)
[2022-02-02] MEDS: DOCUSATE SODIUM 100MG CAPSULE PO SCH ×2 (08:06→21:29)
[2022-02-02] MEDS: MIDODRINE 2.5 MG TAB PO SCH ×3 (08:06→16:35)
[2022-02-02] MEDS: CYANOCOBALAMIN 500 MCG TAB PO SCH (08:07)
[2022-02-02 08:56] LABS: BASO % 0.7 % (0.0-1.0); EOS # 0.1 10^3/uL (0.0-0.5); EOS % 1.1 % (0.0-3.0); HEMATOCRIT 36.7 % (36.0-47.0); LYMPH # 0.9 10^3/uL (1.5-5.0); LYMPH % 19.9 % (24.0-44.0); MEAN CORPUSCULAR HEMOGLOBIN 27.6 pg (27.0-33.0); MEAN CORPUSCULAR HGB CONC 32.4 g/dl (32.0-36.5); MEAN CORPUSCULAR VOLUME 85.2 fl (80.0-96.0); MONO # 0.3 10^3/uL (0.0-0.8); MONO % 6.5 % (2.0-8.0); NEUTROPHILS # 3.2 10^3/uL (1.5-8.5); NEUTROPHILS % 71.1 % (36.0-66.0); RED BLOOD COUNT 4.31 10^6/uL (4.00-5.40); WHITE BLOOD COUNT 4.5 10^3/uL (4.0-10.0)
[2022-02-02 08:59] LABS: HEMOGLOBIN 11.9 g/dl (12.0-15.5); PLATELET COUNT, AUTOMATED 90 10^3/uL (150-450)
[2022-02-02 09:15] LABS: ALBUMIN 2.9 GM/DL (3.2-5.2); BILIRUBIN,TOTAL 1.1 MG/DL (0.2-1.0); CALCIUM LEVEL 7.9 MG/DL (8.8-10.2); CREATININE FOR GFR 1.89 MG/DL (0.55-1.30); GLOMERULAR FILTRATION RATE 28.4 (>45); MAGNESIUM LEVEL 3.1 MG/DL (1.8-2.4); POTASSIUM SERUM 4.1 MEQ/L (3.5-5.1); TOTAL PROTEIN 5.4 GM/DL (6.4-8.2)
[2022-02-02] MEDS: D5W/0.9% SODIUM CHLORIDE 1,000 ML IV SCH ×2 (09:48→21:29)
[2022-02-02 13:30] VITALS: BP 110/70
[2022-02-02 18:05] VITALS: BP 103/68
[2022-02-02] MEDS: APIXABAN 2.5 MG TAB (ELIQUIS) PO SCH (21:29)
[2022-02-02] MEDS: SIMVASTATIN 20 MG TAB PO SCH (21:30)
[2022-02-02] MEDS: AMITRIPTYLINE 25MG TABLET PO SCH (21:30)
[2022-02-02 22:00] VITALS: BP 111/70
[2022-02-03] MEDS: ACETAMINOPHEN TAB 650MG DOSE (2X325MG) PO PRN (03:48)
[2022-02-03] MEDS: D5W/0.9% SODIUM CHLORIDE 1,000 ML IV SCH ×2 (05:29→16:17)
[2022-02-03] MEDS: CIPROFLOXACIN 500MG TABLET PO SCH (05:29)
[2022-02-03 06:00] VITALS: BP 105/65
[2022-02-03 07:10] LABS: BASO % 0.2 % (0.0-1.0); EOS # 0.1 10^3/uL (0.0-0.5); EOS % 0.5 % (0.0-3.0); HEMATOCRIT 40.2 % (36.0-47.0); HEMOGLOBIN 13.1 g/dl (12.0-15.5); LYMPH # 1.2 10^3/uL (1.5-5.0); LYMPH % 12.4 % (24.0-44.0); MEAN CORPUSCULAR HEMOGLOBIN 28.1 pg (27.0-33.0); MEAN CORPUSCULAR HGB CONC 32.6 g/dl (32.0-36.5); MEAN CORPUSCULAR VOLUME 86.3 fl (80.0-96.0); MONO # 0.4 10^3/uL (0.0-0.8); MONO % 4.2 % (2.0-8.0); NEUTROPHILS # 7.9 10^3/uL (1.5-8.5); NEUTROPHILS % 81.8 % (36.0-66.0); RED BLOOD COUNT 4.66 10^6/uL (4.00-5.40); WHITE BLOOD COUNT 9.7 10^3/uL (4.0-10.0)
[2022-02-03 07:19] LABS: PLATELET COUNT, AUTOMATED 93 10^3/uL (150-450)
[2022-02-03 07:53] LABS: ALBUMIN 2.6 GM/DL (3.2-5.2); BILIRUBIN,TOTAL 0.7 MG/DL (0.2-1.0); CALCIUM LEVEL 7.8 MG/DL (8.8-10.2); CREATININE FOR GFR 1.83 MG/DL (0.55-1.30); GLOMERULAR FILTRATION RATE 29.5 (>45); MAGNESIUM LEVEL 2.8 MG/DL (1.8-2.4); POTASSIUM SERUM 4.8 MEQ/L (3.5-5.1); TOTAL PROTEIN 5.1 GM/DL (6.4-8.2)
[2022-02-03] MEDS: DOCUSATE SODIUM 100MG CAPSULE PO SCH ×2 (10:09→21:04)
[2022-02-03] MEDS: OMEPRAZOLE 20MG CAP PO SCH (10:09)
[2022-02-03] MEDS: LACTOBACILLUS ACIDOPHILUS CAP (BACID) PO SCH ×2 (10:09→17:58)
[2022-02-03] MEDS: CYANOCOBALAMIN 500 MCG TAB PO SCH (10:10)
[2022-02-03] MEDS: guaiFENesin ER 600 MG TAB PO SCH ×2 (10:10→21:03)
[2022-02-03] MEDS: FOLIC ACID 1 MG TAB PO SCH (10:10)
[2022-02-03] MEDS: APIXABAN 2.5 MG TAB (ELIQUIS) PO SCH ×2 (10:10→21:04)
[2022-02-03] MEDS: MIDODRINE 2.5 MG TAB PO SCH ×3 (10:10→16:16)
[2022-02-03] MEDS: FERROUS GLUCONATE 324 MG TAB PO SCH (10:10)
[2022-02-03 14:00] VITALS: BP 96/63
[2022-02-03 15:25] VITALS: BP 115/72
[2022-02-03] MEDS: SIMVASTATIN 20 MG TAB PO SCH (21:04)
[2022-02-03] MEDS: AMITRIPTYLINE 25MG TABLET PO SCH (21:04)
[2022-02-03 22:00] VITALS: BP 115/71
[2022-02-04] MEDS: D5W/0.9% SODIUM CHLORIDE 1,000 ML IV SCH (01:30)
[2022-02-04] MEDS: ACETAMINOPHEN TAB 650MG DOSE (2X325MG) PO PRN (04:37)
[2022-02-04 05:35] LABS: BASO % 0.4 % (0.0-1.0); EOS # 0.1 10^3/uL (0.0-0.5); EOS % 1.4 % (0.0-3.0); HEMATOCRIT 36.8 % (36.0-47.0); LYMPH % 14.1 % (24.0-44.0); MEAN CORPUSCULAR HEMOGLOBIN 27.9 pg (27.0-33.0); MEAN CORPUSCULAR HGB CONC 32.6 g/dl (32.0-36.5); MEAN CORPUSCULAR VOLUME 85.6 fl (80.0-96.0); MONO # 0.4 10^3/uL (0.0-0.8); MONO % 5.1 % (2.0-8.0); NEUTROPHILS # 5.7 10^3/uL (1.5-8.5); NEUTROPHILS % 78.2 % (36.0-66.0); WHITE BLOOD COUNT 7.3 10^3/uL (4.0-10.0)
[2022-02-04 05:36] LABS: PLATELET COUNT, AUTOMATED 83 10^3/uL (150-450)
[2022-02-04] MEDS: CIPROFLOXACIN 500MG TABLET PO SCH (05:40)
[2022-02-04 05:43] VITALS: BP 112/70
[2022-02-04 06:02] LABS: ALBUMIN 2.4 GM/DL (3.2-5.2); BILIRUBIN,TOTAL 0.7 MG/DL (0.2-1.0); CALCIUM LEVEL 7.3 MG/DL (8.8-10.2); CREATININE FOR GFR 1.79 MG/DL (0.55-1.30); GLOMERULAR FILTRATION RATE 30.3 (>45); MAGNESIUM LEVEL 2.6 MG/DL (1.8-2.4); TOTAL PROTEIN 4.7 GM/DL (6.4-8.2)
[2022-02-04] MEDS: APIXABAN 2.5 MG TAB (ELIQUIS) PO SCH ×2 (10:11→20:08)
[2022-02-04] MEDS: FERROUS GLUCONATE 324 MG TAB PO SCH (10:11)
[2022-02-04] MEDS: FOLIC ACID 1 MG TAB PO SCH (10:11)
[2022-02-04] MEDS: guaiFENesin ER 600 MG TAB PO SCH ×2 (10:11→20:08)
[2022-02-04] MEDS: CYANOCOBALAMIN 500 MCG TAB PO SCH (10:11)
[2022-02-04] MEDS: OMEPRAZOLE 20MG CAP PO SCH (10:11)
[2022-02-04] MEDS: DOCUSATE SODIUM 100MG CAPSULE PO SCH ×2 (10:11→20:08)
[2022-02-04] MEDS: MIDODRINE 2.5 MG TAB PO SCH ×3 (10:11→17:21)
[2022-02-04] MEDS: LACTOBACILLUS ACIDOPHILUS CAP (BACID) PO SCH ×2 (10:13→17:21)
[2022-02-04 15:46] VITALS: BP 100/60
[2022-02-04] MEDS: SIMVASTATIN 20 MG TAB PO SCH (20:08)
[2022-02-04] MEDS: AMITRIPTYLINE 25MG TABLET PO SCH (20:08)
[2022-02-04 22:00] VITALS: BP 75/56
[2022-02-05 00:56] VITALS: BP 97/61
[2022-02-05] MEDS: CIPROFLOXACIN 500MG TABLET PO SCH (05:33)
[2022-02-05 06:00] VITALS: BP 100/64
[2022-02-05 06:10] LABS: HEMATOCRIT 35.4 % (36.0-47.0); HEMOGLOBIN 11.6 g/dl (12.0-15.5); MEAN CORPUSCULAR HEMOGLOBIN 28.2 pg (27.0-33.0); MEAN CORPUSCULAR HGB CONC 32.8 g/dl (32.0-36.5); MEAN CORPUSCULAR VOLUME 86.1 fl (80.0-96.0); RED BLOOD COUNT 4.11 10^6/uL (4.00-5.40); WHITE BLOOD COUNT 6.1 10^3/uL (4.0-10.0)
[2022-02-05 06:24] LABS: PLATELET COUNT, AUTOMATED 73 10^3/uL (150-450)
[2022-02-05 06:30] LABS: ALBUMIN 2.2 GM/DL (3.2-5.2); BILIRUBIN,TOTAL 0.9 MG/DL (0.2-1.0); CALCIUM LEVEL 7.8 MG/DL (8.8-10.2); CREATININE FOR GFR 1.83 MG/DL (0.55-1.30); GLOMERULAR FILTRATION RATE 29.5 (>45); TOTAL PROTEIN 4.9 GM/DL (6.4-8.2)
[2022-02-05] MEDS: LACTOBACILLUS ACIDOPHILUS CAP (BACID) PO SCH ×2 (09:30→18:33)
[2022-02-05] MEDS: OMEPRAZOLE 20MG CAP PO SCH (09:30)
[2022-02-05] MEDS: DOCUSATE SODIUM 100MG CAPSULE PO SCH ×2 (09:30→20:04)
[2022-02-05] MEDS: guaiFENesin ER 600 MG TAB PO SCH ×2 (09:30→20:05)
[2022-02-05] MEDS: FOLIC ACID 1 MG TAB PO SCH (09:30)
[2022-02-05] MEDS: FERROUS GLUCONATE 324 MG TAB PO SCH (09:30)
[2022-02-05] MEDS: APIXABAN 2.5 MG TAB (ELIQUIS) PO SCH ×2 (09:30→20:05)
[2022-02-05] MEDS: CYANOCOBALAMIN 500 MCG TAB PO SCH (09:30)
[2022-02-05] MEDS: MIDODRINE 5 MG TAB PO SCH ×3 (09:30→16:23)
[2022-02-05] MEDS: ACETAMINOPHEN TAB 650MG DOSE (2X325MG) PO PRN (12:03)
[2022-02-05 18:45] VITALS: BP 103/64
[2022-02-05] MEDS: SIMVASTATIN 20 MG TAB PO SCH (20:05)
[2022-02-05] MEDS: AMITRIPTYLINE 25MG TABLET PO SCH (20:05)
[2022-02-06 05:02] VITALS: BP 100/63
[2022-02-06] MEDS: CIPROFLOXACIN 500MG TABLET PO SCH (05:11)
[2022-02-06 06:01] LABS: HEMATOCRIT 37.4 % (36.0-47.0); HEMOGLOBIN 12.3 g/dl (12.0-15.5); MEAN CORPUSCULAR HEMOGLOBIN 28.1 pg (27.0-33.0); MEAN CORPUSCULAR HGB CONC 32.9 g/dl (32.0-36.5); MEAN CORPUSCULAR VOLUME 85.4 fl (80.0-96.0); PLATELET COUNT, AUTOMATED 78 10^3/uL (150-450); RED BLOOD COUNT 4.38 10^6/uL (4.00-5.40)
[2022-02-06 06:30] LABS: ALBUMIN 2.2 GM/DL (3.2-5.2); BILIRUBIN,TOTAL 0.9 MG/DL (0.2-1.0); CALCIUM LEVEL 8.2 MG/DL (8.8-10.2); CREATININE FOR GFR 1.99 MG/DL (0.55-1.30); GLOMERULAR FILTRATION RATE 26.8 (>45); POTASSIUM SERUM 4.7 MEQ/L (3.5-5.1); TOTAL PROTEIN 4.9 GM/DL (6.4-8.2)
[2022-02-06] MEDS: OMEPRAZOLE 20MG CAP PO SCH (10:02)
[2022-02-06] MEDS: FERROUS GLUCONATE 324 MG TAB PO SCH (10:02)
[2022-02-06] MEDS: guaiFENesin ER 600 MG TAB PO SCH ×2 (10:02→20:13)
[2022-02-06] MEDS: FOLIC ACID 1 MG TAB PO SCH (10:02)
[2022-02-06] MEDS: MIDODRINE 5 MG TAB PO SCH ×3 (10:02→16:46)
[2022-02-06] MEDS: LACTOBACILLUS ACIDOPHILUS CAP (BACID) PO SCH ×2 (10:02→16:46)
[2022-02-06] MEDS: CYANOCOBALAMIN 500 MCG TAB PO SCH (10:03)
[2022-02-06] MEDS: APIXABAN 2.5 MG TAB (ELIQUIS) PO SCH ×2 (10:03→20:13)
[2022-02-06] MEDS: DOCUSATE SODIUM 100MG CAPSULE PO SCH ×2 (10:03→20:13)
[2022-02-06 10:04] VITALS: BP 108/68
[2022-02-06 13:30] VITALS: BP_SYST 102; BP_SYST 82; BP_SYST 98; BP_DIAS 65; BP_DIAS 67
[2022-02-06 14:00] VITALS: BP 113/78
[2022-02-06 16:47] VITALS: BP 96/62
[2022-02-06 19:36] VITALS: BP 109/64
[2022-02-06] MEDS: SIMVASTATIN 20 MG TAB PO SCH (20:13)
[2022-02-06] MEDS: AMITRIPTYLINE 25MG TABLET PO SCH (20:13)
[2022-02-07] MEDS: ACETAMINOPHEN TAB 650MG DOSE (2X325MG) PO PRN ×2 (04:18→20:19)
[2022-02-07 04:23] VITALS: BP 111/88
[2022-02-07] MEDS: CIPROFLOXACIN 500MG TABLET PO SCH (06:30)
[2022-02-07 06:47] LABS: HEMATOCRIT 36.8 % (36.0-47.0); HEMOGLOBIN 12.1 g/dl (12.0-15.5); MEAN CORPUSCULAR HEMOGLOBIN 28.2 pg (27.0-33.0); MEAN CORPUSCULAR HGB CONC 32.9 g/dl (32.0-36.5); MEAN CORPUSCULAR VOLUME 85.8 fl (80.0-96.0); RED BLOOD COUNT 4.29 10^6/uL (4.00-5.40); WHITE BLOOD COUNT 6.5 10^3/uL (4.0-10.0)
[2022-02-07 07:05] LABS: INR 1.43; PROTHROMBIN TIME 17.9 SECONDS (12.7-14.5)
[2022-02-07 07:06] LABS: PARTIAL THROMBOPLASTIN TIME 30.2 SECONDS (25.9-37.0)
[2022-02-07 07:07] LABS: PLATELET COUNT, AUTOMATED 84 10^3/uL (150-450)
[2022-02-07 07:10] LABS: CK-MB VALUE MASS 1.7 NG/ML (<3.6); MB/CK RELATIVE INDEX 11.33 (< OR =4)
[2022-02-07 07:11] LABS: ALBUMIN 2.4 GM/DL (3.2-5.2); CALCIUM LEVEL 8.1 MG/DL (8.8-10.2); CREATININE FOR GFR 2.16 MG/DL (0.55-1.30); GLOMERULAR FILTRATION RATE 24.4 (>45); MAGNESIUM LEVEL 2.4 MG/DL (1.8-2.4); POTASSIUM SERUM 4.5 MEQ/L (3.5-5.1)
[2022-02-07] MEDS: APIXABAN 2.5 MG TAB (ELIQUIS) PO SCH ×2 (08:10→20:15)
[2022-02-07] MEDS: CYANOCOBALAMIN 500 MCG TAB PO SCH (08:10)
[2022-02-07] MEDS: guaiFENesin ER 600 MG TAB PO SCH ×2 (08:10→20:15)
[2022-02-07] MEDS: MIDODRINE 5 MG TAB PO SCH ×3 (08:10→17:20)
[2022-02-07] MEDS: FERROUS GLUCONATE 324 MG TAB PO SCH (08:10)
[2022-02-07] MEDS: LACTOBACILLUS ACIDOPHILUS CAP (BACID) PO SCH ×2 (08:10→17:20)
[2022-02-07] MEDS: FOLIC ACID 1 MG TAB PO SCH (08:10)
[2022-02-07] MEDS: OMEPRAZOLE 20MG CAP PO SCH (08:10)
[2022-02-07] MEDS: DOCUSATE SODIUM 100MG CAPSULE PO SCH ×2 (08:10→20:15)
[2022-02-07] MEDS: HYDROCORTISONE 1% CREAM 30 GM TOP SCH ×2 (12:38→20:16)
[2022-02-07 14:00] VITALS: BP_SYST 108; BP_SYST 110; BP_DIAS 60
[2022-02-07] MEDS: SIMVASTATIN 20 MG TAB PO SCH (20:15)
[2022-02-07] MEDS: AMITRIPTYLINE 25MG TABLET PO SCH (20:15)
[2022-02-07] MEDS: RAMELTEON 8 MG TAB (ROZEREM) PO PRN (20:18)
[2022-02-07 22:00] VITALS: BP 95/72
[2022-02-08] MEDS: CIPROFLOXACIN 500MG TABLET PO SCH (05:06)
[2022-02-08 05:51] VITALS: BP 104/72
[2022-02-08 05:58] LABS: HEMATOCRIT 34.3 % (36.0-47.0); HEMOGLOBIN 11.5 g/dl (12.0-15.5); MEAN CORPUSCULAR HEMOGLOBIN 28.5 pg (27.0-33.0); MEAN CORPUSCULAR HGB CONC 33.5 g/dl (32.0-36.5); MEAN CORPUSCULAR VOLUME 84.9 fl (80.0-96.0); RED BLOOD COUNT 4.04 10^6/uL (4.00-5.40); WHITE BLOOD COUNT 6.4 10^3/uL (4.0-10.0)
[2022-02-08 05:59] LABS: PLATELET COUNT, AUTOMATED 82 10^3/uL (150-450)
[2022-02-08 06:26] LABS: BILIRUBIN,TOTAL 0.9 MG/DL (0.2-1.0); CALCIUM LEVEL 7.9 MG/DL (8.8-10.2); CREATININE FOR GFR 2.04 MG/DL (0.55-1.30); POTASSIUM SERUM 4.7 MEQ/L (3.5-5.1); TOTAL PROTEIN 4.7 GM/DL (6.4-8.2)
[2022-02-08] MEDS: DOCUSATE SODIUM 100MG CAPSULE PO SCH ×2 (08:49→20:48)
[2022-02-08] MEDS: MIDODRINE 5 MG TAB PO SCH ×3 (08:49→17:07)
[2022-02-08] MEDS: APIXABAN 2.5 MG TAB (ELIQUIS) PO SCH ×2 (08:49→20:48)
[2022-02-08] MEDS: guaiFENesin ER 600 MG TAB PO SCH ×2 (08:49→20:49)
[2022-02-08] MEDS: LACTOBACILLUS ACIDOPHILUS CAP (BACID) PO SCH ×2 (08:49→17:07)
[2022-02-08] MEDS: CYANOCOBALAMIN 500 MCG TAB PO SCH (08:49)
[2022-02-08] MEDS: FOLIC ACID 1 MG TAB PO SCH (08:49)
[2022-02-08] MEDS: OMEPRAZOLE 20MG CAP PO SCH (08:49)
[2022-02-08] MEDS: FERROUS GLUCONATE 324 MG TAB PO SCH (08:49)
[2022-02-08] MEDS: HYDROCORTISONE 1% CREAM 30 GM TOP SCH ×2 (08:50→20:49)
[2022-02-08] MEDS: ACETAMINOPHEN TAB 650MG DOSE (2X325MG) PO PRN (12:11)
[2022-02-08 14:00] VITALS: BP 106/72
[2022-02-08] MEDS: SIMVASTATIN 20 MG TAB PO SCH (20:48)
[2022-02-08] MEDS: AMITRIPTYLINE 25MG TABLET PO SCH (20:48)
[2022-02-08] MEDS: RAMELTEON 8 MG TAB (ROZEREM) PO PRN (20:56)
[2022-02-08] MEDS: traMADol 50 MG TAB PO PRN (20:57)
[2022-02-08 22:00] VITALS: BP 103/64
[2022-02-09] MEDS: CIPROFLOXACIN 500MG TABLET PO SCH (05:38)
[2022-02-09 06:00] VITALS: BP 100/66
[2022-02-09 06:06] LABS: HEMOGLOBIN 11.7 g/dl (12.0-15.5); MEAN CORPUSCULAR HEMOGLOBIN 29.3 pg (27.0-33.0); MEAN CORPUSCULAR HGB CONC 34.4 g/dl (32.0-36.5); MEAN CORPUSCULAR VOLUME 85.2 fl (80.0-96.0); PLATELET COUNT, AUTOMATED 101 10^3/uL (150-450); RED BLOOD COUNT 3.99 10^6/uL (4.00-5.40); WHITE BLOOD COUNT 5.9 10^3/uL (4.0-10.0)
[2022-02-09 06:28] LABS: BILIRUBIN,TOTAL 0.9 MG/DL (0.2-1.0); CALCIUM LEVEL 8.2 MG/DL (8.8-10.2); CREATININE FOR GFR 2.28 MG/DL (0.55-1.30); GLOMERULAR FILTRATION RATE 22.9 (>45); POTASSIUM SERUM 4.6 MEQ/L (3.5-5.1); TOTAL PROTEIN 4.6 GM/DL (6.4-8.2)
[2022-02-09] MEDS: APIXABAN 2.5 MG TAB (ELIQUIS) PO SCH ×2 (09:18→20:13)
[2022-02-09] MEDS: FOLIC ACID 1 MG TAB PO SCH (09:18)
[2022-02-09] MEDS: CYANOCOBALAMIN 500 MCG TAB PO SCH (09:18)
[2022-02-09] MEDS: ACETAMINOPHEN TAB 650MG DOSE (2X325MG) PO PRN (09:18)
[2022-02-09] MEDS: FERROUS GLUCONATE 324 MG TAB PO SCH (09:18)
[2022-02-09] MEDS: guaiFENesin ER 600 MG TAB PO SCH ×2 (09:18→20:13)
[2022-02-09] MEDS: LACTOBACILLUS ACIDOPHILUS CAP (BACID) PO SCH ×2 (09:18→17:11)
[2022-02-09] MEDS: DOCUSATE SODIUM 100MG CAPSULE PO SCH ×2 (09:18→20:13)
[2022-02-09] MEDS: OMEPRAZOLE 20MG CAP PO SCH (09:18)
[2022-02-09] MEDS: MIDODRINE 5 MG TAB PO SCH ×3 (09:19→17:11)
[2022-02-09] MEDS: HYDROCORTISONE 1% CREAM 30 GM TOP SCH ×2 (09:19→20:14)
[2022-02-09 14:00] VITALS: BP 99/66
[2022-02-09 19:54] VITALS: BP 116/73
[2022-02-09] MEDS: SIMVASTATIN 20 MG TAB PO SCH (20:13)
[2022-02-09] MEDS: AMITRIPTYLINE 25MG TABLET PO SCH (20:13)
[2022-02-10] MEDS: traMADol 50 MG TAB PO PRN ×2 (00:17→21:35)
[2022-02-10 04:44] VITALS: BP 97/64
[2022-02-10] MEDS: CIPROFLOXACIN 500MG TABLET PO SCH (05:39)
[2022-02-10 06:08] LABS: HEMOGLOBIN 11.8 g/dl (12.0-15.5); MEAN CORPUSCULAR HEMOGLOBIN 28.1 pg (27.0-33.0); MEAN CORPUSCULAR HGB CONC 32.8 g/dl (32.0-36.5); MEAN CORPUSCULAR VOLUME 85.7 fl (80.0-96.0); PLATELET COUNT, AUTOMATED 104 10^3/uL (150-450); WHITE BLOOD COUNT 6.1 10^3/uL (4.0-10.0)
[2022-02-10 06:28] LABS: BILIRUBIN,TOTAL 0.7 MG/DL (0.2-1.0); CALCIUM LEVEL 8.1 MG/DL (8.8-10.2); CREATININE FOR GFR 2.27 MG/DL (0.55-1.30); POTASSIUM SERUM 4.5 MEQ/L (3.5-5.1); TOTAL PROTEIN 4.6 GM/DL (6.4-8.2)
[2022-02-10] MEDS: OMEPRAZOLE 20MG CAP PO SCH (08:51)
[2022-02-10] MEDS: CYANOCOBALAMIN 500 MCG TAB PO SCH (08:51)
[2022-02-10] MEDS: HYDROCORTISONE 1% CREAM 30 GM TOP SCH ×2 (08:51→21:00)
[2022-02-10] MEDS: LACTOBACILLUS ACIDOPHILUS CAP (BACID) PO SCH ×2 (08:51→17:15)
[2022-02-10] MEDS: DOCUSATE SODIUM 100MG CAPSULE PO SCH ×2 (08:51→21:24)
[2022-02-10] MEDS: FOLIC ACID 1 MG TAB PO SCH (08:52)
[2022-02-10] MEDS: FERROUS GLUCONATE 324 MG TAB PO SCH (08:52)
[2022-02-10] MEDS: MIDODRINE 5 MG TAB PO SCH ×3 (08:52→17:15)
[2022-02-10] MEDS: guaiFENesin ER 600 MG TAB PO SCH ×2 (08:52→21:24)
[2022-02-10] MEDS: APIXABAN 2.5 MG TAB (ELIQUIS) PO SCH ×2 (08:52→21:24)
[2022-02-10 17:15] VITALS: BP 103/66
[2022-02-10 19:22] VITALS: BP 102/66
[2022-02-10] MEDS: AMITRIPTYLINE 25MG TABLET PO SCH (21:24)
[2022-02-10] MEDS: SIMVASTATIN 20 MG TAB PO SCH (21:24)
[2022-02-11] MEDS: CIPROFLOXACIN 500MG TABLET PO SCH (05:44)
[2022-02-11 05:52] LABS: HEMATOCRIT 33.4 % (36.0-47.0); HEMOGLOBIN 11.1 g/dl (12.0-15.5); MEAN CORPUSCULAR HEMOGLOBIN 27.7 pg (27.0-33.0); MEAN CORPUSCULAR HGB CONC 33.2 g/dl (32.0-36.5); MEAN CORPUSCULAR VOLUME 83.3 fl (80.0-96.0); PLATELET COUNT, AUTOMATED 114 10^3/uL (150-450); RED BLOOD COUNT 4.01 10^6/uL (4.00-5.40); WHITE BLOOD COUNT 6.4 10^3/uL (4.0-10.0)
[2022-02-11 06:00] VITALS: BP 104/70
[2022-02-11 06:15] LABS: ALBUMIN 2.1 GM/DL (3.2-5.2); BILIRUBIN,TOTAL 0.8 MG/DL (0.2-1.0); CALCIUM LEVEL 7.8 MG/DL (8.8-10.2); CREATININE FOR GFR 2.43 MG/DL (0.55-1.30); GLOMERULAR FILTRATION RATE 21.3 (>45); POTASSIUM SERUM 4.4 MEQ/L (3.5-5.1); TOTAL PROTEIN 4.5 GM/DL (6.4-8.2)
[2022-02-11] MEDS: FOLIC ACID 1 MG TAB PO SCH (07:58)
[2022-02-11] MEDS: DOCUSATE SODIUM 100MG CAPSULE PO SCH ×2 (07:58→21:06)
[2022-02-11] MEDS: FERROUS GLUCONATE 324 MG TAB PO SCH (07:58)
[2022-02-11] MEDS: LACTOBACILLUS ACIDOPHILUS CAP (BACID) PO SCH ×2 (07:58→17:11)
[2022-02-11] MEDS: OMEPRAZOLE 20MG CAP PO SCH (07:58)
[2022-02-11] MEDS: CYANOCOBALAMIN 500 MCG TAB PO SCH (07:58)
[2022-02-11] MEDS: guaiFENesin ER 600 MG TAB PO SCH ×2 (07:58→21:06)
[2022-02-11] MEDS: MIDODRINE 5 MG TAB PO SCH ×3 (07:58→17:11)
[2022-02-11] MEDS: APIXABAN 2.5 MG TAB (ELIQUIS) PO SCH ×2 (07:58→21:06)
[2022-02-11] MEDS: HYDROCORTISONE 1% CREAM 30 GM TOP SCH ×2 (09:07→21:07)
[2022-02-11 14:00] VITALS: BP 108/69
[2022-02-11 20:10] VITALS: BP 104/51
[2022-02-11] MEDS: AMITRIPTYLINE 25MG TABLET PO SCH (21:06)
[2022-02-11] MEDS: SIMVASTATIN 20 MG TAB PO SCH (21:07)
[2022-02-11] MEDS: RAMELTEON 8 MG TAB (ROZEREM) PO PRN (21:47)
[2022-02-11] MEDS: traMADol 50 MG TAB PO PRN (21:49)
[2022-02-12] MEDS: CIPROFLOXACIN 500MG TABLET PO SCH (05:03)
[2022-02-12 05:25] VITALS: BP 108/66
[2022-02-12] MEDS: OMEPRAZOLE 20MG CAP PO SCH (10:11)
[2022-02-12] MEDS: DOCUSATE SODIUM 100MG CAPSULE PO SCH ×2 (10:11→21:35)
[2022-02-12] MEDS: HYDROCORTISONE 1% CREAM 30 GM TOP SCH ×2 (10:12→21:37)
[2022-02-12] MEDS: MIDODRINE 5 MG TAB PO SCH ×3 (10:12→17:23)
[2022-02-12] MEDS: APIXABAN 2.5 MG TAB (ELIQUIS) PO SCH ×2 (10:12→21:35)
[2022-02-12] MEDS: FOLIC ACID 1 MG TAB PO SCH (10:12)
[2022-02-12] MEDS: FERROUS GLUCONATE 324 MG TAB PO SCH (10:12)
[2022-02-12] MEDS: guaiFENesin ER 600 MG TAB PO SCH ×2 (10:12→21:35)
[2022-02-12] MEDS: CYANOCOBALAMIN 500 MCG TAB PO SCH (10:12)
[2022-02-12] MEDS: LACTOBACILLUS ACIDOPHILUS CAP (BACID) PO SCH ×2 (10:14→17:23)
[2022-02-12 14:00] VITALS: BP 105/67
[2022-02-12 21:00] VITALS: BP 103/68
[2022-02-12] MEDS: AMITRIPTYLINE 25MG TABLET PO SCH (21:35)
[2022-02-12] MEDS: SIMVASTATIN 20 MG TAB PO SCH (21:35)
[2022-02-12] MEDS: traMADol 50 MG TAB PO PRN (21:36)
[2022-02-13] VITALS (9 sets, daily range): BP systolic 90–104; BP diastolic 51–68
[2022-02-13] MEDS: CIPROFLOXACIN 500MG TABLET PO SCH (05:45)
[2022-02-13] MEDS: OMEPRAZOLE 20MG CAP PO SCH (08:48)
[2022-02-13] MEDS: LACTOBACILLUS ACIDOPHILUS CAP (BACID) PO SCH ×2 (08:48→17:32)
[2022-02-13] MEDS: DOCUSATE SODIUM 100MG CAPSULE PO SCH ×2 (08:49→20:08)
[2022-02-13] MEDS: CYANOCOBALAMIN 500 MCG TAB PO SCH (08:49)
[2022-02-13] MEDS: MIDODRINE 5 MG TAB PO SCH ×3 (08:49→17:32)
[2022-02-13] MEDS: guaiFENesin ER 600 MG TAB PO SCH ×2 (08:49→20:08)
[2022-02-13] MEDS: FERROUS GLUCONATE 324 MG TAB PO SCH (08:49)
[2022-02-13] MEDS: APIXABAN 2.5 MG TAB (ELIQUIS) PO SCH ×2 (08:49→20:08)
[2022-02-13] MEDS: FOLIC ACID 1 MG TAB PO SCH (08:49)
[2022-02-13] MEDS: HYDROCORTISONE 1% CREAM 30 GM TOP SCH ×2 (08:49→20:10)
[2022-02-13] MEDS ORDERED: NS 500 ML IV ONE (16:00)
[2022-02-13 16:05] LABS: BASO % 0.4 % (0.0-1.0); EOS % 0.3 % (0.0-3.0); HEMOGLOBIN 10.9 g/dl (12.0-15.5); LYMPH # 1.2 10^3/uL (1.5-5.0); LYMPH % 17.1 % (24.0-44.0); MEAN CORPUSCULAR HEMOGLOBIN 27.7 pg (27.0-33.0); MEAN CORPUSCULAR VOLUME 83.8 fl (80.0-96.0); MONO # 0.4 10^3/uL (0.0-0.8); MONO % 5.8 % (2.0-8.0); NEUTROPHILS # 5.3 10^3/uL (1.5-8.5); NEUTROPHILS % 74.8 % (36.0-66.0); PLATELET COUNT, AUTOMATED 168 10^3/uL (150-450); RED BLOOD COUNT 3.94 10^6/uL (4.00-5.40); WHITE BLOOD COUNT 7.1 10^3/uL (4.0-10.0)
[2022-02-13 16:20] LABS: INR 1.35; PROTHROMBIN TIME 17.1 SECONDS (12.7-14.5)
[2022-02-13 16:28] LABS: ALBUMIN 2.2 GM/DL (3.2-5.2); BILIRUBIN,TOTAL 0.7 MG/DL (0.2-1.0); CALCIUM LEVEL 7.8 MG/DL (8.8-10.2); CREATININE FOR GFR 2.55 MG/DL (0.55-1.30); GLOMERULAR FILTRATION RATE 20.1 (>45); POTASSIUM SERUM 4.9 MEQ/L (3.5-5.1); TOTAL PROTEIN 5.2 GM/DL (6.4-8.2)
[2022-02-13 16:46] LABS: SPEC. GRAVITY BODY FLUIDS 1.008 (NOT ESTABLISHED)
[2022-02-13 16:54] LABS: APPEARANCE, BODY FLUID HAZY (CLEAR); ASCITES FL COLOR PALE YELLOW (COLORLESS); SOURCE, BODY FLUID ASCITES
[2022-02-13 17:51] LABS: SOURCE, BODY FLUID ALBUMIN ASCITES; SOURCE, BODY FLUID GLUCOSE ASCITES; SOURCE, BODY FLUID TOT PROTEIN ASCITES; TOTAL PROTEIN, BODY FLUID 0.4 G/DL (NOT ESTABLISHED)
[2022-02-13] MEDS: AMITRIPTYLINE 25MG TABLET PO SCH (20:08)
[2022-02-13] MEDS: traMADol 50 MG TAB PO PRN (20:09)
[2022-02-13] MEDS: SIMVASTATIN 20 MG TAB PO SCH (20:09)
[2022-02-14] VITALS (11 sets, daily range): BP systolic 93–105; BP diastolic 56–67
[2022-02-14] MEDS: CIPROFLOXACIN 500MG TABLET PO SCH (05:47)
[2022-02-14] MEDS: FOLIC ACID 1 MG TAB PO SCH (08:33)
[2022-02-14] MEDS: LACTOBACILLUS ACIDOPHILUS CAP (BACID) PO SCH ×2 (08:33→17:55)
[2022-02-14] MEDS: CYANOCOBALAMIN 500 MCG TAB PO SCH (08:33)
[2022-02-14] MEDS: DOCUSATE SODIUM 100MG CAPSULE PO SCH ×2 (08:33→21:01)
[2022-02-14] MEDS: OMEPRAZOLE 20MG CAP PO SCH (08:34)
[2022-02-14] MEDS: APIXABAN 2.5 MG TAB (ELIQUIS) PO SCH ×2 (08:34→21:01)
[2022-02-14] MEDS: FERROUS GLUCONATE 324 MG TAB PO SCH (08:34)
[2022-02-14] MEDS: guaiFENesin ER 600 MG TAB PO SCH ×2 (08:34→21:01)
[2022-02-14] MEDS: MIDODRINE 5 MG TAB PO SCH ×3 (08:34→17:55)
[2022-02-14] MEDS: HYDROCORTISONE 1% CREAM 30 GM TOP SCH ×2 (08:35→21:08)
[2022-02-14] MEDS: RAMELTEON 8 MG TAB (ROZEREM) PO PRN (20:59)
[2022-02-14] MEDS: traMADol 50 MG TAB PO PRN (21:01)
[2022-02-14] MEDS: SIMVASTATIN 20 MG TAB PO SCH (21:01)
[2022-02-14] MEDS: AMITRIPTYLINE 25MG TABLET PO SCH (21:01)
[2022-02-15 06:00] VITALS: BP 103/61
[2022-02-15] MEDS: CIPROFLOXACIN 500MG TABLET PO SCH (06:13)
[2022-02-15] MEDS ORDERED: NS 500 ML IV ONE (08:00)
[2022-02-15] MEDS: ACETAMINOPHEN TAB 650MG DOSE (2X325MG) PO PRN (08:32)
[2022-02-15] MEDS: APIXABAN 2.5 MG TAB (ELIQUIS) PO SCH ×2 (08:32→21:51)
[2022-02-15] MEDS: MIDODRINE 5 MG TAB PO SCH ×3 (08:32→17:17)
[2022-02-15] MEDS: CYANOCOBALAMIN 500 MCG TAB PO SCH (08:32)
[2022-02-15] MEDS: DOCUSATE SODIUM 100MG CAPSULE PO SCH ×2 (08:32→21:51)
[2022-02-15] MEDS: FOLIC ACID 1 MG TAB PO SCH (08:32)
[2022-02-15] MEDS: OMEPRAZOLE 20MG CAP PO SCH (08:32)
[2022-02-15] MEDS: FERROUS GLUCONATE 324 MG TAB PO SCH (08:32)
[2022-02-15] MEDS: LACTOBACILLUS ACIDOPHILUS CAP (BACID) PO SCH ×2 (08:32→17:17)
[2022-02-15] MEDS: guaiFENesin ER 600 MG TAB PO SCH ×2 (08:32→21:53)
[2022-02-15] MEDS: HYDROCORTISONE 1% CREAM 30 GM TOP SCH ×2 (08:33→21:54)
[2022-02-15 11:18] LABS: CALCIUM LEVEL 7.3 MG/DL (8.8-10.2); CREATININE FOR GFR 2.27 MG/DL (0.55-1.30); POTASSIUM SERUM 4.3 MEQ/L (3.5-5.1)
[2022-02-15 14:00] VITALS: BP 101/66
[2022-02-15 21:25] VITALS: BP 101/64
[2022-02-15] MEDS: RAMELTEON 8 MG TAB (ROZEREM) PO PRN (21:51)
[2022-02-15] MEDS: AMITRIPTYLINE 25MG TABLET PO SCH (21:51)
[2022-02-15] MEDS: SIMVASTATIN 20 MG TAB PO SCH (21:53)
[2022-02-15] MEDS: traMADol 50 MG TAB PO PRN (21:53)
[2022-02-15 21:58] VITALS: BP 114/72
[2022-02-16 04:52] VITALS: BP 99/59
[2022-02-16] MEDS: FERROUS GLUCONATE 324 MG TAB PO SCH (09:16)
[2022-02-16] MEDS: OMEPRAZOLE 20MG CAP PO SCH (09:16)
[2022-02-16] MEDS: CYANOCOBALAMIN 500 MCG TAB PO SCH (09:16)
[2022-02-16] MEDS: FOLIC ACID 1 MG TAB PO SCH (09:16)
[2022-02-16] MEDS: APIXABAN 2.5 MG TAB (ELIQUIS) PO SCH ×2 (09:16→20:03)
[2022-02-16] MEDS: guaiFENesin ER 600 MG TAB PO SCH ×2 (09:16→20:03)
[2022-02-16] MEDS: MIDODRINE 5 MG TAB PO SCH ×3 (09:16→15:21)
[2022-02-16] MEDS: LACTOBACILLUS ACIDOPHILUS CAP (BACID) PO SCH ×2 (09:16→18:18)
[2022-02-16] MEDS: DOCUSATE SODIUM 100MG CAPSULE PO SCH ×2 (09:16→20:03)
[2022-02-16] MEDS: HYDROCORTISONE 1% CREAM 30 GM TOP SCH ×2 (09:17→20:04)
[2022-02-16 09:19] VITALS: BP 106/64
[2022-02-16] MEDS: ACETAMINOPHEN TAB 650MG DOSE (2X325MG) PO PRN (13:00)
[2022-02-16] MEDS: SIMVASTATIN 20 MG TAB PO SCH (20:03)
[2022-02-16] MEDS: traMADol 50 MG TAB PO PRN (20:03)
[2022-02-16] MEDS: RAMELTEON 8 MG TAB (ROZEREM) PO PRN (20:03)
[2022-02-16] MEDS: AMITRIPTYLINE 25MG TABLET PO SCH (20:03)
[2022-02-17 06:00] VITALS: BP 105/68
[2022-02-17] MEDS: DOCUSATE SODIUM 100MG CAPSULE PO SCH ×2 (07:33→20:02)
[2022-02-17] MEDS: LACTOBACILLUS ACIDOPHILUS CAP (BACID) PO SCH ×2 (07:33→17:11)
[2022-02-17] MEDS: FOLIC ACID 1 MG TAB PO SCH (07:33)
[2022-02-17] MEDS: FERROUS GLUCONATE 324 MG TAB PO SCH (07:34)
[2022-02-17] MEDS: APIXABAN 2.5 MG TAB (ELIQUIS) PO SCH ×2 (07:34→20:02)
[2022-02-17] MEDS: CYANOCOBALAMIN 500 MCG TAB PO SCH (07:34)
[2022-02-17] MEDS: MIDODRINE 5 MG TAB PO SCH ×3 (07:34→17:12)
[2022-02-17] MEDS: OMEPRAZOLE 20MG CAP PO SCH (07:34)
[2022-02-17] MEDS: guaiFENesin ER 600 MG TAB PO SCH ×2 (07:34→20:02)
[2022-02-17 07:35] VITALS: BP 97/59
[2022-02-17] MEDS: HYDROCORTISONE 1% CREAM 30 GM TOP SCH ×2 (07:35→20:02)
[2022-02-17 12:33] VITALS: BP 89/58
[2022-02-17 17:11] VITALS: BP 106/74
[2022-02-17] MEDS: AMITRIPTYLINE 25MG TABLET PO SCH (20:02)
[2022-02-17] MEDS: SIMVASTATIN 20 MG TAB PO SCH (20:02)
[2022-02-18 06:00] VITALS: BP 99/54
[2022-02-18] MEDS: LACTOBACILLUS ACIDOPHILUS CAP (BACID) PO SCH ×2 (09:29→17:31)
[2022-02-18] MEDS: HYDROCORTISONE 1% CREAM 30 GM TOP SCH ×2 (09:29→20:10)
[2022-02-18] MEDS: DOCUSATE SODIUM 100MG CAPSULE PO SCH ×2 (09:29→20:10)
[2022-02-18] MEDS: APIXABAN 2.5 MG TAB (ELIQUIS) PO SCH ×2 (09:30→20:11)
[2022-02-18] MEDS: FERROUS GLUCONATE 324 MG TAB PO SCH (09:30)
[2022-02-18] MEDS: OMEPRAZOLE 20MG CAP PO SCH (09:30)
[2022-02-18] MEDS: CYANOCOBALAMIN 500 MCG TAB PO SCH (09:30)
[2022-02-18] MEDS: MIDODRINE 5 MG TAB PO SCH ×3 (09:30→17:31)
[2022-02-18] MEDS: guaiFENesin ER 600 MG TAB PO SCH ×2 (09:30→20:11)
[2022-02-18] MEDS: FOLIC ACID 1 MG TAB PO SCH (09:30)
[2022-02-18 09:31] VITALS: BP 115/77
[2022-02-18 12:35] VITALS: BP 110/77
[2022-02-18 17:31] VITALS: BP 90/58
[2022-02-18] MEDS: SIMVASTATIN 20 MG TAB PO SCH (20:11)
[2022-02-18] MEDS: AMITRIPTYLINE 25MG TABLET PO SCH (20:11)
[2022-02-19 06:00] VITALS: BP 119/80
[2022-02-19] MEDS: APIXABAN 2.5 MG TAB (ELIQUIS) PO SCH ×2 (09:10→21:11)
[2022-02-19] MEDS: DOCUSATE SODIUM 100MG CAPSULE PO SCH ×2 (09:10→21:11)
[2022-02-19] MEDS: MIDODRINE 5 MG TAB PO SCH ×3 (09:10→17:23)
[2022-02-19] MEDS: guaiFENesin ER 600 MG TAB PO SCH ×2 (09:10→21:11)
[2022-02-19] MEDS: FERROUS GLUCONATE 324 MG TAB PO SCH (09:10)
[2022-02-19] MEDS: OMEPRAZOLE 20MG CAP PO SCH (09:10)
[2022-02-19] MEDS: FOLIC ACID 1 MG TAB PO SCH (09:11)
[2022-02-19] MEDS: LACTOBACILLUS ACIDOPHILUS CAP (BACID) PO SCH ×2 (09:11→17:23)
[2022-02-19] MEDS: HYDROCORTISONE 1% CREAM 30 GM TOP SCH ×2 (09:11→21:12)
[2022-02-19] MEDS: CYANOCOBALAMIN 500 MCG TAB PO SCH (09:13)
[2022-02-19 14:00] VITALS: BP 94/62
[2022-02-19] MEDS: ACETAMINOPHEN TAB 650MG DOSE (2X325MG) PO PRN (21:11)
[2022-02-19] MEDS: AMITRIPTYLINE 25MG TABLET PO SCH (21:11)
[2022-02-19] MEDS: SIMVASTATIN 20 MG TAB PO SCH (21:11)
[2022-02-20 05:30] VITALS: BP 119/76
[2022-02-20] MEDS: MIDODRINE 5 MG TAB PO SCH ×3 (08:50→16:29)
[2022-02-20] MEDS: guaiFENesin ER 600 MG TAB PO SCH ×2 (08:50→20:35)
[2022-02-20] MEDS: CYANOCOBALAMIN 500 MCG TAB PO SCH (08:50)
[2022-02-20] MEDS: APIXABAN 2.5 MG TAB (ELIQUIS) PO SCH ×2 (08:50→20:35)
[2022-02-20] MEDS: HYDROCORTISONE 1% CREAM 30 GM TOP SCH ×2 (08:50→20:36)
[2022-02-20] MEDS: LACTOBACILLUS ACIDOPHILUS CAP (BACID) PO SCH ×2 (08:50→18:16)
[2022-02-20] MEDS: FERROUS GLUCONATE 324 MG TAB PO SCH (08:50)
[2022-02-20] MEDS: DOCUSATE SODIUM 100MG CAPSULE PO SCH ×2 (08:50→20:35)
[2022-02-20] MEDS: OMEPRAZOLE 20MG CAP PO SCH (08:50)
[2022-02-20] MEDS: FOLIC ACID 1 MG TAB PO SCH (08:50)
[2022-02-20 08:51] VITALS: BP 106/64
[2022-02-20 12:20] VITALS: BP 110/74
[2022-02-20 16:30] VITALS: BP 108/65
[2022-02-20] MEDS: SIMVASTATIN 20 MG TAB PO SCH (20:35)
[2022-02-20] MEDS: AMITRIPTYLINE 25MG TABLET PO SCH (20:35)
[2022-02-20] MEDS: ACETAMINOPHEN TAB 650MG DOSE (2X325MG) PO PRN (20:36)
[2022-02-21 06:00] VITALS: BP 99/58
[2022-02-21 08:11] VITALS: BP 90/60
[2022-02-21] MEDS: FERROUS GLUCONATE 324 MG TAB PO SCH (08:18)
[2022-02-21] MEDS: guaiFENesin ER 600 MG TAB PO SCH ×2 (08:18→20:35)
[2022-02-21] MEDS: FOLIC ACID 1 MG TAB PO SCH (08:18)
[2022-02-21] MEDS: LACTOBACILLUS ACIDOPHILUS CAP (BACID) PO SCH ×2 (08:18→17:43)
[2022-02-21] MEDS: DOCUSATE SODIUM 100MG CAPSULE PO SCH ×2 (08:18→20:35)
[2022-02-21] MEDS: OMEPRAZOLE 20MG CAP PO SCH (08:18)
[2022-02-21] MEDS: ACETAMINOPHEN TAB 650MG DOSE (2X325MG) PO PRN (08:19)
[2022-02-21] MEDS: CYANOCOBALAMIN 500 MCG TAB PO SCH (08:19)
[2022-02-21] MEDS: HYDROCORTISONE 1% CREAM 30 GM TOP SCH ×2 (08:19→20:36)
[2022-02-21] MEDS: MIDODRINE 5 MG TAB PO SCH ×3 (08:19→16:29)
[2022-02-21] MEDS: APIXABAN 2.5 MG TAB (ELIQUIS) PO SCH ×2 (08:19→20:35)
[2022-02-21 12:17] VITALS: BP 107/68
[2022-02-21 16:30] VITALS: BP 106/71
[2022-02-21] MEDS: SIMVASTATIN 20 MG TAB PO SCH (20:35)
[2022-02-21] MEDS: AMITRIPTYLINE 25MG TABLET PO SCH (20:35)
[2022-02-22] MEDS ORDERED: PREPARATION H SUPP (HEMORRHOID) PR ONE (02:00)
[2022-02-22 06:00] VITALS: BP 104/68
[2022-02-22 08:20] VITALS: BP 103/66
[2022-02-22] MEDS: APIXABAN 2.5 MG TAB (ELIQUIS) PO SCH ×2 (08:22→20:29)
[2022-02-22] MEDS: OMEPRAZOLE 20MG CAP PO SCH (08:22)
[2022-02-22] MEDS: guaiFENesin ER 600 MG TAB PO SCH ×2 (08:22→20:28)
[2022-02-22] MEDS: FERROUS GLUCONATE 324 MG TAB PO SCH (08:22)
[2022-02-22] MEDS: FOLIC ACID 1 MG TAB PO SCH (08:22)
[2022-02-22] MEDS: MIDODRINE 5 MG TAB PO SCH ×3 (08:22→16:26)
[2022-02-22] MEDS: DOCUSATE SODIUM 100MG CAPSULE PO SCH ×2 (08:22→20:28)
[2022-02-22] MEDS: LACTOBACILLUS ACIDOPHILUS CAP (BACID) PO SCH ×2 (08:22→18:18)
[2022-02-22] MEDS: CYANOCOBALAMIN 500 MCG TAB PO SCH (08:23)
[2022-02-22] MEDS: HYDROCORTISONE 1% CREAM 30 GM TOP SCH ×2 (08:23→20:29)
[2022-02-22 12:10] VITALS: BP 101/65
[2022-02-22 16:25] VITALS: BP 103/67
[2022-02-22] MEDS: SIMVASTATIN 20 MG TAB PO SCH (20:28)
[2022-02-22] MEDS: LACTULOSE 20 GM/30 ML SYRUP UD PO SCH (20:28)
[2022-02-22] MEDS: AMITRIPTYLINE 25MG TABLET PO SCH (20:28)
[2022-02-23] MEDS ORDERED: SODIUM CHLORIDE 0.9% 250ML IV ONE (00:20)
[2022-02-23] MEDS: ACETAMINOPHEN TAB 650MG DOSE (2X325MG) PO PRN ×2 (00:41→21:09)
[2022-02-23] MEDS ORDERED: LIDOCAINE 2% 5ML JELLY UROJET TOP ONE ×2 (02:00→04:55)
[2022-02-23 02:15] VITALS: BP 104/69
[2022-02-23 02:15] LABS: BASO % 0.7 % (0.0-1.0); EOS % 0.7 % (0.0-3.0); HEMATOCRIT 28.7 % (36.0-47.0); HEMOGLOBIN 9.7 g/dl (12.0-15.5); LYMPH # 1.2 10^3/uL (1.5-5.0); LYMPH % 18.8 % (24.0-44.0); MEAN CORPUSCULAR HEMOGLOBIN 29.1 pg (27.0-33.0); MEAN CORPUSCULAR HGB CONC 33.8 g/dl (32.0-36.5); MEAN CORPUSCULAR VOLUME 86.2 fl (80.0-96.0); MONO # 0.4 10^3/uL (0.0-0.8); MONO % 6.9 % (2.0-8.0); NEUTROPHILS # 4.4 10^3/uL (1.5-8.5); NEUTROPHILS % 72.2 % (36.0-66.0); PLATELET COUNT, AUTOMATED 129 10^3/uL (150-450); RED BLOOD COUNT 3.33 10^6/uL (4.00-5.40); WHITE BLOOD COUNT 6.1 10^3/uL (4.0-10.0)
[2022-02-23] MEDS ORDERED: TAMSULOSIN 0.4 MG CAP PO ONE (02:20)
[2022-02-23 02:41] LABS: CALCIUM LEVEL 7.8 MG/DL (8.8-10.2); CREATININE FOR GFR 2.41 MG/DL (0.55-1.30); GLOMERULAR FILTRATION RATE 21.5 (>45); POTASSIUM SERUM 4.6 MEQ/L (3.5-5.1)
[2022-02-23 04:34] VITALS: BP 80/54
[2022-02-23] MEDS ORDERED: NS 1,000 ML IV SCH (04:35)
[2022-02-23] MEDS: ONDANSETRON 4MG ORAL DISINTEGRATING TAB SL PRN (04:39)
[2022-02-23] MEDS: MIDODRINE 5 MG TAB PO SCH ×3 (04:39→16:35)
[2022-02-23 05:45] VITALS: BP 86/53
[2022-02-23 06:24] LABS: INR 1.54; PARTIAL THROMBOPLASTIN TIME 33.2 SECONDS (25.9-37.0); PROTHROMBIN TIME 18.9 SECONDS (12.7-14.5)
[2022-02-23 08:00] VITALS: BP 102/66
[2022-02-23] MEDS ORDERED: BISACODYL 10 MG SUPP PR ONE (08:45)
[2022-02-23] MEDS: guaiFENesin ER 600 MG TAB PO SCH ×2 (08:56→20:54)
[2022-02-23] MEDS: HYDROCORTISONE 1% CREAM 30 GM TOP SCH ×2 (08:56→20:55)
[2022-02-23] MEDS: FERROUS GLUCONATE 324 MG TAB PO SCH (08:56)
[2022-02-23] MEDS: OMEPRAZOLE 20MG CAP PO SCH (08:56)
[2022-02-23] MEDS: LACTULOSE 20 GM/30 ML SYRUP UD PO SCH ×3 (08:56→21:00)
[2022-02-23] MEDS: LACTOBACILLUS ACIDOPHILUS CAP (BACID) PO SCH ×2 (08:56→18:21)
[2022-02-23] MEDS: CYANOCOBALAMIN 500 MCG TAB PO SCH (08:56)
[2022-02-23] MEDS: FOLIC ACID 1 MG TAB PO SCH (08:56)
[2022-02-23] MEDS: DOCUSATE SODIUM 100MG CAPSULE PO SCH ×2 (08:56→20:54)
[2022-02-23] MEDS ORDERED: ONDANSETRON 4MG/2ML VIAL IV ONE (09:45)
[2022-02-23 14:00] VITALS: BP 106/58
[2022-02-23 16:34] VITALS: BP 110/73
[2022-02-23] MEDS: SIMVASTATIN 20 MG TAB PO SCH (20:54)
[2022-02-23] MEDS: AMITRIPTYLINE 25MG TABLET PO SCH (20:54)
[2022-02-24] VITALS (10 sets, daily range): BP systolic 102–122; BP diastolic 54–75
[2022-02-24] MEDS: LACTOBACILLUS ACIDOPHILUS CAP (BACID) PO SCH ×3 (08:00→18:00)
[2022-02-24] MEDS: DOCUSATE SODIUM 100MG CAPSULE PO SCH ×3 (08:17→21:27)
[2022-02-24] MEDS: CYANOCOBALAMIN 500 MCG TAB PO SCH ×2 (08:17→09:00)
[2022-02-24] MEDS: MIDODRINE 5 MG TAB PO SCH ×3 (08:17→16:24)
[2022-02-24] MEDS: FERROUS GLUCONATE 324 MG TAB PO SCH ×2 (08:17→09:00)
[2022-02-24] MEDS: guaiFENesin ER 600 MG TAB PO SCH ×2 (08:17→09:00)
[2022-02-24] MEDS: LACTULOSE 20 GM/30 ML SYRUP UD PO SCH ×4 (08:17→21:28)
[2022-02-24] MEDS: FOLIC ACID 1 MG TAB PO SCH ×2 (08:17→09:00)
[2022-02-24] MEDS: OMEPRAZOLE 20MG CAP PO SCH ×2 (08:17→09:00)
[2022-02-24] MEDS: HYDROCORTISONE 1% CREAM 30 GM TOP SCH ×2 (08:18→21:28)
[2022-02-24] MEDS: ONDANSETRON 4MG ORAL DISINTEGRATING TAB SL PRN (08:31)
[2022-02-24] MEDS: ACETAMINOPHEN TAB 650MG DOSE (2X325MG) PO PRN (13:06)
[2022-02-24] MEDS: AMITRIPTYLINE 25MG TABLET PO SCH (21:27)
[2022-02-24] MEDS: SIMVASTATIN 20 MG TAB PO SCH (21:27)
[2022-02-25 06:00] VITALS: BP_SYST 107; BP_SYST 111; BP_SYST 94; BP_DIAS 60; BP_DIAS 69; BP_DIAS 71
[2022-02-25] MEDS: traMADol 50 MG TAB PO PRN ×2 (06:38→20:48)
[2022-02-25] MEDS: LACTOBACILLUS ACIDOPHILUS CAP (BACID) PO SCH ×2 (08:28→17:18)
[2022-02-25] MEDS: CYANOCOBALAMIN 500 MCG TAB PO SCH (08:28)
[2022-02-25] MEDS: LACTULOSE 20 GM/30 ML SYRUP UD PO SCH ×3 (08:28→20:33)
[2022-02-25] MEDS: FOLIC ACID 1 MG TAB PO SCH (08:28)
[2022-02-25] MEDS: OMEPRAZOLE 20MG CAP PO SCH (08:28)
[2022-02-25] MEDS: DOCUSATE SODIUM 100MG CAPSULE PO SCH ×2 (08:28→20:33)
[2022-02-25] MEDS: MIDODRINE 5 MG TAB PO SCH ×3 (08:28→17:18)
[2022-02-25] MEDS: FERROUS GLUCONATE 324 MG TAB PO SCH (08:28)
[2022-02-25] MEDS: HYDROCORTISONE 1% CREAM 30 GM TOP SCH ×2 (08:30→20:34)
[2022-02-25] MEDS: APIXABAN 2.5 MG TAB (ELIQUIS) PO SCH ×2 (09:45→20:33)
[2022-02-25] MEDS: SIMVASTATIN 20 MG TAB PO SCH (20:34)
[2022-02-25] MEDS: AMITRIPTYLINE 25MG TABLET PO SCH (20:34)
[2022-02-26 06:00] VITALS: BP_SYST 100; BP_SYST 104; BP_DIAS 59; BP_DIAS 67
[2022-02-26] MEDS: LACTULOSE 20 GM/30 ML SYRUP UD PO SCH ×3 (08:21→20:50)
[2022-02-26] MEDS: MIDODRINE 5 MG TAB PO SCH ×3 (08:21→15:50)
[2022-02-26] MEDS: LACTOBACILLUS ACIDOPHILUS CAP (BACID) PO SCH ×2 (08:24→17:40)
[2022-02-26] MEDS: FERROUS GLUCONATE 324 MG TAB PO SCH (08:24)
[2022-02-26] MEDS: FOLIC ACID 1 MG TAB PO SCH (08:24)
[2022-02-26] MEDS: CYANOCOBALAMIN 500 MCG TAB PO SCH (08:24)
[2022-02-26] MEDS: APIXABAN 2.5 MG TAB (ELIQUIS) PO SCH ×2 (08:24→20:49)
[2022-02-26] MEDS: DOCUSATE SODIUM 100MG CAPSULE PO SCH ×2 (08:24→20:49)
[2022-02-26] MEDS: OMEPRAZOLE 20MG CAP PO SCH (08:24)
[2022-02-26] MEDS: HYDROCORTISONE 1% CREAM 30 GM TOP SCH ×2 (08:29→20:51)
[2022-02-26] MEDS: ONDANSETRON 4MG ORAL DISINTEGRATING TAB SL PRN ×2 (12:50→20:46)
[2022-02-26] MEDS: ACETAMINOPHEN TAB 650MG DOSE (2X325MG) PO PRN (15:51)
[2022-02-26] MEDS: AMITRIPTYLINE 25MG TABLET PO SCH (20:49)
[2022-02-26] MEDS: SIMVASTATIN 20 MG TAB PO SCH (20:49)
[2022-02-27 06:00] VITALS: BP 103/67
[2022-02-27] MEDS: LACTULOSE 20 GM/30 ML SYRUP UD PO SCH ×3 (09:00→20:11)
[2022-02-27] MEDS: FERROUS GLUCONATE 324 MG TAB PO SCH (09:11)
[2022-02-27] MEDS: APIXABAN 2.5 MG TAB (ELIQUIS) PO SCH ×2 (09:11→20:11)
[2022-02-27] MEDS: FOLIC ACID 1 MG TAB PO SCH (09:11)
[2022-02-27] MEDS: CYANOCOBALAMIN 500 MCG TAB PO SCH (09:11)
[2022-02-27] MEDS: DOCUSATE SODIUM 100MG CAPSULE PO SCH ×2 (09:12→20:11)
[2022-02-27] MEDS: LACTOBACILLUS ACIDOPHILUS CAP (BACID) PO SCH ×2 (09:12→18:58)
[2022-02-27] MEDS: OMEPRAZOLE 20MG CAP PO SCH (09:12)
[2022-02-27] MEDS: MIDODRINE 5 MG TAB PO SCH ×3 (09:12→16:15)
[2022-02-27] MEDS: ACETAMINOPHEN TAB 650MG DOSE (2X325MG) PO PRN (09:37)
[2022-02-27] MEDS ORDERED: HYDROCORTISONE 1% CREAM 30 GM TOP PRN ×2 (13:45→14:01)
[2022-02-27] MEDS: SIMVASTATIN 20 MG TAB PO SCH (20:11)
[2022-02-27] MEDS: traMADol 50 MG TAB PO PRN (20:11)
[2022-02-27] MEDS: AMITRIPTYLINE 25MG TABLET PO SCH (20:11)
[2022-02-28 06:06] VITALS: BP 121/78
[2022-02-28 06:09] VITALS: BP 118/70
[2022-02-28 06:26] VITALS: BP 121/78
[2022-02-28 06:49] LABS: BASO % 0.1 % (0.0-1.0); EOS % 0.1 % (0.0-3.0); HEMATOCRIT 29.7 % (36.0-47.0); HEMOGLOBIN 10.1 g/dl (12.0-15.5); LYMPH # 0.9 10^3/uL (1.5-5.0); LYMPH % 11.5 % (24.0-44.0); MEAN CORPUSCULAR HEMOGLOBIN 29.8 pg (27.0-33.0); MEAN CORPUSCULAR VOLUME 87.6 fl (80.0-96.0); MONO # 0.3 10^3/uL (0.0-0.8); MONO % 3.7 % (2.0-8.0); NEUTROPHILS # 6.6 10^3/uL (1.5-8.5); NEUTROPHILS % 83.7 % (36.0-66.0); PLATELET COUNT, AUTOMATED 142 10^3/uL (150-450); RED BLOOD COUNT 3.39 10^6/uL (4.00-5.40); WHITE BLOOD COUNT 7.9 10^3/uL (4.0-10.0)
[2022-02-28 07:06] LABS: CK-MB VALUE MASS 3.3 NG/ML (<3.6); MB/CK RELATIVE INDEX 11.79 (< OR =4)
[2022-02-28 07:09] LABS: ALBUMIN 2.9 GM/DL (3.2-5.2); BILIRUBIN,TOTAL 2.3 MG/DL (0.2-1.0); CALCIUM LEVEL 8.3 MG/DL (8.8-10.2); CREATININE FOR GFR 2.64 MG/DL (0.55-1.30); GLOMERULAR FILTRATION RATE 19.3 (>45); MAGNESIUM LEVEL 1.9 MG/DL (1.8-2.4); POTASSIUM SERUM 4.5 MEQ/L (3.5-5.1); TOTAL PROTEIN 5.5 GM/DL (6.4-8.2)
[2022-02-28] MEDS ORDERED: LACTULOSE 20 GM/30 ML SYRUP UD PR ONE (07:10)
[2022-02-28] MEDS: LACTOBACILLUS ACIDOPHILUS CAP (BACID) PO SCH (08:00)
[2022-02-28] MEDS: MIDODRINE 5 MG TAB PO SCH ×3 (08:00→14:59)
[2022-02-28] MEDS: LACTULOSE 20 GM/30 ML SYRUP UD PO SCH ×2 (08:10→14:59)
[2022-02-28] MEDS: DOCUSATE SODIUM 100MG CAPSULE PO SCH (08:10)
[2022-02-28] MEDS: APIXABAN 2.5 MG TAB (ELIQUIS) PO SCH (08:10)
[2022-02-28] MEDS: CYANOCOBALAMIN 500 MCG TAB PO SCH (08:11)
[2022-02-28] MEDS: OMEPRAZOLE 20MG CAP PO SCH (08:11)
[2022-02-28] MEDS: FOLIC ACID 1 MG TAB PO SCH (08:11)
[2022-02-28] MEDS: FERROUS GLUCONATE 324 MG TAB PO SCH (08:11)
[2022-02-28] MEDS: cefTRIAXone SOD 2 GM in D5W MINI-BAG PLUS 50 ML IV SCH ×2 (10:21→12:43)
[2022-02-28 12:27] LABS: HEMATOCRIT 30.9 % (36.0-47.0); HEMOGLOBIN 10.5 g/dl (12.0-15.5)
[2022-02-28 14:00] VITALS: BP 77/53
[2022-02-28] MEDS ORDERED: LIDOCAINE 1% SDV 5ML VIAL DILUENT ONE (14:00)
[2022-02-28] MEDS ORDERED: cefTRIAXone SOD 2 GM VIAL (J0696 PER 250MG) IM ONE (14:00)
[2022-02-28] MEDS ORDERED: FLEET ENEMA PR PRN (15:55)
[2022-02-28] MEDS ORDERED: ACETAMINOPHEN 650 MG SUPP PR PRN (15:55)
[2022-02-28] MEDS ORDERED: HYOSCYAMINE SULFATE 0.125 MG SUBL TABLET PO PRN (15:55)
[2022-02-28] MEDS ORDERED: LORazepam 1 MG TAB PO PRN (15:55)
[2022-02-28] MEDS ORDERED: ONDANSETRON 4MG ORAL DISINTEGRATING TAB PO PRN (15:55)
[2022-02-28] MEDS ORDERED: ATROPINE SULFATE 1% OP SOLN 2 ML BTL SL PRN (15:55)
[2022-02-28] MEDS ORDERED: BISACODYL 10 MG SUPP PR PRN (15:55)
[2022-02-28] MEDS ORDERED: SCOPOLAMINE 1MG TRANSDERMAL PATCH TOP PRN (15:55)
[2022-02-28] MEDS: MORPHINE 10MG/0.5ML ORAL CONCENTRATE SOLUTION U/D SL PRN (23:11)
[2022-03-01] MEDS: MORPHINE 10MG/0.5ML ORAL CONCENTRATE SOLUTION U/D SL PRN (02:08)
== END 2022-03-01 11:55 | disposition expired | DRG 432 ==
LOC: M ED 11:10 → M ED INP 16:37 → M 4MAIN 19:44 → M MSPAV 01-23 12:50
PROVIDERS: ADMIT Internal Medicine; ATTEND Family Medicine
PROC: 30233J1 Transfusion of Nonautologous Serum Albumin into Peripheral Vein, Percutaneous Approach (ICD-10-PCS; 2022-01-13)
PROC: 0W9G3ZZ Drainage of Peritoneal Cavity, Percutaneous Approach (ICD-10-PCS; principal; 2022-01-14 15:00)
PROC: 0W9G3ZZ Drainage of Peritoneal Cavity, Percutaneous Approach (ICD-10-PCS; 2022-01-20)
PROC: 0W9G3ZZ Drainage of Peritoneal Cavity, Percutaneous Approach (ICD-10-PCS; 2022-01-27)
PROC: 0W9G3ZZ Drainage of Peritoneal Cavity, Percutaneous Approach (ICD-10-PCS; 2022-02-04)
PROC: 0W9G3ZZ Drainage of Peritoneal Cavity, Percutaneous Approach (ICD-10-PCS; 2022-02-24)
DX: K70.31 Alcoholic cirrhosis of liver with ascites (principal); K85.90 Acute pancreatitis without necrosis or infection, unspecified; N17.9 Acute kidney failure, unspecified; E46 Unspecified protein-calorie malnutrition; K76.6 Portal hypertension; N39.0 Urinary tract infection, site not specified; K56.7 Ileus, unspecified; N18.4 Chronic kidney disease, stage 4 (severe); K86.0 Alcohol-induced chronic pancreatitis; E87.2 Acidosis; R57.9 Shock, unspecified; Z51.5 Encounter for palliative care; Z66 Do not resuscitate; E11.22 Type 2 diabetes mellitus with diabetic chronic kidney disease; I95.9 Hypotension, unspecified; E83.42 Hypomagnesemia; D63.8 Anemia in other chronic diseases classified elsewhere; E78.5 Hyperlipidemia, unspecified; E87.6 Hypokalemia; I12.9 Hypertensive chronic kidney disease with stage 1 through stage 4 chronic kidney disease, or unspecified chronic kidney disease; K21.9 Gastro-esophageal reflux disease without esophagitis; R29.6 Repeated falls; R53.1 Weakness; B96.20 Unspecified Escherichia coli [E. coli] as the cause of diseases classified elsewhere; I95.1 Orthostatic hypotension; E83.41 Hypermagnesemia; K29.80 Duodenitis without bleeding; D69.6 Thrombocytopenia, unspecified; R33.9 Retention of urine, unspecified; R63.0 Anorexia; I95.89 Other hypotension; E86.0 Dehydration; L25.9 Unspecified contact dermatitis, unspecified cause; K72.90 Hepatic failure, unspecified without coma; F10.10 Alcohol abuse, uncomplicated; N13.9 Obstructive and reflux uropathy, unspecified; D50.9 Iron deficiency anemia, unspecified; R74.01 Elevation of levels of liver transaminase levels; E80.6 Other disorders of bilirubin metabolism; F39 Unspecified mood [affective] disorder; K62.3 Rectal prolapse; G89.29 Other chronic pain; R53.81 Other malaise; M54.9 Dorsalgia, unspecified; Z79.01 Long term (current) use of anticoagulants; Z79.899 Other long term (current) drug therapy; Z86.16 Personal history of COVID-19